=== PATIENT | male | born 1960 | race Caucasian/White ===

== ENCOUNTER → 2020-04-07 08:43 | Outpatient (BNVA) | payer OTHER, SELFPAY | PROVIDERS: PCP Internal Medicine; Referring Provider Internal Medicine; Visit Provider Nurse Practitioner | DX: Z76.89 Persons encountering health services in other specified circumstances (principal) ==

== ENCOUNTER 2020-09-02 06:08 | Outpatient (REF) | payer OTHER, SELFPAY ==
[2020-09-02 12:07] LABS: Alanine Aminotransferase 59 U/L (0-40); Anion Gap 13 (12-20); Aspartate Amino Transferase 31 U/L (5-37); Blood Urea Nitrogen 14 mg/dL (9-16); Calcium 8.9 mg/dL (8.4-10.2); Carbon Dioxide 27 mmol/L (22-29); Chloride 103 mmol/L (96-108); Cholesterol 203 mg/dL; Estimated Glomerular Filt Rate > 60; Glucose Fasting 135 mg/dL (60-99); HDL Cholesterol 36 mg/dL; LDL Cholesterol Calculated 120 mg/dl; Sodium 139 mmol/L (135-145); Triglycerides 237 mg/dL
[2020-09-02 12:16] LABS: Estimated Average Glucose 137 mg/dL; Hemoglobin A1c % 6.4 %
== END 2020-09-02 06:09 | disposition home or self-care (01) ==
LOC: HO.HMGCLDS 06:08
PROVIDERS: Visit Provider Internal Medicine
DX: E78.2 Mixed hyperlipidemia (principal); I10 Essential (primary) hypertension; R73.01 Impaired fasting glucose
CPT/HCPCS: 36415; 80048; 80061; 83036; 84450; 84460

== ENCOUNTER → 2020-10-05 08:25 | Outpatient (BNVA) | payer OTHER, SELFPAY | PROVIDERS: PCP Internal Medicine; Visit Provider Nurse Practitioner ==

== ENCOUNTER 2020-11-12 11:31 | Day surgery (SDC) | payer OTHER, SELFPAY ==
[2020-11-12 11:47] VITALS: BP 114/75; PULSE 62; RESP 16; TEMP 36.7; O2SAT 97; BMI 32.1
--- NOTE | 2020-11-12 12:23 | P.OP_ITS ---
Operative Note Operative Note Date of Service: 11/12/20 Narrative: Pre-op diagnosis: Colon cancer screening, history of colon polyps Post-op diagnosis: other (Colon polyps, diverticulosis, hemorrhoids) Procedure: COLONOSCOPY TILL CECUM WITH BIOPSIES AND SNARE POLYPECTOMY Consent: Indications for the procedure and potential complications of bleeding, perforation, reaction to medications and missed diagnosis were discussed with the patient and informed consent was obtained. Instrument: Olympus PCF H 190 L variable stiffness pediatric colonoscope Monitoring: Vital signs and clinical assessment, intermittent blood pressure monitoring, continuous EKG monitoring, Pulse oximetry and Carbon Dioxide monitoring were done throughout the procedure. Colon withdrawl time was 22 minutes. Procedure: The patient was placed in the left lateral decubitis position and pre-procedure medications were administered. After a digital rectal examination of the ano-rectum, the video colonoscope was inserted into the rectum and advanced through the colon to the cecum. The colonoscope was slowly withdrawn in a retrograde panoramic fashion and the colon mucosa was carefully examined including a retroflexed view of the rectum. Findings and interventions are described below. Procedure Difficulty: Without difficulty Findings: Terminal Ileum: Not evaluated Cecum: Three 8-10 mm sessile polyps removed with a hot snare Ascending Colon: Three sessile polyps 7-10 mm removed by cold snare and bx. Transverse Colon: Normal Descending Colon: Moderate diverticulosis Sigmoid Colon: Severe diverticulosis with luminal narrowing Rectum: Normal Ano-rectum: Moderate internal hemorrhoids and hypertrophied anal papillae Colon preparation: Good after copious irrigation Impression and Post Procedure Diagnosis: Colonoscopy Findings: Six medium sized polyps removed Moderate to severe diverticulosis seen in the left colon Moderate hemorrhoids on retroflexed exam. Plan: Await pathology results A letter will be sent to the patient with biopsy results. Repeat Colonoscopy interval based on path results - in 2-3 years if polyps are adenomatous and and due to history of multiple adenomatous colon polyps in the past. Above findings were reviewed with the patient and colon polyps and diverticulosis handouts were given in the discharge area Surgeon: Jennifer De Jesus MD Anesthesia: MAC (Jil Carcamo CRNA) Was an Radar Systems Engineer used for this Procedure?: Yes Radar Systems Engineer: Elizabeth Hernández Estimated blood loss (mL): 0 Pathology: other ( A. CECAL POLYPS B. ASCENDING COLON POLYPS) Condition: stable Disposition: PACU
--- NOTE | 2020-11-12 12:23 | P.HPSUR_ITS ---
Pre-Procedural Eval Section A Date of Service: 11/12/20 The patient is an INPATIENT: No The History & Physical has been completed within 30 days and I have reviewed it.: No Section B Chief Complaint: polyp of colon Details of Present Illness: Colon cancer screening, history of multiple colon polyps Relevant Family History (Specify if Yes): No Relevant Social History: Tobacco Use (former smoker) Present Medications: see Short Stay Collaborative assessment Medical History: Significant History (Elevated fasting blood sugar Hyper triglyceridemia) History of Previous Operations: Relevant previous surgery/procedure and date(s) (Hx of colonoscopy Hx of hemorrhoidectomy (10/07/19)) Allergies: Allergies Allergy/AdvReac Type Severity Reaction Status Date / Time No Known Allergies Allergy Unknown N/A- Verified 11/12/20 12:17 [NO KNOWN ALLERGIES] Review of Systems Sugical H&P ROS: Negative: Constitution, Cardiovascular, Respiratory and Gastrointestinal Exam Surgical H&P Exam: Normal: Heart, Normal: Lungs, Normal: Extremities and Normal: Abdomen Plan Diagnosis/Plan: Unchanged I have reviewed the history and physical and performed a pertinent physical examination on my patient. No changes have occurred unless specified.
[2020-11-12] MEDS: Lactated Ringers 1,000 ML 100 ML IVCONT (12:45)
[2020-11-12 14:21] VITALS: BP 113/60; PULSE 54; RESP 14; TEMP 37.7; O2SAT 98
[2020-11-12 14:36] VITALS: BP 113/60; PULSE 54; RESP 14; TEMP 36.3; O2SAT 98
== END 2020-11-12 15:07 | disposition home or self-care (01) ==
PROVIDERS: PCP Internal Medicine; Visit Provider Internal Medicine Gastroenterology
PROC: 0DJD8ZZ Inspection of Lower Intestinal Tract, Via Natural or Artificial Opening Endoscopic (ICD-10-PCS; CPT 45378; principal; 2020-11-12 13:10)
DX: Z12.11 Encounter for screening for malignant neoplasm of colon (principal); Z86.010 Personal history of colon polyps; D12.0 Benign neoplasm of cecum; D12.2 Benign neoplasm of ascending colon; K57.30 Diverticulosis of large intestine without perforation or abscess without bleeding; K64.8 Other hemorrhoids; K62.89 Other specified diseases of anus and rectum; E78.1 Pure hyperglyceridemia; R73.01 Impaired fasting glucose; Z87.891 Personal history of nicotine dependence
CPT/HCPCS: 45385; 45380; 88305

== ENCOUNTER 2020-12-20 06:02 | Outpatient (REF) | payer OTHER, SELFPAY ==
[2020-12-20 11:45] LABS: Anion Gap 13 (12-20); Blood Urea Nitrogen 15 mg/dL (9-16); Calcium 8.9 mg/dL (8.4-10.2); Carbon Dioxide 26 mmol/L (22-29); Chloride 107 mmol/L (96-108); Cholesterol 187 mg/dL; Estimated Glomerular Filt Rate > 60; Glucose Fasting 136 mg/dL (60-99); HDL Cholesterol 32 mg/dL; LDL Cholesterol Calculated 121 mg/dl; Potassium 4.2 mmol/L (3.3-5.1); Sodium 142 mmol/L (135-145); Triglycerides 170 mg/dL
[2020-12-20 11:54] LABS: Estimated Average Glucose 111 mg/dL; Hemoglobin A1c % 5.5 %
== END 2020-12-20 06:03 | disposition home or self-care (01) ==
LOC: HO.HMGCLDS 06:02
PROVIDERS: PCP Internal Medicine; Visit Provider Internal Medicine
DX: E78.1 Pure hyperglyceridemia (principal); R73.01 Impaired fasting glucose
CPT/HCPCS: 36415; 80048; 80061; 83036

== ENCOUNTER 2021-06-13 06:06 | Outpatient (REF) | payer OTHER, SELFPAY ==
[2021-06-13 11:53] LABS: Estimated Average Glucose 117 mg/dL; Hemoglobin A1C 152.1852 umol/L; Hemoglobin A1c % 5.7 %
[2021-06-13 12:13] LABS: Anion Gap 13 (12-20); Blood Urea Nitrogen 19 mg/dL (9-16); Calcium 9.1 mg/dL (8.4-10.2); Carbon Dioxide 25 mmol/L (22-29); Chloride 105 mmol/L (96-108); Cholesterol 187 mg/dL; Estimated Glomerular Filt Rate > 60; Glucose Fasting 112 mg/dL (60-99); HDL Cholesterol 37 mg/dL; LDL Cholesterol Calculated 121 mg/dl; Potassium 4.3 mmol/L (3.3-5.1); Sodium 139 mmol/L (135-145); Triglycerides 147 mg/dL
== END 2021-06-13 06:07 | disposition home or self-care (01) ==
LOC: HO.HMGCLDS 06:06
PROVIDERS: Visit Provider Internal Medicine
DX: E66.9 Obesity, unspecified (principal); E78.1 Pure hyperglyceridemia; R73.01 Impaired fasting glucose
CPT/HCPCS: 36415; 80048; 80061; 83036

== ENCOUNTER 2021-08-11 09:10 | Outpatient (REF) | payer OTHER, SELFPAY ==
--- NOTE | ~2021-08-11 | XR_ITS ---
EXAMINATION: XR CHEST 2 VIEWS CLINICAL INFORMATION: Shortness of breath. COMPARISON: Left shoulder radiographs dated 06/01/2008. TECHNIQUE: Frontal and lateral views of the chest were obtained. FINDINGS: The heart, great vessels, pulmonary vasculature and mediastinum are normal. The lungs show no focal infiltrate, effusion or pneumothorax. At the left apex, an 8 mm nodule is seen. This is unchanged from left shoulder radiographs dated 06/01/2008, and it is considered benign. There is no acute osseous abnormality. XR/XR chest 2V IMPRESSION: 1. No focal infiltrate or congestive heart failure is seen. 2. A benign, stable left upper lobe nodule is redemonstrated.
== END 2021-08-11 09:11 | disposition home or self-care (01) ==
LOC: HO.XRAY 09:10
PROVIDERS: PCP Internal Medicine; Referring Provider Internal Medicine; Visit Provider Internal Medicine
DX: R06.02 Shortness of breath (principal); R07.2 Precordial pain; R00.0 Tachycardia, unspecified; R06.09 Other forms of dyspnea; U09.9 Post COVID-19 condition, unspecified
CPT/HCPCS: 71046; 93005

== ENCOUNTER → 2021-10-03 09:20 | Outpatient (REF) | payer OTHER, SELFPAY ==
--- NOTE | 2021-10-03 09:23 | CA_ITS ---
Acquisition Time: 2021-10-03 10:02:29 Total Exercise Time: 00:08:20 Test Indications: CP, SOB Medications: SEE CHART Protocol: RODERICK Max HR: 137 BPM 86% of Pred: 159 BPM Max BP: 182/074 mmHG Max Work Load: 10.1 METS Exercise stress test with exercise 8 min 20 sec of Roderick protocol, achieving 86% MPHR, with moderate shortness of breath, no chest discomfort, with occassional isolated PAC and PVC each of which correlated with his report of fluttering in his chest, with normotensive response to exercise, without EKG changes meeting criteria for ischemia. In recovery his breathing quickly improved. Test reviewed with Dr Willams Referred By: Ramy Willams Overread By: LAILA YEE
--- NOTE | 2021-10-03 09:23 | HM_ITS ---
* Total monitoring time 2 days and 21 hours. * Underlying rhythm is sinus. Average rate 70/Min. Range 42 to 125/Min. * No atrial fibrillation or flutter or AV blocks or pauses. * Rare supraventricular ectopy with minimal burden. Very brief runs. * Rare ventricular ectopy. * No patient events. MTDD
--- NOTE | 2021-10-03 09:23 | CA_ITS ---
Transthoracic Echocardiogram Patient (Last, First, Middle): Jaya Hancock, Gender: Male Date of : 1960 Age: 61 Procedure Date: 10/03/2021 Procedure Type: Transthoracic Echocardiogram Location: OP Height: 180.34 cm Weight: 105.24 kg BSA: 2.25 m2 Heart Rate: bpm BP: 122 / 50 mmHg Supervisor Rod Placing: SB Referring MD: Ramy Willams MD Symptoms: R06.02 - Shortness of breath Study Quality: Adequate ECG Rhythm: Bradycardia Conclusions: - The left ventricular systolic function is normal. The calculated ejection fraction is 66% by biplane method. - There is mild calcification of the aortic valve. Findings Left Ventricle Normal left ventricular cavity size. There is normal left ventricular wall thickness. The left ventricular systolic function is normal. The calculated ejection fraction is 66% by biplane method. There is no evidence of regional wall motion abnormalities. Diastolic function is normal for age. LV peak GLS -16%. Right Ventricle Normal right ventricular cavity size and systolic function. Atria Both atria are normal in size. Aortic Valve There is mild calcification of the aortic valve. There is no aortic valve stenosis. There is no aortic valve regurgitation. Mitral Valve The mitral valve appears normal. There is no mitral valve regurgitation. There is no mitral valve stenosis. Pulmonic Valve The pulmonic valve is likely normal. Tricuspid Valve Normal tricuspid valve structure. There is trace tricuspid valve regurgitation. The pulmonary artery systolic pressure is normal. Great Vessels The asc aorta is normal in size. Venous The inferior vena cava was not well visualized. Pericardium/Pleural There is no evidence of pericardial effusion. Prior Study Comparison No prior study available for comparison. Measurements 2D Linear Measurements IVSd: 0.75 0.6-0.9/0.6-1.0 cm LVIDd: 5.36 3.9-5.3/4.2-5.9 cm LVIDd Index: 2.38 2.4-3.2/2.2-3.1 cm/m2 LVIDs: 3.91 2.0-3.6 cm LVPWd: 0.82 0.7-1.1 cm LA Diam: 4.10 2.7-3.8/3.0-4.0 cm LAIDs Index: 1.82 1.5-2.3 cm/m2 LV Mass: 186.12 67-162/88-224 g LV Mass Index: 82.72 43-95/49-115 g/m2 LVOT Diam: 2.40 3.0+(-)1.3 cm 2D Systolic Function EF 4C: 63.20 >55% EF 2C: 66.80 >55% EF BiP: 65.90 >55% Mitral Valve MV Pk E: 0.65 MV PK A: 0.50 MV Decel Time: 198.00 E/A: 1.30 E'Lateral: 8.05 E'Medial: 5.87 E/E' Med: 11.00 E/E' Lat: 8.00 PHT: 58.00 MVA PHT: 3.79 Decel [place]: 3.28 Aortic Valve AoV Pk Barak: 1.48 AoV Mn Barak: 0.98 AoV VTI: 0.29 AoV Pk Grad: 9.00 Aov Mn Grad: 4.00 [place] Cont.VTI: 3.17 LVOT LVOT Pk Barak: 0.96 LVOT Mn Barak: 0.62 LVOT VTI: 0.20 LVOT Pk Grad: 4.00 LVOT Mn Grad: 2.00 LVOT Diam: 2.40 LVOT Area: 4.52 Diastolic Function MV Pk E: 0.65 MV Pk A: 0.50 E/A: 1.30 E'Medial: 5.87 E/E' Med: 11.00 E' Laterial: 8.05 E/E' Lat: 8.00 Right Ventricle TAPSE (mm): 20.90 TVS' Barak: 14.70 Tricuspid Valve TR Pk Barak: 2.19 TR Pk Grad: 19.00 Great Vessels Aorta Sinus of Valsalva: 3.67 2.0-3.[address] [place]: 3.14 1.7-3.4 cm Ao Asc: 3.50 2.1-3.4 cm Pulmonary Veins Pulm Vein S/D 1.40 Pulmonary Valve PV Pk Barak: 1.05 Peak PV Grad: 4.00 Updated in Other Vendor System with Status of Final Ramy Willams MD electronically signed on 10/04/2021 3:54:26 PM with status of Final
== END ==
LOC: HO.CARD 09:20
PROVIDERS: PCP Internal Medicine; Visit Provider Internal Medicine
DX: R07.2 Precordial pain (principal); R00.2 Palpitations; R06.02 Shortness of breath; R00.0 Tachycardia, unspecified
CPT/HCPCS: 93017; 93242; 93306; 93356

== ENCOUNTER → 2021-10-12 12:56 | Outpatient (BNVA) | payer OTHER, SELFPAY | PROVIDERS: PCP Internal Medicine; Referring Provider Internal Medicine; Visit Provider Nurse Practitioner Family | DX: R06.09 Other forms of dyspnea (principal) ==

== ENCOUNTER 2021-10-24 15:44 | Outpatient (REF) | payer OTHER, SELFPAY | END 2021-10-24 15:45 | disposition home or self-care (01) | LOC: HO.LNP 15:44 | PROVIDERS: Visit Provider Physician Assistant | DX: J02.9 Acute pharyngitis, unspecified (principal) | CPT/HCPCS: 87071 ==

== ENCOUNTER 2021-12-02 15:47 | Outpatient (REF) | payer OTHER, SELFPAY ==
--- NOTE | 2021-12-02 17:16 | PFT_ITS ---
Forced vital capacity 81%, FEV1 83%. FEV1 or FVC ratio is 77. FEF 25-75 is 91%. MVV 76%. Post-bronchodilator therapy, no significant change noted. Total lung capacity 79%. Residual volume 78%. Diffusion capacity 74%. CONCLUSION: Normal pulmonary function test except for possible borderline restrictive disorder. Clinical correlation is recommended. MD SERJIO Lima/LEOL / [id number]
== END 2021-12-02 15:48 | disposition home or self-care (01) ==
LOC: HO.RESP 15:47
PROVIDERS: PCP Internal Medicine; Visit Provider Nurse Practitioner Family
DX: R06.09 Other forms of dyspnea (principal); U09.9 Post COVID-19 condition, unspecified
CPT/HCPCS: 94060; 94727; 94729

== ENCOUNTER 2022-01-18 08:46 | Outpatient (REF) | payer OTHER, SELFPAY ==
--- NOTE | ~2022-01-18 | CT_ITS ---
EXAMINATION: CT CHEST WITHOUT CONTRAST CLINICAL INFORMATION: Chronic restrictive lung disease COMPARISON: Previous chest x-ray July 2021 TECHNIQUE: Multidetector volumetric CT imaging of the chest was done. Axial MIP volume rendering provided. Sagittal and coronal reformatted images were obtained. This CT examination was performed using dose optimization techniques as appropriate, variously including the following: *Automated exposure control *Adjustment of mA and/or kV according to patient size (this includes techniques or standardized protocols for targeted exams where dose is matched to indication/reason for exam; i.e. extremities or head) *Use of iterative reconstruction technique DLP: 237 mGy-cm FINDINGS: LUNGS: There is a 2 mm calcified right upper lobe nodule axial image 40 series 10. There is a 9 mm calcified left upper lobe nodule axial image 46 series 10 accounting for findings on chest x-ray. There is an adjacent 2 mm calcified left upper lobe nodule axial image 46 series 10. There is a 4 mm calcified left lower lobe nodule axial image 145 series 10. No evidence of emphysema interstitial lung disease or bronchiectasis. No endobronchial or endotracheal lesion. MEDIASTINUM: Normal heart size. Mild coronary artery calcification. No pericardial effusion. Normal caliber thoracic aorta. Small calcified left hilar lymph nodes. Small noncalcified mediastinal lymph nodes. No enlarged lymph nodes seen. PLEURA: There is no pleural effusion. No pleural mass or thickening. AXILLA: No chest wall mass. No enlarged axillary lymph nodes. UPPER ABDOMEN: Fatty liver. Diverticulosis of the colon. OSSEOUS STRUCTURES: Unremarkable. CT/CT chest wo IV con IMPRESSION: Bilateral calcified nodules and left hilar calcifications probably related to old granulomatous disease. No evidence of interstitial lung disease. Coronary artery calcification. Fleischner guidelines were followed.
== END 2022-01-18 08:47 | disposition home or self-care (01) ==
LOC: HO.CT 08:46
PROVIDERS: PCP Internal Medicine; Visit Provider Hospitalist
DX: J98.4 Other disorders of lung (principal); R06.02 Shortness of breath
CPT/HCPCS: 71250

== ENCOUNTER 2022-02-28 16:13 | Outpatient (REF) | payer OTHER, SELFPAY ==
[2022-02-28 16:30] LABS: MANUAL DIFF FLAG NO
[2022-02-28 17:21] LABS: Basophils Absolute Auto 0.1 X10*3/uL (0.0-0.2); Basophils Percent Auto 0.7 % (0-2); Eosinophils Absolute Auto 0.2 X10*3/uL (0.0-0.4); Eosinophils Percent Auto 2.5 % (0-4); Hematocrit 39.5 % (42.0-52.0); Imm Gran Abs Auto 0.04 X10*3/uL (0.00-0.03); Imm Gran Pct Auto 0.5 % (0.0-0.4); Lymphocytes Absolute Auto 4.3 X10*3/uL (1.2-4.9); Lymphocytes Percent Auto 58.1 % (20-40); Mean Corpuscular HGB Conc 35.4 g/dl (31.0-36.0); Mean Corpuscular Hemoglobin 33.3 pg (27.0-33.0); Mean Platelet Volume 10.2 fL (9.4-12.4); Monocytes Absolute Auto 0.4 X10*3/uL (0.1-1.2); Monocytes Percent Auto 5.1 % (2-11); Neutrophils Absolute Auto 2.5 x10*3/uL (2.0-8.3); Neutrophils Percent Auto 33.1 % (45-73); Platelet Count 172 X10*3/uL (160-400); Red Cell Distribution Width 13.1 % (11.0-16.0); White Blood Count 7.5 X10*3/uL (4.8-10.8)
[2022-02-28 17:36] LABS: Anion Gap 14 (12-20); Blood Urea Nitrogen 16 mg/dL (9-16); Calcium 9.3 mg/dL (8.4-10.2); Carbon Dioxide 25 mmol/L (22-29); Chloride 104 mmol/L (96-108); Estimated Glomerular Filt Rate > 60; Glucose Random 102 mg/dL (60-115); Iron 102 mcg/dL (45-160); Percent Iron Saturation 33 % (15-50); Potassium 4.1 mmol/L (3.3-5.1); Sodium 139 mmol/L (135-145); Total Iron Binding Capacity 313 mcg/dL (228-428); Unsaturated Iron Binding 211 ug/dL
[2022-02-28 17:37] LABS: D Dimer High Sensitivity < 150 NG/ML
[2022-02-28 17:45] LABS: Troponin-I High Sensitivity < 3.5 ng/L (<3.5-35.0)
[2022-02-28 18:02] LABS: Ferritin 478 ng/mL (20-250); Thyroid Stimulating Hormone 1.51 uIU/mL (0.32-4.0)
[2022-02-28 18:18] LABS: Erythrocyte Sedimentation Rate 7 MM/HR (0-15)
== END 2022-02-28 16:14 | disposition home or self-care (01) ==
LOC: HO.LAB 16:13
PROVIDERS: Visit Provider Hospitalist
DX: Z13.89 Encounter for screening for other disorder (principal)
CPT/HCPCS: 36415; 80048; 82728; 83540; 84443; 84484; 85025; 85379; 85652

== ENCOUNTER 2022-03-07 12:27 | Outpatient (REF) | payer OTHER, SELFPAY ==
--- NOTE | ~2022-03-07 | XR_ITS ---
EXAMINATION: XR KNEE, RIGHT CLINICAL INFORMATION: Right knee pain COMPARISON: 05/22/2018 TECHNIQUE: Four views of the right knee. FINDINGS: No fracture or subluxation. There is moderate narrowing of the patellofemoral compartment joint space, similar to prior imaging. Small associated marginal osteophytes. The medial and lateral compartments are maintained. No joint effusion. The soft tissues are unremarkable. XR/XR knee RT 4V IMPRESSION: Moderate degenerative changes of the patellofemoral compartment, similar to prior imaging. No acute osseous abnormality.
== END 2022-03-07 12:28 | disposition home or self-care (01) ==
LOC: HO.HMGCX 12:27
PROVIDERS: PCP Internal Medicine; Visit Provider Internal Medicine
DX: M25.561 Pain in right knee (principal)
CPT/HCPCS: 73564

== ENCOUNTER 2022-03-20 11:37 | Outpatient (REF) | payer OTHER, SELFPAY ==
--- NOTE | ~2022-03-20 | XR_ITS ---
EXAMINATION: KNEE X-RAY CLINICAL INFORMATION: Pain COMPARISON: Previous x-ray from 2019 TECHNIQUE: AP standing view of both knees and lateral and sunrise view of the right knee FINDINGS: Right: Bone alignment is normal. No fracture or dislocation. Arthritis at the patellofemoral joint. Moderate to large joint effusion. Standing AP view of the left knee is unremarkable. XR/XR knee RT 2V IMPRESSION: Right: Arthritis at the patellofemoral joint and moderate to large joint effusion.
--- NOTE | ~2022-03-20 | XR_ITS ---
EXAMINATION: KNEE X-RAY CLINICAL INFORMATION: Pain COMPARISON: Previous x-ray from 2019 TECHNIQUE: AP standing view of both knees and lateral and sunrise view of the right knee FINDINGS: Right: Bone alignment is normal. No fracture or dislocation. Arthritis at the patellofemoral joint. Moderate to large joint effusion. Standing AP view of the left knee is unremarkable. XR/XR knee standing BI IMPRESSION: Right: Arthritis at the patellofemoral joint and moderate to large joint effusion.
== END 2022-03-20 11:38 | disposition home or self-care (01) ==
LOC: HO.HOSX 11:37
PROVIDERS: Visit Provider Orthopaedic Surgery
DX: M25.561 Pain in right knee (principal); M17.11 Unilateral primary osteoarthritis, right knee
CPT/HCPCS: 20610; 73560; 73565; J1100

== ENCOUNTER → 2022-03-21 13:52 | Outpatient (REF) | payer OTHER, SELFPAY | LOC: HO.SL 13:52 | PROVIDERS: PCP Internal Medicine; Visit Provider Hospitalist | DX: G47.33 Obstructive sleep apnea (adult) (pediatric) (principal); R40.0 Somnolence | CPT/HCPCS: 95806 ==

== ENCOUNTER 2022-04-20 15:00 | Outpatient (RCR) | payer OTHER, SELFPAY ==
--- NOTE | 2022-03-23 15:41 | MHC.PT.EP ---
[facility] [place] Office [place] Office [place] Office [address] [place] [address] [phone] F: [phone] F: [phone] F: [phone] F: [phone] Physical Therapy Plan of Care Date of Evaluation: Date of Surgery: n/a Diagnosis: OA of R knee Assessment: Patient is a 62 year old male presenting to PT with complaints of pain in his R knee. Pt reports onset of pain began about 6 weeks ago due to insidious onset. He presents today with impairments in pain, ROM, hip strength, and muscle tightness. 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 Pt expresses intermediate designer goal of reducing pain, and is motivated to work towards this in PT. Clinical presentation today is most consistent with signs and sx associated with R knee pain with possible arthritic contribution and pt will benefit from skilled PT to address the following problems and impairments noted upon evaluation: pain, ROM, hip strength, and muscle tightness. These problems limit the patient with the following functional activities: ambulating, stair negotiation, ADLs, work. The prescribed treatment plan of care is medically necessary. Co-morbidities of none were identified and taken into considerations of plan of care. Pt was educated on HEP, role of PT, prognosis, POC. Frequency and Duration: The patient will be seen 2 x week x 4 weeks Short Term Goals: Pt will demonstrate improved hip MMT by 1/3 grade in 2 weeks for improved lumbopelvic stability. Pt will demonstrate R knee AROM equal B with min to no pain in 2 weeks. Pt will demonstrate self reports of less tightness in his muscles surrounding his R knee in 2 weeks. Medical Coordinator Pesticide Use Goals: Pt will demonstrate improved LEFI score by 9 points in 4 weeks for improved functional mobility. Pt will demonstrate ability to negotiate stairs and ambulate community distance with min to no pain in 4 weeks for improved access to the community. Pt will demonstrate improved ability to complete ADLs with min to no pain in 4 weeks for return to PLOF. Treatment Plan: Modalities to reduce pain, spasms and effusion. Manual therapy to restore motion and function. Therapeutic exercise to improve strength and flexibility. Neuromuscular re-education for posture and balance. Therapeutic activities to return to functional activities of daily living. Electronically signed by: Chloé Sorto PT, DPT, ATC Please sign and return to therapist. Thank you for your referral.
--- NOTE | 2022-04-20 15:55 | MHC.PT.DC ---
[facility] [place] Office [place] Office [place] Office [address] [place] [address] [phone] F: [phone] F: [phone] F: [phone] F: [phone] Physical Therapy Discharge Report Diagnosis: OA of R knee Date of Surgery: n/a Date of Evaluation: 03/23/22 Date of Discharge: 04/20/22 Treatments to Date: 8 Cancellations to Date: 0 No Shows to Date: 0 Discharge Status: Recommend MD Follow-up Discharge Summary: 04/20/2022: Pt has made minimal to no progress since beginning skilled PT. He continues to have high pain levels and low tolerance to exercise as a result. Gait continues to be quite antalgic due to the continued pain on the R. This is preventing him from meeting his goals and being able to tolerate his normal functional ADL and work requirements. Various treatment interventions have been trialed all without success. At this point it appears we have reached the max benefits of PT. Skilled PT is no longer indicated at this time as pt is not benefiting from it. Recommend pt follow up with MD for further management of his pain. Pt in agreement with d/c and plan. Electronically signed by: Chloé Sorto, PT, DPT, ATC Please sign and return to therapist. Thank you for your referral.
== END 2022-04-20 15:55 | disposition home or self-care (01) ==
LOC: HO.PTCHIC 15:00
PROVIDERS: PCP Internal Medicine; Visit Provider Orthopaedic Surgery
DX: M17.11 Unilateral primary osteoarthritis, right knee (principal)
CPT/HCPCS: 97110; 97140; 97161

== ENCOUNTER → 2022-05-08 15:18 | Outpatient (BNVA) | payer OTHER, SELFPAY | PROVIDERS: PCP Internal Medicine; Visit Provider Hospitalist | DX: J44.9 Chronic obstructive pulmonary disease, unspecified (principal); R06.00 Dyspnea, unspecified; J98.4 Other disorders of lung; R07.2 Precordial pain; R40.0 Somnolence ==

== ENCOUNTER 2022-05-11 09:18 | Outpatient (REF) | payer OTHER, SELFPAY ==
--- NOTE | ~2022-05-11 | XR_ITS ---
EXAMINATION: XR PELVIS CLINICAL INFORMATION: M25.559 - Pain in unspecified hip COMPARISON: CT pelvis 08/26/2018 TECHNIQUE: AP view of the pelvis. FINDINGS: No fracture, dislocation, or bony destructive process. There are mild degenerative changes lower lumbar spine with disc narrowing L5-S1 and likely at L4-L5. Some mild chronic whiskering at the lateral iliac crests again seen. There is mild osteitis pubis. There is borderline superior medial hip joint narrowing. No erosive change or chondrocalcinosis. 2 surgical clips seen overlying left parasagittal region just distal to the ischial tuberosity possibly and perineum. XR/XR pelvis 1-2V IMPRESSION: 1. Mild degenerative changes lower lumbar spine. 2. Mild osteitis pubis. 3. Borderline superior medial hip joint narrowing. No erosive change.
== END 2022-05-11 09:19 | disposition home or self-care (01) ==
LOC: HO.HOSX 09:18
PROVIDERS: PCP Internal Medicine; Visit Provider Orthopaedic Surgery
DX: M17.11 Unilateral primary osteoarthritis, right knee (principal); R20.0 Anesthesia of skin
CPT/HCPCS: 72170

== ENCOUNTER 2022-05-18 14:56 | Outpatient (REF) | payer OTHER, SELFPAY ==
--- NOTE | ~2022-05-18 | MR_ITS ---
EXAMINATION: MR LUMBAR SPINE WITHOUT CONTRAST CLINICAL INFORMATION: Anesthesia of skin. The patient states leg weakness, pain and numbness on the right. COMPARISON: CT scan of the abdomen and pelvis 08/26/2018. TECHNIQUE: MRI of the lumbar spine was obtained using routine sequences without contrast. FINDINGS: VERTEBRAL BODIES AND PARASPINAL STRUCTURES: There is a mild retrolisthesis of L5 on S1, and there is a mild anterolisthesis of L4 on L5. There is narrowing of intervertebral disc height at L5-S1 with loss of signal from the disc. There are degenerative endplate contour changes at this level with edematous endplate signal. Vertebral body heights are maintained and no fractures are demonstrated. Overall, marrow signal is homogenous. The infrarenal abdominal aorta is slightly ectatic but not aneurysmal. There are degenerative changes of the bilateral sacroiliac joints. CONUS MEDULLARIS AND CAUDA EQUINA: Normal, terminating at the level of L1-L2. The lower thoracic spinal cord appears normal. The cauda equina nerve roots and filum terminale appear normal. SPINAL LEVELS: T12-L1: The facet joints appear normal bilaterally. Disc contour is normal. There is no central stenosis or foraminal narrowing. L1-L2: The facet joints appear normal bilaterally. Disc contour is normal. There is no central stenosis or foraminal narrowing. L2-L3: The facet joints appear normal bilaterally. Disc contour is normal. There is no central stenosis or foraminal narrowing. L3-L4: There is mild bilateral facet arthropathy and ligamenta flava hypertrophy. There is a mild diffuse disc bulge. There is a left foraminal disc protrusion with impingement on the exiting left L3 nerve root. There is no central stenosis. L4-L5: There is severe right and moderate to severe left facet arthropathy with ligamenta flava hypertrophy and facet joint effusions. There is mild unroofing of the disc as a result of the anterolisthesis. There is a left foraminal disc protrusion impinging on the exiting left L4 nerve root. There is narrowing of the bilateral subarticular recesses and there is moderate central stenosis. L5-S1: There is moderate bilateral facet arthropathy. There is a posterior disc protrusion extending into the inferior neural foramina bilaterally without definite exiting nerve root impingement. There is a small extruded component extending into the left subarticular recess with impingement on the traversing left S1 nerve root. There is no central stenosis. MR/MR lumbar spine wo con IMPRESSION: 1. There is a mild anterolisthesis of L4 on L5 secondary to facet arthropathy. There is a left foraminal disc protrusion impinging on the exiting left L4 nerve root. There is moderate central stenosis. 2. At L5-S1 there is a posterior disc protrusion with a small extruded component extending into the left subarticular recess with impingement on the traversing left S1 nerve root. There is no central stenosis. 3. At L3-L4 there is facet arthropathy and there is a left foraminal disc protrusion impinging on the exiting left L3 nerve root. There is no central stenosis.
== END 2022-05-18 14:57 | disposition home or self-care (01) ==
LOC: HO.MRI 14:56
PROVIDERS: Visit Provider Orthopaedic Surgery
DX: R20.0 Anesthesia of skin (principal)
CPT/HCPCS: 72148

== ENCOUNTER → 2022-07-05 08:50 | Outpatient (BNVA) | payer OTHER, SELFPAY | PROVIDERS: PCP Internal Medicine; Visit Provider Anesthesiology | DX: Z13.89 Encounter for screening for other disorder (principal) ==

== ENCOUNTER 2022-07-17 06:10 | Outpatient (REF) | payer OTHER, SELFPAY ==
[2022-07-17 12:42] LABS: Estimated Average Glucose 140 mg/dL; Hemoglobin A1c % 6.5 %
[2022-07-17 12:48] LABS: Alanine Aminotransferase 94 U/L (0-40); Anion Gap 11 (12-20); Aspartate Amino Transferase 58 U/L (5-37); Blood Urea Nitrogen 15 mg/dL (9-16); Calcium 9.1 mg/dL (8.4-10.2); Carbon Dioxide 27 mmol/L (22-29); Chloride 106 mmol/L (96-108); Cholesterol 206 mg/dL; Estimated Glomerular Filt Rate > 60; Glucose Fasting 161 mg/dL (60-99); HDL Cholesterol 34 mg/dL; LDL Cholesterol Calculated 119 mg/dl; PSA,Total (Free>4and<10) 0.25 ng/mL (0.00-4.00); Potassium 4.3 mmol/L (3.3-5.1); Sodium 140 mmol/L (135-145); Triglycerides 266 mg/dL; Vitamin D 25-OH Total 26.7 ng/mL (>30)
== END 2022-07-17 06:11 | disposition home or self-care (01) ==
LOC: HO.HMGCLDS 06:10
PROVIDERS: PCP Internal Medicine; Visit Provider Internal Medicine
DX: Z00.01 Encounter for general adult medical examination with abnormal findings (principal); E78.1 Pure hyperglyceridemia; R73.01 Impaired fasting glucose; E66.9 Obesity, unspecified; R06.02 Shortness of breath; Z12.5 Encounter for screening for malignant neoplasm of prostate; Z79.899 Other long term (current) drug therapy; Z79.84 Long term (current) use of oral hypoglycemic drugs
CPT/HCPCS: 36415; 80048; 80061; 82306; 83036; 84153; 84450; 84460

== ENCOUNTER 2022-07-21 09:45 | Outpatient (AMB) | payer OTHER, SELFPAY ==
--- NOTE | 2022-07-21 10:00 | A.OFFPC_ITS ---
Vital Signs 07/21/22 10:03 Height 5 ft 11 in Weight 242 lb BMI 33.7 BP 134/70 Blood Pressure Location Rt brachial Position Sitting Pulse 80 Pulse Source Pulse Oximeter Pulse Oximetry (%) 98 Oxygen Delivery Method Room Air Intake Visit Reasons: Physical Intake Note: Pt is here today for his PE Allergies No Known Allergies (NO KNOWN ALLERGIES) Allergy (Unknown, Verified 03/10/25 14:10) N/A- Tobacco use date assessed: 07/21/22 [facility] Medical History (Updated 03/15/25 @ 23:29 by Ronna Patton MD) Type 2 diabetes mellitus with microalbuminuria Personal history of nicotine dependence Osteopenia of multiple sites Hepatic steatosis Pain in both feet Long-term use of Plaquenil Erosive osteoarthritis Bulging of lumbar intervertebral disc Chronic radicular lumbar pain Polyarticular osteoarthritis Metformin adverse reaction Polyarthralgia Neck pain Bilateral finger arthralgia Post-COVID chronic dyspnea Colitis Chronic tension headaches Peripheral neuropathy Pulmonary nodules Sessile colonic polyp (~2018) Tinnitus of both ears Mixed dyslipidemia Type 2 diabetes mellitus without complication, with no history of insulin use STUART (obstructive sleep apnea) Chronic restrictive lung disease Shortness of breath on exertion Obesity (BMI 30.0-34.9) Tubular adenoma of colon (~2018) Surgical History History of hernia repair History of hemorrhoidectomy History of colonoscopy Family History Father No problems noted. Mother No problems noted. 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 Current occupational exposures/hazards: No Cognitive needs: No Hearing needs: No Vision needs: No Questionnaire Thrive Questionnaire Declines Thrive assessment: No Date Thrive assessed: 07/21/22 I am a: Patient What is your living situation today?: I have a steady place to live Within the past 12 months, did the food you bought not last and you didn't have the money to get more?: Never true Within the past 12 months, did you worry whether your food would run out before you got money to buy more?: Never true Do you have trouble paying for medicines?: No Do you have trouble getting transportation to medical appointments?: No Do you have trouble paying your heating and electricity bill?: No Do you have trouble taking care of your child, family member or friend?: No Do you have trouble with day-to-day activities such as bathing, preparing meals, shopping, managing finances, etc.?: No Are you currently unemployed and looking for a job?: No Are you interested in more education?: No AUDIT C Alcohol Use Questionnaire (AUDIT-C) 1. How often do you have a drink containing alcohol?: Never Total Score: 0 RAIZA-7 AMB Questionnaire RAIZA-7 Date RAIZA - 7 assessed: 07/21/22 Feeling nervous, anxious, or on edge: 0 = Not at all Not being able to stop or control worryin = Several days Worrying too much about different things: 1 = Several days Trouble relaxin = More than half the days Being so restless that it is hard to sit still: 1 = Several days Becoming easily annoyed or irritable: 2 = More than half the days Feeling afraid as if something awful might happen: 1 = Several days Total RAIZA-7 score (0-4 normal; 5-9 mild; 10-14 moderate; 15-21 severe): 8 Source: Developed by Drs. Wes Stock, Marleni Montague, Joselito Reeves and colleagues, with an educational ade from [email or web address]. Physical exam (Primary Care) Vital Signs: Last Vital Signs Pulse 80 07/21/22 10:03 BP 134/70 07/21/22 10:03 Pulse Ox 98 07/21/22 10:03 Oxygen Delivery Method Room Air 07/21/22 10:03 BMI result Body Mass Index 33.7 Tobacco/Smoking Status: Tobacco use Status Tobacco use date assessed 07/21/22 07/21/22 10:05 Patient Tobacco Use Status Former Tobacco user 07/21/22 10:02 e-Cigarette/Vaping Use Never Used 07/21/22 10:02 Thrive Assessment: Date of Thrive Assessment Date Thrive assessed 07/21/22 07/21/22 10:10 Coding Level of Care Code Admin Sign Off/No Billing Diagnoses Type 2 diabetes mellitus without complication, with no history of insulin use E11.9 Mixed dyslipidemia E78.2 Annual visit for general adult medical examination with abnormal findings Z00.01 Chronic pain syndrome G89.4 Obesity (BMI 30.0-34.9) E66.9 Tubular adenoma of colon D12.6
[2022-07-21 10:03] VITALS: BP 134/70; PULSE 80; O2SAT 98; BMI 33.7
== END 2022-07-21 11:03 | disposition home or self-care (01) ==
LOC: HO.HMGC 09:45
PROVIDERS: PCP Internal Medicine; Visit Provider Internal Medicine
DX: E11.9 Type 2 diabetes mellitus without complications (principal); E78.2 Mixed hyperlipidemia; Z00.01 Encounter for general adult medical examination with abnormal findings; G89.4 Chronic pain syndrome; E66.9 Obesity, unspecified; D12.6 Benign neoplasm of colon, unspecified
CPT/HCPCS: 99499

== ENCOUNTER 2022-08-01 06:14 | Outpatient (REF) | payer OTHER, SELFPAY | END 2022-08-01 06:15 | disposition home or self-care (01) | LOC: CF 06:14 | PROVIDERS: Visit Provider Anesthesiology | DX: Z13.89 Encounter for screening for other disorder (principal) ==

== ENCOUNTER 2022-08-29 05:54 | Outpatient (REF) | payer OTHER, SELFPAY ==
--- NOTE | ~2022-08-29 | FL_ITS ---
EXAMINATION: XR FLUOROSCOPY WITH IMAGES CLINICAL INFORMATION: Right knee pain. COMPARISON: 03/20/2022 TECHNIQUE: Fluoroscopy Supervised By: Dr. Bill May. Fluoroscopy Time: 0.1 minute. Cumulative Dose: 1.53 mGy. DAP: 0.417 Gycm2. Images: 2. FINDINGS: Rowe are seen about the medial and lateral aspects of the distal femur and medial aspect of the proximal tibia. FL/FL guidance in treatment room IMPRESSION: Intraoperative fluoroscopy for pain management procedure.
== END 2022-08-29 05:55 | disposition home or self-care (01) ==
LOC: CF 05:54
PROVIDERS: Visit Provider Anesthesiology
DX: M47.816 Spondylosis without myelopathy or radiculopathy, lumbar region (principal); M17.11 Unilateral primary osteoarthritis, right knee; M51.36 Other intervertebral disc degeneration, lumbar region
CPT/HCPCS: 64454; J2795

== ENCOUNTER → 2022-09-06 09:32 | Outpatient (BNVA) | payer OTHER, SELFPAY | PROVIDERS: PCP Internal Medicine; Visit Provider Anesthesiology | DX: Z13.89 Encounter for screening for other disorder (principal) ==

== ENCOUNTER → 2022-09-22 12:45 | Outpatient (BNVA) | payer OTHER, SELFPAY | PROVIDERS: PCP Internal Medicine; Visit Provider Hospitalist | DX: J44.9 Chronic obstructive pulmonary disease, unspecified (principal); R06.00 Dyspnea, unspecified; J98.4 Other disorders of lung; R07.2 Precordial pain; R40.0 Somnolence ==

== ENCOUNTER 2022-10-10 06:00 | Outpatient (REF) | payer OTHER, SELFPAY | END 2022-10-10 06:01 | disposition home or self-care (01) | LOC: CF 06:00 | PROVIDERS: Visit Provider Anesthesiology | DX: M17.11 Unilateral primary osteoarthritis, right knee (principal); M47.816 Spondylosis without myelopathy or radiculopathy, lumbar region; M51.36 Other intervertebral disc degeneration, lumbar region | CPT/HCPCS: 64447 ==

== ENCOUNTER 2022-10-10 06:01 | Outpatient (REF) | payer OTHER, SELFPAY ==
[2022-10-10 12:14] LABS: Estimated Average Glucose 114 mg/dL; Hemoglobin A1c % 5.6 %
[2022-10-10 12:18] LABS: Microalbumin Urine < 5.0 mg/L
[2022-10-10 12:21] LABS: Alanine Aminotransferase 38 U/L (0-40); Anion Gap 13 (12-20); Aspartate Amino Transferase 22 U/L (5-37); Blood Urea Nitrogen 15 mg/dL (9-16); Carbon Dioxide 24 mmol/L (22-29); Chloride 106 mmol/L (96-108); Cholesterol 153 mg/dL; Estimated Glomerular Filt Rate > 60; Glucose Fasting 137 mg/dL (60-99); HDL Cholesterol 36 mg/dL; LDL Cholesterol Calculated 80 mg/dl; Potassium 4.2 mmol/L (3.3-5.1); Sodium 139 mmol/L (135-145); Triglycerides 185 mg/dL
== END 2022-10-10 06:02 | disposition home or self-care (01) ==
LOC: HO.HMGCLDS 06:01
PROVIDERS: PCP Internal Medicine; Visit Provider Internal Medicine
DX: E11.9 Type 2 diabetes mellitus without complications (principal); E78.2 Mixed hyperlipidemia
CPT/HCPCS: 36415; 80048; 80061; 82043; 83036; 84450; 84460; 86787

== ENCOUNTER → 2022-10-18 13:48 | Outpatient (BNVA) | payer OTHER, SELFPAY | PROVIDERS: PCP Internal Medicine; Visit Provider Anesthesiology ==

== ENCOUNTER 2022-10-20 12:48 | Outpatient (AMB) | payer OTHER, SELFPAY ==
--- NOTE | 2022-10-20 13:12 | A.OFFPC_ITS ---
<Statement entered by Ronna Patton MD - 06/22/25 00:12> This note has been administratively?closed. Vital Signs 10/20/22 13:18 Height 5 ft 11 in Weight 237 lb BMI 33.1 BP 112/64 Blood Pressure Location Rt brachial Position Sitting Pulse 75 Pulse Source Pulse Oximeter Pulse Oximetry (%) 97 Oxygen Delivery Method Room Air Intake Visit Reasons: 3m follow up DM ,lipids Intake Note: Pt is here today for his 3 mo. f/u DM and lipids Allergies No Known Allergies (NO KNOWN ALLERGIES) Allergy (Unknown, Verified 03/10/25 14:10) N/A- Tobacco use date assessed: 10/20/22 [facility] Medical History (Updated 03/15/25 @ 23:29 by Ronna Patton MD) Type 2 diabetes mellitus with microalbuminuria Personal history of nicotine dependence Osteopenia of multiple sites Hepatic steatosis Pain in both feet Long-term use of Plaquenil Erosive osteoarthritis Bulging of lumbar intervertebral disc Chronic radicular lumbar pain Polyarticular osteoarthritis Metformin adverse reaction Polyarthralgia Neck pain Bilateral finger arthralgia Post-COVID chronic dyspnea Colitis Chronic tension headaches Peripheral neuropathy Pulmonary nodules Sessile colonic polyp (~2018) Tinnitus of both ears Mixed dyslipidemia Type 2 diabetes mellitus without complication, with no history of insulin use STUART (obstructive sleep apnea) Chronic restrictive lung disease Shortness of breath on exertion Obesity (BMI 30.0-34.9) Tubular adenoma of colon (~2018) Surgical History History of hernia repair History of hemorrhoidectomy History of colonoscopy Family History Father No problems noted. Mother No problems noted. 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 How often do you have a drink containing alcohol?: Never Total Score: 0 RAIZA-7 AMB Questionnaire RAIZA-7 Date RAIZA - 7 assessed: 07/21/22 Source: Developed by Drs. Wes Stock, Marleni Montague, Joselito Reeves and colleagues, with an educational ade from [employer]. Physical exam (Primary Care) Vital Signs: Last Vital Signs Pulse 75 10/20/22 13:18 BP 112/64 10/20/22 13:18 Pulse Ox 97 10/20/22 13:18 Oxygen Delivery Method Room Air 10/20/22 13:18 BMI result Body Mass Index 33.1 Tobacco/Smoking Status: Tobacco use Status Tobacco use date assessed 10/20/22 10/20/22 13:13 Patient Tobacco Use Status Former Tobacco user 10/20/22 13:13 e-Cigarette/Vaping Use Never Used 10/20/22 13:13 Thrive Assessment: Date of Thrive Assessment Date Thrive assessed 07/21/22 10/20/22 13:13 Results Reviewed Results Reviewed: COMP: 10/10/22-1221 ENTERED: 10/10/22-[address]: ORDERED: Met Prof Fast, AST, ALT, Lipid Panel Test Result Flag Reference Site Sodium 139 135-145 mmol/L Potassium 4.2 3.3-5.1 mmol/L CL 106 96-108 mmol/L CO2 24 22-29 mmol/L Gap 13 12-20 BUN 15 9-16 mg/dL Creat 0.99 0.5-1.4 mg/dL EGFR > 60 NOTE: For -Turkish individuals, multiply the result by 1.210. Chronic Kidney Disease: Estimated GFR < 60 mL/min/1.73m2 Severe Kidney Disease: Estimated GFR < 15 mL/min/1.73m2 FBS 137 H 60-99 mg/dL A fasting glucose of 126 mg/dl or greater on more than one occasion is considered diagnostic of diabetes. CA 9.0 8.4-10.2 mg/dL AST (GOT) 22 5-37 U/L ALT (GPT) 38 0-40 U/L Triglyceride 185 mg/dL Desirable Triglyceride: less than 150 mg/dL Borderline High Triglyceride 150-199 mg/dL High Triglyceride: 200-499 mg/dL Very High Triglyceride: greater than or equal to 5OO mg/dL Chol 153 mg/dL Desirable Cholesterol: less than 200 mg/dL Borderline High Cholesterol: 200-239 mg/dL High Cholesterol: greater than 239 mg/dL LDL Calculated 80 mg/dl Desirable LDL: less than 100 mg/dL Near Optimal/Above Optimal LDL: 110-129 mg/dL Borderline High LDL: 130-159 mg/dL High LDL: 160-189 mg/dL Very High LDL: greater than or equal to 190 mg/dL HDL 36 mg/dL Desirable HDL: greater than 40 mg/dL Note: This HDL assay may give artificially low results in patients with liver disease. Laboratory Tests 10/10/22 10/10/22 06:07 06:07 Estimat Average Glucose 114 Hemoglobin A1c % 5.6 Urine Creatinine 119.60 Urine Microalbumin < 5.0 Microalb/Creat Ratio TNP Coding Level of Care Code Admin Sign Off/No Billing Diagnoses Multilevel spinal stenosis M48.00 Radiculopathy with lower extremity symptoms M54.10 Type 2 diabetes mellitus without complication, with no history of insulin use E11.9 Mixed dyslipidemia E78.2
[2022-10-20 13:18] VITALS: BP 112/64; PULSE 75; O2SAT 97; BMI 33.1
== END 2022-10-20 14:08 | disposition home or self-care (01) ==
PROVIDERS: PCP Internal Medicine; Visit Provider Internal Medicine
DX: M48.00 Spinal stenosis, site unspecified (principal); M54.10 Radiculopathy, site unspecified; E11.9 Type 2 diabetes mellitus without complications; E78.2 Mixed hyperlipidemia
CPT/HCPCS: 99499

== ENCOUNTER 2022-11-13 08:27 | Day surgery (SDC) | payer OTHER, SELFPAY ==
[2022-11-08 15:37] VITALS: BMI 32.1
--- NOTE | 2022-11-10 10:35 | HO.ANESPROP2 ---
Documented by User: Apoorva Aaron NP 11/10/22 10:36 HPI - Anesthesia Eval Consult details Narrative: 62yo M for Colon[facility] Active Problems Active Problems: All Active Problems (Updated 09/22/22 @ 12:26 by Justa Barnes PA-C) Chronic restrictive lung disease (Acute) Shortness of breath on exertion (Acute) Dyspnea (Acute) Post-COVID chronic dyspnea (Acute) STUART (obstructive sleep apnea) (Acute) History of prior cigarette smoking (Acute) Tachycardia (Acute) Precordial chest pain (Acute) Type 2 diabetes mellitus without complication, with no history of insulin use (Acute) Mixed dyslipidemia (Acute) Obesity (BMI 30.0-34.9) (Acute) Tubular adenoma of colon (Acute ~2019) Sessile colonic polyp (Acute ~2019) Chronic pain syndrome (Acute) Disc degeneration, lumbar (Acute) Spondylosis of lumbar region without myelopathy or radiculopathy (Acute) Central stenosis of spinal canal (Acute) Right knee pain (Acute) Arthritis of right knee (Acute) Lower extremity numbness (Acute) Lower extremity edema (Acute) Tendonitis of ankle, right (Acute) Trigger finger of both hands (Acute) Bilateral finger arthralgia (Acute) Infection of right ear (Acute ~07/2022) Past Medical History Medical History (Updated 09/22/22 @ 12:26 by Justa Barnes PA-C) Bilateral finger arthralgia Chronic restrictive lung disease Lower extremity edema Mixed dyslipidemia Obesity (BMI 30.0-34.9) STUART (obstructive sleep apnea) Shortness of breath on exertion Trigger finger of both hands Tubular adenoma of colon (~2019) Type 2 diabetes mellitus without complication, with no history of insulin use Family History Family History Father No problems noted. Mother No problems noted. Surgical History Surgical History (Updated 09/22/22 @ 12:20 by Justa Barnes PA-C) History of colonoscopy History of hemorrhoidectomy History of hernia repair Social History Social History Housing: House Alcohol intake: current Alcohol intake frequency: does not drink Patient Tobacco Use Status: Former Tobacco user Quit Date: 06/2018 Years Smoked: 45 yrs e-Cigarette/Vaping Use: Never Used Second Hand Smoke Exposure: No Use of substances other than those prescribed or required for medical reasons: No Are you DNR?: No Advance Directives: No Advance Directives Information Provided: Yes service: No 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 occupational status: employed 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 Current occupational exposures/hazards: No Cognitive needs: No Hearing needs: No Vision needs: No Meds Allergies Allergy/AdvReac Type Severity Reaction Status Date / Time No Known Allergies Allergy Unknown N/A- Verified 10/20/22 13:13 [NO KNOWN ALLERGIES] Home Medications Medication Instructions Recorded Confirmed Last Taken Type multivitamin 1 tab PO DAILY 09/03/20 11/13/22 Unknown History CPAP (CPAP Machine/Device) 09/22/22 Unknown History Exam Exam Date and Time: November 10, 2022 1035 Height,Weight and Vital Signs: Height 5 ft 11 in Weight 104.326 kg Pertinent Lab Results Pertinent Lab Results: Laboratory Tests 02/28/22 10/10/22 16:29 06:07 WBC 7.5 Hgb 14.0 Hct 39.5 L Plt Count 172 Sodium 139 Potassium 4.2 Chloride 106 Carbon Dioxide 24 BUN 15 Creatinine 0.99 Narrative Narrative: ECHO 2021 Conclusions: - The left ventricular systolic function is normal.? The ? calculated ejection fraction is 66% by biplane method. ? - There is mild calcification of the aortic valve. ? Assessment and Plan Assessment Anesthesia Assessment: Chart Reviewed Documented by User: Gwendolyn Gao MD 11/13/22 09:15 [facility] Past Medical History Medical History (Updated 09/22/22 @ 12:26 by Justa Barnes PA-C) Bilateral finger arthralgia Chronic restrictive lung disease Lower extremity edema Mixed dyslipidemia Obesity (BMI 30.0-34.9) STUART (obstructive sleep apnea) Shortness of breath on exertion Trigger finger of both hands Tubular adenoma of colon (~2018) Type 2 diabetes mellitus without complication, with no history of insulin use Family History Family History Father No problems noted. Mother No problems noted. Family history of problems with anesthesia: No Surgical History Surgical History (Updated 09/22/22 @ 12:20 by Justa Barnes PA-C) History of colonoscopy History of hemorrhoidectomy History of hernia repair History of Problems with Anesthesia: No Social History Social History Housing: House Alcohol intake: current Alcohol intake frequency: does not drink Patient Tobacco Use Status: Former Tobacco user Quit Date: 06/2018 Years Smoked: 45 yrs e-Cigarette/Vaping Use: Never Used Second Hand Smoke Exposure: No Use of substances other than those prescribed or required for medical reasons: No Are you DNR?: No Advance Directives: No Advance Directives Information Provided: Yes service: No 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 occupational status: employed 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 Current occupational exposures/hazards: No Cognitive needs: No Hearing needs: No Vision needs: No Meds Allergies Allergy/AdvReac Type Severity Reaction Status Date / Time No Known Allergies Allergy Unknown N/A- Verified 10/20/22 13:13 [NO KNOWN ALLERGIES] Home Medications Medication Instructions Recorded Confirmed Last Taken Type multivitamin 1 tab PO DAILY 09/03/20 11/13/22 Unknown History CPAP (CPAP Machine/Device) 09/22/22 Unknown History Exam Airway Mallampati Class: II (dentures at home) TM Dist: >3cm Neck ROM: Full Denture: Upper and Lower Heart: rrr Lungs: cta Assessment and Plan Assessment Anesthesia Assessment: Anesthesia Plan Discussed Final Anesthetic Review Family History of Problems with Anesthesia: No History of Problems with Anesthesia: No NPO: Yes ASA Class: III Final Preanesthetic Review: No Changes in Pt Med Stat, Meds/Allgs Chart Reviewed and Consent Obtained/Reviewed Patient Risk: Intermediate Procedure Risk: Intermediate Anesthetic Plan Anesthetic Plan: MAC: Disposition: Standard PACU
[2022-11-13 08:56] VITALS: BMI 32.1
[2022-11-13 08:58] LABS: Glucose, Whole Blood 128 mg/dL (60-115)
[2022-11-13 08:59] VITALS: BP 142/88; PULSE 73; RESP 18; TEMP 36.8; O2SAT 96
[2022-11-13] MEDS: Lactated Ringers 1,000 ML 100 ML IVCONT (09:17)
--- NOTE | 2022-11-13 10:13 | MHC.SHP ---
Pre-Procedural Eval Section A Date of Service: 11/13/22 The patient is an INPATIENT: No The History & Physical has been completed within 30 days and I have reviewed it.: No Section B Chief Complaint: Encounter for screening for malignant neoplasm of Relevant Family History (Specify if Yes): No Relevant Social History: Tobacco Use (former smoker) Present Medications: see Short Stay Collaborative assessment Medical History: Significant History (Elevated fasting blood sugar Hypertriglyceridemia) History of Previous Operations: Relevant previous surgery/procedure and date(s) (Hx of colonoscopy Hx of hemorrhoidectomy (10/07/19)) Allergies: Allergies Allergy/AdvReac Type Severity Reaction Status Date / Time No Known Allergies Allergy Unknown N/A- Verified 10/20/22 13:13 [NO KNOWN ALLERGIES] Review of Systems Sugical H&P ROS: Negative: Constitution, Cardiovascular, Respiratory and Gastrointestinal Exam Surgical H&P Exam: Normal: Heart, Normal: Lungs, Normal: Extremities and Normal: Abdomen Plan Diagnosis/Plan: Unchanged I have reviewed the history and physical and performed a pertinent physical examination on my patient. No changes have occurred unless specified. Time Spent With Patient Time: Total time managing care of this patient today ____ minutes.
--- NOTE | 2022-11-13 10:17 | W.PM.OPN ---
Operative Note Operative Note Date of Service: 11/13/22 Narrative: COLONOSCOPY TILL CECUM WITH BIOPSIES Pre-op diagnosis: Colon cancer screening, follow-up of multiple colon polyps Post-op diagnosis:? Colon polyp, diverticulosis, hemorrhoids Endoscopist:? Jennifer De Jesus MD Anesthesia:?MAC Consent: Indications for the procedure and potential complications of bleeding, perforation, reaction to medications and missed diagnosis were discussed with the patient and informed consent was obtained. Instrument: Olympus CF H 190 L variable stiffness adult colonoscope Monitoring: Vital signs and clinical assessment, intermittent blood pressure monitoring, continuous EKG monitoring, Pulse oximetry and Carbon Dioxide monitoring were done throughout the procedure. Please see anesthesia flowsheet. Colon withdrawl time was 18 minutes. Procedure: The patient was placed in the left lateral decubitis position and pre-procedure medications were administered. After a digital rectal examination of the ano-rectum, the video colonoscope was inserted into the rectum and advanced through the colon to the cecum. The colonoscope was slowly withdrawn in a retrograde panoramic fashion and the colon mucosa was carefully examined including a retroflexed view of the rectum. Findings and interventions are described below. Procedure Difficulty: Without difficulty Findings: Terminal Ileum: Not evaluated Cecum: A 2 x 3 cms area of polypoidal appearing mucosa with aphthoid ulcerations - multiple biopsies were obtained. Ascending Colon: A 3-4 mm sessile polyp - removed with a cold bx Transverse Colon: Normal Descending Colon: Moderate diverticulosis Sigmoid Colon: Moderate diverticulosis Rectum: Normal Ano-rectum: Moderate internal hemorrhoids Colon preparation: Excellent Impression and Post Procedure Diagnosis: Colonoscopy Findings: One small polyp removed A 2 x 3 cms area of polypoidal appearing mucosa with aphthoid ulcerations - multiple biopsies were obtained. Moderate diverticulosis seen in the left colon Moderate hemorrhoids on retroflexed exam. Plan: Await pathology results Patient has an appointment on 11/30/22 in the [facility] with Tricia Montemayor NP. Repeat Colonoscopy interval based on path results - in 6 months (with hybrid APC) if biopsies obtained from the cecum show adenomatous tissue and 5 years if polyps are hyperplastic (due to a hx of colon polyps). Above findings were reviewed with the patient and colon polyps handout was given in the discharge area
[2022-11-13 10:52] VITALS: BP 112/60; PULSE 68; RESP 16; TEMP 36.4; O2SAT 98
[2022-11-13 11:06] VITALS: BP 123/63; PULSE 63; RESP 16; TEMP 36.2; O2SAT 97
== END 2022-11-13 11:43 | disposition home or self-care (01) ==
PROVIDERS: PCP Internal Medicine; Visit Provider Internal Medicine Gastroenterology
PROC: 0DJD8ZZ Inspection of Lower Intestinal Tract, Via Natural or Artificial Opening Endoscopic (ICD-10-PCS; CPT 45378; principal; 2022-11-13 10:10)
DX: Z12.11 Encounter for screening for malignant neoplasm of colon (principal); Z86.010 Personal history of colon polyps; D12.2 Benign neoplasm of ascending colon; K57.30 Diverticulosis of large intestine without perforation or abscess without bleeding; K64.8 Other hemorrhoids; K52.9 Noninfective gastroenteritis and colitis, unspecified; E11.9 Type 2 diabetes mellitus without complications; E78.2 Mixed hyperlipidemia; G47.33 Obstructive sleep apnea (adult) (pediatric); Z99.89 Dependence on other enabling machines and devices; Z87.891 Personal history of nicotine dependence; Z79.899 Other long term (current) drug therapy
CPT/HCPCS: 45380; 82947; 88305

== ENCOUNTER → 2022-11-14 09:15 | Outpatient (BNVA) | payer OTHER, SELFPAY | PROVIDERS: PCP Internal Medicine; Visit Provider Physician Assistant ==

== ENCOUNTER 2022-12-14 09:48 | Outpatient (REF) | payer OTHER, SELFPAY ==
[2022-12-14 11:28] LABS: C Reactive Protein 0.32 mg/dL (< or = 0.50)
== END 2022-12-14 09:49 | disposition home or self-care (01) ==
LOC: HO.LAB 09:48
PROVIDERS: PCP Internal Medicine; Visit Provider Nurse Practitioner
DX: D12.6 Benign neoplasm of colon, unspecified (principal); K52.9 Noninfective gastroenteritis and colitis, unspecified
CPT/HCPCS: 36415; 81479; 82397; 83520; 86140; 88346; 88350

== ENCOUNTER 2022-12-14 09:48 | Outpatient (AMB) | payer OTHER, SELFPAY ==
--- NOTE | 2022-12-14 09:52 | MHC.OFFVIS ---
Intake Vital Signs 12/14/22 09:54 Height 5 ft 11 in Weight 235 lb 14.314 oz BMI 32.9 BP 159/85 H Blood Pressure Location Lt brachial Position Sitting Pulse 69 Intake Visit Reasons: S/p colon Intake Note: Patient presents to in office visit today in follow up of colonoscopy. CC: Denies having any GI symptoms today. Patient underwent colonoscopy on 11/13/22. Systems Program Manager Required: No Accompanied by: Self / Same As Patient Allergies No Known Allergies [NO KNOWN ALLERGIES] Allergy (Unknown, Verified 12/14/22 09:53) N/A- HPI S/p colon HPI Details Assessment & Plan (1) Sessile colonic polyp: ? ? ? Code(s): K63.5 - Polyp of colon ? ? ? Category: Medical ? ? ? Plan: He tells me he is doing well.? He finally has recovered from his hemorrhoid surgery he does admit that it took him longer than he anticipated to recover.? I tell him that this is the type of surgery that people usually underestimate I try to tell them, not to steer the way from having it, but so they can realistically understand that recovery for some can be more challenging than they in vision. Fortunately he is well but he still concerned about coming in because of the new wave of COVID.? At this point I think there is no harm in putting it off for 6 months and at that time the pandemic may be dying down and or we may have a vaccine available.? He is not fate for himself but he is fearful could be has relatives that are high risk.? This is understandable. (2) Bleeding hemorrhoids: ? ? ? Code(s): K64.9 - Unspecified hemorrhoids ? ? ? Category: Medical COLONOSCOPY 11/13/22 Findings: Terminal Ileum: Not evaluated Cecum:? A 2 x 3 cms area of polypoidal appearing mucosa with aphthoid ulcerations - multiple biopsies were obtained. Ascending Colon:? A 3-4 mm sessile polyp - removed with a cold bx Transverse Colon:? Normal Descending Colon:? Moderate diverticulosis Sigmoid Colon:? Moderate diverticulosis Rectum:? Normal Ano-rectum:? Moderate internal hemorrhoids Colon preparation: Excellent ? Impression and Post Procedure Diagnosis: Colonoscopy Findings: One small polyp removed A 2 x 3 cms area of polypoidal appearing mucosa with aphthoid ulcerations - multiple biopsies were obtained. Moderate diverticulosis seen in the left colon Moderate hemorrhoids on retroflexed exam. Plan: Await pathology results Patient has an appointment on 11/30/22 in the GI Clinic with? Tricia Montemayor NP. Repeat Colonoscopy interval based on path results - in 6 months (with hybrid APC) if biopsies obtained from the cecum show adenomatous tissue and 5 years if polyps are hyperplastic (due to a hx of colon polyps). BIOPSY Received: 11/13/22 Diagnosis A.? Cecum, biopsy:? Severely active colitis. B.? Colon, ascending, polypectomy:? Sessile serrated lesion/polyp; negative for cytologic dysplasia. TODAY'S VISIT He is agreeable to a 5 year follow up. The procedure was well tolerated. The results were explained and the patient is agreeable to the follow-up interval as stated. The bowel pattern has returned to normal. Education was provided to tell any 1st degree relatives about their findings to be sure that they are screened by age 45. Educated that they will be put on a recall list when it is time for their repeat scope but should they move out of state or away from the hospital they will need to remember along with their primary to repeat the procedure in a timely fashion to avoid any adverse complications. We discuss the colitis finding in the cecal area, I would like to get a CRP and IBD genetics study to be thorough. He has intermittent diarrhea with spicy foods - even low grade. Currently his bowels are at his perceived baseline. He is struggling with LOVE and dizziness. ROV 6 weeks. [facility] Medical History (Updated 12/14/22 @ 11:03 by MERE Garcia) Bilateral finger arthralgia Chronic restrictive lung disease Lower extremity edema Mixed dyslipidemia Obesity (BMI 30.0-34.9) STUART (obstructive sleep apnea) Shortness of breath on exertion Trigger finger of both hands Tubular adenoma of colon (~2018) Type 2 diabetes mellitus without complication, with no history of insulin use Surgical History (Updated 12/14/22 @ 10:01 by SANDRA Bello) History of colonoscopy History of hemorrhoidectomy History of hernia repair Family History Father No problems noted. Mother No problems noted. 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 Current occupational exposures/hazards: No Cognitive needs: No Hearing needs: No Vision needs: No Review of Systems Const Denies fatigue, Denies fever(s), Reports headache(s), Denies night sweats, Denies poor appetite and Denies weight loss ENT Reports Normal hearing present, Denies dental pain, Denies dysphagia, Reports dizziness, Reports headache(s), Denies hearing loss, Denies mouth pain, Denies odynophagia, Denies throat swelling, Denies tongue swelling and Reports other (Dentition adequate) Card Reports no additional complaints Resp Reports no additional complaints GI Denies abdominal pain, Denies melena, Denies bloating, Denies hematochezia, Denies constipation, Denies GI cramping, Denies dysphagia, Denies excessive flatus, Denies early satiety, Denies heartburn, Reports diarrhea, Denies nausea, Denies odynophagia, Denies vomiting and Denies hematemesis Skin/Breast Denies pruritus, Denies lesions, Denies rash and Denies jaundice Neuro Reports Normal hearing present, Denies Abnormal speech present, Reports dizziness and Reports headache(s) Endo Denies fatigue Aller/Immun Denies throat swelling and Denies tongue swelling Physical Exam Vital Signs: Last Vital Signs Pulse 69 12/14/22 09:54 BP 159/85 H 12/14/22 09:54 BMI result Body Mass Index 32.9 Const General: cooperative, no acute distress, well developed and well groomed; No comfortable (frequently squinting eyes r/t LOVE) Nutritional Appearance: well nourished and obese Orientation/consciousness: oriented to person, oriented to place and oriented to time Limitations: No language barrier HEENT Head: Yes normocephalic and Yes atraumatic Eyes General: appearance normal, both eyes and all related structures Pupils: Equal, round and reactive pupils present Neck Neck: Yes normal visual inspection and Yes no lymphadenopathy Thyroid: Thyroid normal Resp Effort & Inspection: normal respiratory effort and able to speak in complete sentences Auscultation: clear to auscultation bilaterally Cardio Rate: regular rate Rhythm: regular rhythm Heart sounds: Normal, physiologic split S2 sound present Peripheral pulses: radial pulses present and posterior tibial pulses present GI Inspection: No distended, No Abdominal panniculus present and Yes obesity Palpation (GI): Soft to palpation, nontender, no guarding, not rigid and No hepatosplenomegaly present Percussion: Yes normal to percussion Auscultation: normal bowel sounds Rectal Exam - Male: Yes deferred Skin General skin exam: no rashes or lesions noted, turgor normal, skin not dry, no jaundice, No spider nevi and no striae Rashes: no rashes Nails: normal Neuro General: oriented to person, oriented to place and oriented to time Cranial nerves: Yes Equal, round and reactive pupils present and Yes Normal hearing present Speech: No Abnormal speech present Extrem General: Yes normal to inspection, No clubbing, No cyanosis and No edema Psych Appearance: grossly normal and well kempt Mental Status: mental status grossly normal Speech and movement: Normal speech and movement present Affect: normal affect Attitude: cooperative Thought process: Normal thought process present and not confabulating Thought content: Normal thought content present Insight: Fair insight present (Psych) Judgement: Fair judgement present (Psych) Assessment & Plan Assessment & Plan (1) Colitis: Comment: BIOPSY CECAL AREA ON COLONOSCOPY 2022 Code(s): K52.9 - Noninfective gastroenteritis and colitis, unspecified Plan: He is agreeable to a 5 year follow up. The procedure was well tolerated. The results were explained and the patient is agreeable to the follow-up interval as stated. The bowel pattern has returned to normal. Education was provided to tell any 1st degree relatives about their findings to be sure that they are screened by age 45. Educated that they will be put on a recall list when it is time for their repeat scope but should they move out of state or away from the hospital they will need to remember along with their primary to repeat the procedure in a timely fashion to avoid any adverse complications. We discuss the colitis finding in the cecal area, I would like to get a CRP and IBD genetics study to be thorough. He has intermittent diarrhea with spicy foods - even low grade. Currently his bowels are at his perceived baseline. He is struggling with LOVE and dizziness. ROV 6 weeks. (2) Tubular adenoma of colon: Onset Date: ~2018 Comment: 2022= 2 TA repeat 5 years aeb (TA on 2019 and 2020 scopes) Code(s): D12.6 - Benign neoplasm of colon, unspecified Orders: Orders C Reactive Protein Today K52.9 - Noninfective gastroenteritis and colitis, unspecified [facility] SGI Today K52.9 - Noninfective gastroenteritis and colitis, unspecified Coding Level of Care Code Est Pt Level 3 (38902) Diagnoses Colitis K52.9 Tubular adenoma of colon D12.6
[2022-12-14 09:54] VITALS: BP 159/85; PULSE 69; BMI 32.9
== END 2022-12-14 10:11 | disposition home or self-care (01) ==
PROVIDERS: PCP Internal Medicine; Visit Provider Nurse Practitioner
DX: K52.9 Noninfective gastroenteritis and colitis, unspecified (principal); D12.6 Benign neoplasm of colon, unspecified
CPT/HCPCS: 99213

== ENCOUNTER 2022-12-21 09:00 | Outpatient (REF) | payer OTHER, SELFPAY ==
--- NOTE | 2022-12-21 09:02 | EMG_ITS ---
Bilateral tibial and peroneal motor studies were performed. Bilateral sural, superficial peroneal, and median and lateral plantar studies were performed. Tibial H reflexes were obtained and paraspinal muscles were tested with a needle. IMPRESSION: Moderately severe axonal peripheral neuropathy mostly, affecting sensory nerves, specially in feet. MD JO Carballo/MARIMAR / [id number]
== END 2022-12-21 09:01 | disposition home or self-care (01) ==
LOC: HO.NEURO 09:00
PROVIDERS: PCP Internal Medicine; Visit Provider Physician Assistant
DX: R20.0 Anesthesia of skin (principal)
CPT/HCPCS: 95860; 95886; 95907; 95913

== ENCOUNTER 2022-12-22 07:03 | Outpatient (REF) | payer OTHER, SELFPAY ==
--- NOTE | ~2022-12-22 | CT_ITS ---
EXAMINATION: CT CHEST WITHOUT CONTRAST CLINICAL INFORMATION: Other disorders of lung, COPD. COMPARISON: 01/18/2022. TECHNIQUE: Multidetector volumetric CT imaging of the chest was done. Axial MIP volume rendering provided. Sagittal and coronal reformatted images were obtained. This CT examination was performed using dose optimization techniques as appropriate, variously including the following: *Automated exposure control *Adjustment of mA and/or kV according to patient size (this includes techniques or standardized protocols for targeted exams where dose is matched to indication/reason for exam; i.e. extremities or head) *Use of iterative reconstruction technique DLP: 231 mGy-cm. FINDINGS: LUNGS: Again seen are multiple calcified pulmonary nodules which are of no concern, probably related to granulomatous disease (see mora images). No new or worrisome lung nodules are seen. MEDIASTINUM: Heart size normal. No mediastinal or hilar lymphadenopathy. CORONARY ARTERY CALCIFICATION: Moderate. PLEURA: There is no pleural effusion. No pleural mass or thickening. AXILLA: No lymphadenopathy. UPPER ABDOMEN: Liver attenuation is decreased consistent with hepatic steatosis. There is mild splenomegaly at 12.7 cm. A calcified splenic granuloma is present. OSSEOUS STRUCTURES: Unremarkable. CT/CT chest wo IV con IMPRESSION: 1. Multiple calcified pulmonary nodules, unchanged. No worrisome lung nodules are seen. 2. Incidentally noted hepatic steatosis, mild splenomegaly and calcified splenic granuloma. Fleischner guidelines were followed.
== END 2022-12-22 07:04 | disposition home or self-care (01) ==
LOC: HO.CT 07:03
PROVIDERS: Visit Provider Hospitalist
DX: J98.4 Other disorders of lung (principal)
CPT/HCPCS: 71250

== ENCOUNTER 2023-01-02 08:53 | Outpatient (AMB) | payer OTHER, SELFPAY ==
--- NOTE | 2023-01-02 08:58 | A.OFFPC_ITS ---
Vital Signs 01/02/23 08:59 Height 5 ft 11 in Weight 233 lb BMI 32.5 BP 124/70 Blood Pressure Location Lt brachial Position Sitting Pulse 70 Pulse Source Pulse Oximeter Pulse Oximetry (%) 97 Intake Visit Reasons: bilateral ear discomfort and dizzyness Intake Note: pt is here for c/o dizziness and bilateral ear discomfort. 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 Required: No Accompanied by: Self / Same As Patient Allergies No Known Allergies [NO KNOWN ALLERGIES] Allergy (Unknown, Verified 01/04/23 02:05) N/A- Medication List - Last Reconciled 01/04/23 by Ronna Patton MD CPAP (CPAP Machine/Device) As directed isopropyl alcohol in glycerin 95-5 % (Ear Dry) 4 drps otic (ears) DAILY PRN meclizine 12.5 mg PO BID PRN metformin ER 500 mg PO QPM multivitamin 1 tab PO DAILY omega-3 acid ethyl esters 2 caps PO BID 30 days rosuvastatin 5 mg PO DAILY Tobacco use date assessed: 10/20/22 Dental Screening Dental Screen Date: 01/02/23 Did you have a dental visit in the last 12 months?: Yes Did you have a dental problem in the last 6 months where you did not have access to dental care?: No Was dental information given to patient?: Patient has dentist HPI HPI Comments History of Present Illness Details 62-year-old male here today complaining of intermittent episodes of dizziness, worse when he is lying in turning from side to side or when he gets up after bending down. This has been present now for the last several weeks and seems to be getting more frequent. He also complains of itching and discomfort inside both ears [facility] Medical History (Updated 01/02/23 @ 09:54 by Ronna Patton MD) Benign positional vertigo Bilateral finger arthralgia Chronic restrictive lung disease Lower extremity edema Mixed dyslipidemia Obesity (BMI 30.0-34.9) STUART (obstructive sleep apnea) Shortness of breath on exertion Trigger finger of both hands Tubular adenoma of colon (~2019) Type 2 diabetes mellitus without complication, with no history of insulin use Surgical History History of colonoscopy History of hemorrhoidectomy History of hernia repair Family History Father No problems noted. Mother No problems noted. 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 Wes Stock, Marleni Montague, Joselito Reeves and colleagues, with an educational ade from [employer]. Review of Systems Const Denies body aches, Denies chills, Denies fever(s), Denies frequent falls, Denies headache(s) and Denies weakness Eyes Reports no additional complaints ENT Reports Normal hearing present, Denies ear discharge, Denies facial pain, Denies headache(s), Denies nasal congestion, Denies neck pain, Denies tinnitus, Denies sinus pain and Denies sinus pressure Card Reports no additional complaints Resp Reports no additional complaints Musc Denies neck pain Neuro Reports Normal hearing present, Denies frequent falls, Denies headache(s) and Denies weakness Psych Reports no additional complaints Physical exam (Primary Care) Vital Signs: Last Vital Signs Pulse 70 01/02/23 08:59 BP 124/70 01/02/23 08:59 Pulse Ox 97 01/02/23 08:59 BMI result Body Mass Index 32.5 Tobacco/Smoking Status: Tobacco use Status Tobacco use date assessed 10/20/22 01/02/23 09:02 Patient Tobacco Use Status Former Tobacco user 01/02/23 09:02 e-Cigarette/Vaping Use Never Used 01/02/23 09:02 Thrive Assessment: Date of Thrive Assessment Date Thrive assessed 07/21/22 01/02/23 09:02 Const Other: Alert oriented x3, no acute cardiorespiratory distress noted ambulatory normal gait Nutritional Appearance: obese Orientation/consciousness: patient oriented x3 HENMT Head: Yes normocephalic and Yes atraumatic Ears: hearing grossly normal bilaterally, external ears normal, TM's normal bilaterally and EAC's normal Face and sinus: Yes sinuses nontender and Yes face symmetric Mouth: Normal oral and palatal mucosa present and moist mucous membranes Eyes Pupils: Equal, round and reactive pupils present EOM: EOMs intact bilaterally and Nystagmus present Neck Other: Supple , thyroid gland nonpalpable, no carotid bruits, no lymphadenopathy Resp Effort & Inspection: normal respiratory effort and able to speak in complete sentences Auscultation: clear to auscultation bilaterally Cardio Other: S1-S2 present regular rate and no murmurs Neuro General: patient oriented x3, gait normal, moves all extremities, Normal light touch and pain sensation, no focal motor deficits and CN's II-XI intact bilaterally Cranial nerves: Yes Equal, round and reactive pupils present, Yes Normal hearing present and Yes Nystagmus present Assessment and Plan Assessment & Plan (1) Benign positional vertigo: Code(s): H81.10 - Benign paroxysmal vertigo, unspecified ear Orders: Orders PT Evaluation and Treatment 01/02/23 H81.10 - Benign paroxysmal vertigo, unspecified ear Medications: New meclizine 12.5 mg PO BID PRN 14 tabs 0RF dizziness isopropyl alcohol in glycerin 95-5 % (Ear Dry) 4 drps otic (ears) DAILY PRN 30 mL 0RF ear itching Coding Level of Care Code Est Pt Level 3 (22142) Diagnoses Benign positional vertigo H81.10
[2023-01-02 08:59] VITALS: BP 124/70; PULSE 70; O2SAT 97; BMI 32.5
== END 2023-01-02 10:48 | disposition home or self-care (01) ==
PROVIDERS: PCP Internal Medicine; Visit Provider Internal Medicine
DX: H81.10 Benign paroxysmal vertigo, unspecified ear (principal)
CPT/HCPCS: 99213

== ENCOUNTER 2023-01-09 14:19 | Outpatient (AMB) | payer OTHER, SELFPAY ==
--- NOTE | 2023-01-09 15:39 | HO.SPINEOV ---
Intake Intake Visit Reasons: F/u EMG Intake Note: Mr. Hancock is here today for his EMG results. Automatic Print Developer Required: No Allergies No Known Allergies [NO KNOWN ALLERGIES] Allergy (Unknown, Verified 01/04/23 02:05) N/A- Assessment & Plan Assessment & Plan (1) Peripheral neuropathy: Code(s): G62.9 - Polyneuropathy, unspecified Plan The patient is a 62-year-old male who comes in for a follow-up appointment after being sent for an EMG for suspected peripheral neuropathy. He reports that he has had continued to have pain which he rates as a moderate pain in his hands and feet since his previous visit. On exam the patient has reported sensation grossly intact in upper and lower extremities, he is grossly hypo-reflexive, but reflexes can be elicited if attempted serially. He is able to ambulate well, and can stand from a seated position without difficulty. I was able to review his EMG study with THAIS Hidalgo. His EMG states that he has moderate peripheral neuropathy. This is something that we do not treat surgically. He was educated about the nature peripheral neuropathy, and referred back to the neurologist Dr. Myers for treatment of this problem. Total amount of time spent in this visit was 20 minutes in discussion of symptoms, EMG results and subsequent plan of care Ralph Joseph MD,PhD [facility] Coding Level of Care Code Est Pt Level 3 (21025) Diagnoses Peripheral neuropathy G62.9
== END 2023-01-09 16:29 | disposition home or self-care (01) ==
PROVIDERS: PCP Internal Medicine; Visit Provider Physician Assistant
DX: G62.9 Polyneuropathy, unspecified (principal)
CPT/HCPCS: 99213

== ENCOUNTER → 2023-01-09 14:19 | Outpatient (BNVA) | payer OTHER, SELFPAY | PROVIDERS: PCP Internal Medicine; Visit Provider Physician Assistant ==

== ENCOUNTER 2023-01-16 07:43 | Outpatient (RCR) | payer OTHER, SELFPAY ==
[2023-01-16 07:44] VITALS: BP 132/80; PULSE 63; O2SAT 98
--- NOTE | 2023-01-16 09:09 | MHC.PT.EP ---
[facility] [place] Office [place] Office [place] Office [address] [place] [address] [phone] F: [phone] F: [phone] F: [phone] F: [phone] Physical Therapy Plan of Care Date of Evaluation: Date of Surgery: Diagnosis: This is a 62 yo male presenting to skilled PT with a script for benign paroxysmal vertigo, unspecified ear. Assessment: This is a 62 yo male presenting to skilled PT with a script for benign paroxysmal vertigo, unspecified ear. Patient has been having ongoing symptoms since july and was given antibiotics but was told that his ears were clear. He reports that his symptoms have gotten worse since then (last month or so) and his PCP sent him to PT. His symptoms are now constant, increase with bright lights, bending forward and stopping his gait. Symptoms are described as things are always moving , like I am drunk , like I'm on a ship . He also gets HAs that are daily, located ocular. He feels like his ears are full and are ringing. 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 Awaiting on neurology appointment but this is for his neuropathy. He has not seen an ENT yet. Examination shows - oculomotor tests with saccades and was not symptomatic with VOR work, (-) VBI B, and normal cervical AROM. He was (-) for BPPV with dewayne-hallpike B and B roll test. Balance was normal statically however with ambulation he needed to furniture cruise and move slowly making him a falls risk with the DGI. S/S are not consistent with BPPV at this time however I will recheck him again next week address impairments, implement HEP and optimize functional mobility if able. I recommended follow up with PCP and ? referrals to ENT, blood work to check thyroid and vitamin D levels, imaging for brain/head or neurology as he is getting constant LOVE's, ringing in the ears and fullness. Frequency and Duration: The patient will be seen 2x/wk for 4wks Short Term Goals: reassess next week Client Administrator Goals: (if positive) I in HEP Negative in all 6 canals for dizziness and nystagmus Return to normal gait pattern without reports fo LOB due to dizziness Treatment Plan: Modalities to reduce pain, spasms and effusion. Manual therapy to restore motion and function. Therapeutic exercise to improve strength and flexibility. Neuromuscular re-education for posture and balance. Therapeutic activities to return to functional activities of daily living. Electronically signed by: Lizzie Her PT Please sign and return to therapist. Thank you for your referral.
--- NOTE | 2023-02-13 08:06 | MHC.PT.DC ---
[facility] [place] Office [place] Office [place] Office [address] Bin Cerda [address] [phone] F: [phone] F: [phone] F: [phone] F: [phone] Physical Therapy Discharge Report Diagnosis: This is a 62 yo male presenting to skilled PT with a script for benign paroxysmal vertigo, unspecified ear. Date of Surgery: Date of Evaluation: 01/16/23 Date of Discharge: 02/13/23 Treatments to Date: 1 Cancellations to Date: 0 No Shows to Date: 0 Discharge Status: Patient Elected to Stop Recommend MD Follow-up Discharge Summary: This is a 62 yo male presenting to skilled PT with a script for benign paroxysmal vertigo, unspecified ear. Patient has been having ongoing symptoms since july and was given antibiotics but was told that his ears were clear. He reports that his symptoms have gotten worse since then (last month or so) and his PCP sent him to PT. His symptoms are now constant, increase with bright lights, bending forward and stopping his gait. Symptoms are described as things are always moving , like I am drunk , like I'm on a ship . He also gets HAs that are daily, located ocular. He feels like his ears are full and are ringing. 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 Awaiting on neurology appointment but this is for his neuropathy. He has not seen an ENT yet. Examination shows - oculomotor tests with saccades and was not symptomatic with VOR work, (-) VBI B, and normal cervical AROM. He was (-) for BPPV with dewayne-hallpike B and B roll test. Balance was normal statically however with ambulation he needed to furniture cruise and move slowly making him a falls risk with the DGI. S/S are not consistent with BPPV at this time however I will recheck him again next week address impairments, implement HEP and optimize functional mobility if able. I recommended follow up with PCP and ? referrals to ENT, blood work to check thyroid and vitamin D levels, imaging for brain/head or neurology as he is getting constant LOVE's, ringing in the ears and fullness. Electronically signed by: Lizzie Her PT Please sign and return to therapist. Thank you for your referral.
== END 2023-02-13 08:06 | disposition home or self-care (01) ==
LOC: HO.PTCHIC 07:43
PROVIDERS: PCP Internal Medicine; Visit Provider Internal Medicine
DX: H81.10 Benign paroxysmal vertigo, unspecified ear (principal)
CPT/HCPCS: 97110; 97162

== ENCOUNTER 2023-01-27 09:01 | Outpatient (AMB) | payer OTHER, SELFPAY ==
--- NOTE | 2023-01-27 09:02 | A.OFFVIS_ITS ---
Intake Vital Signs 01/27/23 09:11 Weight 104.326 kg BP 120/74 Blood Pressure Location Lt brachial Position Sitting Temp 98.2 F Temp Source Oral Pulse Oximetry (%) 98 Oxygen Delivery Method Room Air Intake Visit Reasons: EST/bilateral ear pain Allergies No Known Allergies [NO KNOWN ALLERGIES] Allergy (Unknown, Verified 01/27/23 09:11) N/A- HPI HPI Comments History of Present Illness Details 09 62-year-old male history of vertigo, chr onic restrictive lung disease, lower ex tremity edema, obesity, STUART, diabetes, tubular adenoma of the colon presenting to the clinic for evaluation of bilateral ear discomfort. Patient describes a fullness to bilateral ears. Has not been swimming or in the ocean. No upper respiratory symptoms, denies fevers, chills, tinnitus, trauma, headache, vision changes, dizziness weakness. Patient does have a history of vertigo however this feels different. Physical exam with erythematous ear canal no edema and slightly erythematous tympanic membrane without bulging. Discomfort with manipulation of tragus of bilateral ears. No mastoid tenderness. No bulging of tympanic membrane. No effusions. No foreign bodies. NIH stroke scale 0. History and physical exam consistent with otitis externa. Unlikely otitis media, cerumen impaction, foreign body, mastoiditis. No signs of stroke, posterior stroke or vertigo at this. Plan will discharge patient home with Ciprodex drops. Educated patient on diagnosis and treatment plan, answered all question, patient verbalizes understanding. At this time patient will be discharged home, advised to return with new or worsening symptoms. Educated on worrisome signs and symptoms and when to return. At this time I feel comfortable discharge home. [facility] Medical History Dizziness and giddiness Benign positional vertigo Mixed dyslipidemia Type 2 diabetes mellitus without complication, with no history of insulin use Lower extremity edema STUART (obstructive sleep apnea) Chronic restrictive lung disease Shortness of breath on exertion Obesity (BMI 30.0-34.9) Tubular adenoma of colon (~2019) Trigger finger of both hands Bilateral finger arthralgia Surgical History History of hernia repair History of hemorrhoidectomy History of colonoscopy Family History Father No problems noted. Mother No problems noted. 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 Current occupational exposures/hazards: No Cognitive needs: No Hearing needs: No Vision needs: No Review of Systems Const Details: Constitutional : No Weight loss, No Fever, No Chills, No Fatigue, No Malaise ENT/Mouth : No sore throat, No Rhinorrhea, + ear discomfort Eyes: No Eye Pain, No Swelling, No Redness Cardiovascular : No Chest Pain, No SOB, No Dyspnea on Exertion, No Orthopnea, No Edema, No Palpitations Respiratory : No Cough, No Sputum, No Wheezing Gastrointestinal : No Nausea, No Vomiting, No Diarrhea, No Constipation, No abdominal Pain, No Hematochezia, No Melena Genitourinary : No Dysuria, No Urinary Frequency, No Hematuria, Musculoskeletal : No joint pain, No Myalgias, No Joint Swelling Skin : No Skin Lesions, No rash Neuro : No Weakness, No Numbness, No Dizziness, No Headache Psych : No Anxiety/Panic, No Depression All other systems reviewed and are negative All systems reviewed & are unremarkable except as noted in HPI and below Physical Exam Vital Signs: Last Vital Signs Temp 98.2 F 01/27/23 09:11 BP 120/74 01/27/23 09:11 Pulse Ox 98 01/27/23 09:11 Oxygen Delivery Method Room Air 01/27/23 09:11 Vital signs stable Appearance: Alert.? Oriented X3.? No acute distress.? Head: Normocephalic, atraumatic, no step-offs or deformities Eyes: Pupils equal, round and reactive to light.? ENT: Pharynx normal.?erythematous ear canal no edema and slightly erythematous tympanic membrane without bulging. Discomfort with manipulation of tragus of bilateral ears. No mastoid tenderness. No bulging of tympanic membrane. No effusions. No foreign bodies. Neck: Normal inspection.? Neck supple.? CVS: Normal heart rate and rhythm.? Pulses normal.? Respiratory: No respiratory distress.? Breath sounds normal.? Abdomen: Soft and nontender.? Skin: Skin warm and dry.? Normal skin color.? Normal skin turgor.? Extremities: No lower extremity edema.? No calf ttp. 5/5 strength to bilateral upper and lower extremities Back: No midline tenderness, no C-spine tenderness, full range of motion, no CVA tenderness bilaterally Neuro: Oriented X 3.? No motor deficit.? No sensory deficit. CN 2-12 intact Assessment & Plan Assessment & Plan (1) Otitis externa: Code(s): H60.90 - Unspecified otitis externa, unspecified ear Plan Take your medications as prescribed. If you were prescribed antibiotics today, it is important that you take your medication to their entirety, do not skip any doses, do not finish them early. Follow-up with your primary care provider this week. Return to the emergency department with new or worsening symptoms. Such as feve rs, chills, chest pain, shortness of breath, nausea, vomiting, dizziness, headache, vision changes, lethargy In case of emergency call 911 Medications: New ciprofloxacin-dexamethasone 0.3-0.1 % (Ciprodex) 4 drps otic (ears) BID 7.5 mL 0RF 7 days Coding Level of Care Code Est Pt Level 3 (05867) Diagnoses Otitis externa H60.90
[2023-01-27 09:11] VITALS: BP 120/74; TEMP 36.8; O2SAT 98
== END 2023-01-27 10:22 | disposition home or self-care (01) ==
PROVIDERS: PCP Internal Medicine; Visit Provider Physician Assistant
DX: H60.93 Unspecified otitis externa, bilateral (principal)
CPT/HCPCS: 99051; 99213

== ENCOUNTER 2023-02-01 09:09 | Outpatient (AMB) | payer OTHER, SELFPAY ==
--- NOTE | 2023-02-01 09:14 | A.OFFVIS_ITS ---
Intake Vital Signs 02/01/23 09:30 Height 5 ft 11 in Weight 233 lb 11.04 oz BMI 32.6 BP 107/64 Blood Pressure Location Lt brachial Position Sitting Pulse 70 Intake Visit Reasons: 6 week follow up Intake Note: Patient presents to in office visit today in 6 weeks follow up of Colitis. CC: He states that he is not having any new symptoms - all the same as last visit. 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 The procedure was well tolerated. The results were explained and the patient is agreeable to the follow-up interval as stated. The bowel pattern has returned to normal. Education was provided to tell any 1st degree relatives about their findings to be sure that they are screened by age 45. Educated that they will be put on a recall list when it is time for their repeat scope but should they move out of state or away from the hospital they will need to remember along with their primary to repeat the procedure in a timely fashion to avoid any adverse complications. We discuss the colitis finding in the cecal area, I would like to get a CRP and IBD genetics study to be thorough. He has intermittent diarrhea with spicy foods - even low grade. Currently his bowels are at his perceived baseline. He is struggling with LOVE and dizziness. ROV 6 weeks. (2) Tubular adenoma of colon: Onset Date: ~2018 Comment: 2022= 2 TA repeat 5 years aeb (TA on and 2020 scopes) Code(s): D12.6 - Benign neoplasm of colon, unspecified Orders: Orders C Reactive Protein Today K52.9 - Noninfecti ve gastroenteritis and colitis, unsp ecified [facility] SGI Today K52.9 - Noninfecti ve gastroenteritis and colitis, unsp ecified LABS: 12/14/22-[address]: Kurt santoyo,Ronna Escalante MD ORDERED: C Reactive Prot Test Result Flag Refere nce Si te CRP 0.32 < or = 0.50 mg/dL Preometheus report shows patter CONSISTENT WITH CROHNS DISEASE TODAY'S VISIT He is miserable he has multiple systemic sx causing severe LOVE, dizziness, fatigue, visual changes, trouble concentrating, and this is interfering with his work. He has anew dx of peripheral neuropathy and failed [place]. All of this started after he had COVID. Starting trial of imipramine. Discussed results, may be CPR non responder if has sustained diarrhea will consider Crohns and get fecal calprotectin. Ordered CT of head for neural sx and he has upcoming neuo appt. ROV 4 weeks. [facility] Medical History Dizziness and giddiness Benign positional vertigo Mixed dyslipidemia Type 2 diabetes mellitus without complication, with no history of insulin use Lower extremity edema STUART (obstructive sleep apnea) Chronic restrictive lung disease Shortness of breath on exertion Obesity (BMI 30.0-34.9) Tubular adenoma of colon (~2018) Trigger finger of both hands Bilateral finger arthralgia Surgical History History of hernia repair History of hemorrhoidectomy History of colonoscopy Family History Father No problems noted. Mother No problems noted. 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 Current occupational exposures/hazards: No Cognitive needs: No Hearing needs: No Vision needs: No Review of Systems Const Reports fatigue, Denies fever(s), Reports headache(s), Reports malaise, Denies night sweats, Denies poor appetite and Denies weight loss ENT Reports Normal hearing present, Denies dental pain, Denies dysphagia, Reports dizziness, Reports headache(s), Denies hearing loss, Denies mouth pain, Denies odynophagia, Denies throat swelling, Denies tongue swelling and Reports other (Dentition adequate) Card Reports lightheadedness Resp Reports no additional complaints GI Denies abdominal pain, Denies melena, Denies bloating, Denies hematochezia, Denies constipation, Denies GI cramping, Denies dysphagia, Denies excessive flatus, Denies early satiety, Denies heartburn, Reports diarrhea, Denies nausea, Denies odynophagia, Denies vomiting and Denies hematemesis Musc Reports back pain, Reports myalgias and Reports radiating pain into limb Skin/Breast Denies pruritus, Denies lesions, Denies rash and Denies jaundice Neuro Reports Normal hearing present, Denies Abnormal speech present, Reports dizziness and Reports headache(s) Psych Reports anxiety Endo Reports fatigue Aller/Immun Denies throat swelling and Denies tongue swelling Physical Exam Vital Signs: Last Vital Signs Pulse 70 02/01/23 09:30 BP 107/64 02/01/23 09:30 BMI result Body Mass Index 32.6 Const General: cooperative, no acute distress, well developed and well groomed Nutritional Appearance: well nourished and obese Orientation/consciousness: oriented to person, oriented to place and oriented to time Limitations: No language barrier HEENT Head: Yes normocephalic and Yes atraumatic Eyes General: appearance normal, both eyes and all related structures Pupils: Equal, round and reactive pupils present Neck Neck: Yes normal visual inspection and Yes no lymphadenopathy Thyroid: Thyroid normal Resp Effort & Inspection: normal respiratory effort and able to speak in complete sentences Auscultation: clear to auscultation bilaterally Cardio Rate: regular rate Rhythm: regular rhythm Heart sounds: Normal, physiologic split S2 sound present Peripheral pulses: radial pulses present and posterior tibial pulses present GI Inspection: No distended, No Abdominal panniculus present and Yes obesity Palpation (GI): Soft to palpation, nontender, no guarding, not rigid and No hepatosplenomegaly present Percussion: Yes normal to percussion Auscultation: normal bowel sounds Rectal Exam - Male: Yes deferred Skin General skin exam: no rashes or lesions noted, turgor normal, skin not dry, no jaundice, No spider nevi and no striae Rashes: no rashes Nails: normal Neuro General: oriented to person, oriented to place and oriented to time Cranial nerves: Yes Equal, round and reactive pupils present and Yes Normal hearing present Speech: No Abnormal speech present Extrem General: Yes normal to inspection, No clubbing, No cyanosis and No edema Psych Appearance: grossly normal and well kempt Mental Status: mental status grossly normal Speech and movement: Normal speech and movement present Affect: normal affect Attitude: cooperative Thought process: Normal thought process present and not confabulating Thought content: Normal thought content present Insight: Fair insight present (Psych) Judgement: Fair judgement present (Psych) Assessment & Plan Assessment & Plan (1) Colitis: Comment: BIOPSY CECAL AREA ON COLONOSCOPY 2022 Code(s): K52.9 - Noninfective gastroenteritis and colitis, unspecified Plan: He is miserable he has multiple systemic sx causing severe LOVE, dizziness, fatigue, visual changes, trouble concentrating, and this is interfering with his work. He has anew dx of peripheral neuropathy and failed [place]rica. All of this started after he had COVID. Starting trial of imipramine. Discussed results, may be CPR non responder if has sustained diarrhea will consider Crohns and get fecal calprotectin. Ordered CT of head for neural sx and he has upcoming neuo appt. ROV 4 weeks. (2) Severe headache: Code(s): R51.9 - Headache, unspecified (3) Dizziness and giddiness: Code(s): R42 - Dizziness and giddiness (4) Peripheral neuropathy: Code(s): G62.9 - Polyneuropathy, unspecified (5) Tubular adenoma of colon: Onset Date: ~2018 Comment: 2022= 2 TA repeat 5 years aeb (TA on 2019 and 2020 scopes) Code(s): D12.6 - Benign neoplasm of colon, unspecified Orders: Orders CT head/brain wo IV con 02/08/23 R51.9 - Headache, unspecified, R42 - Dizziness and giddiness Medications: New imipramine HCl 10 mg PO BEDTIME 30 tabs 3RF 30 days G62.9 - Polyneuropathy, unspecified Coding Level of Care Code Est Pt Level 4 (70523) Diagnoses Colitis K52.9 Severe headache R51.9 Dizziness and giddiness R42 Peripheral neuropathy G62.9 Tubular adenoma of colon D12.6
[2023-02-01 09:30] VITALS: BP 107/64; PULSE 70; BMI 32.6
== END 2023-02-01 10:13 | disposition home or self-care (01) ==
PROVIDERS: PCP Internal Medicine; Visit Provider Nurse Practitioner
DX: K52.9 Noninfective gastroenteritis and colitis, unspecified (principal); R51.9 Headache, unspecified; R42 Dizziness and giddiness; G62.9 Polyneuropathy, unspecified; D12.6 Benign neoplasm of colon, unspecified
CPT/HCPCS: 99214

== ENCOUNTER → 2023-02-01 09:09 | Outpatient (BNVA) | payer OTHER, SELFPAY | PROVIDERS: PCP Internal Medicine; Visit Provider Nurse Practitioner ==

== ENCOUNTER 2023-02-08 07:30 | Outpatient (REF) | payer OTHER, SELFPAY ==
--- NOTE | ~2023-02-08 | CT_ITS ---
EXAMINATION: CT HEAD WITHOUT CONTRAST CLINICAL INFORMATION: Headache. COMPARISON: None available. TECHNIQUE: Contiguous axial imaging was performed from the skull base to vertex without intravenous administration of contrast. This CT examination was performed using dose optimization techniques as appropriate, variously including the following: *Automated exposure control *Adjustment of mA and/or kV according to patient size (this includes techniques or standardized protocols for targeted exams where dose is matched to indication/reason for exam; i.e. extremities or head) *Use of iterative reconstruction technique DLP: 812.4 mGy-cm FINDINGS: Sequelae of prior left frontoparietal craniotomy with encephalomalacic changes in the left frontoparietal lobe. No acute infarct or intracranial hemorrhage. The milligan-white matter differentiation is preserved. No midline shift or hydrocephalus. No acute extra-axial fluid collections. The osseous structures are otherwise unremarkable. Partially empty sella. No orbital pathology. Mucosal thickening of the paranasal sinuses. The mastoid air cells are clear. Atherosclerotic calcifications of the bilateral carotid siphons. CT/CT head/brain wo IV con IMPRESSION: No acute intracranial pathology.
== END 2023-02-08 07:31 | disposition home or self-care (01) ==
LOC: HO.CT 07:30
PROVIDERS: Visit Provider Nurse Practitioner
DX: R51.9 Headache, unspecified (principal); R42 Dizziness and giddiness
CPT/HCPCS: 70450

== ENCOUNTER 2023-02-21 06:03 | Outpatient (REF) | payer OTHER, SELFPAY ==
[2023-02-21 11:42] LABS: Estimated Average Glucose 114 mg/dL; Hemoglobin A1c % 5.6 % (<6.0)
[2023-02-21 11:57] LABS: Alanine Aminotransferase 44 U/L (0-40); Anion Gap 14 (12-20); Aspartate Amino Transferase 26 U/L (5-37); Blood Urea Nitrogen 18 mg/dL (9-16); Calcium 9.4 mg/dL (8.4-10.2); Carbon Dioxide 27 mmol/L (22-29); Chloride 103 mmol/L (96-108); Cholesterol 163 mg/dL (<200); Estimated Glomerular Filt Rate > 60; Glucose Fasting 132 mg/dL (60-99); HDL Cholesterol 40 mg/dL (>40); LDL Cholesterol Calculated 88 mg/dL (<100); Potassium 4.1 mmol/L (3.3-5.1); Sodium 140 mmol/L (135-145); Triglycerides 175 mg/dL (<150)
== END 2023-02-21 06:04 | disposition home or self-care (01) ==
LOC: HO.CHCLDS 06:03
PROVIDERS: PCP Internal Medicine; Visit Provider Internal Medicine
DX: E11.9 Type 2 diabetes mellitus without complications (principal); E66.9 Obesity, unspecified; E78.2 Mixed hyperlipidemia
CPT/HCPCS: 36415; 80048; 80061; 83036; 84450; 84460

== ENCOUNTER 2023-02-26 10:12 | Outpatient (AMB) | payer OTHER, SELFPAY ==
--- NOTE | 2023-02-26 10:30 | MHC.PC.OV ---
Vital Signs 02/26/23 10:33 Height 5 ft 11 in Weight 235 lb BMI 32.8 BP 136/72 Blood Pressure Location Rt brachial Position Sitting Pulse 74 Pulse Source Pulse Oximeter Pulse Oximetry (%) 97 Oxygen Delivery Method Room Air Intake Visit Reasons: diabetes mellitus hypertension lipids Intake Note: Pt is here today f/u DM, HTN and lipids Allergies No Known Allergies [NO KNOWN ALLERGIES] Allergy (Unknown, Verified 02/26/23 11:12) N/A- Medication List - Last Reconciled 02/26/23 by Ronna Patton MD CPAP (CPAP Machine/Device) As directed imipramine HCl 10 mg PO BEDTIME 30 days metformin ER 500 mg PO QPM multivitamin 1 tab PO DAILY omega-3 acid ethyl esters 2 caps PO BID 30 days rosuvastatin 5 mg PO DAILY Tobacco use date assessed: 02/26/23 Dental Screening Dental Screen Date: 02/26/23 Did you have a dental visit in the last 12 months?: No Was dental information given to patient?: Patient declined HPI diabetes mellitus hypertension lipids HPI Details 63-year-old male with diabetes mellitus, hyperlipidemia , here today for his follow-up. He has been feeling well, compliant with his diet and medication. Latest fasting labs done showed hemoglobin A1c at 5.6% and lipid panel within normal limits. He would like to try using the freestyle Cony to monitor his blood sugar. Patient however complaining of recurrent headaches accompanied by ringing in both ears and intermittent episodes of positional lightheadedness. Has taken meclizine which has not helped. He also has tried Arron maneuver, no relief. [facility] Medical History Sessile colonic polyp (~2018) Tinnitus of both ears Dizziness and giddiness Mixed dyslipidemia Type 2 diabetes mellitus without complication, with no history of insulin use Lower extremity edema STUART (obstructive sleep apnea) Chronic restrictive lung disease Shortness of breath on exertion Obesity (BMI 30.0-34.9) Tubular adenoma of colon (~2019) Trigger finger of both hands Bilateral finger arthralgia Surgical History History of hernia repair History of hemorrhoidectomy History of colonoscopy Family History Father No problems noted. Mother No problems noted. 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 Wes Stock, Marleni Montague, Joselito Reeves and colleagues, with an educational ade from [employer]. Review of Systems Const Denies fatigue, Denies fever(s), Reports headache(s), Denies night sweats, Denies poor appetite and Denies weight loss Eyes Reports no additional complaints ENT Denies Normal hearing present, Denies dental pain, Denies dysphagia, Reports dizziness, Reports headache(s), Denies hearing loss, Denies mouth pain, Denies odynophagia, Reports disequilibrium, Reports tinnitus, Denies throat swelling, Denies tongue swelling and Reports other (Dentition adequate) Card Reports no additional complaints Resp Reports no additional complaints GI Denies abdominal pain, Denies melena, Denies bloating, Reports hematochezia, Denies constipation, Denies GI cramping, Denies dysphagia, Denies excessive flatus, Denies early satiety, Denies heartburn, Reports loose stools, Denies nausea, Denies odynophagia, Denies vomiting and Denies hematemesis Reports no additional complaints Musc Reports abnormal gait Skin/Breast Denies pruritus, Denies lesions, Denies rash and Denies jaundice Neuro Denies Normal hearing present, Denies Abnormal speech present, Reports abnormal gait, Reports burning sensations, Reports dizziness, Reports headache(s), Reports paresthesias and Reports disequilibrium Psych Reports difficulty concentrating Endo Denies fatigue Aller/Immun Denies throat swelling and Denies tongue swelling Physical exam (Primary Care) Vital Signs: Last Vital Signs Pulse 74 02/26/23 10:33 BP 136/72 02/26/23 10:33 Pulse Ox 97 02/26/23 10:33 Oxygen Delivery Method Room Air 02/26/23 10:33 BMI result Body Mass Index 32.8 Tobacco/Smoking Status: Tobacco use Status Tobacco use date assessed 02/26/23 02/26/23 10:31 Patient Tobacco Use Status Former Tobacco user 02/26/23 10:31 e-Cigarette/Vaping Use Never Used 02/26/23 10:31 Thrive Assessment: Date of Thrive Assessment Date Thrive assessed 07/21/22 02/26/23 10:31 Const Other: Alert oriented x3, no acute cardiorespiratory distress noted ambulatory normal gait Nutritional Appearance: obese Orientation/consciousness: patient oriented x3 HENMT Head: Yes normocephalic Ears: external ears normal, TM's normal bilaterally and EAC's normal Face and sinus: Yes face symmetric Mouth: Normal oral and palatal mucosa present and moist mucous membranes Eyes Pupils: Equal, round and reactive pupils present EOM: EOMs intact bilaterally and Nystagmus present Neck Other: Supple , thyroid gland nonpalpable, no carotid bruits, no lymphadenopathy Resp Effort & Inspection: normal respiratory effort and able to speak in complete sentences Auscultation: clear to auscultation bilaterally Cardio Other: S1-S2 present regular rate and no murmurs GI Inspection: Yes normal to inspection Palpation (GI): Soft to palpation, nontender, no guarding and no masses Skin General skin exam: no rashes or lesions noted Neuro General: patient oriented x3, gait normal, moves all extremities, Normal light touch and pain sensation, no focal motor deficits and CN's II-XI intact bilaterally Cranial nerves: Yes Equal, round and reactive pupils present, No Normal hearing present and Yes Nystagmus present Speech: No Abnormal speech present Extrem General: Yes normal to inspection, Yes full ROM, Yes no joint enlargement, Yes no clubbing, cyanosis or edema and Yes normal gait Results Reviewed Results Reviewed: Name: Jaya Hancock Age/Sex: 62/M : 1960 Unit#: [id number] Attend Dr: Ronna Patton MD Re02/21/23 Status: DEP REF Location: [facility] Disch: SPEC : [id number] HARSHAD: 02/21/23 STATUS: COMP REQ : [id number] RECD: 02/21/[address]: Ronna Patton MD COMP: 02/21/23 ENTERED: 02/21/[address] [facility] DR: ORDERED: Met Prof Fast, AST, ALT, Lipid Panel Test Result Flag Reference Site Sodium 140 135-145 mmol/L Potassium 4.1 3.3-5.1 mmol/L CL 103 96-108 mmol/L CO2 27 22-29 mmol/L Gap 14 12-20 BUN 18 H 9-16 mg/dL Creat 0.89 0.5-1.4 mg/dL EGFR > 60 NOTE: For -Japanese individuals, multiply the result by 1.210. Chronic Kidney Disease: Estimated GFR < 60 mL/min/1.73m2 Severe Kidney Disease: Estimated GFR < 15 mL/min/1.73m2 FBS 132 H 60-99 mg/dL A fasting glucose of 126 mg/dl or greater on more than one occasion is considered diagnostic of diabetes. CA 9.4 8.4-10.2 mg/dL AST (GOT) 26 5-37 U/L ALT (GPT) 44 H 0-40 U/L Triglyceride 175 H <150 mg/dL Desirable Triglyceride: less than 150 mg/dL Borderline High Triglyceride 150-199 mg/dL High Triglyceride: 200-499 mg/dL Very High Triglyceride: greater than or equal to 5OO mg/dL Cholesterol 163 <200 mg/dL Desirable Cholesterol: less than 200 mg/dL Borderline High Cholesterol: 200-239 mg/dL High Cholesterol: greater than 239 mg/dL LDL Calculated 88 <100 mg/dL Desirable LDL: less than 100 mg/dL Near Optimal/Above Optimal LDL: 110-129 mg/dL Borderline High LDL: 130-159 mg/dL High LDL: 160-189 mg/dL Very High LDL: greater than or equal to 190 mg/dL HDL 40 L >40 mg/dL Desirable HDL: greater than 40 mg/dL Note: This HDL assay may give artificially low results in patients with liver disease. Laboratory Tests 02/21/23 06:08 Estimat Average Glucose 114 Hemoglobin A1c % 5.6 Assessment and Plan Assessment & Plan (1) Type 2 diabetes mellitus without complication, with no history of insulin use: Code(s): E11.9 - Type 2 diabetes mellitus without complications Plan: Insert diabetes mellitus controlled with hemoglobin A1c at 5.6%. Continued on metformin ER 500 mg at night with supper. Check fasting glucose as directed, prescription sent for freestyle Cony 3 4 glucose 1 a total (2) Dizziness and giddiness: Code(s): R42 - Dizziness and giddiness Plan: ENT consult obtained further evaluation management (3) Severe headache: Code(s): R51.9 - Headache, unspecified Plan: Referred to ENT for further evaluation management, rule out Meniere's disease (4) Tinnitus of both ears: Code(s): H93.13 - Tinnitus, bilateral Plan: Referral to ENT for further evaluation management (5) Mixed dyslipidemia: Code(s): E78.2 - Mixed hyperlipidemia Plan: Reviewed recent fasting lipid profile with patient with levels within normal limits . Continue with [place] 3 fatty acid supplements and rosuvastatin 5 mg taken daily , in addition to adherence to low-cholesterol diet and regular exercise, at least 30 minutes 3 to 4 times a week. Advised patient to make healthy food choices, eat more fruits, vegetables, whole grains, wild caught fish and low-fat dairy. Limit amount of meat and fried or fatty food products, as well as processed foods and fast foods. Follow-up scheduled with repeat fasting lipid panel in 6 months. Orders: Orders Hemoglobin A1c 6 Months E78.2 - Mixed hyperlipidemia, E11.9 - Type 2 diabetes mellitus without complications Basic Metabolic Panel Fasting 6 Months E78.2 - Mixed hyperlipidemia, E11.9 - Type 2 diabetes mellitus without complications Lipid Panel 6 Months E78.2 - Mixed hyperlipidemia, E11.9 - Type 2 diabetes mellitus without complications Alanine Aminotransferase 6 Months E78.2 - Mixed hyperlipidemia, E11.9 - Type 2 diabetes mellitus without complications Aspartate Amino Transferase 6 Months E78.2 - Mixed hyperlipidemia, E11.9 - Type 2 diabetes mellitus without complications Microalbumin, Random (w Creat) 6 Months E78.2 - Mixed hyperlipidemia, E11.9 - Type 2 diabetes mellitus without complications Referrals Ear/Nose/Throat Referral R42 - Dizziness and giddiness, R51.9 - Headache, unspecified, H93.13 - Tinnitus, bilateral Medications: New FreeStyle Cony 3 Sensor (blood-glucose sensor) Check blood sugar as directed 1 ea 0RF NS E11.9 - Type 2 diabetes mellitus without complications Coding Level of Care Code Est Pt Level 4 (79514) Diagnoses Type 2 diabetes mellitus without complication, with no history of insulin use E11.9 Dizziness and giddiness R42 Severe headache R51.9 Tinnitus of both ears H93.13 Mixed dyslipidemia E78.2
[2023-02-26 10:33] VITALS: BP 136/72; PULSE 74; O2SAT 97; BMI 32.8
== END 2023-02-26 11:23 | disposition home or self-care (01) ==
PROVIDERS: PCP Internal Medicine; Visit Provider Internal Medicine
DX: E11.9 Type 2 diabetes mellitus without complications (principal); R42 Dizziness and giddiness; R51.9 Headache, unspecified; H93.13 Tinnitus, bilateral; E78.2 Mixed hyperlipidemia
CPT/HCPCS: 99214

== ENCOUNTER 2023-03-01 08:49 | Outpatient (AMB) | payer OTHER, SELFPAY ==
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
[2023-03-01 08:58] VITALS: BP 139/75; PULSE 69; BMI 32.8
== END 2023-03-01 09:25 | disposition home or self-care (01) ==
PROVIDERS: PCP Internal Medicine; Visit Provider Nurse Practitioner
DX: K52.9 Noninfective gastroenteritis and colitis, unspecified (principal); R51.9 Headache, unspecified; H93.13 Tinnitus, bilateral; R42 Dizziness and giddiness; D12.6 Benign neoplasm of colon, unspecified
CPT/HCPCS: 99213

== ENCOUNTER → 2023-03-01 08:49 | Outpatient (BNVA) | payer OTHER, SELFPAY | PROVIDERS: PCP Internal Medicine; Visit Provider Nurse Practitioner ==

== ENCOUNTER 2023-03-29 12:34 | Outpatient (AMB) | payer OTHER, SELFPAY ==
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
[2023-03-29 13:09] VITALS: BP 134/70; PULSE 77; O2SAT 96; BMI 32.1
== END 2023-03-29 13:38 | disposition home or self-care (01) ==
PROVIDERS: PCP Internal Medicine; Visit Provider Hospitalist
DX: R06.02 Shortness of breath (principal); J98.4 Other disorders of lung; R40.0 Somnolence; R06.09 Other forms of dyspnea; G47.33 Obstructive sleep apnea (adult) (pediatric); R60.0 Localized edema
CPT/HCPCS: 99214

== ENCOUNTER → 2023-03-29 12:34 | Outpatient (BNVA) | payer OTHER, SELFPAY | PROVIDERS: PCP Internal Medicine; Visit Provider Hospitalist | DX: J44.9 Chronic obstructive pulmonary disease, unspecified (principal); R06.00 Dyspnea, unspecified; J98.4 Other disorders of lung; R07.2 Precordial pain; R40.0 Somnolence ==

== ENCOUNTER 2023-06-18 14:23 | Outpatient (REF) | payer OTHER, SELFPAY ==
[2023-06-18 15:53] LABS: Erythrocyte Sedimentation Rate 5 MM/HR (0-15)
[2023-06-20 16:23] LABS: Lyme Abs Screen <0.90 index
== END 2023-06-18 14:24 | disposition home or self-care (01) ==
LOC: HO.LAB 14:23
PROVIDERS: Visit Provider Psychiatry & Neurology Neurology
DX: M79.7 Fibromyalgia (principal)
CPT/HCPCS: 36415; 82550; 85652; 86617; 86618

== ENCOUNTER 2023-07-23 06:04 | Outpatient (REF) | payer OTHER, SELFPAY ==
[2023-07-23 11:28] LABS: Estimated Average Glucose 120 mg/dL; Hemoglobin A1c % 5.8 % (<6.0)
[2023-07-23 12:05] LABS: Alanine Aminotransferase 63 U/L (0-40); Anion Gap 12 (12-20); Aspartate Amino Transferase 35 U/L (5-37); Blood Urea Nitrogen 13 mg/dL (9-16); Calcium 9.4 mg/dL (8.4-10.2); Carbon Dioxide 28 mmol/L (22-29); Chloride 104 mmol/L (96-108); Cholesterol 164 mg/dL (<200); Estimated Glomerular Filt Rate > 60; Glucose Fasting 129 mg/dL (60-99); HDL Cholesterol 37 mg/dL (>40); LDL Cholesterol Calculated 92 mg/dL (<100); Potassium 4.2 mmol/L (3.3-5.1); Sodium 140 mmol/L (135-145); Triglycerides 178 mg/dL (<150)
[2023-07-23 12:30] LABS: Microalbum/Creatinine Ratio Ur 14.7 ug/mg cr (<30)
== END 2023-07-23 06:05 | disposition home or self-care (01) ==
LOC: HO.HMGCLDS 06:04
PROVIDERS: PCP Internal Medicine; Visit Provider Internal Medicine
DX: E78.2 Mixed hyperlipidemia (principal); E11.9 Type 2 diabetes mellitus without complications
CPT/HCPCS: 36415; 80048; 80061; 82043; 82570; 83036; 84450; 84460

== ENCOUNTER 2023-07-23 07:48 | Outpatient (AMB) | payer OTHER, SELFPAY ==
--- NOTE | 2023-07-23 07:52 | MHC.OFFVIS ---
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 Allergies No Known Allergies [NO KNOWN ALLERGIES] Allergy (Unknown, Verified 07/23/23 07:53) N/A- Medication List - Last Reconciled 07/23/23 by Brittany Nunez MD CPAP (CPAP Machine/Device) As directed FreeWeibuyle Cony 3 Sensor (blood-glucose sensor) Check blood sugar as directed NS imipramine HCl 10 mg PO BEDTIME 30 days Januvia (sitagliptin phosphate) 100 mg PO DAILY NS multivitamin 1 tab PO DAILY omega-3 acid ethyl esters 2 caps PO BID 30 days rosuvastatin 5 mg PO DAILY HPI HPI Comments History of Present Illness Details 63y/o male with multiple medical issues comes for further management of neuropathy. He also sees Dr. Myers , neurologist who he was referred for dizziness and headaches.He reports ear fullness and daily headaches for over 1 year . He was seen by ENT who referred him to Dr. Myers . He is imipramine 10mg qhs for prevention. The pain is bitemporal, tightness. He denies nausea, vomitting photophobia. He has h/o spinal stenosis and was seen by neurospine specialists.He has h/o neck pain and back pain . He has shooting pain down his legs .He reports numbness, tingling in his feet ( 6 yeas ago) , lower leg and hands. He was initially seen by a solder cream maker . He was recently diagnosed with diabetes and was prediabetic for several years. He has occasional difficulty with urinary frequency and incontinence.No falls but has some difficulty walking. He was tried on gabapentin , cymbalta and other medications for pain . He was referred to pain management but does not remember seeing anyone. I also see a referral for rheumatology - but does not remember seeing any one. FORMERLY [facility] Medical History (Updated 07/23/23 @ 08:45 by Brittany Nunez MD) Chronic tension headaches Neck pain Peripheral neuropathy Pulmonary nodules Sessile colonic polyp (~2019) Tinnitus of both ears Dizziness and giddiness Mixed dyslipidemia Type 2 diabetes mellitus without complication, with no history of insulin use Lower extremity edema STUART (obstructive sleep apnea) Chronic restrictive lung disease Shortness of breath on exertion Obesity (BMI 30.0-34.9) Tubular adenoma of colon (~2018) Trigger finger of both hands Bilateral finger arthralgia Surgical History History of hernia repair History of hemorrhoidectomy History of colonoscopy Family History Father No problems noted. Mother No problems noted. 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 Current occupational exposures/hazards: No Cognitive needs: No Hearing needs: No Vision needs: No Physical Exam Vital Signs: Last Vital Signs Pulse 64 07/23/23 07:54 Resp 16 07/23/23 07:54 BP 138/80 07/23/23 07:54 BMI result Body Mass Index 32.1 Const General: cooperative, healthy appearing and in distress Nutritional Appearance: overweight Orientation/consciousness: patient oriented x3 Eyes Pupils: Equal, round and reactive pupils present Neuro Other: patient reported pain in multiple joints which limited my exam Mild decreased light touch and pin prick in distal lower extremties No atrophy General: patient oriented x3, tone normal, moves all extremities and no focal motor deficits Cranial nerves: Yes Facial sensation intact/muscles of mastication intact, Yes Equal, round and reactive pupils present, Yes Bilaterally intact EOM present, Yes Nystagmus not present, Yes Normal facial strength present, Yes Midline tongue present and Yes Symmetric palate elevation present Cognition (Neuro): normal cognition Gait exam (Neuro): Normal gait present Motor exam (neuro): 5/5 motor strength present throughout Deep tendon reflexes (DTR's): Right triceps reflex intensity grade: 1+, Left triceps reflex intensity grade: 1+, Rt Biceps (C5, C6): 1+, Left biceps reflex intensity grade: 1+, Right brachioradialis reflex intensity grade: 1+, Left brachioradialis reflex intensity grade: 1+, Right patellar reflex intensity grade: 1+, Left patellar reflex intensity grade: 1+, Right ankle reflex intensity grade: 0 and Left ankle reflex intensity grade: 0 Coordination: [id number] test normal Results Reviewed Results Reviewed: Lumbar MRI 2021 IMPRESSION: 1. There is a mild anterolisthesis of L4 on L5 secondary to facet arthropathy. There is a left foraminal disc protrusion impinging on the exiting left L4 nerve root. There is moderate central stenosis. 2. At L5-S1 there is a posterior disc protrusion with a small extruded component extending into the left subarticular recess with impingement on the traversing left S1 nerve root. There is no central stenosis. 3. At L3-L4 there is facet arthropathy and there is a left foraminal disc protrusion impinging on the exiting left L3 nerve root. There is no central stenosis. Assessment & Plan Assessment & Plan (1) Peripheral neuropathy: Comment: moderate as per EMG results - ? diabetic ? nutritional def Code(s): G62.9 - Polyneuropathy, unspecified (2) Chronic tension headaches: Comment: cervicogenic Code(s): G44.229 - Chronic tension-type headache, not intractable (3) Spondylosis of lumbar region without myelopathy or radiculopathy: Comment: reviewed MRI LS spine Code(s): M47.816 - Spondylosis without myelopathy or radiculopathy, lumbar region Plan I will check his Bit B 12 THOMAS TSH for causes of neuropathy . There is a mention of Crohns disease in one of his diagnostic reports , consider retesting. I will refer him to PT for neck , back pain and started him on baclofen 10 mg qhs for tension headaches. will reinitiate the pain management referral May need Rheumatology eval for arthralgias. Orders: Orders THOMAS Reflex Titer and Pattern Today G62.9 - Polyneuropathy, unspecified PT Evaluation and Treatment Today M47.816 - Spondylosis without myelopathy or radiculopathy, lumbar region, M54.2 - Cervicalgia Vitamin B12 and Folate Today G62.9 - Polyneuropathy, unspecified TSH reflex Free T4 Today G62.9 - Polyneuropathy, unspecified Vitamin D 25-OH (D2 and D3) Today G62.9 - Polyneuropathy, unspecified Referrals Pain Management Referral G89.4 - Chronic pain syndrome, M17.11 - Unilateral primary osteoarthritis, right knee, M47.816 - Spondylosis without myelopathy or radiculopathy, lumbar region, M48.00 - Spinal stenosis, site unspecified, M51.36 - Other intervertebral disc degeneration, lumbar region Medications: New baclofen 10 mg PO BEDTIME 30 tabs 3RF Coding Level of Care Code New Pt Level 4 (17264) Diagnoses Peripheral neuropathy G62.9 Chronic tension headaches G44.229 Spondylosis of lumbar region without myelopathy or radiculopathy M47.816
[2023-07-23 07:54] VITALS: BP 138/80; PULSE 64; RESP 16; BMI 32.1
== END 2023-07-23 08:39 | disposition home or self-care (01) ==
PROVIDERS: PCP Internal Medicine; Visit Provider Psychiatry & Neurology Neurology
DX: G62.9 Polyneuropathy, unspecified (principal); G44.229 Chronic tension-type headache, not intractable; M47.816 Spondylosis without myelopathy or radiculopathy, lumbar region
CPT/HCPCS: 99204

== ENCOUNTER 2023-07-23 09:29 | Outpatient (REF) | payer OTHER, SELFPAY ==
[2023-07-23 11:45] LABS: TSH reflex Free T4 1.37 uIU/mL (0.32-4.0)
[2023-07-23 12:00] LABS: Folate 14.1 ng/mL (> or = 4.0); Vitamin B12 478 pg/mL (200-900)
[2023-07-27 08:14] LABS: Anti Nuclear Antibody Screen NEGATIVE (NEGATIVE)
[2023-07-27 15:24] LABS: Vitamin D 25-OH, D2 <4 ng/mL; Vitamin D 25-OH, D3 35 ng/mL; Vitamin D 25-OH, Total 35 ng/mL (30-100)
== END 2023-07-23 09:30 | disposition home or self-care (01) ==
LOC: HO.LAB 09:29
PROVIDERS: Visit Provider Psychiatry & Neurology Neurology
DX: G62.9 Polyneuropathy, unspecified (principal)
CPT/HCPCS: 36415; 82306; 82607; 82746; 84443; 86038

== ENCOUNTER 2023-07-25 12:17 | Outpatient (AMB) | payer OTHER, SELFPAY ==
--- NOTE | 2023-07-25 12:48 | MHC.PC.OV ---
Vital Signs 07/25/23 12:50 Height 5 ft 11 in Weight 236 lb BMI 32.9 BP 130/76 Blood Pressure Location Lt brachial Position Sitting Pulse 78 Pulse Source Pulse Oximeter Pulse Oximetry (%) 98 Oxygen Delivery Method Room Air Intake Visit Reasons: PE Intake Note: Pt is here today for PE. Allergies No Known Allergies [NO KNOWN ALLERGIES] Allergy (Unknown, Verified 07/25/23 22:13) N/A- Medication List - Last Reconciled 07/25/23 by Ronna Patton MD baclofen 10 mg PO BEDTIME CPAP (CPAP Machine/Device) As directed FreeStyle [place]y 3 Sensor (blood-glucose sensor) Check blood sugar as directed NS Januvia (sitagliptin phosphate) 100 mg PO DAILY NS multivitamin 1 tab PO DAILY omega-3 acid ethyl esters 2 caps PO BID 30 days rosuvastatin 5 mg PO DAILY Tobacco use date assessed: 07/25/23 Dental Screening Dental Screen Date: 07/25/23 Did you have a dental visit in the last 12 months?: No Did you have a dental problem in the last 6 months where you did not have access to dental care?: No Was dental information given to patient?: Patient declined HPI PE HPI Details 3-year-old male with diabetes mellitus, hyperlipidemia, , degenerative disc disease in lumbar spine, history of adenomatous polyp:, restrictive lung disease and obstructive sleep apnea on CPAP, here today for physical exam. He has been compliant taking his medications and diet but has not been able to exercise regularly due to pain across his lower back and left posterior neck area. He was recently seen by Neurology with diagnosis amount peripheral neuropathy as noted on his recent EMG result differential etiology could be from diabetes versus nutritional deficiency, she ordered to check his vitamin B12, THOMAS, TSH, and was referred to physical therapy for neck and back pain, and started on baclofen 10 mg taken at night, which patient states has been helping with his headaches but affect dissipates towards the end of the day. He also has been referred to pain management . Still having recurrent pain and stiffness in his left posterior neck radiating down shoulder, pain in his lower back slightly improved with taking baclofen at bedtime. Has not started physical therapy yet Diabetes is stable well controlled with latest hemoglobin A1c at 5.8%. Recent fasting lipids showe elevated triglycerides but LDL cholesterol is within normal limits, but has a low HDL level. He is up-to-date with his screening colonoscopy done in 11/13/2022 showing severe active colitis and cecum and removal of a serrated polyp by Dr. De Jesus. [facility] Medical History History of prior cigarette smoking Chronic tension headaches Neck pain Peripheral neuropathy Pulmonary nodules Sessile colonic polyp (~2018) Tinnitus of both ears Mixed dyslipidemia Type 2 diabetes mellitus without complication, with no history of insulin use STUART (obstructive sleep apnea) Chronic restrictive lung disease Shortness of breath on exertion Obesity (BMI 30.0-34.9) Tubular adenoma of colon (~2018) Bilateral finger arthralgia Surgical History History of hernia repair History of hemorrhoidectomy History of colonoscopy Family History Father No problems noted. Mother No problems noted. 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 1. Little interest or pleasure in doing things: not at all 2. Feeling down, depressed, or hopeless: not at all 3. Trouble falling or staying asleep, or sleeping too much: several days 5. Poor appetite or overeating: more than half the days 6. Feeling bad about yourself - or that you are a failure or have let yourself or your family down: several days 7. Trouble concentrating on things, such as reading the newspaper or watching television: several days 8. Moving or speaking so slowly that other people could have noticed. Or the opposite - being so fidgety or restless that you have been moving around a lot more than usual: not at all 9. Thoughts that you would be better off or of hurting yourself in some way: not at all Depression Screening Interpretation: Negative Depression Screening Done: Yes 96795 - PHQ-9 Billing: Yes Source: Developed by Drs. Wes Stock, Marleni Montague, Joselito Reeves and colleagues, with an educational ade from adjust. Thrive Questionnaire Date Thrive assessed: 07/25/23 I am a: Patient What is your living situation today?: I have a steady place to live Within the past 12 months, did the food you bought not last and you didn't have the money to get more?: Never true Within the past 12 months, did you worry whether your food would run out before you got money to buy more?: Never true Do you have trouble paying for medicines?: No Do you have trouble getting transportation to medical appointments?: No Do you have trouble paying your heating and electricity bill?: No Do you have trouble taking care of your child, family member or friend?: No Do you have trouble with day-to-day activities such as bathing, preparing meals, shopping, managing finances, etc.?: No Are you currently unemployed and looking for a job?: No Are you interested in more education?: No THRIVE Score: 0 AUDIT C Alcohol Use Questionnaire (AUDIT-C) 1. How often do you have a drink containing alcohol?: Never 3. How often do you have six or more drinks on one occasion?: Never Total Score: 0 RAIZA-7 AMB Questionnaire RAIZA-7 Date RAIZA - 7 assessed: 07/25/23 Feeling nervous, anxious, or on edge: 0 = Not at all Not being able to stop or control worryin = Not at all Worrying too much about different things: 1 = Several days Trouble relaxin = Not at all Being so restless that it is hard to sit still: 0 = Not at all Becoming easily annoyed or irritable: 0 = Not at all Feeling afraid as if something awful might happen: 0 = Not at all Total RAIZA-7 score (0-4 normal; 5-9 mild; 10-14 moderate; 15-21 severe): 1 Source: Developed by Marleni Brooks Kurt Kroenke and colleagues, with an educational ade from adjust. RAIZA-7 Assessment Billing RAIZA-7 Assessment Tool: RAIZA-7 Assessment 78309 Review of Systems Const Denies fever(s), Reports headache(s) and Denies poor appetite Eyes Reports no additional complaints ENT Reports as per HPI, Denies Normal hearing present, Reports headache(s), Denies hearing loss, Denies disequilibrium and Denies sore throat Card Reports no additional complaints Resp Reports no additional complaints GI Denies abdominal pain, Denies melena, Denies constipation, Denies heartburn, Denies nausea, Denies vomiting and Denies hematemesis Reports no additional complaints Musc Reports as per HPI Skin/Breast Denies pruritus, Denies lesions, Denies rash and Denies jaundice Neuro Denies Normal hearing present, Denies Abnormal speech present, Reports burning sensations, Reports headache(s), Reports paresthesias and Denies disequilibrium Psych Reports no additional complaints Endo Reports no additional complaints Camilo/Lymph Reports no additional complaints Aller/Immun Reports no additional complaints Physical exam (Primary Care) Vital Signs: Last Vital Signs Pulse 78 07/25/23 12:50 BP 130/76 07/25/23 12:50 Pulse Ox 98 07/25/23 12:50 Oxygen Delivery Method Room Air 07/25/23 12:50 BMI result Body Mass Index 32.9 Tobacco/Smoking Status: Tobacco use Status Tobacco use date assessed 07/25/23 07/25/23 12:54 Patient Tobacco Use Status Former Tobacco user 07/25/23 12:54 e-Cigarette/Vaping Use Never Used 07/25/23 12:48 Depression Screening Interpretation: Negative Thrive Assessment: Date of Thrive Assessment Date Thrive assessed 07/21/22 07/25/23 12:48 Const Other: Alert oriented x3, no acute cardiorespiratory distress noted ambulatory normal gait Nutritional Appearance: obese Orientation/consciousness: patient oriented x3 HENMT Head: Yes normocephalic Ears: external ears normal, TM's normal bilaterally and EAC's normal Face and sinus: Yes face symmetric Mouth: Normal oral and palatal mucosa present and moist mucous membranes Eyes Pupils: Equal, round and reactive pupils present EOM: EOMs intact bilaterally and Nystagmus present Neck Other: Supple , thyroid gland nonpalpable, no carotid bruits, no lymphadenopathy Chest Chest palpation & inspection: normal inspection of the chest Resp Effort & Inspection: normal respiratory effort and able to speak in complete sentences Auscultation: clear to auscultation bilaterally Cardio Other: S1-S2 present regular rate and rhythm GI Inspection: Yes normal to inspection Palpation (GI): Soft to palpation, nontender, no guarding and no masses Back/Spine/Pelvis Cervical Spine: cervical muscular tenderness (On left and left trapezius muscle) Thoracic/Lumbar Spine: straight leg raise negative bilaterally and paraspinal muscle tenderness bilaterally in the lower lumbar Skin General skin exam: no rashes or lesions noted Neuro General: patient oriented x3, gait normal, moves all extremities, Normal light touch and pain sensation, no focal motor deficits and CN's II-XI intact bilaterally Cranial nerves: Yes Equal, round and reactive pupils present, No Normal hearing present and Yes Nystagmus present Speech: No Abnormal speech present Extrem General: Yes normal to inspection, Yes full ROM, Yes no joint enlargement, Yes no clubbing, cyanosis or edema and Yes normal gait Psych Appearance: grossly normal and well kempt Mental Status: mental status grossly normal Speech and movement: Normal speech and movement present Affect: normal affect Results Reviewed Results Reviewed: ENTERED: 07/23/[address]: ORDERED: Met Prof Fast, AST, ALT, Lipid Panel Test Result Flag Reference Sodium 140 135-145 mmol/L Potassium 4.2 3.3-5.1 mmol/L CL 104 96-108 mmol/L CO2 28 22-29 mmol/L Gap 12 12-20 BUN 13 9-16 mg/dL Creat 0.86 0.5-1.4 mg/dL EGFR > 60 NOTE: For -English individuals, multiply the result by 1.210. Chronic Kidney Disease: Estimated GFR < 60 mL/min/1.73m2 Severe Kidney Disease: Estimated GFR < 15 mL/min/1.73m2 FBS 129 H 60-99 mg/dL A fasting glucose of 126 mg/dl or greater on more than one occasion is considered diagnostic of diabetes. CA 9.4 8.4-10.2 mg/dL AST (GOT) 35 5-37 U/L ALT (GPT) 63 H 0-40 U/L Triglyceride 178 H <150 mg/dL Desirable Triglyceride: less than 150 mg/dL Borderline High Triglyceride 150-199 mg/dL High Triglyceride: 200-499 mg/dL Very High Triglyceride: greater than or equal to 5OO mg/dL Cholesterol 164 <200 mg/dL Desirable Cholesterol: less than 200 mg/dL Borderline High Cholesterol: 200-239 mg/dL High Cholesterol: greater than 239 mg/dL LDL Calculated 92 <100 mg/dL Desirable LDL: less than 100 mg/dL Near Optimal/Above Optimal LDL: 110-129 mg/dL Borderline High LDL: 130-159 mg/dL High LDL: 160-189 mg/dL Very High LDL: greater than or equal to 190 mg/dL HDL 37 L >40 mg/dL Desirable HDL: greater than 40 mg/dL Note: This HDL assay may give artificially low results in patients with liver disease. Assessment and Plan Assessment & Plan (1) Annual visit for general adult medical examination with abnormal findings: Code(s): Z00.01 - Encounter for general adult medical examination with abnormal findings Plan: Recent fasting lab results reviewed with patient. Recommended dental visit every 6 months and yearly eye exams. . Take adequate calcium in diet and vitamin-D 3 at 2000 IU per cap once a day, in addition to weight-bearing exercises to help maintain good muscle tone and weight control. Instructed to do testicular exam to check for any mass. Up-to-date with his vaccinations but does not want to get a COVID booster, reminded to get his shingles vaccine (2) Neck pain: Code(s): M54.2 - Cervicalgia Plan: X-ray of cervical spine ordered, has been referred already for physical therapy and pain management by Neurology. (3) Type 2 diabetes mellitus without complication, with no history of insulin use: Code(s): E11.9 - Type 2 diabetes mellitus without complications Plan: Recent lab results reviewed with patient, with sugar and hemoglobin A1c stable and at goal . Continued on Januvia, Reinforced diabetic diet and regular exercise with patient. Counseled regarding importance of yearly diabetes retinopathy screening. Patient advised to inspect feet daily, for any signs of injury, callus or infection. Compliance with diet and regular exercise again stressed. Blood pressure goal is less than 130/80, goal LDL is less than 100 and goal hemoglobin A1c is less than 7% follow-up appointment made in-6--months, after fasting labs done. (4) Mixed dyslipidemia: Code(s): E78.2 - Mixed hyperlipidemia Plan: Continue rosuvastatin 5 mg once a day and [place] 3 fatty acid supplements 2 capsules twice a day. Will check lipid levels again in 6 months (5) Tubular adenoma of colon: Onset Date: ~2018 Comment: 2022= 2 TA repeat 5 years aeb (TA on 2019 and 2020 scopes) Code(s): D12.6 - Benign neoplasm of colon, unspecified Plan: Up-to-date with screening colonoscopy due for another colonoscopy in 2027 (6) Spondylosis of lumbar region without myelopathy or radiculopathy: Comment: reviewed MRI LS spine Code(s): M47.816 - Spondylosis without myelopathy or radiculopathy, lumbar region Plan: Currently on baclofen, 10 mg at bedtime and may try taking half a dose during the day as needed for painful muscle spasm. Has been already referred to physical therapy by Neurology as well as pain management (7) Pulmonary nodules: Code(s): R91.8 - Other nonspecific abnormal finding of lung field Plan: Followed by Pulmonary (8) STUART (obstructive sleep apnea): Comment: moderate to severe Code(s): G47.33 - Obstructive sleep apnea (adult) (pediatric) Plan: Compliant with CPAP Orders: Orders XR cervical spine min 6V Today M54.2 - Cervicalgia Aspartate Amino Transferase 01/18/24 D12.6 - Benign neoplasm of colon, unspecified, E11.9 - Type 2 diabetes mellitus without complications, E66.9 - Obesity, unspecified, E78.2 - Mixed hyperlipidemia, M47.816 - Spondylosis without myelopathy or radiculopathy, lumbar region, R51.9 - Headache, unspecified, R91.8 - Other nonspecific abnormal finding of lung field Basic Metabolic Panel Fasting 01/18/24 D12.6 - Benign neoplasm of colon, unspecified, E11.9 - Type 2 diabetes mellitus without complications, E66.9 - Obesity, unspecified, E78.2 - Mixed hyperlipidemia, M47.816 - Spondylosis without myelopathy or radiculopathy, lumbar region, R51.9 - Headache, unspecified, R91.8 - Other nonspecific abnormal finding of lung field Lipid Panel 01/18/24 D12.6 - Benign neoplasm of colon, unspecified, E11.9 - Type 2 diabetes mellitus without complications, E66.9 - Obesity, unspecified, E78.2 - Mixed hyperlipidemia, M47.816 - Spondylosis without myelopathy or radiculopathy, lumbar region, R51.9 - Headache, unspecified, R91.8 - Other nonspecific abnormal finding of lung field Hemoglobin A1c 01/18/24 D12.6 - Benign neoplasm of colon, unspecified, E11.9 - Type 2 diabetes mellitus without complications, E66.9 - Obesity, unspecified, E78.2 - Mixed hyperlipidemia, M47.816 - Spondylosis without myelopathy or radiculopathy, lumbar region, R51.9 - Headache, unspecified, R91.8 - Other nonspecific abnormal finding of lung field Alanine Aminotransferase 01/18/24 D12.6 - Benign neoplasm of colon, unspecified, E11.9 - Type 2 diabetes mellitus without complications, E66.9 - Obesity, unspecified, E78.2 - Mixed hyperlipidemia, M47.816 - Spondylosis without myelopathy or radiculopathy, lumbar region, R51.9 - Headache, unspecified, R91.8 - Other nonspecific abnormal finding of lung field Vitamin D 25-OH Total 01/18/24 D12.6 - Benign neoplasm of colon, unspecified, E11.9 - Type 2 diabetes mellitus without complications, E66.9 - Obesity, unspecified, E78.2 - Mixed hyperlipidemia, M47.816 - Spondylosis without myelopathy or radiculopathy, lumbar region, R51.9 - Headache, unspecified, R91.8 - Other nonspecific abnormal finding of lung field Coding Level of Care Code Est Pt [facility] Care 40-64y([id number]) Diagnoses Annual visit for general adult medical examination with abnormal findings Z00.01 Neck pain M54.2 Type 2 diabetes mellitus without complication, with no history of insulin use E11.9 Mixed dyslipidemia E78.2 Tubular adenoma of colon D12.6 Spondylosis of lumbar region without myelopathy or radiculopathy M47.816 Pulmonary nodules R91.8 STUART (obstructive sleep apnea) G47.33 Additional Codes RAIZA-7 Assessment Billing - RAIZA-7 Assessment Tool: RAIZA-7 Assessment [id number] ([id number])
[2023-07-25 12:50] VITALS: BP 130/76; PULSE 78; O2SAT 98; BMI 32.9
== END 2023-07-25 13:23 | disposition home or self-care (01) ==
PROVIDERS: PCP Internal Medicine; Visit Provider Internal Medicine
DX: Z00.00 Encounter for general adult medical examination without abnormal findings (principal); M54.2 Cervicalgia; E11.69 Type 2 diabetes mellitus with other specified complication; E78.2 Mixed hyperlipidemia; D12.6 Benign neoplasm of colon, unspecified; M47.816 Spondylosis without myelopathy or radiculopathy, lumbar region; R91.8 Other nonspecific abnormal finding of lung field; G47.33 Obstructive sleep apnea (adult) (pediatric)
CPT/HCPCS: 99396

== ENCOUNTER 2023-07-25 13:24 | Outpatient (REF) | payer OTHER, SELFPAY ==
--- NOTE | ~2023-07-25 | XR_ITS ---
EXAMINATION: XR CERVICAL SPINE CLINICAL INFORMATION: Cervicalgia COMPARISON: None available. TECHNIQUE: 6 views of the cervical spine, inclusive of flexion and extension views, were obtained. FINDINGS: On the lateral view, C7 is totally obscured by the soft tissues of the patient's shoulder, however is seen on the oblique views. The very tip of the odontoid is obscured on the open-mouth view. There is no fracture. Prevertebral soft tissues are within normal limits. There is disc space narrowing at C5-C6 and C6-C7 with marginal osteophyte formation. Question of mild anterolisthesis of C5 respect to C6. The neural foramina are patent. XR/XR cervical spine min 6V IMPRESSION: 1. Degenerative disc disease at C5-C6 and C6-C7. 2. Question of mild anterolisthesis of C5 respect to C6.
== END 2023-07-25 13:25 | disposition home or self-care (01) ==
LOC: HO.HMGCX 13:24
PROVIDERS: PCP Internal Medicine; Visit Provider Internal Medicine
DX: M54.2 Cervicalgia (principal)
CPT/HCPCS: 72052

== ENCOUNTER 2023-08-23 09:48 | Outpatient (AMB) | payer OTHER, SELFPAY ==
--- NOTE | 2023-08-23 09:52 | MHC.OFFVIS ---
Intake Vital Signs 08/23/23 09:58 Height 5 ft 11 in Weight 237 lb 2 oz BMI 33.1 BP 132/76 Blood Pressure Location Lt brachial Position Sitting Respiration 16 Pulse 62 Pulse Source Pulse Oximeter Pulse Oximetry (%) 98 Oxygen Delivery Method Room Air Intake Visit Reasons: Chronic Pain Syndrome Intake Note: Patient comes in for chronic pain. Reports pain 9/10. Allergies No Known Allergies [NO KNOWN ALLERGIES] Allergy (Unknown, Verified 08/23/23 09:58) N/A- HPI HPI Comments History of Present Illness Details Jaya is back in my office with complains on widespread pain all over the body. He reports pain in bilateral feet he reports that this pain is neuropathic, he reports pain in the knee on the right side with radiation of the pain down to the right lower extremity. He also reports pain in the lower back and pain in the neck. Last time he was in this office and we discussed treatment of the pain in the knee, we performed genicular nerve block without success were performed femoral nerve block without success I offered the patient has spinal cord stimulator. Unfortunately patient that time refused to go for spinal cord stimulator. Now he went for a consult with neurosurgeon he tried gabapentin there without success for his neuropathic pain. He is reluctant to go for spinal cord stimulator because it was offered for him to treat his pain. I explained to him in very long and detailed conversation that treatment with spinal cord stimulator might be addressed to bilateral lower extremities. It also can address pain in bilateral feet, neuropathic pain, after this condition is improved we can address his cervicalgia cervical pain as well. I am not sure what can be offered to the patient according to him he had a CT scan done in [facility] facility however there is no CT scan available. The only available study I have x-ray of the cervical spine was minimal information about the sources of the pain. We might be in the future require to send the patient for MRI of the cervical spine. We discussed possibility to treat his pain medical as well. We discussed opioid medications, we discussed Lyrica. I am not sure if opioid medication is appropriate approach for this patient. I explained to him that opioids usually have multiple side effects and his pain with opioid on year to year basis will be only stronger. We agreed that I will try Lyrica 75 mg b.i.d. for him. I also gave him brochure about spinal cord stimulator Anita Margarita and encouraged him to call [facility]ita telephone line to discuss the treatment with spinal cord stimulator. [facility] Medical History History of prior cigarette smoking Chronic tension headaches Neck pain Peripheral neuropathy Pulmonary nodules Sessile colonic polyp (~2018) Tinnitus of both ears Mixed dyslipidemia Type 2 diabetes mellitus without complication, with no history of insulin use STUART (obstructive sleep apnea) Chronic restrictive lung disease Shortness of breath on exertion Obesity (BMI 30.0-34.9) Tubular adenoma of colon (~2018) Bilateral finger arthralgia Surgical History History of hernia repair History of hemorrhoidectomy History of colonoscopy Family History Father No problems noted. Mother No problems noted. 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 Current occupational exposures/hazards: No Cognitive needs: No Hearing needs: No Vision needs: No Review of Systems Const All systems reviewed & are unremarkable except as noted in HPI and below ENT Reports Normal hearing present Neuro Reports Normal hearing present and Denies Abnormal speech present Physical Exam Vital Signs: Last Vital Signs Pulse 62 08/23/23 09:58 Resp 16 08/23/23 09:58 BP 132/76 08/23/23 09:58 Pulse Ox 98 08/23/23 09:58 Oxygen Delivery Method Room Air 08/23/23 09:58 BMI result Body Mass Index 33.1 Const General: no acute distress and alert Nutritional Appearance: well nourished Orientation/consciousness: patient oriented x3 Chest Chest palpation & inspection: normal inspection of the chest Resp Effort & Inspection: normal respiratory effort, able to speak in complete sentences, normal respiratory pattern, no audible wheezes, no cough, respiratory effort not decreased, no grunting and not labored Cardio Jugular venous distension: no JVD Back/Spine/Pelvis Cervical Spine: normal cervical lordosis Thoracic/Lumbar Spine: thoracic and lumbar spine normal to inspection Neuro General: patient oriented x3 Cranial nerves: Yes Normal hearing present Speech: No Abnormal speech present Extrem Other: Right Knee: vague dull tenderness about the knee Right knee ROM limited to 80 degrees Minimal effusion, minimal ballottement of the right patella Minimal swelling 5/5 strength with lower muscle extremity group testing no hyperreflexia No tenderness on palpation of the right knee. The circumference of the right knee is bigger than the circumference of the left knee. No difference in temperature on palpation. Anterior and posterior drawer test is negative, lateral collateral and medial collateral ligaments are also stable, no cogwheel sensation on palpation of the knee. Crepitus on movement of the left knee but not the right knee. Assessment & Plan Assessment & Plan (1) Spondylosis of lumbar region without myelopathy or radiculopathy: Comment: reviewed MRI LS spine Code(s): M47.816 - Spondylosis without myelopathy or radiculopathy, lumbar region (2) Arthritis of right knee: Code(s): M17.11 - Unilateral primary osteoarthritis, right knee (3) Right knee pain: Code(s): M25.561 - Pain in right knee (4) Disc degeneration, lumbar: Code(s): M51.36 - Other intervertebral disc degeneration, lumbar region (5) Chronic pain syndrome: Code(s): G89.4 - Chronic pain syndrome Plan Jaya had very detailed and prolonged conversation with me today, he is now complaining on widespread pain getting pain in neck pain in the back bilateral feet pain and pain in right knee with radiation down to the right lower leg. I explained to him possibility of treatment of his pain with different modalities see above. Prolonged and detailed conversation ensued. The patient was given brochure of spinal cord stimulator Anita Margarita and encouraged to call Anita Margarita to discuss the nature of the procedure. We agreed that I will start him on Lyrica 75 b.i.d.. I will schedule him for the appointment with me in 1 month to discuss the results from Lyrica and discuss his decision about spinal cord stimulator. Medications: New pregabalin (Lyrica) 75 mg PO BID 30 days 60 caps 1RF Patient Instructions: I here by testify that I spent 35 minutes in conversation with this patient evaluating his prior records, his prior diagnostic studies and completing this note. Coding Level of Care Code Est Pt Level 4 (19406) Diagnoses Spondylosis of lumbar region without myelopathy or radiculopathy M47.816 Arthritis of right knee M17.11 Right knee pain M25.561 Disc degeneration, lumbar M51.36 Chronic pain syndrome G89.4
[2023-08-23 09:58] VITALS: BP 132/76; PULSE 62; RESP 16; O2SAT 98; BMI 33.1
== END 2023-08-23 10:16 | disposition home or self-care (01) ==
PROVIDERS: PCP Internal Medicine; Referring Provider Psychiatry & Neurology Neurology; Visit Provider Anesthesiology
DX: M47.816 Spondylosis without myelopathy or radiculopathy, lumbar region (principal); M17.11 Unilateral primary osteoarthritis, right knee; M25.561 Pain in right knee; M51.36 Other intervertebral disc degeneration, lumbar region; G89.4 Chronic pain syndrome
CPT/HCPCS: 99214

== ENCOUNTER → 2023-08-23 09:48 | Outpatient (BNVA) | payer OTHER, SELFPAY | PROVIDERS: PCP Internal Medicine; Referring Provider Psychiatry & Neurology Neurology; Visit Provider Anesthesiology ==

== ENCOUNTER 2023-09-20 08:14 | Outpatient (AMB) | payer OTHER, SELFPAY ==
[2023-09-20 08:29] VITALS: BP 136/68; PULSE 58; RESP 16; O2SAT 97; BMI 32.1
--- NOTE | 2023-09-20 08:29 | MHC.OFFVIS ---
Vital Signs 09/20/23 08:29 Height 5 ft 11 in Weight 230 lb 8 oz BMI 32.1 BP 136/68 Blood Pressure Location Lt brachial Position Sitting Respiration 16 Pulse 58 Pulse Source Pulse Oximeter Pulse Oximetry (%) 97 Oxygen Delivery Method Room Air Intake Visit Reasons: 1 MONTH FOLLOW UP Intake Note: Patient comes in for 1 month follow up appointment. Reports pain 11/27. Allergies No Known Allergies [NO KNOWN ALLERGIES] Allergy (Unknown, Verified 09/20/23 08:31) N/A- HPI Comments Details: Jaya is back in my office with complains on widespread pain all over the body. He complains on stiffness in bilateral upper extremities including stiffness in the hands his stiffness is all day long and not confined mostly in the morning. He is still looking for some miracle drug to help his condition. We discussed opioid medications. 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 He tried Lyrica and he found that he sleeps better at night. I will change his order to Lyrica 100 mg q.h.s. to help him to sleep at night. We also discussed possibility of treating the arthritis with NSAIDs he denies any help from NSAIDs. I offered him Celebrex, I explained to him elevated slightly risk of heart attack and stroke why on Celebrex. He understood and agreed to start Celebrex. We also discussed spinal cord stimulation this time briefly, he is not very eager to go for those procedures. Next appointment is needed. Prior: He reports pain in bilateral feet he reports that this pain is neuropathic, he reports pain in the knee on the right side with radiation of the pain down to the right lower extremity. He also reports pain in the lower back and pain in the neck. Last time he was in this office and we discussed treatment of the pain in the knee, we performed genicular nerve block without success were performed femoral nerve block without success I offered the patient has spinal cord stimulator. Unfortunately patient that time refused to go for spinal cord stimulator. Now he went for a consult with neurosurgeon he tried gabapentin there without success for his neuropathic pain. He is reluctant to go for spinal cord stimulator because it was offered for him to treat his pain. I explained to him in very long and detailed conversation that treatment with spinal cord stimulator might be addressed to bilateral lower extremities. It also can address pain in bilateral feet, neuropathic pain, after this condition is improved we can address his cervicalgia cervical pain as well. I am not sure what can be offered to the patient according to him he had a CT scan done in [facility] facility however there is no CT scan available. The only available study I have x-ray of the cervical spine was minimal information about the sources of the pain. [facility] Medical History History of prior cigarette smoking Chronic tension headaches Neck pain Peripheral neuropathy Pulmonary nodules Sessile colonic polyp (~2018) Tinnitus of both ears Mixed dyslipidemia Type 2 diabetes mellitus without complication, with no history of insulin use STUART (obstructive sleep apnea) Chronic restrictive lung disease Shortness of breath on exertion Obesity (BMI 30.0-34.9) Tubular adenoma of colon (~2018) Bilateral finger arthralgia Surgical History History of hernia repair History of hemorrhoidectomy History of colonoscopy Family History Father No problems noted. Mother No problems noted. 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 Current occupational exposures/hazards: No Cognitive needs: No Hearing needs: No Vision needs: No Review of Systems Const All systems reviewed & are unremarkable except as noted in HPI and below ENT Reports Normal hearing present Neuro Reports Normal hearing present and Denies Abnormal speech present Physical Exam Vital Signs: Last Vital Signs Pulse 58 09/20/23 08:29 Resp 16 09/20/23 08:29 BP 136/68 09/20/23 08:29 Pulse Ox 97 09/20/23 08:29 Oxygen Delivery Method Room Air 09/20/23 08:29 BMI result Body Mass Index 32.1 Const General: no acute distress and alert Nutritional Appearance: well nourished Orientation/consciousness: patient oriented x3 Chest Chest palpation & inspection: normal inspection of the chest Resp Effort & Inspection: normal respiratory effort, able to speak in complete sentences, normal respiratory pattern, no audible wheezes, no cough, respiratory effort not decreased, no grunting and not labored Cardio Jugular venous distension: no JVD Back/Spine/Pelvis Cervical Spine: normal cervical lordosis Thoracic/Lumbar Spine: thoracic and lumbar spine normal to inspection Neuro General: patient oriented x3 Cranial nerves: Yes Normal hearing present Speech: No Abnormal speech present Extrem Other: Right Knee: vague dull tenderness about the knee Right knee ROM limited to 80 degrees Minimal effusion, minimal ballottement of the right patella Minimal swelling 5/5 strength with lower muscle extremity group testing no hyperreflexia No tenderness on palpation of the right knee. The circumference of the right knee is bigger than the circumference of the left knee. No difference in temperature on palpation. Anterior and posterior drawer test is negative, lateral collateral and medial collateral ligaments are also stable, no cogwheel sensation on palpation of the knee. Crepitus on movement of the left knee but not the right knee. Assessment & Plan Assessment & Plan (1) Spondylosis of lumbar region without myelopathy or radiculopathy: Comment: reviewed MRI LS spine Code(s): M47.816 - Spondylosis without myelopathy or radiculopathy, lumbar region Category: Medical (2) Arthritis of right knee: Code(s): M17.11 - Unilateral primary osteoarthritis, right knee Category: Medical (3) Right knee pain: Code(s): M25.561 - Pain in right knee Category: Medical (4) Disc degeneration, lumbar: Code(s): M51.36 - Other intervertebral disc degeneration, lumbar region Category: Medical (5) Chronic pain syndrome: Code(s): G89.4 - Chronic pain syndrome Category: Medical Plan Again Jaya had very detailed and prolonged conversation with me today, the essence of the discussion is as above. Celebrex will be started 100 b.i.d. with 5 refills, Lyrica 75 b.i.d. will be stopped and instead will be ordered as Lyrica 100 q.h.s. with 5 refills. I will see the patient next time as needed. Medications: New pregabalin 100 mg PO BEDTIME 30 days 30 caps 5RF celecoxib 100 mg PO BID 30 days PRN 60 caps 5RF pain Patient Instructions: I here by testify that I spent 35 minutes with this patient in conversation as well as planning his care ordering his medications and organizing this note. Coding Level of Care Code Est Pt Level 4 (58858) Diagnoses Spondylosis of lumbar region without myelopathy or radiculopathy M47.816 Arthritis of right knee M17.11 Right knee pain M25.561 Disc degeneration, lumbar M51.36 Chronic pain syndrome G89.4
== END 2023-09-20 08:50 | disposition home or self-care (01) ==
PROVIDERS: PCP Internal Medicine; Visit Provider Anesthesiology
DX: M47.816 Spondylosis without myelopathy or radiculopathy, lumbar region (principal); M17.11 Unilateral primary osteoarthritis, right knee; M25.561 Pain in right knee; M51.36 Other intervertebral disc degeneration, lumbar region; G89.4 Chronic pain syndrome
CPT/HCPCS: 99214

== ENCOUNTER → 2023-09-20 08:14 | Outpatient (BNVA) | payer OTHER, SELFPAY | PROVIDERS: PCP Internal Medicine; Visit Provider Anesthesiology ==

== ENCOUNTER 2023-09-25 07:46 | Outpatient (REF) | payer OTHER, SELFPAY ==
[2023-09-25 09:51] LABS: C Reactive Protein 0.42 mg/dL (< or = 0.50)
== END 2023-09-25 07:47 | disposition home or self-care (01) ==
LOC: HO.LAB 07:46
PROVIDERS: PCP Internal Medicine; Visit Provider Nurse Practitioner
DX: K52.9 Noninfective gastroenteritis and colitis, unspecified (principal)
CPT/HCPCS: 36415; 86140

== ENCOUNTER 2023-09-25 07:46 | Outpatient (AMB) | payer OTHER, SELFPAY ==
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
[2023-09-25 07:56] VITALS: BP 126/74; PULSE 61; BMI 32.1
== END 2023-09-25 08:25 | disposition home or self-care (01) ==
PROVIDERS: PCP Internal Medicine; Visit Provider Nurse Practitioner
DX: K59.00 Constipation, unspecified (principal); K52.9 Noninfective gastroenteritis and colitis, unspecified
CPT/HCPCS: 99213

== ENCOUNTER 2023-09-28 07:48 | Outpatient (REF) | payer OTHER, SELFPAY ==
[2023-10-05 22:04] LABS: Calprotectin, Fecal 27 mcg/g
== END 2023-09-28 07:49 | disposition home or self-care (01) ==
LOC: HO.LNP 07:48
PROVIDERS: Visit Provider Nurse Practitioner
DX: K52.9 Noninfective gastroenteritis and colitis, unspecified (principal)
CPT/HCPCS: 83993

== ENCOUNTER 2023-10-08 07:21 | Outpatient (AMB) | payer OTHER, SELFPAY ==
--- NOTE | 2023-10-08 07:23 | A.OFFVIS_ITS ---
Vital Signs 10/08/23 07:25 Height 5 ft 11 in Weight 230 lb BMI 32.1 BP 110/60 Blood Pressure Location Rt brachial Position Sitting Respiration 16 Pulse 70 Pulse Source Pulse Oximeter Pulse Oximetry (%) 95 Oxygen Delivery Method Room Air Intake Visit Reasons: 2 Month F/U - Confirmed Intake Note: Pt presents for a 2 month follow up for polyneuropathy. 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 His headaches are better with baclofen He was seen by pain management and they suggested opiods or a stimulator which he declined.His lyrica dose was increased and he is on celebrex now.. [facility] Medical History Colitis History of prior cigarette smoking Chronic tension headaches Neck pain Peripheral neuropathy Pulmonary nodules Sessile colonic polyp (~2018) Tinnitus of both ears Mixed dyslipidemia Type 2 diabetes mellitus without complication, with no history of insulin use STUART (obstructive sleep apnea) Chronic restrictive lung disease Shortness of breath on exertion Obesity (BMI 30.0-34.9) Tubular adenoma of colon (~2018) Bilateral finger arthralgia Surgical History History of hernia repair History of hemorrhoidectomy History of colonoscopy Family History Father No problems noted. Mother No problems noted. 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 Current occupational exposures/hazards: No Cognitive needs: No Hearing needs: No Vision needs: No Physical Exam Vital Signs: Last Vital Signs Pulse 70 10/08/23 07:25 Resp 16 10/08/23 07:25 BP 110/60 10/08/23 07:25 Pulse Ox 95 10/08/23 07:25 Oxygen Delivery Method Room Air 10/08/23 07:25 BMI result Body Mass Index 32.1 Const General: cooperative, healthy appearing and in distress Nutritional Appearance: overweight Orientation/consciousness: patient oriented x3 Eyes Pupils: Equal, round and reactive pupils present Neuro Other: patient reported pain in multiple joints which limited my exam Mild decreased light touch and pin prick in distal lower extremties No atrophy General: patient oriented x3, tone normal, moves all extremities and no focal motor deficits Cranial nerves: Yes Facial sensation intact/muscles of mastication intact, Yes Equal, round and reactive pupils present, Yes Bilaterally intact EOM present, Yes Nystagmus not present, Yes Normal facial strength present, Yes Midline tongue present and Yes Symmetric palate elevation present Cognition (Neuro): normal cognition Gait exam (Neuro): Normal gait present Motor exam (neuro): 5/5 motor strength present throughout Coordination: [id number] test normal Assessment & Plan Assessment & Plan (1) Peripheral neuropathy: Comment: moderate as per EMG results - ? diabetic ? nutritional def Code(s): G62.9 - Polyneuropathy, unspecified Category: Medical (2) Chronic tension headaches: Comment: cervicogenic Code(s): G44.229 - Chronic tension-type headache, not intractable Category: Medical (3) Spondylosis of lumbar region without myelopathy or radiculopathy: Comment: reviewed MRI LS spine Code(s): M47.816 - Spondylosis without myelopathy or radiculopathy, lumbar region Category: Medical Plan Labs reviewed Starting PT for neck , back pain next week Increase baclofen 10 mg bid for tension headaches. F/u pain management consider Rheumatology eval for arthralgias. suggetsed ALA - alpha lipoic acid 300-600mg qd for nerve pain Medications: Changed From baclofen 10 mg PO BEDTIME 30 tabs 3RF To baclofen 10 mg PO BID 60 tabs 3RF Discontinued pregabalin (Lyrica) Discontinued Reason: Patient no longer taking 75 mg PO BID 30 days 60 caps 1RF Coding Level of Care Code Est Pt Level 4 (90546) Diagnoses Peripheral neuropathy G62.9 Chronic tension headaches G44.229 Spondylosis of lumbar region without myelopathy or radiculopathy M47.816
[2023-10-08 07:25] VITALS: BP 110/60; PULSE 70; RESP 16; O2SAT 95; BMI 32.1
== END 2023-10-08 08:10 | disposition home or self-care (01) ==
PROVIDERS: PCP Internal Medicine; Visit Provider Psychiatry & Neurology Neurology
DX: G62.9 Polyneuropathy, unspecified (principal); G44.229 Chronic tension-type headache, not intractable; M47.816 Spondylosis without myelopathy or radiculopathy, lumbar region
CPT/HCPCS: 99214

== ENCOUNTER → 2023-10-08 07:21 | Outpatient (BNVA) | payer OTHER, SELFPAY | PROVIDERS: PCP Internal Medicine; Visit Provider Psychiatry & Neurology Neurology ==

== ENCOUNTER 2023-11-07 07:00 | Outpatient (RCR) | payer OTHER, SELFPAY ==
--- NOTE | 2023-10-16 08:55 | MHC.PT.EP ---
[facility] [place] Office [place] Office [address] [phone] F: [phone] F: [phone] F: [phone] F: [phone] Physical Therapy Plan of Care Date of Evaluation: 10/16/23 Date of Surgery: Diagnosis: spondylosis without radiculopathy or myelopathy Assessment: Patient is a 63 year old R handed male who presents with s/s consistent with spondylosis without myelopathy or radiculopathy. 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 Patient past medical history include peripheral neuropathy and chronic foot/hand discomfort. Current impairments include pain, posture, flexibility, ROM, strength, activity tolerance and functional mobility. Functional limitations include decreased ability to stand, walk, lift, carry, transfer and perform work duties. Patient is motivated with good rehab potential. Skilled PT will address impairments and functional limitations in order to achieve goals. 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 Manual therapy to restore motion and function. Therapeutic exercise to improve strength and flexibility. Neuromuscular re-education for posture and balance. Therapeutic activities to return to functional activities of daily living. Electronically signed by: John Miranda, PT Please sign and return to therapist. Thank you for your referral.
--- NOTE | 2024-01-24 14:49 | MHC.PT.DC ---
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 11/05/23: pt with improved flex but s/s persist. we will likely continue 1 more visit then d/c to HEP due to lack of sustained progress. 10/31/23: pt progressing slowly. s/s seem to improve same day but return before next visit. progress program NV. 10/29/23: pt has been feeling better overall with skilled PT. notes the stretches help. However, the pain still does persist often and we will continue to pursue sustained relief from this. 10/22/23: pt progressing slowly with skilled PT. no adverse reactions. s/s similar to evaluation. added IFC to manage s/s. Patient is a 63 year old R handed male who presents with s/s consistent with spondylosis without myelopathy or radiculopathy. 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 Patient past medical history include peripheral neuropathy and chronic foot/hand discomfort. Current impairments include pain, posture, flexibility, ROM, strength, activity tolerance and functional mobility. Functional limitations include decreased ability to stand, walk, lift, carry, transfer and perform work duties. Patient is motivated with good rehab potential. Skilled PT will address impairments and functional limitations in order to achieve goals. Electronically signed by: John Miranda, PT Please sign and return to therapist. Thank you for your referral.
== END 2024-01-24 14:50 | disposition home or self-care (01) ==
LOC: HO.PTCHIC 07:00
PROVIDERS: PCP Internal Medicine; Visit Provider Psychiatry & Neurology Neurology
DX: M47.816 Spondylosis without myelopathy or radiculopathy, lumbar region (principal); M54.2 Cervicalgia
CPT/HCPCS: 97014; 97110; 97140; 97163

== ENCOUNTER 2023-12-05 16:23 | Outpatient (AMB) | payer OTHER, SELFPAY ==
[2023-12-05 16:24] VITALS: BP 119/66; PULSE 67; BMI 32.0
--- NOTE | 2023-12-05 16:24 | A.OFFVIS_ITS ---
Vital Signs 12/05/23 16:24 Height 5 ft 11 in Weight 229 lb 4.492 oz BMI 32.0 BP 119/66 Blood Pressure Location Rt brachial Position Sitting Pulse 67 Intake Visit Reasons: 8 week follow up IBD Intake Note: Jaya presents in the office as a 8 week follow up for IBD. CC: Allergies No Known Allergies [NO KNOWN ALLERGIES] Allergy (Unknown, Verified 12/20/23 08:08) N/A- HPI HPI 8 week follow up IBD: Details: Assessment & Plan (1) Constipation: Code(s): K59.00 - Constipation, unspecified Category: Medical (2) Colitis: Comment: BIOPSY CECAL AREA ON COLONOSCOPY 2022 Code(s): K52.9 - Noninfective gastroenteritis and colitis, unspecified Category: Medical Plan He has had CIC recently, but will have intermittent severe rectal pain when he moves his bowels like passing sharp glass His stools are not overly large and he is s/p fairly recent hemorrhoid surgery. He will pass blood at times. Very rare diarrhea. He has been playing with foods to try to control this but can't find a pattern or trigger. [facility] genetic study was consistent with Crohns, biopsy on last colonoscopy- severe active colitis, CRP normal. Will get repeat CRP and calprotectin and start trial of mesalamine. No longer taking the imipramine r/t CIC - this is fine. ROV 8 weeks. Orders: Orders C Reactive Protein Today K52.9 - Noninfective gastroenteritis and colitis, unspecified Calprotectin, Fecal Today K52.9 - Noninfective gastroenteritis and colitis, unspecified Medications: New mesalamine (Lialda) 2.4 grams (2 x 1.2 gram) PO BID 224 tabs 6RF 8 weeks K52.9 - Noninfective gastroenteritis and colitis, unspecified LABS: Laboratory Tests 09/25/23 09/28/23 08:44 06:00 C-Reactive Protein 0.42 Stool Calprotectin 27 TODAY'S VISIT He is the same, no different with the Lialda. He struggles with CIC trouble getting the stool started, but then followed by watery stool. Takes colace qhs. Seems he does not need more water in the lumen, but better motility, so swap for senna 1 tab qhs. Adding budesinide to further address ulcer in cecum and continue lialda. ROV 6 weeks. [facility] Medical History (Updated 12/20/23 @ 16:49 by MERE Garcia) Post-COVID chronic dyspnea Colitis History of prior cigarette smoking Chronic tension headaches Neck pain Peripheral neuropathy Pulmonary nodules Sessile colonic polyp (~2018) Tinnitus of both ears Mixed dyslipidemia Type 2 diabetes mellitus without complication, with no history of insulin use STUART (obstructive sleep apnea) Chronic restrictive lung disease Shortness of breath on exertion Obesity (BMI 30.0-34.9) Tubular adenoma of colon (~2018) Bilateral finger arthralgia Surgical History History of hernia repair History of hemorrhoidectomy History of colonoscopy Family History Father No problems noted. Mother No problems noted. 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 Current occupational exposures/hazards: No Cognitive needs: No Hearing needs: No Vision needs: No Review of Systems Const Denies fatigue, Denies fever(s), Denies night sweats, Denies poor appetite and Denies weight loss ENT Reports Normal hearing present, Denies dental pain, Denies dysphagia, Denies hearing loss, Denies mouth pain, Denies odynophagia, Denies throat swelling, Denies tongue swelling and Reports other (Dentition adequate) Card Reports no additional complaints Resp Reports no additional complaints GI Details: Denies abdominal pain, Denies melena, Denies bloating, Denies hematochezia, Reports constipation, Denies GI cramping, Denies dysphagia, Denies excessive flatus, Denies early satiety, Denies heartburn, Denies diarrhea, Reports loose stools, Denies nausea, Denies odynophagia, Denies vomiting and Denies hematemesis Skin/Breast Denies pruritus, Denies lesions, Denies rash and Denies jaundice Neuro Reports Normal hearing present and Denies Abnormal speech present Endo Denies fatigue Aller/Immun Denies throat swelling and Denies tongue swelling Physical Exam Vital Signs: Last Vital Signs Pulse 67 12/05/23 16:24 BP 119/66 12/05/23 16:24 BMI result Body Mass Index 32.0 Const General: cooperative, no acute distress, well developed and well groomed Nutritional Appearance: well nourished and obese Orientation/consciousness: oriented to person, oriented to place and oriented to time Limitations: No language barrier HEENT Head: Yes normocephalic and Yes atraumatic Eyes General: appearance normal, both eyes and all related structures Pupils: Equal, round and reactive pupils present Neck Neck: Yes normal visual inspection and Yes no lymphadenopathy Thyroid: Thyroid normal Resp Effort & Inspection: normal respiratory effort and able to speak in complete sentences Auscultation: clear to auscultation bilaterally Cardio Rate: regular rate Rhythm: regular rhythm Heart sounds: Normal, physiologic split S2 sound present Peripheral pulses: radial pulses present and posterior tibial pulses present GI Inspection: No distended, No Abdominal panniculus present and Yes obesity Palpation (GI): Soft to palpation, nontender, no guarding, not rigid and No hepatosplenomegaly present Percussion: Yes normal to percussion Auscultation: normal bowel sounds Rectal Exam - Male: Yes deferred Skin General skin exam: no rashes or lesions noted, turgor normal, skin not dry, no jaundice, No spider nevi and no striae Rashes: no rashes Nails: normal Neuro General: oriented to person, oriented to place and oriented to time Cranial nerves: Yes Equal, round and reactive pupils present and Yes Normal hearing present Speech: No Abnormal speech present Extrem General: Yes normal to inspection, No clubbing, No cyanosis and No edema Psych Appearance: grossly normal and well kempt Mental Status: mental status grossly normal Speech and movement: Normal speech and movement present Affect: normal affect Attitude: cooperative Thought process: Normal thought process present and not confabulating Thought content: Normal thought content present Insight: Limited insight present (Psych) Judgement: Limited judgement present (Psych) Assessment & Plan Assessment & Plan (1) Colitis: Comment: BIOPSY CECAL AREA ON COLONOSCOPY 2022 Code(s): K52.9 - Noninfective gastroenteritis and colitis, unspecified Category: Medical (2) Constipation: Code(s): K59.00 - Constipation, unspecified Category: Medical Plan He is the same, no different with the Lialda. He struggles with CIC trouble getting the stool started, but then followed by watery stool. Takes colace qhs. Seems he does not need more water in the lumen, but better motility, so swap for senna 1 tab qhs. Adding budesinide to further address ulcer in cecum and continue lialda. ROV 6 weeks. Medications: New sennosides (Senna Laxative) 8.6 mg PO BEDTIME [address]-ER 3 mg PO DAILY 30 ea 3RF K52.9 - Noninfective gastroenteritis and colitis, unspecified Coding Level of Care Code Est Pt Level 3 (45934) Diagnoses Colitis K52.9 Constipation K59.00
== END 2023-12-05 16:55 | disposition home or self-care (01) ==
PROVIDERS: PCP Internal Medicine; Visit Provider Nurse Practitioner
DX: K52.9 Noninfective gastroenteritis and colitis, unspecified (principal); K59.00 Constipation, unspecified
CPT/HCPCS: 99213

== ENCOUNTER → 2023-12-05 16:23 | Outpatient (BNVA) | payer OTHER, SELFPAY | PROVIDERS: PCP Internal Medicine; Visit Provider Nurse Practitioner ==

== ENCOUNTER 2023-12-20 08:06 | Outpatient (AMB) | payer OTHER, SELFPAY ==
[2023-12-20 08:08] VITALS: BP 122/76; PULSE 65; TEMP 36.6; O2SAT 96; BMI 31.9
--- NOTE | 2023-12-20 08:08 | AM.OFFWIN_ITS ---
Intake Vital Signs 12/20/23 08:08 Height 5 ft 11 in Weight 229 lb BMI 31.9 BP 122/76 Blood Pressure Location Rt brachial Position Sitting Pulse 65 Pulse Source Pulse Oximeter Temp 97.9 F Temp Source Oral Pulse Oximetry (%) 96 Oxygen Delivery Method Room Air Intake Visit Reasons: EP Lump LT armpit/LT ear Intake Note: pt is here for lump left armpit and left ear Patient Tobacco Use Status: Former Tobacco user Allergies No Known Allergies [NO KNOWN ALLERGIES] Allergy (Unknown, Verified 12/20/23 08:08) N/A- Do you need a note to return to daycare/school/sports/work: No HPI EP Lump LT armpit/LT ear HPI Details This note is constructed using voice recognition software. While every effort has been made to ensure accuracy, clay worker errors may have been included. The patient is a 63 year old male who presents to the clinic today with concern for lumps. He notes that he has had a lump in his left axilla for the last month. He has had this many years ago which had to be drained. The area is occasionally tender, not draining anything, not open. He has no fever, chills. He has not done anything to try to make it better, nothing appears to make it worse. He also noted that he had an area of irritation behind his left ear when he puts his glasses on. This has been going on for the last couple of days. Given that he had the lump in his axilla he was unsure if this might be related. [facility], [facility] Medical History Colitis History of prior cigarette smoking Chronic tension headaches Neck pain Peripheral neuropathy Pulmonary nodules Sessile colonic polyp (~2018) Tinnitus of both ears Mixed dyslipidemia Type 2 diabetes mellitus without complication, with no history of insulin use STUART (obstructive sleep apnea) Chronic restrictive lung disease Shortness of breath on exertion Obesity (BMI 30.0-34.9) Tubular adenoma of colon (~2018) Bilateral finger arthralgia Surgical History History of hernia repair History of hemorrhoidectomy History of colonoscopy Family History Father No problems noted. Mother No problems noted. 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 Current occupational exposures/hazards: No Cognitive needs: No Hearing needs: No Vision needs: No Review of Systems Const All systems reviewed & are unremarkable except as noted in HPI and below Physical Exam Vital Signs: Last Vital Signs Temp 97.9 F 12/20/23 08:08 Pulse 65 12/20/23 08:08 BP 122/76 12/20/23 08:08 Pulse Ox 96 12/20/23 08:08 Oxygen Delivery Method Room Air 12/20/23 08:08 BMI result Body Mass Index 31.9 Const General: cooperative, healthy appearing, comfortable, no acute distress and alert Orientation/consciousness: patient oriented x3 Limitations: no limitations Neck Neck: Yes normal visual inspection, Yes full ROM and Yes no lymphadenopathy Skin Other: Left axilla cystic structure just beneath the skin, approximately 4 mm in diameter, mobile, tender. No superimposed erythema, warmth, discharge. Behind left ear area of excoriation, no open lesions, no discharge, no erythema. General skin exam: elasticity normal and turgor normal Neuro General: patient oriented x3 Extrem General: Yes normal to inspection, Yes full ROM, Yes capillary refill normal and Yes normal exam except as noted Psych Appearance: grossly normal Mental Status: mental status grossly normal Speech and movement: Normal speech and movement present Affect: normal affect Assessment & Plan Assessment & Plan (1) Hidradenitis: Code(s): L73.2 - Hidradenitis suppurativa Plan: Antimicrobial therapy prescribed for HS potential. Advised patient to follow up if this does not resolve as he may need additional workup. Discussed potential that this could be an atypical lymph node, however we elected to treat this for HS given his history. Advised patient to take medication with food and apply sunscreen while using antibiotics. (2) Excoriation: Code(s): T14.8XXA - Other injury of unspecified body region, initial encounter Plan: Area of excoriation behind left ear, likely due to glasses wear. Advised use of gauze around glasses or other protective barriers including consideration of liquid Band-Aid over the area of irritation. No secondary signs of bacterial infection, advised patient to follow up with worsening or failure to resolve with primary care provider. Plan See above for full details and plan. Medications: New doxycycline hyclate 100 mg PO BID 10 days 20 caps 0RF Coding Level of Care Code Est Pt Level 3 (89311) Diagnoses Hidradenitis L73.2 Excoriation T14.8XXA
== END 2023-12-20 09:02 | disposition home or self-care (01) ==
PROVIDERS: PCP Internal Medicine; Visit Provider Registered Nurse
DX: L73.2 Hidradenitis suppurativa (principal); T14.8XXA Other injury of unspecified body region, initial encounter
CPT/HCPCS: 99213

== ENCOUNTER 2023-12-25 07:11 | Outpatient (REF) | payer OTHER, SELFPAY ==
--- NOTE | ~2023-12-25 | CT_ITS ---
EXAMINATION: CT CHEST WITHOUT CONTRAST CLINICAL INFORMATION: Abnormal finding of old healed COMPARISON: 12/22/2022 TECHNIQUE: Multidetector volumetric CT imaging of the chest was done. Axial MIP volume rendering provided. Sagittal and coronal reformatted images were obtained. This CT examination was performed using dose optimization techniques as appropriate, variously including the following: *Automated exposure control *Adjustment of mA and/or kV according to patient size (this includes techniques or standardized protocols for targeted exams where dose is matched to indication/reason for exam; i.e. extremities or head) *Use of iterative reconstruction technique DLP: 211 mGy-cm FINDINGS: SENIOR ADMINISTRATIVE SUPPORT: Unremarkable LUNGS: The trachea bronchi are patent. No consolidations or groundglass opacities. 8 mm benign-appearing calcified nodule left upper lobe, 5:31, unchanged. Tiny calcification right upper lobe, 5:110, stable. 3 mm calcified nodule LLL, 5:470 also unchanged. MEDIASTINUM: Unremarkable thyroid. No pathologic lymphadenopathy. The small left hilar calcified. Heart is enlarged. No pericardial effusion. Atherosclerotic calcifications nonaneurysmal aorta. No enlarged pulmonary arteries CORONARY ARTERY CALCIFICATION: Moderate. PLEURA: There is no pleural effusion. No pleural mass or thickening. AXILLA: No lymphadenopathy. UPPER ABDOMEN: Diffuse hypodensity to the enlarged liver. Borderline enlarged spleen at 13 cm. OSSEOUS STRUCTURES: No suspicious osseous lesions. CT/CT chest wo IV con IMPRESSION: 1. No acute intrathoracic pathology. 2. Stable calcified pulmonary nodules and left hilar calcifications reflecting sequela of prior granulomatous disease 3. Redemonstration enlarged fatty liver and borderline splenomegaly. Fleischner guidelines were followed. Electronically signed by: Liliana Littlejohn MD 01/22/2024 12:43 PM EDT
== END 2023-12-25 07:12 | disposition home or self-care (01) ==
LOC: HO.CT 07:11
PROVIDERS: PCP Internal Medicine; Visit Provider Hospitalist
DX: R91.8 Other nonspecific abnormal finding of lung field (principal)
CPT/HCPCS: 71250

== ENCOUNTER 2024-01-07 08:20 | Outpatient (AMB) | payer OTHER, SELFPAY ==
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
[2024-01-07 08:33] VITALS: BP 124/70; PULSE 57; O2SAT 96; BMI 32.1
== END 2024-01-07 08:55 | disposition home or self-care (01) ==
PROVIDERS: PCP Internal Medicine; Visit Provider Hospitalist
DX: R06.02 Shortness of breath (principal); J98.4 Other disorders of lung; R40.0 Somnolence; R06.09 Other forms of dyspnea; G47.33 Obstructive sleep apnea (adult) (pediatric); R60.0 Localized edema
CPT/HCPCS: 99214

== ENCOUNTER → 2024-01-07 08:20 | Outpatient (BNVA) | payer OTHER, SELFPAY | PROVIDERS: PCP Internal Medicine; Visit Provider Hospitalist | DX: J44.9 Chronic obstructive pulmonary disease, unspecified (principal); R06.00 Dyspnea, unspecified; J98.4 Other disorders of lung; R07.2 Precordial pain; R40.0 Somnolence ==

== ENCOUNTER 2024-01-18 16:22 | Outpatient (AMB) | payer OTHER, SELFPAY ==
[2024-01-18 16:26] VITALS: BP 116/66; PULSE 67; BMI 32.0
--- NOTE | 2024-01-18 16:26 | A.OFFVIS_ITS ---
Vital Signs 01/18/24 16:26 Height 5 ft 11 in Weight 229 lb 4.492 oz BMI 32.0 BP 116/66 Blood Pressure Location Rt brachial Position Sitting Pulse 67 Intake Visit Reasons: 6 week follow up Intake Note: Patient in office today in 6 weeks follow up of constipation. CC: Patient reports doing well and denies having any GI symptoms or concerns today. Director Electrical Engineering Required: No Accompanied by: Self / Same As Patient Allergies No Known Allergies [NO KNOWN ALLERGIES] Allergy (Unknown, Verified 01/18/24 16:30) N/A- HPI HPI 6 week follow up: Details: Assessment & Plan (1) Colitis: Comment: BIOPSY CECAL AREA ON COLONOSCOPY 2022 Code(s): K52.9 - Noninfective gastroenteritis and colitis, unspecified Category: Medical (2) Constipation: Code(s): K59.00 - Constipation, unspecified Category: Medical Plan He is the same, no different with the Lialda. He struggles with CIC trouble getting the stool started, but then followed by watery stool. Takes colace qhs. Seems he does not need more water in the lumen, but better motility, so swap for senna 1 tab qhs. Adding budesinide to further address ulcer in cecum and continue lialda. ROV 6 weeks. Medications: New sennosides (Senna Laxative) 8.6 mg PO BEDTIME 30 tabs [address]-ER 3 mg PO DAILY 30 ea 3RF K52.9 - Noninfective gastroenteritis and colitis, unspecified TODAY'S VISIT He is using 1 senna and I and by using this and by stopping the Colace he is no longer having watery stools. Sometimes he will still strain to start the stools but he has noted that this seems to happen when he does not consume enough fiber. He is trying to eat a daily fiber bar. He tried budesonide but it upset his stomach so he stopped. Since we have started the cramping and the abdominal pain is much improved as is his stooling so we will continue with this plan. Return office visit in 6 months [facility] Medical History (Updated 01/18/24 @ 16:28 by MERE Garcia) Neck pain Bilateral finger arthralgia Post-COVID chronic dyspnea Colitis History of prior cigarette smoking Chronic tension headaches Peripheral neuropathy Pulmonary nodules Sessile colonic polyp (~2018) Tinnitus of both ears Mixed dyslipidemia Type 2 diabetes mellitus without complication, with no history of insulin use STUART (obstructive sleep apnea) Chronic restrictive lung disease Shortness of breath on exertion Obesity (BMI 30.0-34.9) Tubular adenoma of colon (~2018) Surgical History History of hernia repair History of hemorrhoidectomy History of colonoscopy Family History Father No problems noted. Mother No problems noted. 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 Current occupational exposures/hazards: No Cognitive needs: No Hearing needs: No Vision needs: No Review of Systems Const Denies fatigue, Denies fever(s), Denies night sweats, Denies poor appetite and Denies weight loss ENT Reports Normal hearing present, Denies dental pain, Denies dysphagia, Denies hearing loss, Denies mouth pain, Denies odynophagia, Denies throat swelling, Denies tongue swelling and Reports other (Dentition adequate) Card Reports no additional complaints Resp Reports no additional complaints GI Details: Denies abdominal pain, Denies melena, Denies bloating, Denies hematochezia, Reports constipation, Denies GI cramping, Denies dysphagia, Denies excessive flatus, Denies early satiety, Denies heartburn, Denies diarrhea, Denies nausea, Denies odynophagia, Denies vomiting and Denies hematemesis Musc Reports back pain, Reports myalgias, Reports arthralgias and Reports joint swelling Skin/Breast Denies pruritus, Denies lesions, Denies rash and Denies jaundice Neuro Reports Normal hearing present and Denies Abnormal speech present Endo Denies fatigue Aller/Immun Denies throat swelling and Denies tongue swelling Physical Exam Vital Signs: BMI result Body Mass Index 32.0 Const General: cooperative, no acute distress, well developed and well groomed Nutritional Appearance: well nourished and obese centrally obese Orientation/consciousness: oriented to person, oriented to place and oriented to time Limitations: No language barrier HEENT Head: Yes normocephalic and Yes atraumatic Eyes General: appearance normal, both eyes and all related structures Pupils: Equal, round and reactive pupils present Neck Neck: Yes normal visual inspection and Yes no lymphadenopathy Thyroid: Thyroid normal Resp Effort & Inspection: normal respiratory effort and able to speak in complete sentences Auscultation: clear to auscultation bilaterally Cardio Rate: regular rate Rhythm: regular rhythm Heart sounds: Normal, physiologic split S2 sound present Peripheral pulses: radial pulses present and posterior tibial pulses present GI Inspection: No distended, No Abdominal panniculus present and Yes obesity Palpation (GI): Soft to palpation, nontender, no guarding, not rigid and No hepatosplenomegaly present Percussion: Yes normal to percussion Auscultation: normal bowel sounds Rectal Exam - Male: Yes deferred Skin General skin exam: no rashes or lesions noted, turgor normal, skin not dry, no jaundice, No spider nevi and no striae Rashes: no rashes Nails: normal Neuro General: oriented to person, oriented to place and oriented to time Cranial nerves: Yes Equal, round and reactive pupils present and Yes Normal hearing present Speech: No Abnormal speech present Extrem General: Yes normal to inspection, No clubbing, No cyanosis and No edema Psych Appearance: grossly normal and well kempt Mental Status: mental status grossly normal Speech and movement: Normal speech and movement present Affect: normal affect Attitude: cooperative Thought process: Normal thought process present and not confabulating Thought content: Normal thought content present Insight: Limited insight present (Psych) Judgement: Limited judgement present (Psych) Assessment & Plan Assessment & Plan (1) Constipation: Code(s): K59.00 - Constipation, unspecified Category: Medical (2) Colitis: Comment: BIOPSY CECAL AREA ON COLONOSCOPY 2022 Code(s): K52.9 - Noninfective gastroenteritis and colitis, unspecified Category: Medical Plan He is using 1 senna and I and by using this and by stopping the Colace he is no longer having watery stools. Sometimes he will still strain to start the stools but he has noted that this seems to happen when he does not consume enough fiber. He is trying to eat a daily fiber bar. He tried budesonide but it upset his stomach so he stopped. Since we have started the cramping and the abdominal pain is much improved as is his stooling so we will continue with this plan. Return office visit in 6 months Coding Level of Care Code Est Pt Level 3 (43395) Diagnoses Constipation K59.00 Colitis K52.9
== END 2024-01-18 17:05 | disposition home or self-care (01) ==
PROVIDERS: PCP Internal Medicine; Visit Provider Nurse Practitioner
DX: K59.00 Constipation, unspecified (principal); K52.9 Noninfective gastroenteritis and colitis, unspecified
CPT/HCPCS: 99213

== ENCOUNTER → 2024-01-18 16:22 | Outpatient (BNVA) | payer OTHER, SELFPAY | PROVIDERS: PCP Internal Medicine; Visit Provider Nurse Practitioner ==

== ENCOUNTER 2024-01-28 06:03 | Outpatient (REF) | payer OTHER, SELFPAY ==
[2024-01-28 10:48] LABS: Alanine Aminotransferase 51 U/L (0-40); Anion Gap 12 (12-20); Aspartate Amino Transferase 30 U/L (5-37); Blood Urea Nitrogen 17 mg/dL (9-16); Calcium 9.4 mg/dL (8.4-10.2); Carbon Dioxide 26 mmol/L (22-29); Chloride 107 mmol/L (96-108); Cholesterol 154 mg/dL (<200); Estimated Glomerular Filt Rate > 60; Glucose Fasting 133 mg/dL (60-99); HDL Cholesterol 39 mg/dL (>40); LDL Cholesterol Calculated 94 mg/dL (<100); Potassium 4.4 mmol/L (3.3-5.1); Sodium 141 mmol/L (135-145); Triglycerides 106 mg/dL (<150)
[2024-01-28 11:05] LABS: Vitamin D 25-OH Total 70.3 ng/mL (>30)
[2024-01-28 11:51] LABS: Estimated Average Glucose 117 mg/dL; Hemoglobin A1c % 5.7 % (<6.0)
== END 2024-01-28 06:04 | disposition home or self-care (01) ==
LOC: HO.HMGCLDS 06:03
PROVIDERS: PCP Internal Medicine; Visit Provider Internal Medicine
DX: E11.9 Type 2 diabetes mellitus without complications (principal); E78.2 Mixed hyperlipidemia; E66.9 Obesity, unspecified; D12.6 Benign neoplasm of colon, unspecified; M47.816 Spondylosis without myelopathy or radiculopathy, lumbar region; R51.9 Headache, unspecified; R91.8 Other nonspecific abnormal finding of lung field
CPT/HCPCS: 36415; 80048; 80061; 82306; 83036; 84450; 84460

== ENCOUNTER 2024-01-31 13:32 | Outpatient (AMB) | payer OTHER, SELFPAY ==
[2024-01-31 13:45] VITALS: BP 142/70; PULSE 57; O2SAT 97; BMI 32.1
--- NOTE | 2024-01-31 13:45 | A.OFFPC_ITS ---
Vital Signs 01/31/24 13:45 Height 5 ft 11 in Weight 230 lb BMI 32.1 BP 142/70 H Blood Pressure Location Lt brachial Position Sitting Pulse 57 Pulse Source Pulse Oximeter Pulse Oximetry (%) 97 Oxygen Delivery Method Room Air Intake Visit Reasons: 6 month follow up Intake Note: Pt is here today for his 6mo. f/u Allergies No Known Allergies [NO KNOWN ALLERGIES] Allergy (Unknown, Verified 01/31/24 14:18) N/A- Medication List - Last Reconciled 01/31/24 by Ronna Patton MD CPAP (CPAP Machine/Device) As directed FreeStyle Cony 3 Sensor (blood-glucose sensor) Check blood sugar as directed NS Januvia (sitagliptin phosphate) 100 mg PO DAILY NS multivitamin 1 tab PO DAILY omega-3 acid ethyl esters 2 caps PO BID 30 days rosuvastatin 5 mg PO DAILY sennosides (Senna Laxative) 8.6 mg PO BEDTIME umeclidinium-vilanterol 62.5-25 mcg/actuation (Anoro Ellipta) 1 inh inhalation DAILY Tobacco use date assessed: 01/31/24 Dental Screening Dental Screen Date: 01/31/24 Did you have a dental visit in the last 12 months?: Yes Did you have a dental problem in the last 6 months where you did not have access to dental care?: Yes Was dental information given to patient?: Patient has dentist HPI 6 month follow up HPI Details 63-year-old male here today for follow-u p on his diabetes mellitus and hyperlipidemia. He has been compliant with taking his medications and has been following recommended diet, but is limited with his exercise due to peripheral neuropathy with pain and tingling in both lower extremity. He states that he had his eye exam done at [facility] in [place] but that was over a year ago. No retinopathy was seen, per patient. Latest fasting labs done showed hemoglobin A1c at 5.7% with lipids within normal limits except for low good cholesterol at 39 mg/dL. [facility] Medical History Neck pain Bilateral finger arthralgia Post-COVID chronic dyspnea Colitis History of prior cigarette smoking Chronic tension headaches Peripheral neuropathy Pulmonary nodules Sessile colonic polyp (~2019) Tinnitus of both ears Mixed dyslipidemia Type 2 diabetes mellitus without complication, with no history of insulin use STUART (obstructive sleep apnea) Chronic restrictive lung disease Shortness of breath on exertion Obesity (BMI 30.0-34.9) Tubular adenoma of colon (~2019) Surgical History History of hernia repair History of hemorrhoidectomy History of colonoscopy Family History Father No problems noted. Mother No problems noted. 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 Current occupational exposures/hazards: No Cognitive needs: No Hearing needs: No Vision needs: No Questionnaire Thrive Questionnaire Date Thrive assessed: 01/31/24 I am a: Patient What is your living situation today?: I have a steady place to live Within the past 12 months, did the food you bought not last and you didn't have the money to get more?: Never true Within the past 12 months, did you worry whether your food would run out before you got money to buy more?: Never true Do you have trouble paying for medicines?: No Do you have trouble getting transportation to medical appointments?: No Do you have trouble paying your heating and electricity bill?: No Do you have trouble taking care of your child, family member or friend?: No Do you have trouble with day-to-day activities such as bathing, preparing meals, shopping, managing finances, etc.?: Yes Are you currently unemployed and looking for a job?: No Are you interested in more education?: No Please select the resources that you would like help with: None Currently or been in a relationship where the following occur: No concerns reported THRIVE Score: 0 AUDIT C Alcohol Use Questionnaire (AUDIT-C) 1. How often do you have a drink containing alcohol?: Never Total Score: 0 RAIZA-7 AMB Questionnaire RAIZA-7 Date RAIZA - 7 assessed: 01/31/24 Feeling nervous, anxious, or on edge: 1 = Several days Not being able to stop or control worryin = Several days Worrying too much about different things: 1 = Several days Trouble relaxin = Several days Being so restless that it is hard to sit still: 1 = Several days Becoming easily annoyed or irritable: 1 = Several days Feeling afraid as if something awful might happen: 0 = Not at all Total RAIZA-7 score (0-4 normal; 5-9 mild; 10-14 moderate; 15-21 severe): 6 Source: Developed by Drs. Wes Stock, Marleni Montague, Joselito Reeves and colleagues, with an educational ade from [employer] (Former[employer]). RAIZA-7 Assessment Billing RAIZA-7 Assessment Tool: RAIZA-7 Assessment 86351 Review of Systems Const Denies fever(s) and Denies poor appetite Eyes Details: Goes to [facility] in [place] for his routine diabetes retinopathy screening, ENT Denies Normal hearing present, Denies hearing loss, Denies disequilibrium and Denies sore throat Card Reports no additional complaints Resp Reports no additional complaints GI Denies abdominal pain, Denies melena, Denies constipation, Denies heartburn, Denies nausea and Denies vomiting Reports no additional complaints Musc Reports arthralgias (Fingers of both hands), Reports radiating pain into limb, Reports stiffness and Reports tingling (Lower extremity) Skin/Breast Denies pruritus, Denies lesions and Denies rash Neuro Denies Normal hearing present, Denies Abnormal speech present, Reports burning sensations, Reports tingling (Lower extremity), Reports paresthesias and Denies disequilibrium Endo Reports no additional complaints Camilo/Lymph Reports no additional complaints Aller/Immun Reports no additional complaints Physical exam (Primary Care) Vital Signs: Last Vital Signs Pulse 57 01/31/24 13:45 BP 142/70 H 01/31/24 13:45 Pulse Ox 97 01/31/24 13:45 Oxygen Delivery Method Room Air 01/31/24 13:45 BMI result Body Mass Index 32.1 Tobacco/Smoking Status: Tobacco use Status Tobacco use date assessed 01/31/24 01/31/24 13:48 Patient Tobacco Use Status Former Tobacco user 01/31/24 13:48 e-Cigarette/Vaping Use Never Used 01/31/24 13:48 Thrive Assessment: Date of Thrive Assessment Date Thrive assessed 01/31/24 01/31/24 13:48 Currently or been in a relationship where the following occur: No concerns reported Const Other: Alert oriented x3, no acute cardiorespiratory distress noted ambulatory normal gait Nutritional Appearance: obese Orientation/consciousness: patient oriented x3 HENAZ Head: Yes normocephalic Ears: external ears normal, TM's normal bilaterally and EAC's normal Face and sinus: Yes face symmetric Mouth: Normal oral and palatal mucosa present and moist mucous membranes Eyes Pupils: Equal, round and reactive pupils present EOM: EOMs intact bilaterally and Nystagmus present Neck Other: Supple , thyroid gland nonpalpable, no carotid bruits, no lymphadenopathy Resp Effort & Inspection: normal respiratory effort and able to speak in complete sentences Auscultation: clear to auscultation bilaterally Cardio Other: S1-S2 present regular rate and rhythm GI Inspection: Yes normal to inspection Palpation (GI): Soft to palpation, nontender, no guarding and no masses Skin General skin exam: no rashes or lesions noted Neuro General: patient oriented x3, gait normal, moves all extremities, Normal light touch and pain sensation, no focal motor deficits and CN's II-XI intact bilaterally Cranial nerves: Yes Equal, round and reactive pupils present, No Normal hearing present and Yes Nystagmus present Speech: No Abnormal speech present Extrem General: Yes normal to inspection, Yes full ROM, Yes no joint enlargement, Yes no clubbing, cyanosis or edema and Yes normal gait Results Reviewed Results Reviewed: Laboratory Tests 07/23/23 01/28/24 06:12 06:28 Estimat Average Glucose 120 117 Hemoglobin A1c % 5.8 5.7 Name: aJya Hancock Age/Sex: 63/M : 1960 Unit#: [id number] Attend Dr: Ronna Patton MD Re01/28/24 Status: DEP REF Location: [facility] Disch: SPEC : [id number] HARSHAD: 01/28/24 STATUS: COMP REQ : [id number] RECD: 01/28/24-[address]: Ronna Patton MD COMP: 01/28/245 ENTERED: 01/28/[address]: ORDERED: Met Prof Fast, AST, ALT, Lipid Panel, Vitamin D 25-OH Test Result Flag Reference Sodium 141 135-145 mmol/L Potassium 4.4 3.3-5.1 mmol/L CL 107 96-108 mmol/L CO2 26 22-29 mmol/L Gap 12 12-20 BUN 17 H 9-16 mg/dL Creat 0.96 0.5-1.4 mg/dL EGFR > 60 NOTE: For -Maldivian individuals, multiply the result by 1.210. Chronic Kidney Disease: Estimated GFR < 60 mL/min/1.73m2 Severe Kidney Disease: Estimated GFR < 15 mL/min/1.73m2 FBS 133 H 60-99 mg/dL A fasting glucose of 126 mg/dl or greater on more than one occasion is considered diagnostic of diabetes. CA 9.4 8.4-10.2 mg/dL AST (GOT) 30 5-37 U/L ALT (GPT) 51 H 0-40 U/L Triglyceride 106 <150 mg/dL Desirable Triglyceride: less than 150 mg/dL Borderline High Triglyceride 150-199 mg/dL High Triglyceride: 200-499 mg/dL Very High Triglyceride: greater than or equal to 5OO mg/dL Cholesterol 154 <200 mg/dL Desirable Cholesterol: less than 200 mg/dL Borderline High Cholesterol: 200-239 mg/dL High Cholesterol: greater than 239 mg/dL LDL Calculated 94 <100 mg/dL Desirable LDL: less than 100 mg/dL Near Optimal/Above Optimal LDL: 110-129 mg/dL Borderline High LDL: 130-159 mg/dL High LDL: 160-189 mg/dL Very High LDL: greater than or equal to 190 mg/dL HDL 39 L >40 mg/dL Desirable HDL: greater than 40 mg/dL Note: This HDL assay may give artificially low results in patients with liver disease. Vit D 25-OH Tot 70.3 >30 ng/mL Health Based Reference Values* < 20 ng/mL Deficient 20-30 ng/mL Insufficient > 30 ng/mL Sufficient Assessment and Plan Assessment & Plan (1) Type 2 diabetes mellitus without complication, with no history of insulin use: Code(s): E11.9 - Type 2 diabetes mellitus without complications Plan: Good control diabetes mellitus, continue on Januvia 100 mg once a day, in addition to adherence to recommended diet and getting regular exercise. Patient advised again to get yearly diabetes retinopathy screening, last done at [facility] per patient. Recommended to get flu shot and COVID booster as well as pneumonia vaccine but patient does not want to get any further vaccinations (2) Mixed dyslipidemia: Code(s): E78.2 - Mixed hyperlipidemia Plan: Reviewed recent fasting lipid profile with patient with levels within normal limits except for low good cholesterol at 39 mg/dl . Continue rosuvastatin 5 mg daily plus [place] 3 fatty acid supplements 2 capsules twice a day , in addition to adherence to low-cholesterol diet and regular exercise, at least 30 minutes 3 to 4 times a week. Advised patient to make healthy food choices, eat more fruits, vegetables, whole grains, wild caught fish and low-fat dairy. Limit amount of meat and fried or fatty food products, as well as processed foods and fast foods. Follow-up scheduled with repeat fasting lipid panel in 6 months. Orders: Orders Alanine Aminotransferase 07/19/24 E11.9 - Type 2 diabetes mellitus without complications, E66.9 - Obesity, unspecified, E78.2 - Mixed hyperlipidemia Aspartate Amino Transferase 07/19/24 E11.9 - Type 2 diabetes mellitus without complications, E66.9 - Obesity, unspecified, E78.2 - Mixed hyperlipidemia Lipid Panel 07/19/24 E11.9 - Type 2 diabetes mellitus without complications, E66.9 - Obesity, unspecified, E78.2 - Mixed hyperlipidemia Hemoglobin A1c 07/19/24 E11.9 - Type 2 diabetes mellitus without complications, E66.9 - Obesity, unspecified, E78.2 - Mixed hyperlipidemia Basic Metabolic Panel Fasting 07/19/24 E11.9 - Type 2 diabetes mellitus without complications, E66.9 - Obesity, unspecified, E78.2 - Mixed hyperlipidemia Microalbumin, Random (w Creat) 07/19/24 E11.9 - Type 2 diabetes mellitus without complications, E66.9 - Obesity, unspecified, E78.2 - Mixed hyperlipidemia Coding Level of Care Code Est Pt Level 4 (13004) Complex EM visit Add On G2211 Diagnoses Type 2 diabetes mellitus without complication, with no history of insulin use E11.9 Mixed dyslipidemia E78.2 Additional Codes RAIZA-7 Assessment Billing - RAIZA-7 Assessment Tool: RAIZA-7 Assessment 42894 ([id number])
== END 2024-01-31 14:49 | disposition home or self-care (01) ==
PROVIDERS: PCP Internal Medicine; Visit Provider Internal Medicine
DX: E11.9 Type 2 diabetes mellitus without complications (principal); E78.2 Mixed hyperlipidemia
CPT/HCPCS: 99214

== ENCOUNTER 2024-03-04 07:18 | Outpatient (AMB) | payer OTHER, SELFPAY ==
[2024-03-04 07:35] VITALS: BMI 32.1
--- NOTE | 2024-03-04 07:35 | A.OFFVIS_ITS ---
Vital Signs 03/04/24 07:35 Height 5 ft 11 in Weight 230 lb BMI 32.1 Intake Visit Reasons: Follow up Intake Note: Patient presents for follow up Allergies No Known Allergies [NO KNOWN ALLERGIES] Allergy (Unknown, Verified 03/04/24 07:38) N/A- Medication List - Last Reconciled 03/04/24 by Brittany Nunez MD CPAP (CPAP Machine/Device) As directed FreeStyle Cony 3 Sensor (blood-glucose sensor) Check blood sugar as directed NS Januvia (sitagliptin phosphate) 100 mg PO DAILY NS multivitamin 1 tab PO DAILY omega-3 acid ethyl esters 2 caps PO BID 30 days rosuvastatin 5 mg PO DAILY sennosides (Senna Laxative) 8.6 mg PO BEDTIME umeclidinium-vilanterol 62.5-25 mcg/actuation (Anoro Ellipta) 1 inh inhalation DAILY HPI Comments Details: 63y/o male with chronic pain comes for follow up. He says thee was no improvement with baclofen , PT , ALa etc . He did not see a Service Liaison Representative yet. He describes the headache has constant bitemporal parietal pressure . No nausea or vomiting, has occasional light and noise sensitvity. He was tried on cymbalta, gabapentin, lyrica, amitriptyline etc He was seen by pain management and they suggested opiods or a stimulator which he declined.His lyrica dose was increased and he is on celebrex now.. [facility] Medical History (Updated 03/04/24 @ 08:17 by Brittany Nunez MD) Polyarthralgia Neck pain Bilateral finger arthralgia Post-COVID chronic dyspnea Colitis History of prior cigarette smoking Chronic tension headaches Peripheral neuropathy Pulmonary nodules Sessile colonic polyp (~2018) Tinnitus of both ears Mixed dyslipidemia Type 2 diabetes mellitus without complication, with no history of insulin use STUART (obstructive sleep apnea) Chronic restrictive lung disease Shortness of breath on exertion Obesity (BMI 30.0-34.9) Tubular adenoma of colon (~2018) Surgical History History of hernia repair History of hemorrhoidectomy History of colonoscopy Family History Father No problems noted. Mother No problems noted. 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 Current occupational exposures/hazards: No Cognitive needs: No Hearing needs: No Vision needs: No Physical Exam Vital Signs: BMI result Body Mass Index 32.1 Const General: cooperative, healthy appearing and in distress Nutritional Appearance: overweight Orientation/consciousness: patient oriented x3 Eyes Pupils: Equal, round and reactive pupils present Neuro Other: patient reported pain in multiple joints which limited my exam Mild decreased light touch and pin prick in distal lower extremties No atrophy General: patient oriented x3, tone normal, moves all extremities and no focal motor deficits Cranial nerves: Yes Facial sensation intact/muscles of mastication intact, Yes Equal, round and reactive pupils present, Yes Bilaterally intact EOM present, Yes Nystagmus not present, Yes Normal facial strength present, Yes Midline tongue present and Yes Symmetric palate elevation present Cognition (Neuro): normal cognition Gait exam (Neuro): Normal gait present Motor exam (neuro): 5/5 motor strength present throughout Coordination: [id number] test normal Results Reviewed Results Reviewed: Lumbar MRI 2021 IMPRESSION: 1. There is a mild anterolisthesis of L4 on L5 secondary to facet arthropathy. There is a left foraminal disc protrusion impinging on the exiting left L4 nerve root. There is moderate central stenosis. 2. At L5-S1 there is a posterior disc protrusion with a small extruded component extending into the left subarticular recess with impingement on the traversing left S1 nerve root. There is no central stenosis. 3. At L3-L4 there is facet arthropathy and there is a left foraminal disc protrusion impinging on the exiting left L3 nerve root. There is no central stenosis. Assessment & Plan Assessment & Plan (1) Chronic tension headaches: Comment: cervicogenic Code(s): G44.229 - Chronic tension-type headache, not intractable Category: Medical Qualifiers: Intractability: intractable Qualified Code(s): G44.221 - Chronic tension-type headache, intractable (2) Spondylosis of lumbar region without myelopathy or radiculopathy: Comment: reviewed MRI LS spine Code(s): M47.816 - Spondylosis without myelopathy or radiculopathy, lumbar region Category: Medical (3) Peripheral neuropathy: Comment: moderate as per EMG results - ? diabetic ? nutritional def Code(s): G62.9 - Polyneuropathy, unspecified Category: Medical Qualifiers: Peripheral neuropathy type: polyneuropathy, other Qualified Code(s): G62.89 - Other specified polyneuropathies Plan Will refer to [facility] for second opinion Rheumatology for polyarthralgia Sertraline 50mg qd Magneisum 400mg qhs Orders: Referrals Pain Management Referral G44.221 - Chronic tension-type headache, intractable, M25.50 - Pain in unspecified joint Rheumatology Referral M25.50 - Pain in unspecified joint Medications: New sertraline 50 mg PO DAILY 30 tabs 6RF magnesium oxide 400 mg PO DAILY 30 tabs 6RF Coding Level of Care Code Est Pt Level 4 (68171) Complex EM visit Add On G2211 Diagnoses Chronic tension-type headache, intractable G44.221 Intractability: intractable Spondylosis of lumbar region without myelopathy or radiculopathy M47.816 Other polyneuropathy G62.89 Peripheral neuropathy type: polyneuropathy, other
== END 2024-03-04 07:58 | disposition home or self-care (01) ==
PROVIDERS: PCP Internal Medicine; Visit Provider Psychiatry & Neurology Neurology
DX: G44.221 Chronic tension-type headache, intractable (principal); M47.816 Spondylosis without myelopathy or radiculopathy, lumbar region; G62.89 Other specified polyneuropathies
CPT/HCPCS: 99214

== ENCOUNTER → 2024-03-04 07:18 | Outpatient (BNVA) | payer OTHER, SELFPAY | PROVIDERS: PCP Internal Medicine; Visit Provider Psychiatry & Neurology Neurology ==

== ENCOUNTER 2024-03-10 14:49 | Outpatient (REF) | payer OTHER, SELFPAY | END 2024-03-10 14:50 | disposition home or self-care (01) | LOC: HO.XRAY 14:49 | PROVIDERS: PCP Internal Medicine; Referring Provider Psychiatry & Neurology Neurology; Visit Provider Anesthesiology | DX: M19.012 Primary osteoarthritis, left shoulder (principal); M25.512 Pain in left shoulder | CPT/HCPCS: 73030 ==

== ENCOUNTER 2024-03-10 14:49 | Outpatient (AMB) | payer OTHER, SELFPAY ==
--- NOTE | 2024-03-10 14:53 | MHC.OFFVIS ---
Vital Signs 03/10/24 14:58 Height 5 ft 11 in Weight 228 lb 4 oz BMI 31.8 BP 123/58 L Blood Pressure Location Lt brachial Position Sitting Respiration 16 Pulse 91 Pulse Source Pulse Oximeter Pulse Oximetry (%) 95 Oxygen Delivery Method Room Air Intake Visit Reasons: Chronic Tension-Type Headache Intake Note: Patient comes in for follow up. Reports pain 12/28. Allergies No Known Allergies [NO KNOWN ALLERGIES] Allergy (Unknown, Verified 03/10/24 14:57) N/A- HPI Comments Details: Jaya is back in my office with complains on mostly pain in the left shoulder as well as pain in the neck with radiation to the back of the head as well as into the bilateral upper shoulders. He reports flexing forward aggravates his pain tremendously. He reports flexing backwards makes his pain slightly better. He had an x-ray of the cervical spine which demonstrated some disc degeneration and spondylosis. I offered this patient to attempt C2, C3, C4 diagnostic medial branch block to establish whether any procedures on these medial branches could be helpful to control his pain. Also he complains on pain in the left shoulder. The range of motion in the left shoulder is significantly limited. I recommended him to go for left shoulder x-ray. We will perform x-ray of the shoulder and possibly after that perform steroid injections into the left shoulder to help his pain. . He complains on stiffness in bilateral upper extremities including stiffness in the hands his stiffness is all day long and not confined mostly in the morning.. Prior: He reports pain in bilateral feet he reports that this pain is neuropathic, he reports pain in the knee on the right side with radiation of the pain down to the right lower extremity. He also reports pain in the lower back and pain in the neck. Last time he was in this office and we discussed treatment of the pain in the knee, we performed genicular nerve block without success were performed femoral nerve block without success I offered the patient has spinal cord stimulator. Unfortunately patient that time refused to go for spinal cord stimulator. Now he went for a consult with neurosurgeon he tried gabapentin there without success for his neuropathic pain. He is reluctant to go for spinal cord stimulator because it was offered for him to treat his pain. I explained to him in very long and detailed conversation that treatment with spinal cord stimulator might be addressed to bilateral lower extremities. It also can address pain in bilateral feet, neuropathic pain, after this condition is improved we can address his cervicalgia cervical pain as well. I am not sure what can be offered to the patient according to him he had a CT scan done in [facility] facility however there is no CT scan available. The only available study I have x-ray of the cervical spine was minimal information about the sources of the pain. [facility] Medical History (Updated 03/10/24 @ 15:19 by Bill May MD) Polyarthralgia Neck pain Bilateral finger arthralgia Post-COVID chronic dyspnea Colitis History of prior cigarette smoking Chronic tension headaches Peripheral neuropathy Pulmonary nodules Sessile colonic polyp (~2018) Tinnitus of both ears Mixed dyslipidemia Type 2 diabetes mellitus without complication, with no history of insulin use STUART (obstructive sleep apnea) Chronic restrictive lung disease Shortness of breath on exertion Obesity (BMI 30.0-34.9) Tubular adenoma of colon (~2018) Surgical History History of hernia repair History of hemorrhoidectomy History of colonoscopy Family History Father No problems noted. Mother No problems noted. 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 Current occupational exposures/hazards: No Cognitive needs: No Hearing needs: No Vision needs: No Review of Systems Const All systems reviewed & are unremarkable except as noted in HPI and below Physical Exam Vital Signs: Last Vital Signs Pulse 91 03/10/24 14:58 Resp 16 03/10/24 14:58 BP 123/58 L 03/10/24 14:58 Pulse Ox 95 03/10/24 14:58 Oxygen Delivery Method Room Air 03/10/24 14:58 BMI result Body Mass Index 31.8 Const General: cooperative, healthy appearing and in distress Nutritional Appearance: overweight Orientation/consciousness: patient oriented x3 Eyes Pupils: Equal, round and reactive pupils present Neck Other: Flexing head backwards greatly aggravate his pain. Flexing forward does not affect his pain, Spurling test is negative bilaterally. Lhermitte test is negative. There is significant tenderness on palpation on entire cervical spine in paraspinal spinal regions. Valsalva maneuver does not aggravate his pain. Neuro Other: patient reported pain in multiple joints which limited my exam Mild decreased light touch and pin prick in distal lower extremties No atrophy General: patient oriented x3, tone normal, moves all extremities and no focal motor deficits Cranial nerves: Yes Facial sensation intact/muscles of mastication intact, Yes Equal, round and reactive pupils present, Yes Bilaterally intact EOM present, Yes Nystagmus not present, Yes Normal facial strength present, Yes Midline tongue present and Yes Symmetric palate elevation present Cognition (Neuro): normal cognition Gait exam (Neuro): Normal gait present Motor exam (neuro): 5/5 motor strength present throughout Coordination: [id number] test normal Assessment & Plan Assessment & Plan (1) Osteoarthritis of left shoulder: Code(s): M19.012 - Primary osteoarthritis, left shoulder Category: Medical (2) Left shoulder pain: Code(s): M25.512 - Pain in left shoulder Category: Medical Plan 1. I will schedule this patient for x-ray of the shoulder. If the x-ray of the left shoulder will demonstrate significant osteoarthritis I will perform intra-articular left shoulder steroid injection. 2. I will schedule this patient for bilateral C2-C3 C4 medial branch block in the attempt to diagnose pain in the back of the neck with radiation into the back of the head occipital area. 3. Treatment of this pain could be performed with sprint PNS. 4. If this injection will be helpful we will address as a next step C4-C5 C6 medial branch block and possibly with good results treated with another set of sprint stimulation. Orders: Orders XR shoulder LT min 2V Today M19.012 - Primary osteoarthritis, left shoulder, M25.512 - Pain in left shoulder Patient Instructions: I here by testify that I spent 32 minutes in conversation with this patient as well as planning his care and organizing this note. Coding Level of Care Code Est Pt Level 4 (74225) Diagnoses Osteoarthritis of left shoulder M19.012 Left shoulder pain M25.512
[2024-03-10 14:58] VITALS: BP 123/58; PULSE 91; RESP 16; O2SAT 95; BMI 31.8
== END 2024-03-10 15:55 | disposition home or self-care (01) ==
PROVIDERS: PCP Internal Medicine; Referring Provider Psychiatry & Neurology Neurology; Visit Provider Anesthesiology
DX: M19.012 Primary osteoarthritis, left shoulder (principal); M25.512 Pain in left shoulder
CPT/HCPCS: 99214

== ENCOUNTER 2024-04-12 10:03 | Outpatient (AMB) | payer OTHER, SELFPAY ==
[2024-04-12 10:14] VITALS: BP 140/72; PULSE 64; TEMP 36.7; O2SAT 99; BMI 33.3
--- NOTE | 2024-04-12 10:14 | MHC.OFFWIV ---
Intake Vital Signs 04/12/24 10:14 Height 5 ft 11 in Weight 239 lb BMI 33.3 BP 140/72 H Blood Pressure Location Rt brachial Position Sitting Pulse 64 Temp 98.0 F Temp Source Oral Pulse Oximetry (%) 99 Oxygen Delivery Method Room Air Intake Visit Reasons: EP Bilateral earache Intake Note: Pt is here today c/o bilateral earache Patient Tobacco Use Status: Former Tobacco user Allergies No Known Allergies [NO KNOWN ALLERGIES] Allergy (Unknown, Verified 06/11/24 08:33) N/A- HPI EP Bilateral earache HPI Details Patient is a 64-year-old male comes to the walk-in clinic complaining of persistent feeling of fullness to both ears. There is no discharge. Mild hearing loss. He has not had them irrigated recently. Denies fever or chills, myalgias or malaise, dizziness or vertigo, weakness, nausea vomiting or diarrhea, headache, runny nose cough or other respiratory symptoms, abdominal pain or pelvic pain, urinary symptoms, chest pain or shortness of breath, or other significant associated symptoms. [facility] Medical History (Updated 06/11/24 @ 09:38 by Chantel Pitts MD) Long-term use of Plaquenil Erosive osteoarthritis Bulging of lumbar intervertebral disc Chronic radicular lumbar pain Polyarticular osteoarthritis Metformin adverse reaction Polyarthralgia Neck pain Bilateral finger arthralgia Post-COVID chronic dyspnea Colitis History of prior cigarette smoking Chronic tension headaches Peripheral neuropathy Pulmonary nodules Sessile colonic polyp (~2018) Tinnitus of both ears Mixed dyslipidemia Type 2 diabetes mellitus without complication, with no history of insulin use STUART (obstructive sleep apnea) Chronic restrictive lung disease Shortness of breath on exertion Obesity (BMI 30.0-34.9) Tubular adenoma of colon (~2018) Surgical History History of hernia repair History of hemorrhoidectomy History of colonoscopy Family History Father No problems noted. Mother No problems noted. 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 Current occupational exposures/hazards: No Cognitive needs: No Hearing needs: No Vision needs: No Review of Systems Const All systems reviewed & are unremarkable except as noted in HPI and below Physical Exam Vital Signs: Last Vital Signs Temp 98.0 F 04/12/24 10:14 Pulse 64 04/12/24 10:14 BP 140/72 H 04/12/24 10:14 Pulse Ox 99 04/12/24 10:14 Oxygen Delivery Method Room Air 04/12/24 10:14 BMI result Body Mass Index 33.3 HEENT Ears: hearing grossly normal bilaterally and TM abnormal wth effusion and with fluid behind the TM; not bulging, not dull, not erythematous and not perforated Assessment & Plan Assessment & Plan (1) Serous otitis media: Code(s): H65.90 - Unspecified nonsuppurative otitis media, unspecified ear Qualifiers: Chronicity: chronic Laterality: bilateral Qualified Code(s): H65.23 - Chronic serous otitis media, bilateral Plan: Patient is a 64-year-old male with history of serous otitis, who has seen ENT within the past few months. He reports that he recently changed the setting on his CPAP machine and believes that this was the cause of recurrent episode of fluid building up. He reports that he feels fluid sloshing around in the middle ears, and feels lightheaded at times. No vertigo or unsteadiness on exam today, and no other symptoms of acute otitis media. We discussed this, as well as supportive measures to help drain the fluid from the Eustachian tubes, such as massage heat and he can use Flonase. He should follow up with ENT if symptoms persist or worsen at all. He knows to go to the emergency department with worrisome symptoms. Coding Level of Care Code Est Pt Level 4 (45188) Diagnoses Bilateral chronic serous otitis media H65.23 Chronicity: chronic Laterality: bilateral
== END 2024-04-12 11:26 | disposition home or self-care (01) ==
PROVIDERS: PCP Internal Medicine; Visit Provider Physician Assistant Medical
DX: H65.23 Chronic serous otitis media, bilateral (principal)

== ENCOUNTER 2024-05-01 06:30 | Outpatient (REF) | payer OTHER, SELFPAY ==
[2024-05-01 07:07] LABS: Basophils Absolute Auto 0.1 X10*3/uL (0.0-0.2); Basophils Percent Auto 0.8 % (0-2); Eosinophils Absolute Auto 0.3 X10*3/uL (0.0-0.4); Eosinophils Percent Auto 4.1 % (0-4); Hematocrit 43.1 % (42.0-52.0); Hemoglobin 14.9 g/dl (14.0-18.0); Imm Gran Abs Auto 0.03 X10*3/uL (0.00-0.03); Imm Gran Pct Auto 0.5 % (0.0-0.4); Lymphocytes Absolute Auto 2.6 X10*3/uL (1.2-4.9); Lymphocytes Percent Auto 42.3 % (20-40); MANUAL DIFF FLAG NO; Mean Corpuscular HGB Conc 34.6 g/dl (31.0-36.0); Mean Corpuscular Hemoglobin 32.7 pg (27.0-33.0); Mean Corpuscular Volume 94.5 fL (80.0-98.0); Mean Platelet Volume 9.7 fL (9.4-12.4); Monocytes Absolute Auto 0.4 X10*3/uL (0.1-1.2); Monocytes Percent Auto 6.7 % (2-11); Neutrophils Absolute Auto 2.8 x10*3/uL (2.0-8.3); Neutrophils Percent Auto 45.6 % (45-73); Platelet Count 153 X10*3/uL (160-400); Red Blood Count 4.56 X10*6/uL (4.60-5.80); Red Cell Distribution Width 13.3 % (11.0-16.0); White Blood Count 6.1 X10*3/uL (4.8-10.8)
[2024-05-01 07:19] LABS: Estimated Average Glucose 128 mg/dL; Hemoglobin A1C 164.8535 umol/L; Hemoglobin A1c % 6.1 % (<6.0); Total Hemoglobin (HGBA1C) 3821.2199 umol/L
[2024-05-01 07:23] LABS: Cholesterol 168 mg/dL (<200); HDL Cholesterol 40 mg/dL (>40); LDL Cholesterol Calculated 98 mg/dL (<100); Triglycerides 153 mg/dL (<150)
== END 2024-05-01 06:31 | disposition home or self-care (01) ==
LOC: HO.LAB 06:30
PROVIDERS: PCP Internal Medicine; Visit Provider Internal Medicine
DX: E11.9 Type 2 diabetes mellitus without complications (principal); E66.9 Obesity, unspecified; M79.10 Myalgia, unspecified site
CPT/HCPCS: 36415; 80061; 82550; 83036; 85025

== ENCOUNTER 2024-05-02 08:10 | Outpatient (AMB) | payer OTHER, SELFPAY ==
--- NOTE | 2024-05-02 08:18 | A.OFFPC_ITS ---
Intake Visit Reasons: change of medication Allergies No Known Allergies [NO KNOWN ALLERGIES] Allergy (Unknown, Verified 05/02/24 09:18) N/A- Medication List - Last Reconciled 05/02/24 by Ronna Patton MD CPAP (CPAP Machine/Device) As directed FreeStyle Cony 3 Sensor (blood-glucose sensor) Check blood sugar as directed NS Januvia (sitagliptin phosphate) 100 mg PO DAILY NS magnesium oxide 400 mg PO DAILY multivitamin 1 tab PO DAILY omega-3 acid ethyl esters 2 caps PO BID 30 days rosuvastatin 5 mg PO DAILY sennosides (Senna Laxative) 8.6 mg PO BEDTIME umeclidinium-vilanterol 62.5-25 mcg/actuation (Anoro Ellipta) 1 inh inhalation DAILY Tobacco use date assessed: 01/31/24 Fall risk assessment: No Falls in past year Last assessed Fall Risk: 05/02/24 Dental Screening Dental Screen Date: 01/31/24 HPI change of medication HPI Details 64-year-old male here today via telehealth requesting switching to Trulicity instead of taking Januvia, for improved management of Type 2 Diabetes Mellitus and hopefully promote weight loss. - Reports inadequate glycemic control an d intolerance to Metformin due to gastrointestinal upset and glycemic spikes. - Expresses a need for weight loss manag ement for diabetes control and improvement in ambulation. - Reports difficulties ambulating due to severe foot pain, so much so that it prevents him from wearing socks or shoes as it aggravates his foot pain. [facility] Medical History (Updated 05/03/24 @ 01:51 by Ronna Patton MD) Metformin adverse reaction Polyarthralgia Neck pain Bilateral finger arthralgia Post-COVID chronic dyspnea Colitis History of prior cigarette smoking Chronic tension headaches Peripheral neuropathy Pulmonary nodules Sessile colonic polyp (~2018) Tinnitus of both ears Mixed dyslipidemia Type 2 diabetes mellitus without complication, with no history of insulin use STUART (obstructive sleep apnea) Chronic restrictive lung disease Shortness of breath on exertion Obesity (BMI 30.0-34.9) Tubular adenoma of colon (~2019) Surgical History History of hernia repair History of hemorrhoidectomy History of colonoscopy Family History Father No problems noted. Mother No problems noted. 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 Current occupational exposures/hazards: No Cognitive needs: No Hearing needs: No Vision needs: No Questionnaire Thrive Questionnaire Date Thrive assessed: 05/02/24 I am a: Patient What is your living situation today?: I have a steady place to live Within the past 12 months, did the food you bought not last and you didn't have the money to get more?: Never true Within the past 12 months, did you worry whether your food would run out before you got money to buy more?: Never true Do you have trouble paying for medicines?: No Do you have trouble getting transportation to medical appointments?: No Do you have trouble paying your heating and electricity bill?: No Do you have trouble taking care of your child, family member or friend?: No Do you have trouble with day-to-day activities such as bathing, preparing meals, shopping, managing finances, etc.?: Yes Are you currently unemployed and looking for a job?: No Are you interested in more education?: No Please select the resources that you would like help with: None Currently or been in a relationship where the following occur: No concerns reported THRIVE Score: 0 AUDIT C Alcohol Use Questionnaire (AUDIT-C) 1. How often do you have a drink containing alcohol?: Never 3. How often do you have six or more drinks on one occasion?: Never Total Score: 0 Score Reviewed/Action Taken: Yes RAIZA-7 AMB Questionnaire RAIZA-7 Date RAIZA - 7 assessed: 01/31/24 Source: Developed by Drs. Wes Stock, Marleni Montague, Joselito Reeves and colleagues, with an educational ade from [employer]. Review of Systems Const Denies fever(s) and Denies poor appetite Eyes Details: [facility] [place] for his routine diabetes retinopathy screening, ENT Denies Normal hearing present, Denies hearing loss, Denies disequilibrium and Denies sore throat Card Reports no additional complaints Resp Reports no additional complaints GI Denies abdominal pain, Denies melena, Denies constipation, Denies heartburn, Denies nausea and Denies vomiting Reports no additional complaints Musc Reports arthralgias (Fingers of both hands), Reports radiating pain into limb, Reports stiffness and Reports tingling (Lower extremity) Skin/Breast Denies pruritus, Denies lesions and Denies rash Neuro Denies Normal hearing present, Denies Abnormal speech present, Reports burning sensations, Reports tingling (Lower extremity), Reports paresthesias and Denies disequilibrium Endo Reports no additional complaints Camilo/Lymph Reports no additional complaints Aller/Immun Reports no additional complaints Physical exam (Primary Care) Tobacco/Smoking Status: Tobacco use Status Tobacco use date assessed 01/31/24 05/02/24 08:18 Patient Tobacco Use Status Former Tobacco user 05/02/24 08:18 e-Cigarette/Vaping Use Never Used 05/02/24 08:18 Thrive Assessment: Date of Thrive Assessment Date Thrive assessed 05/02/24 05/02/24 08:53 Currently or been in a relationship where the following occur: No concerns reported Neuro Cranial nerves: No Normal hearing present Speech: No Abnormal speech present Telehealth Telehealth Telehealth Platform: [facility] Location of provider rendering services: practice address Location of patient: address on file Patient Identification confirmed using: Name, : Yes Telehealth method: video Patient verbally consented to treatment: Yes Patient verbally consented to billing insurance company: Yes Patient informed of any privacy concerns related to visit: Yes Minutes spent on Phone/Video with Pt.: 15 Coding Level of Care Code Tele Est Pt Level 3 (25967) Complex EM visit Add On G2211 Diagnoses Type 2 diabetes mellitus without complication, with no history of insulin use E11.9 Adverse effect of metformin, subsequent encounter T38.3X5D Encounter type: subsequent encounter Obesity (BMI 30.0-34.9) E66.9 Assessment & Plan Assessment & Plan (1) Type 2 diabetes mellitus without complication, with no history of insulin use: Code(s): E11.9 - Type 2 diabetes mellitus without complications Category: Medical (2) Metformin adverse reaction: Code(s): T38.3X5A - Adverse effect of insulin and oral hypoglycemic [antidiabetic] drugs, initial encounter Category: Medical Qualifiers: Encounter type: subsequent encounter Qualified Code(s): T38.3X5D - Adverse effect of insulin and oral hypoglycemic [antidiabetic] drugs, subsequent encounter (3) Obesity (BMI 30.0-34.9): Code(s): E66.9 - Obesity, unspecified Category: Medical Plan During the visit, I discussed the plan to transition the patient's diabetic management from Sitagliptin (Januvia) to Dulaglutide (Trulicity) due to the added benefit of weight loss. I explained the potential side effects, including nausea and the risk of pancreatitis, especially when combined with alcohol. We agreed to initiate Trulicity at a starting dose of 0.75 mg weekly. I emphasized the importance of dietary changes and activity to support glycemic control and potential weight loss. An appointment was confirmed for July, with instructions to complete blood work prior to the visit. Patient was informed and verbally consented to the use of an ambient scribe for clinic note documentation during this visit. Medications: New Trulicity (dulaglutide) 0.75 mg (0.5 mL) subcut QWEEK 30 days 2 mL 4RF NS E11.9 - Type 2 diabetes mellitus without complications, T38.3X5A - Adverse effect of insulin and oral hypoglycemic [antidiabetic] drugs, initial encounter Discontinued Januvia (sitagliptin phosphate) Discontinued Reason: Doctor's Order 100 mg PO DAILY 90 tabs 1RF NS
== END 2024-05-02 10:07 | disposition home or self-care (01) ==
LOC: HO.HMCC 08:10
PROVIDERS: PCP Internal Medicine; Visit Provider Internal Medicine
DX: E11.9 Type 2 diabetes mellitus without complications (principal); T38.3X5D Adverse effect of insulin and oral hypoglycemic [antidiabetic] drugs, subsequent encounter; E66.9 Obesity, unspecified

== ENCOUNTER 2024-05-27 08:37 | Outpatient (AMB) | payer OTHER, SELFPAY ==
--- NOTE | 2024-05-27 08:49 | A.OFFVIS_ITS ---
Vital Signs 05/27/24 08:59 Height 5 ft 11 in Weight 238 lb 5.115 oz BMI 33.2 BP 124/72 Blood Pressure Location Lt brachial Position Sitting Pulse 69 Pulse Source Pulse Oximeter Pulse Oximetry (%) 98 Oxygen Delivery Method Room Air Intake Visit Reasons: Joint pain Intake Note: Patient presents for joint pain. My neck feels stiff all the time and it hurt when I turned it both ways. I feel pain on both my shoulders, lower back, both wrist, finger, both hips, both knees, both ankles and toes. I been in pain for 3 years. I took Naproxen and antidepressants it didn't work. I took OTC anti inflammatory meds and they didn't work. Allergies No Known Allergies [NO KNOWN ALLERGIES] Allergy (Unknown, Verified 05/27/24 08:57) N/A- Medication List - Last Reconciled 05/27/24 by Chantel Pitts MD multivitamin 1 tab PO DAILY omega-3 acid ethyl esters 2 caps PO BID rosuvastatin 5 mg PO DAILY sennosides (Senna Laxative) 8.6 mg PO BEDTIME Trulicity (dulaglutide) 0.75 mg (0.5 mL) subcut QWEEK 30 days NS umeclidinium-vilanterol 62.5-25 mcg/actuation (Anoro Ellipta) 1 inh inhalation DAILY HPI Comments Details: Patient is a 64 y.o. male with DM (well controlled) ?complicated by neuropathy and HLD who pressents with polyarthralgias 5-6 years ago. Hand pain - 5-6 years ago - Previously been to PT, did paraffin wax treatments with not much benefit - Stiffness that lasts all day (does not improve with movement) - Unable to say if AM or PM is worse: always bad Other joints - lower back - neck - bilateral knees. Worse ascending and descending stairs. Received steroid injections. Minimal effect. Has not tried gel Has tried NSAIDs and Tylenol. No family history of autoimmune disease Sister with fibromyalgia [facility] Medical History (Updated 05/27/24 @ 09:44 by Chantel Pitts MD) Polyarticular osteoarthritis Metformin adverse reaction Polyarthralgia Neck pain Bilateral finger arthralgia Post-COVID chronic dyspnea Colitis History of prior cigarette smoking Chronic tension headaches Peripheral neuropathy Pulmonary nodules Sessile colonic polyp (~2019) Tinnitus of both ears Mixed dyslipidemia Type 2 diabetes mellitus without complication, with no history of insulin use STUART (obstructive sleep apnea) Chronic restrictive lung disease Shortness of breath on exertion Obesity (BMI 30.0-34.9) Tubular adenoma of colon (~2019) Surgical History History of hernia repair History of hemorrhoidectomy History of colonoscopy Family History Father No problems noted. Mother No problems noted. 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 Current occupational exposures/hazards: No Cognitive needs: No Hearing needs: No Vision needs: No Review of Systems Const Details: Review of Systems Constitutional: Denies fever, chills, weight loss ENT: Denies vision changes, eye pain or eye redness, dental caries, dry mouth GI: Denies nausea, vomiting, diarrhea, abdominal pain, change in BM Pulm: Denies SOB, ALEJANDRA, hemoptysis, wheezing Cards: Denies chest pain, palpitations Skin: Denies Raynaud's, rash, nail changes, photosensitivity, HOME LENDING OFFICER: Denies headaches, weakness, paresthesias, recurrent falls MSK: as per HPI All other systems reviewed and are unremarkable except noted above Physical Exam Vital Signs: Last Vital Signs Pulse 69 05/27/24 08:59 BP 124/72 05/27/24 08:59 Pulse Ox 98 05/27/24 08:59 Oxygen Delivery Method Room Air 05/27/24 08:59 BMI result Body Mass Index 33.2 Physical Examination CONSTITUITIONAL Patient alert and cooperative. Well appearing and in no apparent painful distress HEENT Conjunctiva and sclera clear. Pupils equal round and reactive to light. No lymphadenopathy. CHEST/RESPIRATORY SYSTEM Normal respiratory effort and able to speak in complete sentences. Clear to auscultation bilaterally. No crackles, rales, rhonchi, wheezes heard. CARDIAC SYSTEM Regular rate and rhythm. S1 and S2 heard no murmurs. Radial pulses intact bilaterally MSK Hands: Herbeden's nodes: R 2nd, 3rd, 5th. L 2nd, 3rd, 4th Bouchards nodes: R 2nd, 3rd. L 2nd, 5th No prayer hand sign Unable to make a fist TTP of the DIPs and PIPs Wrists: Full range of motion at the wrists without pain. No tenderness to palpation or synovitis noted to the wrists. Elbows: Full range of motion without pain. No tenderness, weakness, swelling, increased warmth or erythema. Shoulders: Full range of motion. Has some pain with active ROM. No TTP of the AC or GH joint Hips: Full range of motion without pain. Hip bursa: No tenderness to palpation Knees: Full range of motion. No tenderness, swelling, increased warmth or erythema.?Bilateral crepitations Ankles: Full range of motion. No tenderness, swelling, increased warmth or erythema.? Feet: Negative squeeze test. No tenderness to palpation or swelling of the MTPs. Tender points:?No tenderness to palpation of the bilateral trapezius, supraspinatus, greater trochanters, anterior costochondral junctions, bilateral gluteal areas, bilateral suboccipital muscle insertions SKIN Skin intact without rashes. Results Reviewed Results Reviewed: Laboratory Tests 06/18/23 07/23/23 01/28/24 14:41 09:44 06:28 WBC RBC Hgb Hct Plt Count ESR 5 Sodium 141 Potassium 4.4 Chloride 107 Carbon Dioxide 26 BUN 17 H Creatinine 0.96 AST 30 ALT 51 H Total Creatine Kinase 25-OH Vitamin D Total 70.3 THOMAS Screen NEGATIVE 05/01/24 06:33 WBC 6.1 RBC 4.56 L Hgb 14.9 Hct 43.1 Plt Count 153 L ESR Sodium Potassium Chloride Carbon Dioxide BUN Creatinine AST ALT Total Creatine Kinase 82 25-OH Vitamin D Total THOMAS Screen XR Knees 02/2022 Right Knee FINDINGS: No fracture or subluxation. There is moderate narrowing of the patellofemoral compartment joint space, similar to prior imaging. Small associated marginal osteophytes. The medial and lateral compartments are maintained. No joint effusion. The soft tissues are unremarkable. FINDINGS: Right: Bone alignment is normal. No fracture or dislocation. Arthritis at the patellofemoral joint. Moderate to large joint effusion. Standing AP view of the left knee is unremarkable. XR Pelvis 04/2022 FINDINGS: No fracture, dislocation, or bony destructive process. There are mild degenerative changes lower lumbar spine with disc narrowing L5-S1 and likely at L4-L5. Some mild chronic whiskering at the lateral iliac crests again seen. There is mild osteitis pubis. There is borderline superior medial hip joint narrowing. No erosive change or chondrocalcinosis. 2 surgical clips seen overlying left parasagittal region just distal to the ischial tuberosity possibly and perineum. L Spine MRI 04/2022 IMPRESSION: 1. There is a mild anterolisthesis of L4 on L5 secondary to facet arthropathy. There is a left foraminal disc protrusion impinging on the exiting left L4 nerve root. There is moderate central stenosis. 2. At L5-S1 there is a posterior disc protrusion with a small extruded component extending into the left subarticular recess with impingement on the traversing left S1 nerve root. There is no central stenosis. 3. At L3-L4 there is facet arthropathy and there is a left foraminal disc protrusion impinging on the exiting left L3 nerve root. There is no central stenosis. XR C Spine 07/2023 FINDINGS: On the lateral view, C7 is totally obscured by the soft tissues of the patient's shoulder, however is seen on the oblique views. The very tip of the odontoid is obscured on the open-mouth view. There is no fracture. Prevertebral soft tissues are within normal limits. There is disc space narrowing at C5-C6 and C6-C7 with marginal osteophyte formation. Question of mild anterolisthesis of C5 respect to C6. The neural foramina are patent. XR Shoulder 02/2024 FINDINGS: No acute visible fracture or dislocation. Degenerative arthropathy of the glenohumeral and acromioclavicular joint with subchondral cystic changes of the superolateral humeral head. Joint space alignment otherwise maintained. Soft tissues are unremarkable. Calcified granuloma left upper lobe Assessment & Plan Assessment & Plan (1) Polyarticular osteoarthritis: Code(s): M15.9 - Polyosteoarthritis, unspecified Category: Medical Plan: #Polyarticular OA Patient presenting today with polyarthralgias. History and examination consistent with polyarticular osteoarthritis. No evidence of rheumatoid arthritis at this time. My concern is that he may have erosive osteoarthritis which may warrant some form of immunosuppression. We will check x-rays, labs including RF and CCP to rule out rheumatoid arthritis Discussed viscosupplementation for his bilateral knee OA Plan - CBC, CMP, ESR, CRP, RF, CCP - XR Hands and Wrists - RTC 2 weeks for follow up Plan I spent 45 minutes reviewing the record and labs, seeing the patient, discussing the treatment plan and documenting in the medical record ? Orders: Orders Cyclic Citrullinated Peptide Today M15.9 - Polyosteoarthritis, unspecified Rheumatoid Factor Today M15.9 - Polyosteoarthritis, unspecified Comprehensive Met. Panel Today M15.9 - Polyosteoarthritis, unspecified Complete Blood Count Auto Diff Today M15.9 - Polyosteoarthritis, unspecified C Reactive Protein Today M15.9 - Polyosteoarthritis, unspecified Erythrocyte Sedimentation Rate Today M15.9 - Polyosteoarthritis, unspecified Coding Level of Care Code New Pt Level 4 (33087) Diagnoses Polyarticular osteoarthritis M15.9
[2024-05-27 08:59] VITALS: BP 124/72; PULSE 69; O2SAT 98; BMI 33.2
== END 2024-05-27 09:44 | disposition home or self-care (01) ==
PROVIDERS: PCP Internal Medicine; Visit Provider Student in an Organized Health Care Education/Training Program
DX: M15.9 Polyosteoarthritis, unspecified (principal)
CPT/HCPCS: 99204

== ENCOUNTER 2024-05-27 08:37 | Outpatient (REF) | payer OTHER, SELFPAY ==
--- NOTE | ~2024-05-27 | XR_ITS ---
CLINICAL HISTORY: M15.9 - Polyosteoarthritis, unspecified 3 view left wrist Comparison: CR/SR - XR HAND WRIST LT - 05/27/24 10:22 EST Findings: Bones intact. No dislocations. Joint space narrowing and periarticular osteophyte formation at the radiocarpal, scaphotrapezial, and 1st carpometacarpal joints is present, indicating osteoarthritis. Periarticular osteophyte formation at the interphalangeal joints of the digits. No radiopaque foreign body. IMPRESSION: 1. No acute findings 2. Osteoarthritis. This document has been electronically signed by: Milagro Lin MD on 05/27/2024 14:52:30
--- NOTE | ~2024-05-27 | XR_ITS ---
CLINICAL HISTORY: M15.9 - Polyosteoarthritis, unspecified 3 view right wrist Comparison: CR/SR - XR HAND WRIST RT - 05/27/24 10:24 EST Findings: Bones intact. No dislocations. Joint space narrowing and periarticular osteophyte formation at the radiocarpal, scaphotrapezial, and 1st carpometacarpal joints is present, indicating osteoarthritis. Periarticular osteophyte formation at the interphalangeal joints of the digits. No radiopaque foreign body. IMPRESSION: 1. No acute findings 2. Osteoarthritis. This document has been electronically signed by: Milagro Lin MD on 05/27/2024 14:52:15
[2024-05-27 10:08] LABS: MANUAL DIFF FLAG NO
[2024-05-27 10:44] LABS: Basophils Percent Auto 0.5 % (0-2); Eosinophils Absolute Auto 0.2 X10*3/uL (0.0-0.4); Eosinophils Percent Auto 3.5 % (0-4); Hemoglobin 15.3 g/dl (14.0-18.0); Imm Gran Abs Auto 0.03 X10*3/uL (0.00-0.03); Imm Gran Pct Auto 0.5 % (0.0-0.4); Lymphocytes Absolute Auto 2.9 X10*3/uL (1.2-4.9); Lymphocytes Percent Auto 45.6 % (20-40); Mean Corpuscular HGB Conc 36.4 g/dl (31.0-36.0); Mean Corpuscular Hemoglobin 33.6 pg (27.0-33.0); Mean Corpuscular Volume 92.3 fL (80.0-98.0); Mean Platelet Volume 9.8 fL (9.4-12.4); Monocytes Absolute Auto 0.4 X10*3/uL (0.1-1.2); Monocytes Percent Auto 6.2 % (2-11); Neutrophils Absolute Auto 2.7 x10*3/uL (2.0-8.3); Neutrophils Percent Auto 43.7 % (45-73); Platelet Count 167 X10*3/uL (160-400); Red Blood Count 4.55 X10*6/uL (4.60-5.80); Red Cell Distribution Width 13.2 % (11.0-16.0); White Blood Count 6.3 X10*3/uL (4.8-10.8)
[2024-05-27 11:15] LABS: Rheumatoid Factor < 13.0 IU/mL (<15.0)
[2024-05-27 11:21] LABS: Erythrocyte Sedimentation Rate 5 MM/HR (0-15)
[2024-05-27 11:33] LABS: Alanine Aminotransferase 112 U/L (0-40); Albumin Level 4.7 g/dL (3.5-5.0); Alkaline Phosphatase 64 U/L (39-117); Anion Gap 9 (12-20); Aspartate Amino Transferase 55 U/L (5-37); Bilirubin Total 0.7 mg/dL (0.0-1.0); Blood Urea Nitrogen 14 mg/dL (9-16); C Reactive Protein 0.58 mg/dL (< or = 0.50); Calcium 9.4 mg/dL (8.4-10.2); Carbon Dioxide 24 mmol/L (22-29); Chloride 109 mmol/L (96-108); Estimated Glomerular Filt Rate > 60; Glucose Random 125 mg/dL (60-115); Potassium 4.2 mmol/L (3.3-5.1); Sodium 138 mmol/L (135-145); Total Protein 7.5 g/dL (6.5-8.0)
[2024-06-02 19:59] LABS: Cyclic Citrullinated Peptide <16 UNITS
== END 2024-05-27 08:38 | disposition home or self-care (01) ==
LOC: HO.XRAY 08:37
PROVIDERS: PCP Internal Medicine; Visit Provider Student in an Organized Health Care Education/Training Program
DX: M15.9 Polyosteoarthritis, unspecified (principal); E11.9 Type 2 diabetes mellitus without complications; E78.5 Hyperlipidemia, unspecified; Z79.4 Long term (current) use of insulin
CPT/HCPCS: 36415; 73110; 73130; 80053; 85025; 85652; 86140; 86200; 86431

== ENCOUNTER 2024-06-03 06:08 | Outpatient (REF) | payer OTHER, SELFPAY ==
--- NOTE | ~2024-06-03 | FL_ITS ---
EXAMINATION: FL GUIDANCE ONLY HISTORY: G44.221 - Chronic tension-type headache, intractable COMPARISON: None available. TECHNIQUE: Fluoroscopy time: 1.5 minutes. Cumulative Dose: 14.3 mGy. DAP: 0.192 uGy-m2 (microgray-meter squared). Images: 8. FINDINGS: Images demonstrate needles within, and subsequently contrast injection of the bilateral C3-4, C4-5, C5-6 facet joints. FL/FL guidance in treatment room IMPRESSION: Fluoroscopy during procedure. Please see procedure report for additional information. Electronically signed by: Wes Wright MD 06/09/2024 03:18 PM POPEYE
== END 2024-06-03 06:09 | disposition home or self-care (01) ==
LOC: CF 06:08
PROVIDERS: Visit Provider Anesthesiology
DX: G44.221 Chronic tension-type headache, intractable (principal); M47.812 Spondylosis without myelopathy or radiculopathy, cervical region
CPT/HCPCS: 64490; 64491; J2003; J2795; Q9967

== ENCOUNTER 2024-06-03 08:47 | Outpatient (AMB) | payer OTHER, SELFPAY ==
[2024-06-03 08:58] VITALS: BP 143/84; PULSE 65; O2SAT 96
--- NOTE | 2024-06-03 08:58 | MHC.OFFVIS ---
Vital Signs 06/03/24 08:58 06/03/24 09:39 BP 143/84 H 131/60 Blood Pressure Location Lt brachial Rt brachial Position Sitting Sitting Pulse 65 60 Pulse Source Pulse Oximeter Pulse Oximeter Pulse Oximetry (%) 96 97 Oxygen Delivery Method Room Air Room Air Intake Visit Reasons: BILATERAL DIAGNOSTIC C2, C3, C4 MBB Allergies No Known Allergies [NO KNOWN ALLERGIES] Allergy (Unknown, Verified 05/27/24 08:57) N/A- FORMERLY [facility], LAT[facility] Medical History (Updated 06/03/24 @ 11:26 by Bill May MD) Polyarticular osteoarthritis Metformin adverse reaction Polyarthralgia Neck pain Bilateral finger arthralgia Post-COVID chronic dyspnea Colitis History of prior cigarette smoking Chronic tension headaches Peripheral neuropathy Pulmonary nodules Sessile colonic polyp (~2018) Tinnitus of both ears Mixed dyslipidemia Type 2 diabetes mellitus without complication, with no history of insulin use STUART (obstructive sleep apnea) Chronic restrictive lung disease Shortness of breath on exertion Obesity (BMI 30.0-34.9) Tubular adenoma of colon (~2018) Surgical History History of hernia repair History of hemorrhoidectomy History of colonoscopy Family History Father No problems noted. Mother No problems noted. 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 Informed consent was obtained before the procedure were risks benefits and alternatives were carefully explained to the patient. All questions were answered to patient's satisfaction. Patient came to the operating room and positioned prone on the operating table. The posterior neck and upper back were prepped with ChloraPrep and draped with sterile utility towels. C-arm was brought over the operating field and sq picture of patient's cervical spine was demonstrated on the screen. Lateral masses of C2, C3 and C4 vertebras were chosen as the target of the injections. The waistline of all the lateral masses were chosen as the end point of the needle advancement. After that projection of the point of interest to the skin was injected with small amount of lidocaine 2% mixed with ropivacaine 0.5% one-to-one. After that 3 22 gauge draining 1/2 inch long spinal needles were driven to were the point of interest in tunnel vision fashion. When needle gently contacted the bones injection of the contrast was performed. At C3 position on the left contrast demonstrated intravascular spread. The needle was repositioned. At the rest of the positions there were no intravascular spread. After that injection of the diagnostic medication comprising of ropivacaine 0.5% no more than 1 mL was injected into each needle positioned. Upon completion of the injections the needles were withdrawn and sterile band that was applied. The patient tolerated procedure well although he was slightly dizzy in the recovery room. He went home without immediate complications. Orders: Orders FL guidance in treatment room Today G44.221 - Chronic tension-type headache, intractable Coding Level of Care Code Procedure Only Diagnoses Spondylosis of cervical region without myelopathy or radiculopathy M47.812
[2024-06-03 09:39] VITALS: BP 131/60; PULSE 60; O2SAT 97
== END 2024-06-03 09:52 | disposition home or self-care (01) ==
LOC: HO.PMCPRC 08:47
PROVIDERS: PCP Internal Medicine; Visit Provider Anesthesiology
DX: M47.812 Spondylosis without myelopathy or radiculopathy, cervical region (principal)
CPT/HCPCS: 64490; 64491

== ENCOUNTER 2024-06-05 09:30 | Outpatient (AMB) | payer OTHER, SELFPAY ==
[2024-06-05 09:44] VITALS: BP 145/86; PULSE 68; O2SAT 96; BMI 32.5
--- NOTE | 2024-06-05 09:44 | A.OFFVIS_ITS ---
Vital Signs 06/05/24 09:44 Height 5 ft 11 in Weight 233 lb BMI 32.5 BP 145/86 H Blood Pressure Location Lt brachial Position Sitting Pulse 68 Pulse Source Pulse Oximeter Pulse Oximetry (%) 96 Oxygen Delivery Method Room Air Intake Visit Reasons: BILATERAL DIAGNOSTIC C2, C3, C4 MBB Travel Accommodations Rater Required: No Allergies No Known Allergies [NO KNOWN ALLERGIES] Allergy (Unknown, Verified 06/05/24 09:44) N/A- Medication List - Last Reconciled 06/05/24 by Renata Das, MAT GAUGER multivitamin 1 tab PO DAILY omega-3 acid ethyl esters 2 caps PO BID rosuvastatin 5 mg PO DAILY sennosides (Senna Laxative) 8.6 mg PO BEDTIME Trulicity (dulaglutide) 0.75 mg (0.5 mL) subcut QWEEK 30 days NS umeclidinium-vilanterol 62.5-25 mcg/actuation (Anoro Ellipta) 1 inh inhalation DAILY HPI Comments Details: Jaya is back in my office with complains on mostly pain in the left shoulder as well as pain in the neck with radiation to the back of the head as well as into the bilateral upper shoulders. He received C2-C3 C4 bilateral diagnostic medial branch block. She reports no pain improvement. She reports only pain aggravation from the needle sticks. He tolerated the procedure well however now he reports that in the future he would like to avoid any injections. We discussed the situation at hands. I offered him possibility of treating his pain with spinal cord stimulator. I also offered him to try treatment of his pain with occipital nerve block however patient was not very happy to hear that. He does not want to go for any injections again. flexing forward aggravates his pain tremendously. He reports flexing backwards makes his pain slightly better. He had an x-ray of the cervical spine which demonstrated some disc degeneration and spondylosis. Also he complains on pain in the left shoulder. The range of motion in the left shoulder is significantly limited. I recommended him to go for left shoulder x- ray. We will perform x-ray of the shoulder and possibly after that perform steroid injections into the left shoulder to help his pain. . He complains on stiffness in bilateral upper extremities including stiffness in the hands his stiffness is all day long and not confined mostly in the morning.. Prior: He reports pain in bilateral feet he reports that this pain is neuropathic, he reports pain in the knee on the right side with radiation of the pain down to the right lower extremity. He also reports pain in the lower back and pain in the neck. Last time he was in this office and we discussed treatment of the pain in the knee, we performed genicular nerve block without success were performed femoral nerve block without success I offered the patient has spinal cord stimulator. Unfortunately patient that time refused to go for spinal cord stimulator. Now he went for a consult with neurosurgeon he tried gabapentin there without success for his neuropathic pain. He is reluctant to go for spinal cord stimulator because it was offered for him to treat his pain. I explained to him in very long and detailed conversation that treatment with spinal cord stimulator might be addressed to bilateral lower extremities. It also can address pain in bilateral feet, neuropathic pain, after this condition is improved we can address his cervicalgia cervical pain as well. I am not sure what can be offered to the patient according to him he had a CT scan done in [facility] facility however there is no CT scan available. The only available study I have x-ray of the cervical spine was minimal information about the sources of the pain. [facility] Medical History (Updated 06/03/24 @ 15:27 by Ronna Patton MD) Bulging of lumbar intervertebral disc Chronic radicular lumbar pain Polyarticular osteoarthritis Metformin adverse reaction Polyarthralgia Neck pain Bilateral finger arthralgia Post-COVID chronic dyspnea Colitis History of prior cigarette smoking Chronic tension headaches Peripheral neuropathy Pulmonary nodules Sessile colonic polyp (~2018) Tinnitus of both ears Mixed dyslipidemia Type 2 diabetes mellitus without complication, with no history of insulin use STUART (obstructive sleep apnea) Chronic restrictive lung disease Shortness of breath on exertion Obesity (BMI 30.0-34.9) Tubular adenoma of colon (~2018) Surgical History History of hernia repair History of hemorrhoidectomy History of colonoscopy Family History Father No problems noted. Mother No problems noted. 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 Current occupational exposures/hazards: No Cognitive needs: No Hearing needs: No Vision needs: No Review of Systems Const All systems reviewed & are unremarkable except as noted in HPI and below Physical Exam Vital Signs: Last Vital Signs Pulse 68 06/05/24 09:44 BP 145/86 H 06/05/24 09:44 Pulse Ox 96 06/05/24 09:44 Oxygen Delivery Method Room Air 06/05/24 09:44 BMI result Body Mass Index 32.5 Const General: cooperative, healthy appearing and in distress Nutritional Appearance: overweight Orientation/consciousness: patient oriented x3 Eyes Pupils: Equal, round and reactive pupils present Neck Other: Flexing head backwards greatly aggravate his pain. Flexing forward does not affect his pain, Spurling test is negative bilaterally. Lhermitte test is negative. There is significant tenderness on palpation on entire cervical spine in paraspinal spinal regions. Valsalva maneuver does not aggravate his pain. Neuro Other: patient reported pain in multiple joints which limited my exam Mild decreased light touch and pin prick in distal lower extremties No atrophy General: patient oriented x3, tone normal, moves all extremities and no focal motor deficits Cranial nerves: Yes Facial sensation intact/muscles of mastication intact, Yes Equal, round and reactive pupils present, Yes Bilaterally intact EOM present, Yes Nystagmus not present, Yes Normal facial strength present, Yes Midline tongue present and Yes Symmetric palate elevation present Cognition (Neuro): normal cognition Gait exam (Neuro): Normal gait present Motor exam (neuro): 5/5 motor strength present throughout Coordination: [id number] test normal Results Reviewed Results Reviewed: XR SHOULDER LEFT 4 VIEWS 03/09/2024 CLINICAL INFORMATION: Primary osteoarthritis, left shoulder M19.012. COMPARISON: XR Left shoulder 06/01/2008 , CT chest from 12/25/2023 TECHNIQUE: Four views of the left shoulder. FINDINGS: No acute visible fracture or dislocation. Degenerative arthropathy of the glenohumeral and acromioclavicular joint with subchondral cystic changes of the superolateral humeral head. Joint space alignment otherwise maintained. Soft tissues are unremarkable. Calcified granuloma left upper lobe. IMPRESSION: 1. No acute visible fracture or dislocation. 2. Degenerative arthropathy of the glenohumeral and acromioclavicular joint with subchondral cystic changes of the superolateral humeral head. Assessment & Plan Assessment & Plan (1) Osteoarthritis of left shoulder: Code(s): M19.012 - Primary osteoarthritis, left shoulder Category: Medical (2) Left shoulder pain: Code(s): M25.512 - Pain in left shoulder Category: Medical Plan 1. Results of the shoulder x-ray are as above the patient is not complaining on shoulder pain today at all. In the future injection of the intra-articular steroids into the left shoulder is possible, however after cervical MBB procedure patient is negative about any injections. 2. Bilateral diagnose l C2-C3 C4 medial branch block i resulted in no pain improvement. Patient reports pain 8/10 after the procedure the same he was with the pain before the procedure. 3. Therefore sprint PNS is not indicated for the patient. I offered him spinal cord stimulator. I also offered him to try muscle relaxants. He agreed to go for muscle relaxants. I will prescribe tizanidine 2 mg t.i.d. I will see him in the office in 1 month. Patient Instructions: I here by testify that I spent 35 minutes in conversation with this patient as well as planning his care evaluating his prior diagnostic reports and organizing this note. Coding Level of Care Code Est Pt Level 4 (04518) Diagnoses Osteoarthritis of left shoulder M19.012 Left shoulder pain M25.512
== END 2024-06-05 10:20 | disposition home or self-care (01) ==
PROVIDERS: PCP Internal Medicine; Visit Provider Anesthesiology
DX: M19.012 Primary osteoarthritis, left shoulder (principal); M25.512 Pain in left shoulder
CPT/HCPCS: 99214

== ENCOUNTER → 2024-06-05 09:30 | Outpatient (BNVA) | payer OTHER, SELFPAY | PROVIDERS: PCP Internal Medicine; Visit Provider Anesthesiology ==

== ENCOUNTER 2024-06-11 08:27 | Outpatient (AMB) | payer OTHER, SELFPAY ==
--- NOTE | 2024-06-11 08:30 | MHC.OFFVIS ---
Vital Signs 06/11/24 08:33 Height 5 ft 11 in Weight 239 lb 13.807 oz BMI 33.5 BP 140/82 H Blood Pressure Location Lt brachial Position Sitting Respiration 18 Pulse 65 Pulse Source Pulse Oximeter Pulse Oximetry (%) 99 Oxygen Delivery Method Room Air Intake Visit Reasons: Joint pain Intake Note: Patient presents for joint pain. Allergies No Known Allergies [NO KNOWN ALLERGIES] Allergy (Unknown, Verified 06/11/24 08:33) N/A- Medication List - Last Reconciled 06/11/24 by Chantel Pitts MD multivitamin 1 tab PO DAILY omega-3 acid ethyl esters 2 caps PO BID rosuvastatin 5 mg PO DAILY sennosides (Senna Laxative) 8.6 mg PO BEDTIME tizanidine 2 mg PO TID PRN 30 days Trulicity (dulaglutide) 0.75 mg (0.5 mL) subcut QWEEK 30 days NS umeclidinium-vilanterol 62.5-25 mcg/actuation (Anoro Ellipta) 1 inh inhalation DAILY HPI Comments Details: Patient is a 64 y.o. male with DM (well controlled) ?complicated by neuropathy and HLD who presents for follow up Interval History: Rheumatologic History: Current Rheumatology Medication(s): Hand pain - 5-6 years ago - Previously been to PT, did paraffin wax treatments with not much benefit - Stiffness that lasts all day (does not improve with movement) - Unable to say if AM or PM is worse: always bad Other joints - lower back - neck - bilateral knees. Worse ascending and descending stairs. Received steroid injections. Minimal effect. Has not tried gel Has tried NSAIDs and Tylenol. No family history of autoimmune disease Sister with fibromyalgia [facility] Medical History (Updated 06/11/24 @ 09:38 by Chantel Pitts MD) Long-term use of Plaquenil Erosive osteoarthritis Bulging of lumbar intervertebral disc Chronic radicular lumbar pain Polyarticular osteoarthritis Metformin adverse reaction Polyarthralgia Neck pain Bilateral finger arthralgia Post-COVID chronic dyspnea Colitis History of prior cigarette smoking Chronic tension headaches Peripheral neuropathy Pulmonary nodules Sessile colonic polyp (~2018) Tinnitus of both ears Mixed dyslipidemia Type 2 diabetes mellitus without complication, with no history of insulin use STUART (obstructive sleep apnea) Chronic restrictive lung disease Shortness of breath on exertion Obesity (BMI 30.0-34.9) Tubular adenoma of colon (~2018) Surgical History History of hernia repair History of hemorrhoidectomy History of colonoscopy Family History Father No problems noted. Mother No problems noted. 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 Current occupational exposures/hazards: No Cognitive needs: No Hearing needs: No Vision needs: No Review of Systems Const Details: Review of Systems Constitutional: Denies fever, chills, weight loss ENT: Denies vision changes, eye pain or eye redness, dental caries, dry mouth GI: Denies nausea, vomiting, diarrhea, abdominal pain, change in BM Pulm: Denies SOB, ALEJANDRA, hemoptysis, wheezing Cards: Denies chest pain, palpitations Skin: Denies Raynaud's, rash, nail changes, photosensitivity, ADAPTIVE PHYSICAL EDUCATION SPECIALIST: Denies headaches, weakness, paresthesias, recurrent falls MSK: as per HPI All other systems reviewed and are unremarkable except noted above Physical Exam Vital Signs: Last Vital Signs Pulse 65 06/11/24 08:33 Resp 18 06/11/24 08:33 BP 140/82 H 06/11/24 08:33 Pulse Ox 99 06/11/24 08:33 Oxygen Delivery Method Room Air 06/11/24 08:33 BMI result Body Mass Index 33.5 Physical Examination CONSTITUITIONAL Patient alert and cooperative. Well appearing and in no apparent painful distress HEENT Conjunctiva and sclera clear. Pupils equal round and reactive to light. No lymphadenopathy. CHEST/RESPIRATORY SYSTEM Normal respiratory effort and able to speak in complete sentences. Clear to auscultation bilaterally. No crackles, rales, rhonchi, wheezes heard. CARDIAC SYSTEM Regular rate and rhythm. S1 and S2 heard no murmurs. Radial pulses intact bilaterally MSK Hands: Herbeden's nodes: R 2nd, 3rd, 5th. L 2nd, 3rd, 4th Bouchards nodes: R 2nd, 3rd. L 2nd, 5th No prayer hand sign Unable to make a fist TTP of the DIPs and PIPs Wrists: Full range of motion at the wrists without pain. No tenderness to palpation or synovitis noted to the wrists. Elbows: Full range of motion without pain. No tenderness, weakness, swelling, increased warmth or erythema. Shoulders: Full range of motion. Has some pain with active ROM. No TTP of the AC or GH joint Hips: Full range of motion without pain. Hip bursa: No tenderness to palpation Knees: Full range of motion. No tenderness, swelling, increased warmth or erythema.?Bilateral crepitations Ankles: Full range of motion. No tenderness, swelling, increased warmth or erythema.? Feet: Negative squeeze test. No tenderness to palpation or swelling of the MTPs. Tender points:?No tenderness to palpation of the bilateral trapezius, supraspinatus, greater trochanters, anterior costochondral junctions, bilateral gluteal areas, bilateral suboccipital muscle insertions SKIN Skin intact without rashes. Results Reviewed Results Reviewed: Laboratory Tests 07/23/23 01/28/24 05/27/24 09:44 06:28 10:06 WBC 6.3 RBC 4.55 L Hgb 15.3 Hct 42.0 Plt Count 167 ESR 5 Sodium 138 Potassium 4.2 Chloride 109 H Carbon Dioxide 24 BUN 14 Creatinine 0.86 Calcium 9.4 Total Bilirubin 0.7 AST 30 55 H ALT 51 H 112 H Alkaline Phosphatase 64 C-Reactive Protein 0.58 H Total Protein 7.5 Albumin 4.7 25-OH Vitamin D Total 70.3 Rheumatoid Factor < 13.0 Cycl Citrul Peptide IgG <16 THOMAS Screen NEGATIVE XR Hand/Wrist 05/2024 Findings: Bones intact. No dislocations. Joint space narrowing and periarticular osteophyte formation at the radiocarpal, scaphotrapezial, and 1st carpometacarpal joints is present, indicating osteoarthritis. Periarticular osteophyte formation at the interphalangeal joints of the digits. No radiopaque foreign body. IMPRESSION: 1. No acute findings 2. Osteoarthritis. XR Hand Wrist 05/2024 (Right) Findings: Bones intact. No dislocations. Joint space narrowing and periarticular osteophyte formation at the radiocarpal, scaphotrapezial, and 1st carpometacarpal joints is present, indicating osteoarthritis. Periarticular osteophyte formation at the interphalangeal joints of the digits. No radiopaque foreign body. IMPRESSION: 1. No acute findings 2. Osteoarthritis. Assessment & Plan Assessment & Plan (1) Erosive osteoarthritis: Code(s): M15.4 - Erosive (osteo)arthritis Category: Medical Plan: #Erosive Osteoarthritis Patient is a 64-year-old male who presents for follow up of polyarthralgias. Labs including ESR, CCP and RF were normal. Had a mild elevation in his CRP but not particularly significant. His x-rays showed all the features of osteoarthritis involving his DIPs and PIPs of bilateral hands. There was some evidence of central erosions in some of the DIPs and PIPs that could be consistent with erosive osteoarthritis. Erosive osteoarthritis is a subset of osteoarthritis in which the joint damage forms central erosions. The underlying mechanism of this is not very well understood and it is not fully immune mediated like your Protopic rheumatoid arthritis or psoriatic arthritis. As such immunosuppression has not been shown to be effective for this in trials. However I think it is worth trying in this patient who states he would like to continue working and he has difficulty using his hands. We will trial Plaquenil 200 mg twice a day. I also encouraged him to give diclofenac gel another try using it 4 times a day. Of note he is scheduled to do a DEXA scan. If there is any evidence of osteopenia I think he would be a great candidate for Prolia. Prolia every 3 months has been shown to reduce the progression of erosions in patients with erosive osteoarthritis. Plan - Plaquenil 200mg bid - Diclofenac gel apply to hands 4 times a day - RTC 4 months Faustino Venegas, Leonie Martinez, Omar Brothers?et al.?RANKL blockade for erosive hand osteoarthritis: a randomized placebo-controlled phase 2a trial.?Lou Med?30, [phone] (2023). [email or web address] (2) Transaminitis: Code(s): R74.01 - Elevation of levels of liver transaminase levels Category: Medical Plan: #Transaminitis Patient has been having persistant elevations in his LTFs. Will need to check a liver US to eval for NAFLD or any other pathology as his transaminitis precludes use of methotrexate or leflunomide Plan - Check liver US (3) Long-term use of Plaquenil: Code(s): Z79.899 - Other residential (current) drug therapy Category: Medical Plan: #Long-term Use of Hydroxychloroquine Discussed with patient the risks and benefits of hydroxychloroquine in managing the rheumatic condition Benefits include: - Reduced pain, reduce mortality, maintenance of remission and reduction of flares Risks include: - GI upset, skin hyperpigmentation, retinal toxicity (especially after more than 5 years of use), myopathy Advised yearly ophthalmology visits Plan I spent 30 minutes reviewing the record and labs, taking a history, examining the patient, discussing the treatment plan and documenting in the medical record Orders: Orders US abdomen complete Today R74.01 - Elevation of levels of liver transaminase levels Medications: New diclofenac sodium 3% Apply 4 times a day to hands and wrists 1 appl topical QID 90 days 100 grams 4RF M15.4 - Erosive (osteo)arthritis hydroxychloroquine (Plaquenil) 200 mg PO BID 180 days 360 tabs 1RF M15.4 - Erosive (osteo)arthritis Coding Level of Care Code Est Pt Level 4 (62513) Complex EM visit Add On G2211 Diagnoses Erosive osteoarthritis M15.4 Transaminitis R74.01 Long-term use of Plaquenil Z79.899
[2024-06-11 08:33] VITALS: BP 140/82; PULSE 65; RESP 18; O2SAT 99; BMI 33.5
--- OUTSIDE RECORDS SUMMARY | 2024-06-11 08:39 | XMS_ITS | Continuity of Care Document ---
Author Organization [place] - [facility], [facility] Address [address] [place] [address] Care Team Providers Care Statement Services Representative Name Role Phone ERNESTINA AUGUSTABEL Referring Provider Assessment Encounter Date Assessment Date Assessment LastModified by Organization Details LastModified Time 05/30/2024 05/30/2024 Review of sleep study shows patient has moderate to severe obstructive sleep apnea. Further screening to assess candidacy for the inspire hypoglossal nerve stimulator with a drug-induced sleep endoscopy was offered. This examination is performed under anesthesia to help stimulate the onset of obstructive sleep apnea events. This will be monitored with a small camera in the back of the nose. Occasionally it is determined that the pattern of collapse in their pharynx would not be helped by the inspire hypoglossal nerve stimulator implant and it is appropriate to screen for these patients to avoid unnecessary surgical procedures. Risks of this procedure beyond the anesthesia medications that are given include possible bleeding from the nose where the instruments are passed. No new prescriptions are needed after the procedure. We will review results with a telehealth call approximately 1 week after the procedure. [email or web address] Not available 05/30/2024 10:07:41 Plan of Treatment Reminders Order Date Submit Date Provider Last Modified By Organization Details Last Modified Time Details Appointments None recorded. Lab None recorded. Referral None recorded. Procedures drug-induc ed sleep endoscopy (SURG) 2024 025 9 Not available 16:36:53 Surgeries None recorded. Imaging None recorded. Medication Orders None recorded. Patient TargetsNo targets recorded. Patient InstructionsNo instructions recorded. Reason for Referral None Reported. Problems Name Problem SNOMED Code Status Onset Date Resolution Date Notes Provider Name and Address Organization Details Recorded Time Obstructive sleep apnea syndrome 21114639 Active 025 CASSANDRA GARCIA MD [address] [facility] 100, [place], [address], [facility] 10:07:30 Problem Notes None recorded. Procedures Surgical History Date Name Laterality Status Provider Name and Address Organization Details Recorded Time 05/30/2024 FOL_DP completed CASSANDRA GARCIA MD 100 [facility] 100, [place], [address], [facility] 05/30/2024 10:07:24 Imaging Results None recorded. Procedure Notes None recorded. Medical Equipment None Reported. Medications Name Sig Start Date Stop Date Status Note LastModified by Organization Details LastModified Time doxycycline hyclate 100 mg capsule TAKE 1 CAPSULE BY MOUTH TWICE DAILY FOR 10 DAYS 05/30 completed Not Available Not Available Not Available senna 8.6 mg tablet TAKE 1 TABLET BY MOUTH AT BEDTIME active Not Available Not Available No t Available amitriptyli ne 25 mg tablet TAKE 1 TABLET BY MOUTH AT BEDTIME active Not Available Not Available No t Available magnesium oxide 400 mg (241.3 mg magnesium) tablet TAKE 1 TABLET BY MOUTH ONCE DAILY active Not Available Not Available No t Available baclofen 10 mg tablet TAKE 1 TABLET BY MOUTH TWICE DAILY active Not Available Not Available No t Available budesonide DR - ER 3 mg capsule,del ayed,extend ed release TAKE 1 CAPSULE BY MOUTH ONCE DAILY active Not Available Not Available No t Available celecoxib 100 mg capsule TAKE 1 CAPSULE BY MOUTH TWICE DAILY NEEDED FOR PAIN active Not Available Not Available No t Available sertraline 50 mg tablet TAKE 1 TABLET BY MOUTH ONCE DAILY active Not Available Not Available No t Available rosuvastati n 5 mg tablet TAKE 1 TABLET BY MOUTH ONCE DAILY active Not Available Not Available No t Available duloxetine 30 mg capsule,del ayed release TAKE 1 CAPSULE BY MOUTH ONCE DAILY active Not Available Not Available No t Available omega-3 acid ethyl esters 1 gram capsule TAKE 2 CAPSULES BY MOUTH TWICE DAILY active Not Available Not Available No t Available pregabalin 75 mg capsule TAKE 1 CAPSULE BY MOUTH TWICE DAILY active Not Available Not Available No t Available pregabalin 100 mg capsule TAKE 1 CAPSULE BY MOUTH AT BEDTIME active Not Available Not Available No t Available Januvia 100 mg tablet TAKE 1 TABLET BY MOUTH ONCE DAILY active Not Available Not Available No t Available mesalamine 1.2 gram tablet,charlie yed release TAKE 2 TABLETS BY MOUTH TWICE DAILY FOR 8 WEEKS active Not Available Not Available No t Available Anoro Ellipta 62.5 mcg-25 mcg/actuati on powder for inhalation INHALE 1 PUFF BY MOUTH ONCE DAILY active Not Available Not Available No t Available Trulicity 0.75 mg/0.5 mL subcutaneou s pen injector INJECT 0.75 MG (0.5 ML) SUBCUTANE OUSLY ONCE A WEEK active Not Available Not Available No t Available FreeStyle Cony 3 Sensor device USE DIRECTED TO CHECK BLOOD SUGAR active Not Available Not Available No t Available Vitals Date Recorded Body height Body weight Provider Name and Address Organization Details Last Updated DateTime 05/30/2024 180.34 cm 677923.25 g Rachel Griffith [place] - [facility] 05/30/2024 09:51:11 Social History None recorded. Functional Status None recorded. Mental Status None recorded. Family History Nothing Reported. Medical History Condition Response High Cholesterol Y Diabetes Y Gynecological HistoryNo gynecological history recorded. Obstetrics History GPAL:G 0 P 0 0 0 0 Past Encounters Encounter ID Performer Location Encounter Start Date Encounter Closed Date Diagnosis/Indication Diagnosis SNOMED-CT Code Diagnosis ICD10 Code Diagnosis Note [id number] CASSANDRA GARCIA MD [facility] [address] [address] 05/30/2024 09:36:55 05/30/2024 10:21:36 Obstructive sleep apnea syndrome 58939406 G47.33 [facility], sleep center [facility] Concerns Section Related Observation LastModified by Organization Detai ls LastModified Time None Recorded Concern Status LastModified by Organization Details LastModified Time None Recorded Payers Encounter Date Sequence Insurance Name Policy Number Policy Magaña Covered Member ID Magaña Member ID Guarantor Name 05/30/[address] [place] [address] [id number] Jaya Hancock [id number] Jaya Hancock Notes Date Note Type Note Provider Name and Address Organization Details Recorded Time 05/30/2024 text/html new patientOSA 03/21/2022 Home PSG Noa Friedman 32REI 20.5Central and mixed events none recordedCPAP trial - intolerant due to high pressures triggering ear pressure and fluid no hx of throat surgeryweight 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
--- OUTSIDE RECORDS SUMMARY | 2024-06-11 08:39 | XMS_ITS | Data Portability ---
Author Organization [place] - [facility], Allergy Address [address] [address] Care Team Providers Care Web Engineer Name Role Phone RASHIDA AUGUST Referring Provider [phone] Assessment Encounter Date Assessment Date Assessment LastModified [...] drug-induc ed sleep endoscopy (SURG) 2024 025 [email or web address] Not available 16:36:53 Surgeries None recorded. Imaging None recorded. Medication Orders None recorded. Patient TargetsNo targets recorded. Patient InstructionsNo instructions recorded. Reason for Referral None Reported. Problems Name Problem SNOMED Code Status Onset Date Resolution Date Notes Provider Name and Address Organization Details Recorded Time Obstructive sleep apnea syndrome 88698428 Active 025 CASSANDRA GARCIA MD 100 [facility] 100, [place], [address], [facility] - [facility] 10:07:30 Problem Notes None recorded. Procedures Surgical History Date Name Laterality Status Provider Name and Address Organization Details Recorded Time 05/30/2024 FOL_DP completed CASSANDRA GARCIA MD 100 [facility] 100, [place], [address], [facility] - [facility] 05/30/2024 10:07:24 Imaging Results None recorded. [...] Details Last Updated DateTime 05/30/2024 180.34 cm 759840.25 g Rachel Griffith [place] - [facility] 05/30/2024 09:51:11 Social History None recorded. Functional Status None recorded. Mental Status None recorded. Family History Nothing Reported. Medical History Condition Response Diabetes Y High Cholesterol Y Gynecological HistoryNo gynecological history recorded. Obstetrics History GPAL:G 0 P 0 0 0 0 Past Encounters Encounter ID Performer Location Encounter Start Date Encounter Closed Date Diagnosis/Indication Diagnosis SNOMED-CT Code Diagnosis ICD10 Code Diagnosis Note [id number] CASSANDRA GARCIA MD [facility] [address] [address] 05/30/2024 09:36:55 05/30/2024 10:21:36 Obstructive sleep apnea syndrome 44088767 G47.33 [facility], sleep center [facility] Concerns Section Related Observation LastModified by Organization Detai ls LastModified Time None Recorded Concern Status LastModified by Organization Details LastModified Time None Recorded Advance Directives Directive None Recorded Payers Encounter Date Sequence Insurance Name Policy Number Policy Magaña Covered Member ID Magaña Member ID Guarantor Name 05/30/[address] [place] [address] [id number] Jaya Hancock [id number] Jaya Hancock Notes Date Note Type Note Provider Name and Address Organization Details Recorded Time 05/30/2024 text/html new patientOSA 03/21/2022 Home PSG Noa Friedman 32REI 20.5Central and mixed events none recordedCPAP trial - intolerant due to high pressures triggering ear pressure and fluid no hx of throat surgeryweight 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
== END 2024-06-11 09:06 | disposition home or self-care (01) ==
PROVIDERS: PCP Internal Medicine; Visit Provider Student in an Organized Health Care Education/Training Program
DX: M15.4 Erosive (osteo)arthritis (principal); R74.01 Elevation of levels of liver transaminase levels; Z79.899 Other long term (current) drug therapy
CPT/HCPCS: 99214

== ENCOUNTER → 2024-06-11 08:27 | Outpatient (BNVA) | payer OTHER, SELFPAY | PROVIDERS: PCP Internal Medicine; Visit Provider Student in an Organized Health Care Education/Training Program ==

== ENCOUNTER → 2024-06-12 09:44 | Outpatient (BNV) | payer OTHER, SELFPAY | PROVIDERS: PCP Internal Medicine; Visit Provider Radiology Diagnostic Radiology | DX: M51.360 Other intervertebral disc degeneration, lumbar region with discogenic back pain only (principal); M48.061 Spinal stenosis, lumbar region without neurogenic claudication | CPT/HCPCS: 72148 ==

== ENCOUNTER 2024-06-12 09:52 | Outpatient (REF) | payer OTHER, SELFPAY ==
--- NOTE | ~2024-06-12 | MR_ITS ---
EXAMINATION: MR LUMBAR SPINE WITHOUT CONTRAST CLINICAL INFORMATION: Low back pain and radiculopathy. Bilateral feet leg weakness, numbness and pain. COMPARISON: MRI lumbar spine 05/18/2022. TECHNIQUE: MRI of the lumbar spine was obtained using routine sequences without contrast. FINDINGS: There is normal lumbar lordosis.. There is minimal grade 1 anterolisthesis L4 over L5, stable. Rest of the vertebral alignment is normal. Mild loss of L5-S1 disc height with disc desiccation changes are noted. Rest of the disc heights and disc signal is preserved. At T12-L1 disc level there is minimal bulge without spinal canal stenosis. The neural foramina patent bilaterally. At L1-2 disc level there is no disc bulge, herniation or spinal canal stenosis. The neural foramina are patent bilaterally. The facet joints are symmetrical and normal. At L2-3 disc level there is minimal disc bulge without spinal canal stenosis. The neural foramina are patent bilaterally. At L3-4 disc level there is mild flattening of ventral thecal sac without spinal canal stenosis. The neural foramina are patent bilaterally. There is mild bilateral facet joint and ligament flavum hypertrophy. Previously visualized left foraminal disc protrusion is not evident on this exam. At L4-5 disc level there is a broad-based diffuse bulge flattening the ventral thecal sac but with lateral spinal canal stenosis. There is bilateral moderate facet joint and ligament flavum hypertrophy with mild inferolateral recess narrowing of neural foramina. Minimal anterolisthesis L4 over L5 is stable At L5-S1 disc level there is mild bulge without spinal canal stenosis. Bilateral small disc protrusions in the neural foramina are stable. Minimal bilateral inferolateral recess narrowing of neural foramina are noted Mild bilateral facet joint and ligament flavum hypertrophy is noted. The neural foramina are patent. Visualized cord signal, intraspinal signal and paravertebral soft tissues are normal. Conus medullaris terminates at L1-2 disc level and appears normal in morphology. There are endplate changes at L5-S1 disc level. Rest of the bone marrow signal is normal. MR/MR lumbar spine wo con IMPRESSION: Minimal grade 1 anterolisthesis L4 over L5 is stable. Degenerative disc changes with facet joint arthropathy at L5-S1 disc level is stable without spinal canal stenosis previously visualized posterior disc protrusion intraventricular neural foramina bilaterally is stable. There is transverse canal stenosis at L4-5 disc level from combination of bulge, moderate facet joint and ligament flavum hypertrophy. Electronically signed by: Ravindra العراقي MD 06/12/2024 11:03 AM POPE[facility]
== END 2024-06-12 09:53 | disposition home or self-care (01) ==
LOC: HO.MRI 09:52
PROVIDERS: PCP Internal Medicine; Visit Provider Internal Medicine
DX: M54.16 Radiculopathy, lumbar region (principal); M51.369 Other intervertebral disc degeneration, lumbar region without mention of lumbar back pain or lower extremity pain; G89.29 Other chronic pain
CPT/HCPCS: 72148

== ENCOUNTER 2024-07-01 08:09 | Outpatient (REF) | payer OTHER, SELFPAY ==
--- NOTE | ~2024-07-01 | US_ITS ---
CLINICAL HISTORY: R74.01 - Elevation of levels of liver transaminase levels US abdomen complete with color Doppler Comparison: None Findings: The visualized pancreas, aorta, and inferior vena cava are unremarkable. Liver is mildly enlargedand diffusely echogenic. No focal hepatic masses. Common duct 2.0 mm diameter. Physiologic distention of the gallbladder. No gallstones or sludge. No gallbladder wall thickening. No pericholecystic fluid. No sonographic Helms sign. Main portal vein antegrade. Right kidney normal size, 13.3 cm in length. Normal cortical width and echotexture. No solid or cystic renal masses. No nephrolithiasis or hydronephrosis. Left kidney normal, 13.5 cm in length. Normal cortical width and echotexture. No solid or cystic renal masses. No nephrolithiasis hydronephrosis. Spleen measures 11.7 cm. No splenic masses. No ascites. No lymphadenopathy. Impression: 1. Hepatic steatosis. No focal hepatic masses or biliary dilatation. This document has been electronically signed by: Yonatan Moralez MD on 07/01/2024 10:43:16
--- OUTSIDE RECORDS SUMMARY | 2024-07-01 08:17 | XMS_ITS | Data Portability ---
Author Organization [place] - [facility], Allergy Address [address] [place] [phone] Care Team Providers Care Equity Research Associate Name Role Phone RASHIDA AUGUST Referring Provider Assessment Encounter Date Assessment Date [...] drug-induc ed sleep endoscopy (SURG) 2024 025 [id number] Not available 16:36:53 Surgeries None recorded. Imaging None recorded. Medication Orders None recorded. Patient TargetsNo targets recorded. Patient InstructionsNo instructions recorded. Reason for Referral None Reported. Problems Name Problem SNOMED Code Status Onset Date Resolution Date Notes Provider Name and Address Organization Details Recorded Time Obstructive sleep apnea syndrome 43157525 Active 025 CASSANDRA GARCIA MD 100 [facility] [address], [place], [phone], [facility] 10:07:30 Problem Notes None recorded. Procedures Surgical History Date Name Laterality Status Provider Name and Address Organization Details Recorded Time 05/30/2024 FOL_DP completed CASSANDRA GARCIA MD 100 [facility] 100, [place], [address], [facility] 05/30/2024 10:07:24 Imaging Results None recorded. Procedure [...] Details Last Updated DateTime 05/30/2024 180.34 cm 290874.25 g Rachel Griffith [place] - [facility] 05/30/2024 09:51:11 Social History None recorded. Functional Status None recorded. Mental Status None recorded. Family History Nothing Reported. Medical History Condition Response Diabetes Y High Cholesterol Y Gynecological HistoryNo gynecological history recorded. Obstetrics History GPAL:G 0 P 0 0 0 0 Past Encounters Encounter ID Performer Location Encounter Start Date Encounter Closed Date Diagnosis/Indication Diagnosis SNOMED-CT Code Diagnosis ICD10 Code Diagnosis Note [id number] CASSANDRA GARCIA MD [facility] [address] [address] 05/30/2024 09:36:55 05/30/2024 10:21:36 Obstructive sleep apnea syndrome 33165442 G47.33 [facility] [address], sleep center [facility] Concerns Section Related Observation LastModified by Organization Detai ls LastModified Time None Recorded Concern Status LastModified by Organization Details LastModified Time None Recorded Advance Directives Directive None Recorded Payers Encounter Date Sequence Insurance Name Policy Number Policy Magaña Covered Member ID Magaña Member ID Guarantor Name 05/30/[address] [place] [address] [id number] Jaya Hancock [id number] Jaya Hancock Notes Date Note Type Note Provider Name and Address Organization Details Recorded Time 05/30/2024 text/html new patientOSA 03/21/2022 Home PSG Noa Friedman 32REI 20.5Central and mixed events none recordedCPAP trial - intolerant due to high pressures triggering ear pressure and fluid no hx of throat surgeryweight 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
== END 2024-07-01 08:10 | disposition home or self-care (01) ==
LOC: HO.HMGCX 08:09
PROVIDERS: PCP Internal Medicine; Visit Provider Student in an Organized Health Care Education/Training Program
DX: R74.01 Elevation of levels of liver transaminase levels (principal)
CPT/HCPCS: 76700

== ENCOUNTER → 2024-07-01 08:11 | Outpatient (BNV) | payer OTHER, SELFPAY | PROVIDERS: PCP Internal Medicine; Visit Provider Radiology Diagnostic Radiology | DX: K76.0 Fatty (change of) liver, not elsewhere classified (principal) | CPT/HCPCS: 76700 ==

== ENCOUNTER 2024-07-03 08:32 | Outpatient (AMB) | payer OTHER, SELFPAY ==
[2024-07-03 08:56] VITALS: BP 161/85; PULSE 78; O2SAT 95; BMI 33.1
--- NOTE | 2024-07-03 08:56 | MHC.OFFVIS ---
Vital Signs 07/03/24 08:56 Height 5 ft 11 in Weight 237 lb BMI 33.1 BP 161/85 H Blood Pressure Location Rt brachial Position Sitting Pulse 78 Pulse Source Pulse Oximeter Pulse Oximetry (%) 95 Oxygen Delivery Method Room Air Intake Visit Reasons: 1 Month Follow Up Allergies No Known Allergies [NO KNOWN ALLERGIES] Allergy (Unknown, Verified 07/03/24 08:58) N/A- HPI Comments Details: Patient presents today for follow up for medication review. Patient reports no significant improvement with tizanidine use for 2 weeks so he discontinued it. He continues to endorse axial neck pain and left shoulder pain with activities, movements, computer work and rest. Patient also reports multiple joint pain without swelling or redness. He follows with [facility] for erosive OA and Polyarthralgia. Pain is rated at 7/10 and is associated with aching, dull, sharp, pulling, tightness and spasming sensations as well as cervicogenic chronic headaches. He is interested in Acupuncture referral and trial of new muscle relaxant. Denies any recent cough, cold, infection, fever or other significant changes in medical history since last office visit. PRIOR Dr. May 06/05/24: Jaya is back in my office with complains on mostly pain in the left shoulder as well as pain in the neck with radiation to the back of the head as well as into the bilateral upper shoulders. He received C2-C3 C4 bilateral diagnostic medial branch block. She reports no pain improvement. She reports only pain aggravation from the needle sticks. He tolerated the procedure well however now he reports that in the future he would like to avoid any injections. We discussed the situation at hands. I offered him possibility of treating his pain with spinal cord stimulator. I also offered him to try treatment of his pain with occipital nerve block however patient was not very happy to hear that. He does not want to go for any injections again. flexing forward aggravates his pain tremendously. He reports flexing backwards makes his pain slightly better. He had an x-ray of the cervical spine which demonstrated some disc degeneration and spondylosis. Also he complains on pain in the left shoulder. The range of motion in the left shoulder is significantly limited. I recommended him to go for left shoulder x-ray. We will perform x-ray of the shoulder and possibly after that perform steroid injections into the left shoulder to help his pain. . He complains on stiffness in bilateral upper extremities including stiffness in the hands his stiffness is all day long and not confined mostly in the morning.. Prior: He reports pain in bilateral feet he reports that this pain is neuropathic, he reports pain in the knee on the right side with radiation of the pain down to the right lower extremity. He also reports pain in the lower back and pain in the neck. Last time he was in this office and we discussed treatment of the pain in the knee, we performed genicular nerve block without success were performed femoral nerve block without success I offered the patient has spinal cord stimulator. Unfortunately patient that time refused to go for spinal cord stimulator. Now he went for a consult with neurosurgeon he tried gabapentin there without success for his neuropathic pain. He is reluctant to go for spinal cord stimulator because it was offered for him to treat his pain. I explained to him in very long and detailed conversation that treatment with spinal cord stimulator might be addressed to bilateral lower extremities. It also can address pain in bilateral feet, neuropathic pain, after this condition is improved we can address his cervicalgia cervical pain as well. I am not sure what can be offered to the patient according to him he had a CT scan done in [facility] facility however there is no CT scan available. The only available study I have x-ray of the cervical spine was minimal information about the sources of the pain. [facility] Medical History Pain in both feet Long-term use of Plaquenil Erosive osteoarthritis Bulging of lumbar intervertebral disc Chronic radicular lumbar pain Polyarticular osteoarthritis Metformin adverse reaction Polyarthralgia Neck pain Bilateral finger arthralgia Post-COVID chronic dyspnea Colitis History of prior cigarette smoking Chronic tension headaches Peripheral neuropathy Pulmonary nodules Sessile colonic polyp (~2018) Tinnitus of both ears Mixed dyslipidemia Type 2 diabetes mellitus without complication, with no history of insulin use STUART (obstructive sleep apnea) Chronic restrictive lung disease Shortness of breath on exertion Obesity (BMI 30.0-34.9) Tubular adenoma of colon (~2018) Surgical History History of hernia repair History of hemorrhoidectomy History of colonoscopy Family History Father No problems noted. Mother No problems noted. 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 Current occupational exposures/hazards: No Cognitive needs: No Hearing needs: No Vision needs: No Review of Systems Const All systems reviewed & are unremarkable except as noted in HPI and below Physical Exam Vital Signs: Last Vital Signs Pulse 78 07/03/24 08:56 BP 161/85 H 07/03/24 08:56 Pulse Ox 95 07/03/24 08:56 Oxygen Delivery Method Room Air 07/03/24 08:56 BMI result Body Mass Index 33.1 Const General: cooperative, healthy appearing, no acute distress, alert, awake and well groomed Nutritional Appearance: overweight Orientation/consciousness: patient oriented x3 HEENT Head: Yes normal to inspection, Yes normocephalic and Yes atraumatic Eyes General: appearance normal, both eyes and all related structures Pupils: Equal, round and reactive pupils present Neck Other: Limited neck range of motion.? Endorses TTP in the upper thoracic and cervical paraspinals. Cervical extension and lateral rotations reproduce moderate pain, flexion is intact and does not reproduce pain, Spurling test is negative bilaterally. Lhermitte test is negative. Neck: Yes normal visual inspection, Yes no lymphadenopathy, Yes supple, No anterior neck swelling, Yes no JVD, No prominent supraclavicular fat pad and Yes prominent dorsocervical fat pad Resp Effort & Inspection: normal respiratory effort, able to speak in complete sentences and no cough Cardio Jugular venous distension: no JVD Rate: regular rate Peripheral pulses: Peripheral pulses 2+ throughout General: Yes no CVA tenderness Back/Spine/Pelvis Back: no CVA tenderness Cervical Spine: loss of normal cervical lordosis, cervical muscular tenderness, pain with cervical ROM, cervical spasm, No Cervical spine tenderness and No step off deformity Thoracic/Lumbar Spine: thoracic and lumbar spine normal to inspection, No thoracic spinal tenderness and No lumbar spinal tenderness Skin General skin exam: no rashes or lesions noted Neuro Other: patient reported pain in multiple joints which limited my exam Mild decreased light touch and pin prick in distal lower extremties No atrophy General: patient oriented x3, tone normal, moves all extremities and no focal motor deficits Cranial nerves: Yes Facial sensation intact/muscles of mastication intact, Yes Equal, round and reactive pupils present, Yes Bilaterally intact EOM present, Yes Nystagmus not present, Yes Normal facial strength present, Yes Midline tongue present and Yes Symmetric palate elevation present Cognition (Neuro): normal cognition Gait exam (Neuro): Normal gait present Motor exam (neuro): 5/5 motor strength present throughout Coordination: [id number] test normal Extrem General: Yes capillary refill normal, Yes no clubbing, cyanosis or edema and Yes no calf tenderness Results Reviewed Results Reviewed: XR SHOULDER LEFT 4 VIEWS 03/09/2024 CLINICAL INFORMATION: Primary osteoarthritis, left shoulder M19.012. COMPARISON: XR Left shoulder 06/01/2008 , CT chest from 12/25/2023 TECHNIQUE: Four views of the left shoulder. FINDINGS: No acute visible fracture or dislocation. Degenerative arthropathy of the glenohumeral and acromioclavicular joint with subchondral cystic changes of the superolateral humeral head. Joint space alignment otherwise maintained. Soft tissues are unremarkable. Calcified granuloma left upper lobe. IMPRESSION: 1. No acute visible fracture or dislocation. 2. Degenerative arthropathy of the glenohumeral and acromioclavicular joint with subchondral cystic changes of the superolateral humeral head. Assessment & Plan Assessment & Plan (1) Chronic tension headaches: Comment: cervicogenic Code(s): G44.229 - Chronic tension-type headache, not intractable Category: Medical Qualifiers: Intractability: intractable Qualified Code(s): G44.221 - Chronic tension-type headache, intractable (2) Polyarthralgia: Code(s): M25.50 - Pain in unspecified joint Category: Medical (3) Left shoulder pain: Code(s): M25.512 - Pain in left shoulder Category: Medical (4) Spondylosis of cervical region without myelopathy or radiculopathy: Code(s): M47.812 - Spondylosis without myelopathy or radiculopathy, cervical region Category: Medical (5) Muscle spasms of neck: Code(s): M62.838 - Other muscle spasm Category: Medical (6) Osteoarthritis of left shoulder: Code(s): M19.012 - Primary osteoarthritis, left shoulder Category: Medical Plan Tizanidine is discontinued due to minimal to no benefit. Denies any side effects with its use for 2 weeks. Patient is interested to trial chlorzoxazone, side effects and precautions were discussed with patient. Recommend referral for Acupuncture therapy for significant muscle spasms and stiffness in neck, shoulders and upper back regions. Script provided today. If no relief, will consider left shoulder intra-articular steroid injections if patient is willing. He reports significant discomfort and no improvement with bilateral diagnostic C2-C3-C4 MBB. All questions and concerns have been answered and patient agreed with the treatment plan. Follow up after acupunture/medication review with Dr. May and sooner as needed. Orders: Referrals Acupuncture Referral G44.221 - Chronic tension-type headache, intractable, M25.50 - Pain in unspecified joint, M25.512 - Pain in left shoulder, M47.812 - Spondylosis without myelopathy or radiculopathy, cervical region Medications: New chlorzoxazone 500 mg PO DAILY 60 days PRN 60 tabs 0RF muscle spasm M62.838 - Other muscle spasm Discontinued tizanidine Discontinued Reason: Patient no longer taking 2 mg PO TID 30 days PRN 90 tabs 2RF muscle spasticity Coding Level of Care Code Est Pt Level 4 (30171) Complex EM visit Add On G2211 Diagnoses Chronic tension-type headache, intractable G44.221 Intractability: intractable Polyarthralgia M25.50 Left shoulder pain M25.512 Spondylosis of cervical region without myelopathy or radiculopathy M47.812 Muscle spasms of neck M62.838 Osteoarthritis of left shoulder M19.012
== END 2024-07-03 09:12 | disposition home or self-care (01) ==
PROVIDERS: PCP Internal Medicine; Visit Provider Nurse Practitioner Family
DX: G44.221 Chronic tension-type headache, intractable (principal); M25.50 Pain in unspecified joint; M25.512 Pain in left shoulder; M47.812 Spondylosis without myelopathy or radiculopathy, cervical region; M62.838 Other muscle spasm; M19.012 Primary osteoarthritis, left shoulder
CPT/HCPCS: 99214

== ENCOUNTER → 2024-07-03 08:32 | Outpatient (BNVA) | payer OTHER, SELFPAY | PROVIDERS: PCP Internal Medicine; Visit Provider Anesthesiology ==

== ENCOUNTER 2024-07-08 07:45 | Outpatient (REF) | payer OTHER, SELFPAY ==
--- OUTSIDE RECORDS SUMMARY | 2024-07-08 07:48 | XMS_ITS | Data Portability ---
Author Organization [place] - [facility], Allergy Address [address] [place] [phone] Care Team Providers Care Mill Helper Name Role Phone RASHIDA AUGUST Referring Provider [...] Organization Details Last Modified Time Details Appointments Telehealt h 2024 04:15P Puja GARCIA MD Not available Not available Not available SURGERY 60 2024 01:15P Puja GARCIA MD Not available Not available Not available Lab None recorded. Referral None recorded. Procedures drug-malick bonilla sleep endoscopy (SURG) 2024 025 [id number] Not available 05/30/2024 16:36:53 Surgeries None recorded. Imaging None recorded. Medication Orders None recorded. Patient TargetsNo targets recorded. Patient InstructionsNo instructions recorded. Reason for Referral None Reported. Problems Name Problem SNOMED Code Status Onset Date Resolution Date Notes Provider Name and Address Organization Details Recorded Time Obstructive sleep apnea syndrome 15043494 Active 025 CASSANDRA GARCIA MD 100 [facility], [address], [place], [phone], [facility] 10:07:30 Problem Notes None recorded. Procedures Surgical History Date Name Laterality Status Provider Name and Address Organization Details Recorded Time 05/30/2024 FOL_DP completed CASSANDRA GARCIA MD 100 [facility] 100, [place], [address], [facility] 05/30/2024 10:07:24 Imaging Results None recorded. Procedure [...] Details Last Updated DateTime 05/30/2024 180.34 cm 666759.25 g Rachel Griffith [place] - [facility] 05/30/2024 09:51:11 Social History None recorded. Functional Status None recorded. Mental Status None recorded. Family History Nothing Reported. Medical History Condition Response Diabetes Y High Cholesterol Y Gynecological HistoryNo gynecological history recorded. Obstetrics History GPAL:G 0 P 0 0 0 0 Past Encounters Encounter ID Performer Location Encounter Start Date Encounter Closed Date Diagnosis/Indication Diagnosis SNOMED-CT Code Diagnosis ICD10 Code Diagnosis Note [id number] CASSANDRA GARCIA MD [facility] [address] [address] 05/30/2024 09:36:55 05/30/2024 10:21:36 Obstructive sleep apnea syndrome [id number] G47.33 [facility] [address], sleep center [facility] Concerns Section Related Observation LastModified by Organization Detai ls LastModified Time None Recorded Concern Status LastModified by Organization Details LastModified Time None Recorded Advance Directives Directive None Recorded Payers Encounter Date Sequence Insurance Name Policy Number Policy Magaña Covered Member ID Magaña Member ID Guarantor Name 05/30/[address] [place] [address] [id number] Jaya Hancock [id number] Jaya Hancock Notes Date Note Type Note Provider Name and Address Organization Details Recorded Time 05/30/2024 text/html new patientOSA 03/21/[address] [place] [address] 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
== END 2024-07-08 07:46 | disposition home or self-care (01) ==
LOC: HO.MAMMO 07:45
PROVIDERS: PCP Internal Medicine; Visit Provider Student in an Organized Health Care Education/Training Program
DX: M81.0 Age-related osteoporosis without current pathological fracture (principal)
CPT/HCPCS: 77080

== ENCOUNTER → 2024-07-08 08:15 | Outpatient (BNV) | payer OTHER, SELFPAY | PROVIDERS: PCP Internal Medicine; Visit Provider Radiology Diagnostic Radiology | DX: E28.39 Other primary ovarian failure (principal) | CPT/HCPCS: 77080 ==

== ENCOUNTER 2024-07-25 06:01 | Outpatient (REF) | payer OTHER, SELFPAY ==
[2024-07-25 10:27] LABS: Estimated Average Glucose 120 mg/dL; Hemoglobin A1C 152.4364 umol/L; Hemoglobin A1c % 5.8 % (<6.0); Total Hemoglobin (HGBA1C) 3868.0973 umol/L
[2024-07-25 10:51] LABS: Alanine Aminotransferase 87 U/L (0-40); Anion Gap 12 (12-20); Aspartate Amino Transferase 47 U/L (5-37); Blood Urea Nitrogen 17 mg/dL (9-16); Calcium 9.3 mg/dL (8.4-10.2); Carbon Dioxide 25 mmol/L (22-29); Chloride 106 mmol/L (96-108); Cholesterol 204 mg/dL (<200); Estimated Glomerular Filt Rate > 60; Glucose Fasting 127 mg/dL (60-99); HDL Cholesterol 41 mg/dL (>40); LDL Cholesterol Calculated 141 mg/dL (<100); Potassium 4.4 mmol/L (3.3-5.1); Sodium 139 mmol/L (135-145); Triglycerides 110 mg/dL (<150)
[2024-07-25 11:08] LABS: Microalbum/Creatinine Ratio Ur 32.5 ug/mg cr (<30)
== END 2024-07-25 06:02 | disposition home or self-care (01) ==
LOC: HO.HMGCLDS 06:01
PROVIDERS: PCP Internal Medicine; Visit Provider Internal Medicine
DX: E11.9 Type 2 diabetes mellitus without complications (principal); E78.2 Mixed hyperlipidemia; E66.9 Obesity, unspecified
CPT/HCPCS: 36415; 80048; 80061; 82043; 82570; 83036; 84450; 84460

== ENCOUNTER 2024-07-29 08:11 | Outpatient (AMB) | payer OTHER, SELFPAY ==
--- NOTE | 2024-07-29 08:35 | MHC.PC.OV ---
Vital Signs 07/29/24 08:39 Height 5 ft 11 in Weight 233 lb BMI 32.5 BP 122/70 Blood Pressure Location Lt brachial Position Sitting Respiration 15 Pulse 65 Pulse Source Pulse Oximeter Temp 97.9 F Temp Source Oral Pulse Oximetry (%) 97 Oxygen Delivery Method Room Air Intake Visit Reasons: PE Intake Note: Pt is here today for his PE: Last colonoscopy 11/13/22 Allergies No Known Allergies [NO KNOWN ALLERGIES] Allergy (Unknown, Verified 07/29/24 09:32) N/A- Medication List - Last Reconciled 07/29/24 by Ronna Patton MD chlorzoxazone 500 mg PO DAILY PRN 60 days multivitamin 1 tab PO DAILY omega-3 acid ethyl esters 2 caps PO BID rosuvastatin 5 mg PO DAILY sennosides (senna) 8.6 mg PO BEDTIME Trulicity (dulaglutide) 0.75 mg (0.5 mL) subcut QWEEK 30 days NS umeclidinium-vilanterol 62.5-25 mcg/actuation (Anoro Ellipta) 1 inh inhalation DAILY Tobacco use date assessed: 07/29/24 Dental Screening Dental Screen Date: 07/29/24 Did you have a dental visit in the last 12 months?: Yes Did you have a dental problem in the last 6 months where you did not have access to dental care?: No Was dental information given to patient?: Patient has dentist HPI PE HPI Details 64-year-old male with known history diabetes mellitus, dyslipidemia, hepatic steatosis, osteoarthritis with history of lumbar disc herniation and spondylosis of cervical region, chronic restrictive lung disease, the obstructive sleep apnea, obesity, here today for physical exam. He has been compliant with his diet, and medications Patient has been getting acupuncture, has had 4 sessions, with relief of his headaches , neck pain, and tightness and pain in fingers of both hands. He has been referred there by his house painter Recent fasting lipids are a little higher than usual, patient has been eating 4-6 eggs in a day for the last several months. Patient states that that is his go to snack at work . Up-to-date with screening colonoscopy done by Dr. De Jesus in 2022, due again for recheck in 2027 due to severe active colitis present on last exam and removal of a serrated polyp [facility] Medical History (Updated 08/03/24 @ 23:49 by Ronna Patton MD) Osteopenia of multiple sites Hepatic steatosis Pain in both feet Long-term use of Plaquenil Erosive osteoarthritis Bulging of lumbar intervertebral disc Chronic radicular lumbar pain Polyarticular osteoarthritis Metformin adverse reaction Polyarthralgia Neck pain Bilateral finger arthralgia Post-COVID chronic dyspnea Colitis History of prior cigarette smoking Chronic tension headaches Peripheral neuropathy Pulmonary nodules Sessile colonic polyp (~2018) Tinnitus of both ears Mixed dyslipidemia Type 2 diabetes mellitus without complication, with no history of insulin use STUART (obstructive sleep apnea) Chronic restrictive lung disease Shortness of breath on exertion Obesity (BMI 30.0-34.9) Tubular adenoma of colon (~2018) Surgical History History of hernia repair History of hemorrhoidectomy History of colonoscopy Family History Father No problems noted. Mother No problems noted. 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 1. Little interest or pleasure in doing things: not at all 2. Feeling down, depressed, or hopeless: not at all 3. Trouble falling or staying asleep, or sleeping too much: not at all 4. Feeling tired or having little energy: several days 5. Poor appetite or overeating: not at all 6. Feeling bad about yourself - or that you are a failure or have let yourself or your family down: not at all 7. Trouble concentrating on things, such as reading the newspaper or watching television: several days 8. Moving or speaking so slowly that other people could have noticed. Or the opposite - being so fidgety or restless that you have been moving around a lot more than usual: not at all 9. Thoughts that you would be better off or of hurting yourself in some way: not at all Total score: 2 Depression Screening Interpretation: Negative Depression Screening Done: Yes 89352 - PHQ-9 Billing: Yes Source: Developed by Drs. Wes Stock, Marleni Montague, Joselito Reeves and colleagues, with an educational ade from [employer] Thrive Questionnaire Date Thrive assessed: 07/29/24 I am a: Patient What is your living situation today?: I have a steady place to live Within the past 12 months, did the food you bought not last and you didn't have the money to get more?: Never true Within the past 12 months, did you worry whether your food would run out before you got money to buy more?: Never true Do you have trouble paying for medicines?: No Do you have trouble getting transportation to medical appointments?: No Do you have trouble paying your heating and electricity bill?: No Do you have trouble taking care of your child, family member or friend?: No Do you have trouble with day-to-day activities such as bathing, preparing meals, shopping, managing finances, etc.?: Yes Are you currently unemployed and looking for a job?: No Are you interested in more education?: No Please select the resources that you would like help with: None Currently or been in a relationship where the following occur: No concerns reported THRIVE Score: 0 AUDIT C Alcohol Use Questionnaire (AUDIT-C) 1. How often do you have a drink containing alcohol?: Never 3. How often do you have six or more drinks on one occasion?: Never Total Score: 0 RAIZA-7 AMB Questionnaire RAIZA-7 Date RAIZA - 7 assessed: 07/29/24 Feeling nervous, anxious, or on edge: 1 = Several days Not being able to stop or control worryin = Several days Worrying too much about different things: 1 = Several days Trouble relaxin = Not at all Being so restless that it is hard to sit still: 1 = Several days Becoming easily annoyed or irritable: 0 = Not at all Feeling afraid as if something awful might happen: 0 = Not at all Total RAIZA-7 score (0-4 normal; 5-9 mild; 10-14 moderate; 15-21 severe): 4 Source: Developed by Drs. Wes Stock, Marleni Montague, Joselito Reeves and colleagues, with an educational ade from [employer] Review of Systems Const Denies fever(s) and Denies poor appetite Eyes Details: Goes to [facility] in [place] for his routine diabetes retinopathy screening, ENT Denies Normal hearing present, Denies hearing loss and Denies disequilibrium Card Reports no additional complaints Resp Reports no additional complaints GI Denies abdominal pain, Denies melena, Denies constipation, Denies heartburn, Denies nausea and Denies vomiting Reports no additional complaints Musc Reports as per HPI Skin/Breast Denies pruritus, Denies lesions and Denies rash Neuro Denies Normal hearing present, Denies Abnormal speech present, Reports paresthesias and Denies disequilibrium Psych Reports no additional complaints Endo Reports no additional complaints Camilo/Lymph Reports no additional complaints Aller/Immun Reports no additional complaints Physical exam (Primary Care) Vital Signs: Last Vital Signs Temp 97.9 F 07/29/24 08:39 Pulse 65 07/29/24 08:39 Resp 15 07/29/24 08:39 BP 122/70 07/29/24 08:39 Pulse Ox 97 07/29/24 08:39 Oxygen Delivery Method Room Air 07/29/24 08:39 BMI result Body Mass Index 32.5 Tobacco/Smoking Status: Tobacco use Status Tobacco use date assessed 07/29/24 07/29/24 08:41 Patient Tobacco Use Status Former Tobacco user 07/29/24 08:36 e-Cigarette/Vaping Use Never Used 07/29/24 08:36 PHQ-9: PHQ-9 Score PHQ-9: Total score 4 07/29/24 09:34 Depression Screening Interpretation: Negative Thrive Assessment: Date of Thrive Assessment Date Thrive assessed 07/29/24 07/29/24 08:41 Currently or been in a relationship where the following occur: No concerns reported Advance Care Planning discussion: Completed/Scanned Date of discussion: 07/29/24 Who was present: Patient Forms completed: Health Care Proxy Time spent: 16-45 minutes Actual minutes spent: 2 Const Other: Alert oriented x3, no acute cardiorespiratory distress noted ambulatory normal gait Nutritional Appearance: obese Orientation/consciousness: patient oriented x3 HENMT Ears: external ears normal, TM's normal bilaterally and EAC's normal Face and sinus: Yes face symmetric Mouth: Normal oral and palatal mucosa present and moist mucous membranes Eyes Pupils: Equal, round and reactive pupils present EOM: EOMs intact bilaterally and Nystagmus present Neck Other: Supple , full range of motion in all directions without any difficulty, thyroid gland nonpalpable, no carotid bruits, no lymphadenopathy Resp Effort & Inspection: normal respiratory effort and able to speak in complete sentences Auscultation: clear to auscultation bilaterally Cardio Other: S1-S2 present regular rate and rhythm GI Inspection: Yes normal to inspection Palpation (GI): Soft to palpation, nontender, no guarding and no masses General: Yes no CVA tenderness Back/Spine/Pelvis Back: no CVA tenderness Skin General skin exam: no rashes or lesions noted Neuro General: patient oriented x3, gait normal, moves all extremities, Normal light touch and pain sensation, no focal motor deficits and CN's II-XI intact bilaterally Cranial nerves: Yes Equal, round and reactive pupils present, No Normal hearing present and Yes Nystagmus present Speech: No Abnormal speech present Extrem General: Yes normal to inspection, Yes full ROM, Yes no joint enlargement, Yes no clubbing, cyanosis or edema and Yes normal gait Psych Appearance: grossly normal and well kempt Mental Status: mental status grossly normal Speech and movement: Normal speech and movement present Affect: normal affect Thought process: Normal thought process present Thought content: Normal thought content present Results Reviewed Results Reviewed: Laboratory Tests 07/25/24 06:08 Estimat Average Glucose 120 Hemoglobin A1c % 5.8 Urine Creatinine 98.40 Urine Microalbumin 32.0 Microalb/Creat Ratio 32.5 H Name: Jaya Hancock Age/Sex: 64/M : 1960 Unit#: [id number] Attend Dr: Ronna Patton MD Re07/25/24 Status: DEP [facility]: SPEC : [id number] HARSHAD: 07/25/24 STATUS: COMP REQ : [id number] RECD: 07/25/[address]: Ronna Patton MD COMP: 07/25/24 ENTERED: 07/25/[address]: ORDERED: Met Prof Fast, AST, ALT, Lipid Panel Test Result Flag Reference Sodium 139 135-145 mmol/L Potassium 4.4 3.3-5.1 mmol/L CL 106 96-108 mmol/L CO2 25 22-29 mmol/L Gap 12 12-20 BUN 17 H 9-16 mg/dL Creat 0.94 0.5-1.4 mg/dL eGFR > 60 Chronic Kidney Disease: Estimated GFR < 60 mL/min/1.73m2 Severe Kidney Disease: Estimated GFR < 15 mL/min/1.73m2 FBS 127 H 60-99 mg/dL A fasting glucose of 126 mg/dl or greater on more than one occasion is considered diagnostic of diabetes. CA 9.3 8.4-10.2 mg/dL AST (GOT) 47 H 5-37 U/L ALT (GPT) 87 H 0-40 U/L Triglyceride 110 <150 mg/dL Desirable Triglyceride: less than 150 mg/dL Borderline High Triglyceride 150-199 mg/dL High Triglyceride: 200-499 mg/dL Very High Triglyceride: greater than or equal to 5OO mg/dL Cholesterol 204 H <200 mg/dL Desirable Cholesterol: less than 200 mg/dL Borderline High Cholesterol: 200-239 mg/dL High Cholesterol: greater than 239 mg/dL LDL Calculated 141 H <100 mg/dL Desirable LDL: less than 100 mg/dL Near Optimal/Above Optimal LDL: 110-129 mg/dL Borderline High LDL: 130-159 mg/dL High LDL: 160-189 mg/dL Very High LDL: greater than or equal to 190 mg/dL HDL 41 >40 mg/dL Desirable HDL: greater than 40 mg/dL Coding Level of Care Code Est Pt Prev Care 40-64y(51556) Diagnoses Annual visit for general adult medical examination with abnormal findings Z00.01 Type 2 diabetes mellitus without complication, with no history of insulin use E11.9 Mixed dyslipidemia E78.2 Obesity (BMI 30.0-34.9) E66.9 Osteopenia of multiple sites M85.89 Erosive osteoarthritis M15.4 Spondylosis of cervical region without myelopathy or radiculopathy M47.812 Chronic radicular lumbar pain M54.16; G89.29 Colitis K52.9 Advanced directives, counseling/discussion Z71.89 Additional Codes PHQ-9 - 81584 - PHQ-9 Billing: Yes ([id number]) Vital Signs *Quality* - Advance Care Planning discussion: Completed/Scanned ([id number]) Vital Signs *Quality* - Time spent: 16-45 minutes ([id number]) Assessment & Plan Assessment & Plan (1) Annual visit for general adult medical examination with abnormal findings: Code(s): Z00.01 - Encounter for general adult medical examination with abnormal findings Plan: Reviewed recent fasting lab results with patient. Reinforced importance of getting regular dental cleaning every 6 months and yearly eye exam to screening for diabetic retinopathy. Stressed importance of adhering to healthy eating habits and getting regular exercise. He is due for repeat screening colonoscopy again in [address] De Jesus. Reminded patient to get his yearly flu shot, but does not want to get COVID booster. Declined pneumonia vaccine, recommended to get shingles vaccine, up-to-date with his Tdap (2) Type 2 diabetes mellitus without complication, with no history of insulin use: Code(s): E11.9 - Type 2 diabetes mellitus without complications Category: Medical Plan: Diabetes mellitus well controlled with hemoglobin A1c at 5.8%. Continue with adherence to healthy eating habits and getting regular exercise (3) Mixed dyslipidemia: Code(s): E78.2 - Mixed hyperlipidemia Category: Medical Plan: Reviewed recent fasting lipid profile with patient with elevated LDL cholesterol. Will continue on rosuvastatin 5 mg once a day and [place] 3 fatty acid supplements 2 capsules twice a day. Reinforced importance of having healthy food choices, eat more fruits, vegetables, whole grains, wild caught fish and low-fat dairy. Limit amount of meat and fried or fatty food products, as well as processed foods and fast foods. Follow-up scheduled with repeat fasting lipid panel in 4 months. (4) Obesity (BMI 30.0-34.9): Code(s): E66.9 - Obesity, unspecified Category: Medical Plan: Discussed need to increase activity and weight reduction. Recommended focusing on improving health instead of dieting. Mediterranean diet is a healthy diet that helps, limit food high in fat, sugar, and calories. Eat slowly, pay attention to portion sizes, plan your meals ahead of time, start regular physical activity, at least 150 minutes of moderate intensity exercise, or 90 minutes per week of vigorous exercise. Keeping a food diary, tracking what you eat and your physical activity can help assess what improvements you can make. (5) Osteopenia of multiple sites: Code(s): M85.89 - Other specified disorders of bone density and structure, multiple sites Category: Medical Plan: Bone density ordered by his [employer] earlier this year showed presence of osteopenia in multiple sites. 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 Prolia every 3 months has been shown to reduce the progression of erosions in patients with erosive osteoarthritis.. Patient already has an appointment scheduled for follow-up with Dr. Pitts in 2 months (6) Erosive osteoarthritis: Code(s): M15.4 - Erosive (osteo)arthritis Category: Medical Plan: Followed by Rheumatology (7) Spondylosis of cervical region without myelopathy or radiculopathy: Code(s): M47.812 - Spondylosis without myelopathy or radiculopathy, cervical region Category: Medical Plan: Currently getting acupuncture treatment which has been providing good results med relief of neck pain numbness and tingling in the fingers of both hands (8) Chronic radicular lumbar pain: Code(s): M54.16 - Radiculopathy, lumbar region; G89.29 - Other chronic pain Category: Medical Plan: Followed by pain clinic in [place] (9) Colitis: Comment: BIOPSY CECAL AREA ON COLONOSCOPY 2022 Code(s): K52.9 - Noninfective gastroenteritis and colitis, unspecified Category: Medical Plan: Seen on last colonoscopy done in by Dr. De Jesus in 2022. Repeat colonoscopy due again in 2027. (10) Advanced directives, counseling/discussion: Code(s): Z71.89 - Other specified counseling Plan: Initiated the conversation about Advanced Directives. Advanced Directives help patients prepare for current and future decisions about their medical treatment and place of care. Discussed with patient that it is a process where a patients current condition and prognosis are reviewed, their wishes for information regarding their illness are elicited, and likely medical dilemmas are presented and options discussed. Healthcare proxy form completed today. The form can be amended as needed, reviewed yearly and make changes as needed Orders: Orders Hemoglobin A1c 11/18/24 E11.9 - Type 2 diabetes mellitus without complications, E66.9 - Obesity, unspecified, E78.2 - Mixed hyperlipidemia, K76.0 - Fatty (change of) liver, not elsewhere classified, M85.89 - Other specified disorders of bone density and structure, multiple sites Alanine Aminotransferase 11/18/24 E11.9 - Type 2 diabetes mellitus without complications, E66.9 - Obesity, unspecified, E78.2 - Mixed hyperlipidemia, K76.0 - Fatty (change of) liver, not elsewhere classified, M85.89 - Other specified disorders of bone density and structure, multiple sites Basic Metabolic Panel Fasting 11/18/24 E11.9 - Type 2 diabetes mellitus without complications, E66.9 - Obesity, unspecified, E78.2 - Mixed hyperlipidemia, K76.0 - Fatty (change of) liver, not elsewhere classified, M85.89 - Other specified disorders of bone density and structure, multiple sites Lipid Panel 11/18/24 E11.9 - Type 2 diabetes mellitus without complications, E66.9 - Obesity, unspecified, E78.2 - Mixed hyperlipidemia, K76.0 - Fatty (change of) liver, not elsewhere classified, M85.89 - Other specified disorders of bone density and structure, multiple sites Aspartate Amino Transferase 11/18/24 E11.9 - Type 2 diabetes mellitus without complications, E66.9 - Obesity, unspecified, E78.2 - Mixed hyperlipidemia, K76.0 - Fatty (change of) liver, not elsewhere classified, M85.89 - Other specified disorders of bone density and structure, multiple sites Vitamin D 25-OH Total 11/18/24 E11.9 - Type 2 diabetes mellitus without complications, E66.9 - Obesity, unspecified, E78.2 - Mixed hyperlipidemia, K76.0 - Fatty (change of) liver, not elsewhere classified, M85.89 - Other specified disorders of bone density and structure, multiple sites
[2024-07-29 08:39] VITALS: BP 122/70; PULSE 65; RESP 15; TEMP 36.6; O2SAT 97; BMI 32.5
== END 2024-07-29 09:49 | disposition home or self-care (01) ==
LOC: HO.HMCC 08:12
PROVIDERS: PCP Internal Medicine; Visit Provider Internal Medicine
DX: Z00.01 Encounter for general adult medical examination with abnormal findings (principal); E11.9 Type 2 diabetes mellitus without complications; E78.2 Mixed hyperlipidemia; E66.9 Obesity, unspecified; M85.89 Other specified disorders of bone density and structure, multiple sites; M15.4 Erosive (osteo)arthritis; M47.812 Spondylosis without myelopathy or radiculopathy, cervical region; M54.16 Radiculopathy, lumbar region; G89.29 Other chronic pain; K52.9 Noninfective gastroenteritis and colitis, unspecified; Z71.89 Other specified counseling; Z00.00 Encounter for general adult medical examination without abnormal findings; Z68.32 Body mass index [BMI] 32.0-32.9, adult

== ENCOUNTER → 2024-07-29 08:11 | Outpatient (BNVA) | payer OTHER, SELFPAY | PROVIDERS: PCP Internal Medicine; Visit Provider Internal Medicine | DX: Z00.01 Encounter for general adult medical examination with abnormal findings (principal); E11.9 Type 2 diabetes mellitus without complications; E78.2 Mixed hyperlipidemia; E66.9 Obesity, unspecified; Z68.32 Body mass index [BMI] 32.0-32.9, adult; M85.89 Other specified disorders of bone density and structure, multiple sites; M15.4 Erosive (osteo)arthritis; M47.812 Spondylosis without myelopathy or radiculopathy, cervical region; M54.16 Radiculopathy, lumbar region; G89.29 Other chronic pain; K52.9 Noninfective gastroenteritis and colitis, unspecified; Z71.89 Other specified counseling; Z79.899 Other long term (current) drug therapy | CPT/HCPCS: 96127 ==

== ENCOUNTER 2024-09-12 16:15 | Outpatient (AMB) | payer OTHER, SELFPAY ==
--- NOTE | 2024-09-12 16:17 | MHC.OFFVIS ---
Vital Signs 09/12/24 16:21 Height 5 ft 11 in Weight 238 lb 1.588 oz BMI 33.2 BP 136/81 Blood Pressure Location Lt brachial Position Sitting Pulse 75 Intake Visit Reasons: pre colonoscopy Intake Note: Patient in office today in follow up of constipation. CC: The patient states that he has been doing well and denies having any GI symptoms or concerns today. 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 Sometimes he will still strain to start the stools but he has noted that this seems to happen when he does not consume enough fiber. He is trying to eat a daily fiber bar. He tried budesonide but it upset his stomach so he stopped. Since we have started the cramping and the abdominal pain is much improved as is his stooling so we will continue with this plan. Return office visit in 6 months TODAYS VISIT He continues to do well on his senna. This has resolved all of his GI issues. He is not even needing it to be prescribed anymore because it is actually cheaper for him to buy in large quantities [id number]. With this were not doing any prescribing so he does not need to follow-up with us. I do remind him he will be due for his next colonoscopy screening in 2027. [facility] Medical History Osteopenia of multiple sites Hepatic steatosis Pain in both feet Long-term use of Plaquenil Erosive osteoarthritis Bulging of lumbar intervertebral disc Chronic radicular lumbar pain Polyarticular osteoarthritis Metformin adverse reaction Polyarthralgia Neck pain Bilateral finger arthralgia Post-COVID chronic dyspnea Colitis History of prior cigarette smoking Chronic tension headaches Peripheral neuropathy Pulmonary nodules Sessile colonic polyp (~2018) Tinnitus of both ears Mixed dyslipidemia Type 2 diabetes mellitus without complication, with no history of insulin use STUART (obstructive sleep apnea) Chronic restrictive lung disease Shortness of breath on exertion Obesity (BMI 30.0-34.9) Tubular adenoma of colon (~2018) Surgical History History of hernia repair History of hemorrhoidectomy History of colonoscopy Family History Father No problems noted. Mother No problems noted. 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 Current occupational exposures/hazards: No Cognitive needs: No Hearing needs: No Vision needs: No Review of Systems Const Denies fatigue, Denies fever(s), Denies night sweats, Denies poor appetite and Denies weight loss ENT Reports Normal hearing present, Denies dental pain, Denies dysphagia, Denies hearing loss, Denies mouth pain, Denies odynophagia, Denies throat swelling, Denies tongue swelling and Reports other (Dentition adequate) Card Reports no additional complaints Resp Reports no additional complaints GI Details: Denies abdominal pain, Denies melena, Denies bloating, Denies hematochezia, Reports constipation, Denies GI cramping, Denies dysphagia, Denies excessive flatus, Denies early satiety, Denies heartburn, Denies diarrhea, Denies nausea, Denies odynophagia, Denies vomiting and Denies hematemesis Skin/Breast Denies pruritus, Denies lesions, Denies rash and Denies jaundice Neuro Reports Normal hearing present and Denies Abnormal speech present Endo Denies fatigue Aller/Immun Denies throat swelling and Denies tongue swelling Physical Exam Vital Signs: Last Vital Signs Pulse 75 09/12/24 16:21 BP 136/81 09/12/24 16:21 BMI result Body Mass Index 33.2 Const General: cooperative, no acute distress, well developed and well groomed Nutritional Appearance: well nourished and obese Orientation/consciousness: oriented to person, oriented to place and oriented to time Limitations: No language barrier HEENT Head: Yes normocephalic and Yes atraumatic Eyes General: appearance normal, both eyes and all related structures Pupils: Equal, round and reactive pupils present Neck Neck: Yes normal visual inspection and Yes no lymphadenopathy Thyroid: Thyroid normal Resp Effort & Inspection: normal respiratory effort and able to speak in complete sentences Auscultation: clear to auscultation bilaterally Cardio Rate: regular rate Rhythm: regular rhythm Heart sounds: Normal, physiologic split S2 sound present Peripheral pulses: radial pulses present and posterior tibial pulses present GI Inspection: No distended, No Abdominal panniculus present and Yes obesity Palpation (GI): Soft to palpation, nontender, no guarding, not rigid and No hepatosplenomegaly present Percussion: Yes normal to percussion Auscultation: normal bowel sounds Rectal Exam - Male: Yes deferred Skin General skin exam: no rashes or lesions noted, turgor normal, skin not dry, no jaundice, No spider nevi and no striae Rashes: no rashes Nails: normal Neuro General: oriented to person, oriented to place and oriented to time Cranial nerves: Yes Equal, round and reactive pupils present and Yes Normal hearing present Speech: No Abnormal speech present Extrem General: Yes normal to inspection, No clubbing, No cyanosis and No edema Psych Appearance: grossly normal and well kempt Mental Status: mental status grossly normal Speech and movement: Normal speech and movement present Affect: normal affect Attitude: cooperative Thought process: Normal thought process present and not confabulating Thought content: Normal thought content present Insight: Fair insight present (Psych) Judgement: Fair judgement present (Psych) Assessment & Plan Assessment & Plan (1) Constipation: Code(s): K59.00 - Constipation, unspecified Category: Medical Plan He continues to do well on his senna. This has resolved all of his GI issues. He is not even needing it to be prescribed anymore because it is actually cheaper for him to buy in large quantities [id number]. With this were not doing any prescribing so he does not need to follow-up with us. I do remind him he will be due for his next colonoscopy screening in 2027. Coding Level of Care Code Est Pt Level 3 (21293) Diagnoses Constipation K59.00
--- OUTSIDE RECORDS SUMMARY | 2024-09-12 16:20 | XMS_ITS | Data Portability ---
Author Organization [place] [facility], Allergy Address [address] [place] [id number] Care Team Providers Care Gold Leaf Layer Name Role Phone RASHIDA AUGUST Referring Provider [...] Organization Details Last Modified Time Details Appointments SURGERY 60 2024 09:30A M CASSANDRA GARCIA MD Not available Not available Not available Lab None recorded. Referral None recorded. Procedures drug-malick bonilla sleep endoscopy (SURG) 2024 025 [id number] Not available 05/30/2024 16:36:53 Surgeries None recorded. Imaging None recorded. Medication Orders None recorded. Patient TargetsNo targets recorded. Patient InstructionsNo instructions recorded. Reason for Referral None Reported. Problems Name Problem SNOMED Code Status Onset Date Resolution Date Notes Provider Name and Address Organization Details Recorded Time Obstructive sleep apnea syndrome [id number] Active 025 CASSANDRA GARCIA MD [address] [facility], [place], [phone], [facility] 10:07:30 Problem Notes None recorded. Procedures Surgical History Date Name Laterality Status Provider Name and Address Organization Details Recorded Time 05/30/2024 FOL_DP completed CASSANDRA GARCIA MD [address] [facility], [place], [phone], [facility] 05/30/2024 10:07:24 Imaging Results None recorded. [...] Details Last Updated DateTime 05/30/2024 180.34 cm 455155.25 g Rachel Griffith [place] - [facility] 05/30/2024 09:51:11 Social History None recorded. Functional Status None recorded. Mental Status None recorded. Family History Nothing Reported. Medical History Condition Response Diabetes Y High Cholesterol Y Gynecological HistoryNo gynecological history recorded. Obstetrics History GPAL:G 0 P 0 0 0 0 Past Encounters Encounter ID Performer Location Encounter Start Date Encounter Closed Date Diagnosis/Indication Diagnosis SNOMED-CT Code Diagnosis ICD10 Code Diagnosis Note [id number] CASSANDRA GARCIA MD [facility] [address] [phone] 05/30/2024 09:36:55 05/30/2024 10:21:36 Obstructive sleep apnea syndrome 34309629 G47.33 [facility], sleep center [facility] Concerns Section Related Observation LastModified by Organization Detai ls LastModified Time None Recorded Concern Status LastModified by Organization Details LastModified Time None Recorded Advance Directives Directive None Recorded Payers Encounter Date Sequence Insurance Name Policy Number Policy Magaña Covered Member ID Magaña Member ID Guarantor Name 05/30/[address] [place] [address] [id number] Jaya Santi [id number] Jaya Santi Notes Date Note Type Note Provider Name and Address Organization Details Recorded Time 05/30/2024 text/html new patientOSA 03/21/2022 Home PSG Noa Friedman 32REI 20.5Central and mixed events none recordedCPAP trial - intolerant due to high pressures triggering ear pressure and fluid no hx of throat surgeryweight stable 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
--- OUTSIDE RECORDS SUMMARY | 2024-09-12 16:20 | XMS_ITS | Continuity of Care Document ---
Author Organization [facility] ter Address [address] [place] [id number] Care Team Providers Care Managed Services Sales Consultant Name Role Phone Abdi BAIG, Ronna Escalante Primary Care Physician Encounter [facility] Date(s): 07/04/24 - 09/06/[address] [id number] Attending Physician: Alcides Ybarra MD, I Admitting Physician: Alcides Ybarra MD, I Encounter Type: Preadmit Daystay Allergies, Adverse Reactions, Alerts No Known Allergies Medications omega-3 polyunsaturated fatty acids ethyl esters 1000 mg oral capsule TAKE 2 CAPSULES BY MOUTH TWICE DAILY Start Date: 08/06/24 Status: Ordered Repeat number: 1 rosuvastatin 5 mg oral tablet 1 tablet = 5 mg, By Mouth, Daily at bedtime, # 90 tablet, 0 Refills, Maintenance, 08/06/24 1:09:00 PM EDT, Tablet, Partial fill upon patient request if the prescription is for a schedule II opioid drug. Start Date: 08/06/24 Status: Ordered Quantity: 90.0 Unit: tablet Repeat number: 1 Senna 8.6 mg oral tablet TAKE 1 TABLET BY MOUTH AT BEDTIME Start Date: 08/06/24 Status: Ordered Repeat number: 1 Trulicity Pen 0.75 mg/0.5 mL subcutaneous solution INJECT 0.75 MG (0.5 ML) SUBCUTANEOUSLY ONCE A WEEK Start Date: 08/06/24 Status: Ordered Repeat number: 1 Problem List Condition Confirmation Course Effective Dates Status Health St atus Informant Obese class I Confirmed Active Vital Signs Most recent to oldest [Reference Range]: 1 Height 178 cm (08/06/24 1:17 PM) Weight 104.5 kg (08/06/24 1:17 PM) Body Mass Index [18.5-24.99 kg/m2] 32.98 kg/m2 *>HHI* (08/06/24 1:17 PM) Dry Weight 104.5 kg (08/06/24 1:17 PM) Weight Obtained Via Patient/family state d (08/06/24 1:17 PM) Dry Weight Obtained Via Patient/family s tated (08/06/24 1:17 PM) Social History Social History Type Response Smoking Status Current every day sm oker entered on: 07/15/14 Sex Sex Representation Male (finding) History and physical note * Event Display: History and Physical Hospital Authored Date: [id number] Hospital Progress note * Luz Browning RN: PERFORM, SIGN, VERIFY Event Display: Progress Note Hospital Authored Date: [id number] Patient: MJ SILVER Age: 64 years Sex: Male : 1960 Associated Diagnoses: None Author: Luz Browning RN Findings Spoke with pt for pre anesthesia review. Pt takes Trulicity and last dose taken was on 08/02. Notified (LVM) Joselyn at Dr. Ybarra's office as this is out of compliance for anesthesia protocol. Pt stated he was not informed to stop med. Patient Care team information Care Team Personnel Name: Abdi BAIG , Ronna Escalante Position: Reference Physician Member Role: PCP Address: [address] [place] [address] Telecom: Insurance Providers Guarantor name: NA Health Plan Information #: 1 Payer: [facility] Member Number: [id number] Policy Number: NA Group Number: [id number] Health Plan Information #: 2 Payer: [employer] [facility] [employer] Member Number: [id number] Policy Number: NA Group Number: [id number]
[2024-09-12 16:21] VITALS: BP 136/81; PULSE 75; BMI 33.2
== END 2024-09-12 16:48 | disposition home or self-care (01) ==
LOC: HO.HGI 16:16
PROVIDERS: PCP Internal Medicine; Visit Provider Nurse Practitioner
DX: K59.00 Constipation, unspecified (principal)
CPT/HCPCS: 99213

== ENCOUNTER 2024-09-30 08:07 | Outpatient (AMB) | payer OTHER, SELFPAY ==
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
[2024-09-30 08:16] VITALS: BP 130/70; PULSE 68; O2SAT 96; BMI 32.9
== END 2024-09-30 08:37 | disposition home or self-care (01) ==
PROVIDERS: PCP Internal Medicine; Visit Provider Hospitalist
DX: J98.4 Other disorders of lung (principal); R40.0 Somnolence; G47.33 Obstructive sleep apnea (adult) (pediatric); Z87.891 Personal history of nicotine dependence
CPT/HCPCS: 99214

== ENCOUNTER 2024-10-09 07:41 | Outpatient (AMB) | payer OTHER, SELFPAY ==
--- OUTSIDE RECORDS SUMMARY | 2024-10-09 07:43 | XMS_ITS | Data Portability ---
Author Organization [place] - [facility], Allergy Address [address] [place] [address] Care Team Providers Care Microsoft Crm Developer Name Role Phone RASHIDA AUGUST Referring Provider [...] drug-malick bonilla sleep endoscopy (SURG) 2024 025 [email or web address] Not available 05/30/2024 16:36:53 Surgeries None recorded. Imaging None recorded. Medication Orders None recorded. Patient TargetsNo targets recorded. Patient InstructionsNo instructions recorded. Reason for Referral None Reported. Problems Name Problem SNOMED Code Status Onset Date Resolution Date Notes Provider Name and Address Organization Details Recorded Time Obstructive sleep apnea syndrome 58574021 Active 025 CASSANDRA GARCIA MD 100 [facility] 100, [place], [address], [facility] 10:07:30 Problem Notes None recorded. Procedures Surgical History Date Name Laterality Status Provider Name and Address Organization Details Recorded Time 05/30/2024 FOL_DP completed CASSANDRA GARCIA MD 100 [facility] [address], [place], [address], [facility] 05/30/2024 10:07:24 Imaging Results None recorded. [...] Details Last Updated DateTime 05/30/2024 180.34 cm 588029.25 g Rachel Griffith [place] - [facility] 05/30/2024 09:51:11 Social History None recorded. Functional Status None recorded. Mental Status None recorded. Family History Nothing Reported. Medical History Condition Response Diabetes Y High Cholesterol Y Gynecological HistoryNo gynecological history recorded. Obstetrics History GPAL:G 0 P 0 0 0 0 Past Encounters Encounter ID Performer Location Encounter Start Date Encounter Closed Date Diagnosis/Indication Diagnosis SNOMED-CT Code Diagnosis ICD10 Code Diagnosis Note [id number] CASSANDRA GARCIA MD [facility] [address] [address] 05/30/2024 09:36:55 05/30/2024 10:21:36 Obstructive sleep apnea syndrome 43836342 G47.33 [facility], sleep center [facility] Concerns Section Related Observation LastModified by Organization Detai ls LastModified Time None Recorded Concern Status LastModified by Organization Details LastModified Time None Recorded Advance Directives Directive None Recorded Payers Insurance Date Sequence Insurance Name Policy Number Policy Magaña Covered Member ID Magaña Member ID Guarantor Name 08/05/[address] [place] [id number] Jaya Santi [id number] Jaya Santi Notes Date Note Type Note Provider Name and Address Organization Details Recorded Time 05/30/2024 text/html new patientOSA 03/21/2022 Home PSG Noa Friedman 32REI 20.5Central and mixed events none recordedCPAP trial - intolerant due to high pressures triggering ear pressure and fluid no hx of throat surgeryweight 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
--- NOTE | 2024-10-09 07:56 | MHC.OFFVIS ---
Vital Signs 10/09/24 08:04 Height 5 ft 11 in Weight 235 lb 10.786 oz BMI 32.9 BP 130/78 Blood Pressure Location Lt brachial Position Sitting Pulse 88 Pulse Source Pulse Oximeter Pulse Oximetry (%) 98 Oxygen Delivery Method Room Air Intake Visit Reasons: Joint pain Intake Note: Patient presents for joint pain follow up. Allergies No Known Allergies [NO KNOWN ALLERGIES] Allergy (Unknown, Verified 10/09/24 08:03) N/A- Medication List - Last Reconciled 10/09/24 by Chantel Pitts MD multivitamin 1 tab PO DAILY omega-3 acid ethyl esters 2 caps PO BID sennosides (senna) 8.6 mg PO BEDTIME Trulicity (dulaglutide) 0.75 mg (0.5 mL) subcut QWEEK NS umeclidinium-vilanterol 62.5-25 mcg/actuation (Anoro Ellipta) 1 inh inhalation DAILY HPI Comments Details: Patient is a 64 y.o. male with DM (well controlled) ?complicated by neuropathy, HLD, and erosive osteoarthritis here today for follow up Interval History: Patient last seen 06/11/2024 with me. At that time he was following up for his erosive osteoarthritis. He was started on Plaquenil as well as given diclofenac gel Patient only took plaquenil for a few weeks then self discontinued Did not use the diclofenac gel Has been doing accupuncture and drinking tumeric with improvement in his symptoms Rheumatologic History: Diagnosed with erosive osteoarthritis based on x-rays 05/2024 Hand pain - 5-6 years ago - Previously been to PT, did paraffin wax treatments with not much benefit - Stiffness that lasts all day (does not improve with movement) - Unable to say if AM or PM is worse: always bad Other joints - lower back - neck - bilateral knees. Worse ascending and descending stairs. Received steroid injections. Minimal effect. Has not tried gel Has tried NSAIDs and Tylenol. No family history of autoimmune disease Sister with fibromyalgia Current Rheumatology Medication(s): Plaquenil 200 mg b.i.d. (not taking) Diclofenac 1% gel q.i.d. (not using) [facility] Medical History (Updated 09/30/24 @ 08:31 by Troy Salamanca MD) Former smoker Osteopenia of multiple sites Hepatic steatosis Pain in both feet Long-term use of Plaquenil Erosive osteoarthritis Bulging of lumbar intervertebral disc Chronic radicular lumbar pain Polyarticular osteoarthritis Metformin adverse reaction Polyarthralgia Neck pain Bilateral finger arthralgia Post-COVID chronic dyspnea Colitis History of prior cigarette smoking Chronic tension headaches Peripheral neuropathy Pulmonary nodules Sessile colonic polyp (~2018) Tinnitus of both ears Mixed dyslipidemia Type 2 diabetes mellitus without complication, with no history of insulin use STUART (obstructive sleep apnea) Chronic restrictive lung disease Shortness of breath on exertion Obesity (BMI 30.0-34.9) Tubular adenoma of colon (~2018) Surgical History History of hernia repair History of hemorrhoidectomy History of colonoscopy Family History Father No problems noted. Mother No problems noted. 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 Current occupational exposures/hazards: No Cognitive needs: No Hearing needs: No Vision needs: No Review of Systems Const Details: Review of Systems Constitutional: Denies fever, chills, weight loss ENT: Denies vision changes, eye pain or eye redness, dental caries, dry mouth GI: Denies nausea, vomiting, diarrhea, abdominal pain, change in BM Pulm: Denies SOB, ALEJANDRA, hemoptysis, wheezing Cards: Denies chest pain, palpitations Skin: Denies Raynaud's, rash, nail changes, photosensitivity, GENERATOR MECHANIC: Denies headaches, weakness, paresthesias, recurrent falls MSK: as per HPI All other systems reviewed and are unremarkable except noted above Physical Exam Vital Signs: Last Vital Signs Pulse 88 10/09/24 08:04 BP 130/78 10/09/24 08:04 Pulse Ox 98 10/09/24 08:04 Oxygen Delivery Method Room Air 10/09/24 08:04 BMI result Body Mass Index 32.9 Vital signs reviewed Physical Examination CONSTITUITIONAL Patient alert and cooperative. Well appearing and in no apparent painful distress HEENT Conjunctiva and sclera clear. ?Pupils equal round and reactive to light. ?No lymphadenopathy. ? CHEST/RESPIRATORY SYSTEM Normal respiratory effort and able to speak in complete sentences. ?Clear to auscultation bilaterally. ?No crackles, rales, rhonchi, wheezes heard. CARDIAC SYSTEM Regular rate and rhythm. ?S1 and S2 heard no murmurs. ?Radial pulses intact bilaterally MSK Hands: ?Able to make a fist but unable to flex his 5th left digit at the level of the PIP. [place] nodes-right 2nd, 3rd and 5th DIPs; left 2nd, 3rd and 4th DIPs. Pino's nodes right 2nd and 3rd PIP; left 2nd and 5th PIP No prior hand sign. Tenderness to palpation of his DIPs and PIPs Wrists: ?Full range of motion at the wrists without pain. ?No tenderness to palpation or synovitis noted to the wrists. Elbows: Full range of motion without pain. No tenderness, weakness, swelling, increased warmth or erythema. Shoulders: Full range of active range of motion without pain. No tenderness, weakness, swelling, increased warmth or erythema. Hips: Full range of motion without pain. Hip bursa: No tenderness to palpation Knees: ?Full range of motion. ?No tenderness, swelling, increased warmth or erythema.?No effusion. Bilateral crepitations present Ankles: Full range of motion. ?No tenderness, swelling, increased warmth or erythema.? Feet: ?Negative squeeze test. ?No tenderness to palpation or swelling of the MTPs. Tender points:?No tenderness to palpation of the bilateral trapezius, supraspinatus, greater trochanters, anterior costochondral junctions, bilateral gluteal areas, bilateral suboccipital muscle insertions SKIN Skin intact without rashes. Results Reviewed Results Reviewed: Laboratory Tests 05/27/24 07/25/24 10:06 06:08 WBC 6.3 RBC 4.55 L Hgb 15.3 Hct 42.0 Plt Count 167 ESR 5 Sodium 139 Potassium 4.4 Chloride 106 Carbon Dioxide 25 BUN 17 H Creatinine 0.94 AST 47 H ALT 87 H C-Reactive Protein 0.58 H XR Bilateral Hand/Wrist 05/2024 Findings: Bones intact. No dislocations. Joint space narrowing and periarticular osteophyte formation at the radiocarpal, scaphotrapezial, and 1st carpometacarpal joints is present, indicating osteoarthritis. Periarticular osteophyte formation at the interphalangeal joints of the digits. No radiopaque foreign body. IMPRESSION: 1. No acute findings 2. Osteoarthritis. DEXA 06/2024 FINDINGS: The bone mineral density of the lumbar spine is 1.064 with a T-score of -1.3, and a Z-score of -1.6. The bone mineral density of the left total hip is 1.041 with a T-score of -0.4, and a Z-score of -0.3. The bone mineral density of the left femoral neck is 0.917 with a T-score of -1.2, and a Z-score of -0.6. FRACTURE RISK: The FRAX index suggests a risk of major osteoporotic fracture of 5.3%, and of hip fracture 0.6%. Abd US 06/2024 Findings: The visualized pancreas, aorta, and inferior vena cava are unremarkable. Liver is mildly enlargedand diffusely echogenic. No focal hepatic masses. Common duct 2.0 mm diameter. Physiologic distention of the gallbladder. No gallstones or sludge. No gallbladder wall thickening. No pericholecystic fluid. No sonographic Helms sign. Main portal vein antegrade. Right kidney normal size, 13.3 cm in length. Normal cortical width and echotexture. No solid or cystic renal masses. No nephrolithiasis or hydronephrosis. Left kidney normal, 13.5 cm in length. Normal cortical width and echotexture. No solid or cystic renal masses. No nephrolithiasis hydronephrosis. Spleen measures 11.7 cm. No splenic masses. No ascites. No lymphadenopathy. Impression: 1. Hepatic steatosis. No focal hepatic masses or biliary dilatation. Assessment & Plan Assessment & Plan (1) Erosive osteoarthritis: Code(s): M15.4 - Erosive (osteo)arthritis Category: Medical Plan: #Erosive Osteoarthritis Patient is a 64-year-old male with erosive osteoarthritis based on x-rays. Did a trial of Plaquenil to see if this would help with his pain, unfortunately patient did not tolerate Plaquenil and self-discontinued it. He also did not receive the topical diclofenac. Had some benefit from acupuncture as well as turmeric tea. Recommended to try the topical diclofenac to see if there is benefit. Patient is requesting hand surgery referral to see if they can do a procedure to remove the Pino's node from his 5th PIP Plan - Diclofenac gel apply to hands 4 times a day - Hand surgery referral - RTC 1 year Plan I spent 20 minutes reviewing the record and labs, taking a history, examining the patient, discussing the treatment plan and documenting in the medical record Orders: Referrals Hand Surgery Referral M15.4 - Erosive (osteo)arthritis Coding Level of Care Code Est Pt Level 3 (82235) Diagnoses Erosive osteoarthritis M15.4
[2024-10-09 08:04] VITALS: BP 130/78; PULSE 88; O2SAT 98; BMI 32.9
== END 2024-10-09 08:26 | disposition home or self-care (01) ==
LOC: HO.RHE 07:42
PROVIDERS: PCP Internal Medicine; Visit Provider Student in an Organized Health Care Education/Training Program
DX: M15.4 Erosive (osteo)arthritis (principal)
CPT/HCPCS: 99213

== ENCOUNTER → 2024-12-04 06:53 | Outpatient (REF) | payer OTHER, SELFPAY ==
--- OUTSIDE RECORDS SUMMARY | 2024-12-04 06:55 | XMS_ITS | Data Portability ---
Author Organization [place] - [facility], Allergy Address [address] [address] Care Team Providers Care Investment Banking Manager Name Role Phone RASHIDA AUGUST Referring Provider [phone] Assessment Encounter Date Assessment Date Assessment LastModified [...] Modified Time Details Appointments SURGERY 60 2024 02:30P M CASSANDRA GARCIA MD Not available Not available Not available Telehealt h 2024 11:45A M CASSANDRA GARCIA MD Not available Not available Not available Lab None recorded. Referral None recorded. Procedures drug-malick bonilla sleep endoscopy (SURG) 2024 025 [email or web address] Not available 05/30/2024 16:36:53 Surgeries None recorded. Imaging None recorded. Medication Orders None recorded. Patient TargetsNo targets recorded. Patient InstructionsNo instructions recorded. Reason for Referral None Reported. Problems Name Problem SNOMED Code Status Onset Date Resolution Date Notes Provider Name and Address Organization Details Recorded Time Obstructive sleep apnea syndrome 18910220 Active 025 CASSANDRA GARCIA MD 100 [facility], [address], [place], [address], [facility] - [facility] 10:07:30 Problem Notes None recorded. Procedures Surgical History Date Name Laterality Status Provider Name and Address Organization Details Recorded Time 05/30/2024 FOL_DP completed CASSANDRA GARCIA MD 100 [facility] 100, [place], [address], [facility] 05/30/2024 10:07:24 Imaging Results None recorded. Procedure [...] Details Last Updated DateTime 05/30/2024 180.34 cm 732157.25 g Rachel Griffith [place] - [facility] 05/30/2024 09:51:11 Social History None recorded. Functional Status None recorded. Mental Status None recorded. Family History Nothing Reported. Medical History Condition Response Diabetes Y High Cholesterol Y Gynecological HistoryNo gynecological history recorded. Obstetrics History GPAL:G 0 P 0 0 0 0 Past Encounters Encounter ID Performer Location Encounter Start Date Encounter Closed Date Diagnosis/Indication Diagnosis SNOMED-CT Code Diagnosis ICD10 Code Diagnosis Note [id number] CASSANDRA GARCIA MD [facility] [address] [address] 05/30/2024 09:36:55 05/30/2024 10:21:36 Obstructive sleep apnea syndrome 98877195 G47.33 [facility], sleep center [facility] Concerns Section Related Observation LastModified by Organization Detai ls LastModified Time None Recorded Concern Status LastModified by Organization Details LastModified Time None Recorded Advance Directives Directive None Recorded Payers Insurance Date Sequence Insurance Name Policy Number Policy Magaña Covered Member ID Magaña Member ID Guarantor Name 08/05/[address] [place] [address] [id number] Jaya Hancock [id number] Jyaa Hancock Notes Date Note Type Note Provider Name and Address Organization Details Recorded Time 05/30/2024 text/html new patientOSA 03/21/[address] [place] [address] 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
[2024-12-04 07:44] LABS: Hemoglobin A1C 154.1224 umol/L; Total Hemoglobin (HGBA1C) 3898.2977 umol/L
[2024-12-04 08:13] LABS: Alanine Aminotransferase 138 U/L (0-40); Anion Gap 12 (12-20); Aspartate Amino Transferase 75 U/L (5-37); Blood Urea Nitrogen 16 mg/dL (9-16); Calcium 9.0 mg/dL (8.4-10.2); Carbon Dioxide 25 mmol/L (22-29); Chloride 107 mmol/L (96-108); Cholesterol 200 mg/dL (<200); Estimated Glomerular Filt Rate > 60; HDL Cholesterol 35 mg/dL (>40); Potassium 4.2 mmol/L (3.3-5.1); Sodium 140 mmol/L (135-145); Triglycerides 224 mg/dL (<150)
== END ==
LOC: HO.SL 06:53
PROVIDERS: Absent Provider Internal Medicine; PCP Internal Medicine; Visit Provider Hospitalist
DX: K76.0 Fatty (change of) liver, not elsewhere classified (principal); E11.9 Type 2 diabetes mellitus without complications; E78.2 Mixed hyperlipidemia; E66.9 Obesity, unspecified; M85.89 Other specified disorders of bone density and structure, multiple sites; G47.33 Obstructive sleep apnea (adult) (pediatric)
CPT/HCPCS: 36415; 80048; 80061; 82306; 83036; 84450; 84460; 95806

== ENCOUNTER → 2024-12-04 07:41 | Outpatient (BNV) | payer OTHER, SELFPAY | PROVIDERS: Absent Provider Internal Medicine; PCP Internal Medicine; Visit Provider Internal Medicine | DX: G47.33 Obstructive sleep apnea (adult) (pediatric) (principal) | CPT/HCPCS: 95806 ==

== ENCOUNTER 2024-12-10 07:56 | Outpatient (AMB) | payer OTHER, SELFPAY ==
--- OUTSIDE RECORDS SUMMARY | 2024-12-10 08:02 | XMS_ITS | Data Portability ---
Author Organization [place] - [facility], Allergy Address [address] [address] Care Team Providers Care Forestry Crew Chief Name Role Phone RASHIDA AUGUST Referring Provider [...] drug-malick bonilla sleep endoscopy (SURG) 2024 025 [email or web address] Not available 05/30/2024 16:36:53 Surgeries None recorded. Imaging None recorded. Medication Orders None recorded. Patient TargetsNo targets recorded. Patient InstructionsNo instructions recorded. Reason for Referral None Reported. Problems Name Problem SNOMED Code Status Onset Date Resolution Date Notes Provider Name and Address Organization Details Recorded Time Obstructive sleep apnea syndrome 09809003 Active 025 CASSANDRA GARCIA MD 100 [facility], [address], [place], [address], [facility] - [facility] 10:07:30 Problem Notes None recorded. Procedures Surgical History Date Name Laterality Status Provider Name and Address Organization Details Recorded Time 05/30/2024 FOL_DP completed CASSANDRA GARCIA MD 100 [facility] 100, [place], [address], [facility] 05/30/2024 10:07:24 Imaging Results None recorded. [...] Details Last Updated DateTime 05/30/2024 180.34 cm 127508.25 g Rachel Griffith [place] - [facility] 05/30/2024 09:51:11 Social History None recorded. Functional Status None recorded. Mental Status None recorded. Family History Nothing Reported. Medical History Condition Response Diabetes Y High Cholesterol Y Gynecological HistoryNo gynecological history recorded. Obstetrics History GPAL:G 0 P 0 0 0 0 Past Encounters Encounter ID Performer Location Encounter Start Date Encounter Closed Date Diagnosis/Indication Diagnosis SNOMED-CT Code Diagnosis ICD10 Code Diagnosis Note [id number] CASSANDRA GARCIA MD [facility] [address] [address] 05/30/2024 09:36:55 05/30/2024 10:21:36 Obstructive sleep apnea syndrome 71671314 G47.33 [facility], sleep center [facility] Concerns Section Related Observation LastModified by Organization Detai ls LastModified Time None Recorded Concern Status LastModified by Organization Details LastModified Time None Recorded Advance Directives Directive None Recorded Payers Insurance Date Sequence Insurance Name Policy Number Policy Magaña Covered Member ID Magaña Member ID Guarantor Name 12/08/[address] [place] [address] [id number] Jaya Hancock [id number] Jaya Hancock Notes Date Note Type Note Provider Name and Address Organization Details Recorded Time 05/30/2024 text/html new patientOSA 03/21/[address] 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
--- OUTSIDE RECORDS SUMMARY | 2024-12-10 08:02 | XMS_ITS | Patient Health Record ---
[facility] Address [address] [place] [address] Care Team Providers Care Supervisory Cbp Officer Name Role Phone Abdi BAIG, Ronna Martins Primary Care Provider Un available Margoth Potter Unavailable [phone] Reason For Referral No Information Medications Medication SIG (Take, Route, Frequency, Duration) Notes Start Date End Date Status [place] 3 1mg 2 capsules twice a day Active Social History Tobacco Use: Social History Observation Description Date Details (start date - stop date) Current Smoker NA - NA Tobacco Use/Smoking Question Answer Notes Are you a: current smoker When did you start smoking? 1976 How often do you smoke cigarettes? every day How many cigarettes a day do you smoke? 6-10 How soon after you wake up d o you smoke your first cigarette? 31-60 minutes Additional Findings: Tobacco User Modera te cigarette smoker (10-19 cigs/day) Alcohol Screen Question Answer Notes Did you have a drink containing alcohol in the p ast year? No Points 0 Interpretation Negative Tobacco use other than smoking: Question Answer Notes Are you an other tobacco user? 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 Problem Mendez's neuroma of left foot (177788353873 105) Mendez's neuroma of left foot (G57.62) Active confirmed Plan Of Treatment Pending Test Test Name Order Date X ray : Foot, left 3V 11/30/2017 X ray : Foot, right 3V 11/30/2017 Insurance Providers Payer Name Payer Address Payer Phone Subscriber Number Group Number Insured Name Patient Relationship to Insured Coverage Start Date Coverage End Date [facility] [address] [place] [address] [id number] Jaya Blue Self - patient is the insured Medical (General) History Medical History History ICD Code Hypertriglyceridemia Obesity Hypertension Erectile dysfunction Mendez's neuroma Surgical History Surgery Date(Month/Year) thoracotomy tube insertions Pneumothorax right
--- NOTE | 2024-12-10 08:11 | A.OFFPC_ITS ---
Vital Signs 12/10/24 08:12 Height 5 ft 11 in Weight 235 lb BMI 32.8 BP 125/80 Blood Pressure Location Lt brachial Position Sitting Respiration 16 Pulse 64 Pulse Source Pulse Oximeter Temp 98.1 F Temp Source Oral Pulse Oximetry (%) 95 Oxygen Delivery Method Room Air Intake Visit Reasons: 4 months f/up lipids Intake Note: pt is coming in for 4month f/u lipids. Director Corporate Compliance Required: No Accompanied by: Self / Same As Patient Allergies No Known Allergies (NO KNOWN ALLERGIES) Allergy (Unknown, Verified 12/15/24 01:44) N/A- Medication List - Last Reconciled 12/15/24 by Ronna Patton MD multivitamin 1 tab PO DAILY omega-3 acid ethyl esters 2 caps PO BID Ozempic (semaglutide) 0.25 mg (0.368 mL) subcut QWEEK NS sennosides (senna) 8.6 mg PO BEDTIME umeclidinium-vilanterol 62.5-25 mcg/actuation (Anoro Ellipta) 1 inh inhalation DAILY Tobacco use date assessed: 12/10/24 Dental Screening Dental Screen Date: 07/29/24 HPI 4 months f/up lipids HPI Details 64-year-old male here today for follow-u p on his diabetes mellitus and dyslipidemia. Previously was on Trulicity, given for diabetes and help with weight loss, but patient states that it was not helping obese appetite , and still has gained weight. Blood sugar levels however have been better since starting Trulicity. Denies any adverse effects from taking the medication. - Hyperlipidemia: The patient has elevat ed cholesterol levels, with a significant increase in triglycerides noted. - Hyperglycemia: The patient reports con sistently high blood sugar levels, particularly in the morning, with values ranging from 140 to 170 mg/dL. - Fatty liver disease: The patient has b een diagnosed with fatty liver disease, potentially exacerbated by the use of turmeric supplements. - Arthritis: The patient has a history o f arthritis, which is managed with lifestyle modifications. - Sleep apnea: The patient underwent a r ecent sleep study and is awaiting results to determine the need for further intervention. [facility] Medical History Personal history of nicotine dependence Osteopenia of multiple sites Hepatic steatosis Pain in both feet Long-term use of Plaquenil Erosive osteoarthritis Bulging of lumbar intervertebral disc Chronic radicular lumbar pain Polyarticular osteoarthritis Metformin adverse reaction Polyarthralgia Neck pain Bilateral finger arthralgia Post-COVID chronic dyspnea Colitis Chronic tension headaches Peripheral neuropathy Pulmonary nodules Sessile colonic polyp (~2018) Tinnitus of both ears Mixed dyslipidemia Type 2 diabetes mellitus without complication, with no history of insulin use STUART (obstructive sleep apnea) Chronic restrictive lung disease Shortness of breath on exertion Obesity (BMI 30.0-34.9) Tubular adenoma of colon (~2018) Surgical History History of hernia repair History of hemorrhoidectomy History of colonoscopy Family History Father No problems noted. Mother No problems noted. 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 1. Little interest or pleasure in doing things: not at all 2. Feeling down, depressed, or hopeless: not at all 3. Trouble falling or staying asleep, or sleeping too much: not at all 4. Feeling tired or having little energy: several days 5. Poor appetite or overeating: not at all 6. Feeling bad about yourself - or that you are a failure or have let yourself or your family down: not at all 7. Trouble concentrating on things, such as reading the newspaper or watching television: several days 8. Moving or speaking so slowly that other people could have noticed. Or the opposite - being so fidgety or restless that you have been moving around a lot more than usual: not at all 9. Thoughts that you would be better off or of hurting yourself in some way: not at all Total score: 2 Depression Screening Interpretation: Negative Depression Screening Done: Yes 15748 - PHQ-9 Billing: Yes Source: Developed by Drs. Wes Stock, Joselito Harp and colleagues, with an educational ade from [employer]. Thrive Questionnaire Date Thrive assessed: 07/22/24 I am a: Patient What is your living situation today?: I have a steady place to live Within the past 12 months, did the food you bought not last and you didn't have the money to get more?: Never true Within the past 12 months, did you worry whether your food would run out before you got money to buy more?: Never true Do you have trouble paying for medicines?: No Do you have trouble getting transportation to medical appointments?: No Do you have trouble paying your heating and electricity bill?: No Do you have trouble taking care of your child, family member or friend?: No Do you have trouble with day-to-day activities such as bathing, preparing meals, shopping, managing finances, etc.?: Yes Are you currently unemployed and looking for a job?: No Are you interested in more education?: No Please select the resources that you would like help with: None Currently or been in a relationship where the following occur: No concerns reported THRIVE Score: 0 AUDIT C Alcohol Use Questionnaire (AUDIT-C) 1. How often do you have a drink containing alcohol?: Never 3. How often do you have six or more drinks on one occasion?: Never Total Score: 0 Score Reviewed/Action Taken: Yes RAIZA-7 AMB Questionnaire RAIZA-7 Date RAIZA - 7 assessed: 07/29/24 Feeling nervous, anxious, or on edge: 1 = Several days Not being able to stop or control worryin = Several days Worrying too much about different things: 1 = Several days Trouble relaxin = Not at all Being so restless that it is hard to sit still: 1 = Several days Becoming easily annoyed or irritable: 0 = Not at all Feeling afraid as if something awful might happen: 0 = Not at all Total RAIZA-7 score (0-4 normal; 5-9 mild; 10-14 moderate; 15-21 severe): 4 Source: Developed by Marleni Brooks Eddi, Joselito Reeves and colleagues, with an educational ade from [employer]. RAIZA-7 Assessment Billing RAIZA-7 Assessment Tool: RAIZA-7 Assessment 18400 Review of Systems Const All systems reviewed & are unremarkable except as noted in HPI and below Physical exam (Primary Care) Vital Signs: Last Vital Signs Temp 98.1 F 12/10/24 08:12 Pulse 64 12/10/24 08:12 Resp 16 12/10/24 08:12 BP 125/80 12/10/24 08:12 Pulse Ox 95 12/10/24 08:12 Oxygen Delivery Method Room Air 12/10/24 08:12 BMI result Body Mass Index 32.8 Tobacco/Smoking Status: Tobacco use Status Tobacco use date assessed 12/10/24 12/10/24 08:18 Patient Tobacco Use Status Former Tobacco user 12/10/24 08:18 e-Cigarette/Vaping Use Never Used 12/10/24 08:18 PHQ-9: PHQ-9 Score PHQ-9: Total score 2 12/10/24 08:41 Depression Screening Interpretation: Negative Thrive Assessment: Date of Thrive Assessment Date Thrive assessed 07/22/24 12/10/24 08:18 Currently or been in a relationship where the following occur: No concerns reported Const Other: Alert oriented x3, no acute cardiorespiratory distress noted ambulatory normal gait Nutritional Appearance: obese Orientation/consciousness: patient oriented x3 Eyes Pupils: Equal, round and reactive pupils present EOM: EOMs intact bilaterally and Nystagmus present Neck Other: Supple , full range of motion in all directions without any difficulty, thyroid gland nonpalpable, no carotid bruits, no lymphadenopathy Resp Effort & Inspection: normal respiratory effort and able to speak in complete sentences Auscultation: clear to auscultation bilaterally Cardio Other: S1-S2 present regular rate and rhythm GI Inspection: Yes normal to inspection Palpation (GI): Soft to palpation, nontender, no guarding and no masses General: Yes no CVA tenderness Back/Spine/Pelvis Back: no CVA tenderness Skin General skin exam: no rashes or lesions noted Neuro General: patient oriented x3, gait normal, moves all extremities, Normal light touch and pain sensation, no focal motor deficits and CN's II-XI intact bilaterally Cranial nerves: Yes Equal, round and reactive pupils present and Yes Nystagmus present Extrem General: Yes normal to inspection, Yes full ROM, Yes no joint enlargement, Yes no clubbing, cyanosis or edema and Yes normal gait Psych Appearance: grossly normal and well kempt Mental Status: mental status grossly normal Speech and movement: Normal speech and movement present Affect: normal affect Thought process: Normal thought process present Thought content: Normal thought content present Results Reviewed Results Reviewed: Laboratory Tests 12/04/24 07:11 Estimat Average Glucose 120 Hemoglobin A1c % 5.8 dominga: Jaya Hancock Age/Sex: 64/M : 1960 Unit#: [id number] Attend Dr: Troy Salamanca MD Re12/04/24 Status: REG REF Location: [facility] Disch: SPEC : [id number] HARSHAD: 12/04/24 STATUS: COMP REQ : [id number] RECD: 12/04/[address]: Ronna Patton MD COMP: 12/04/24 ENTERED: 12/04/[address]: Troy Salamanca MD ORDERED: Met Prof Fast, AST, ALT, Lipid Panel, Vitamin D 25-OH Test Result Flag Reference Sodium 140 135-145 mmol/L Potassium 4.2 3.3-5.1 mmol/L CL 107 96-108 mmol/L CO2 25 22-29 mmol/L Gap 12 12-20 BUN 16 9-16 mg/dL Creat 0.88 0.5-1.4 mg/dL eGFR > 60 Chronic Kidney Disease: Estimated GFR < 60 mL/min/1.73m2 Severe Kidney Disease: Estimated GFR < 15 mL/min/1.73m2 FBS 137 H 60-99 mg/dL A fasting glucose of 126 mg/dl or greater on more than one occasion is considered diagnostic of diabetes. CA 9.0 8.4-10.2 mg/dL AST (GOT) 75 H 5-37 U/L ALT (GPT) 138 H 0-40 U/L Triglyceride 224 H <150 mg/dL Desirable Triglyceride: less than 150 mg/dL Borderline High Triglyceride 150-199 mg/dL High Triglyceride: 200-499 mg/dL Very High Triglyceride: greater than or equal to 5OO mg/dL Cholesterol 200 H <200 mg/dL Desirable Cholesterol: less than 200 mg/dL Borderline High Cholesterol: 200-239 mg/dL High Cholesterol: greater than 239 mg/dL LDL Calculated 121 H <100 mg/dL Desirable LDL: less than 100 mg/dL Near Optimal/Above Optimal LDL: 110-129 mg/dL Borderline High LDL: 130-159 mg/dL High LDL: 160-189 mg/dL Very High LDL: greater than or equal to 190 mg/dL HDL 35 L >40 mg/dL Desirable HDL: greater than 40 mg/dL Note: This HDL assay may give artificially low results in patients with liver disease. Vitamin D 25-OH 43.9 >30 ng/mL Health Based Reference Values* < 20 ng/mL Deficient 20-30 ng/mL Insufficient > 30 ng/mL Sufficient Coding Level of Care Code Est Pt Level 4 (42970) Diagnoses Obesity (BMI 30.0-34.9) E66.9 Type 2 diabetes mellitus without complication, with no history of insulin use E11.9 Mixed dyslipidemia E78.2 Hepatic steatosis K76.0 Additional Codes RAIZA-7 Assessment Billing - RAIZA-7 Assessment Tool: RAIZA-7 Assessment 01522 ([id number]) PHQ-9 - 00098 - PHQ-9 Billing: Yes ([id number]) Assessment & Plan Assessment & Plan (1) Obesity (BMI 30.0-34.9): Code(s): E66.9 - Obesity, unspecified Category: Medical (2) Type 2 diabetes mellitus without complication, with no history of insulin use: Code(s): E11.9 - Type 2 diabetes mellitus without complications Category: Medical (3) Mixed dyslipidemia: Code(s): E78.2 - Mixed hyperlipidemia Category: Medical (4) Hepatic steatosis: Code(s): K76.0 - Fatty (change of) liver, not elsewhere classified Category: Medical Plan The patient's hypertension will be monitored with regular blood pressure checks at home, and lifestyle modifications will be emphasized to maintain normal levels. For hyperlipidemia, dietary changes will be encouraged, focusing on reducing processed foods and increasing healthy fats. The patient will be switched from Trulicity to Ozempic to better manage hyperglycemia and assist with weight control. The patient is advised to avoid turmeric due to its potential impact on fatty liver disease and to continue omega-3 supplements to support liver health. Regular eye exams are recommended to monitor glaucoma and cataracts, with observation for cataracts as they are not yet severe. The patient is awaiting results from a recent sleep study to determine the need for further intervention for sleep apnea. Lifestyle modifications, including regular exercise and a balanced diet, will be reinforced to manage arthritis and overall health. Patient was informed and verbally consented to the use of an ambient scribe for clinic note documentation during this visit. Orders: Orders Hemoglobin A1c 02/21/25 E11.9 - Type 2 diabetes mellitus without complications, E66.9 - Obesity, unspecified, E78.2 - Mixed hyperlipidemia, K76.0 - Fatty (change of) liver, not elsewhere classified Lipid Panel 02/21/25 E11.9 - Type 2 diabetes mellitus without complications, E66.9 - Obesity, unspecified, E78.2 - Mixed hyperlipidemia, K76.0 - Fatty (change of) liver, not elsewhere classified Comprehensive Venus. Panel Fast 02/21/25 E11.9 - Type 2 diabetes mellitus without complications, E66.9 - Obesity, unspecified, E78.2 - Mixed hyperlipidemia, K76.0 - Fatty (change of) liver, not elsewhere classified Medications: New Ozempic (semaglutide) for 4 weeks 0.25 mg (0.368 mL) subcut QWEEK 3 mL 4RF NS E11.9 - Type 2 diabetes mellitus without complications, E66.9 - Obesity, unspecified, E78.2 - Mixed hyperlipidemia, T38.3X5D - Adverse effect of insulin and oral hypoglycemic [antidiabetic] drugs, subsequent encounter Discontinued Trulicity (dulaglutide) Discontinued Reason: Doctor's Order 0.75 mg (0.5 mL) subcut QWEEK 6 mL 1RF NS E11.9 - Type 2 diabetes mellitus without complications, T38.3X5A - Adverse effect of insulin and oral hypoglycemic [antidiabetic] drugs, initial encounter
[2024-12-10 08:12] VITALS: BP 125/80; PULSE 64; RESP 16; TEMP 36.7; O2SAT 95; BMI 32.8
== END 2024-12-10 09:01 | disposition home or self-care (01) ==
LOC: HO.HMCC 07:57
PROVIDERS: PCP Internal Medicine; Visit Provider Internal Medicine
DX: E11.9 Type 2 diabetes mellitus without complications (principal); E66.9 Obesity, unspecified; Z68.32 Body mass index [BMI] 32.0-32.9, adult; E78.2 Mixed hyperlipidemia; K76.0 Fatty (change of) liver, not elsewhere classified

== ENCOUNTER → 2024-12-10 07:56 | Outpatient (BNVA) | payer OTHER, SELFPAY | PROVIDERS: PCP Internal Medicine; Visit Provider Internal Medicine | DX: E11.9 Type 2 diabetes mellitus without complications (principal); E78.5 Hyperlipidemia, unspecified; K76.0 Fatty (change of) liver, not elsewhere classified; E66.9 Obesity, unspecified; E78.2 Mixed hyperlipidemia; T38.3X5A Adverse effect of insulin and oral hypoglycemic [antidiabetic] drugs, initial encounter; Z68.32 Body mass index [BMI] 32.0-32.9, adult | CPT/HCPCS: 96127 ==

== ENCOUNTER 2024-12-22 08:07 | Outpatient (REF) | payer OTHER, SELFPAY ==
--- OUTSIDE RECORDS SUMMARY | 2024-12-23 08:11 | XMS_ITS | Patient Health Record ---
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 Problem Mendez's neuroma of left foot ([id number] 105) Mendez's neuroma of left foot (G57.62) Active confirmed Plan Of Treatment Pending Test Test Name Order Date X ray : Foot, left 3V 11/30/2017 X ray : Foot, right 3V 11/30/2017 Insurance Providers Payer Name Payer Address Payer Phone Subscriber Number Group Number Insured Name Patient Relationship to Insured Coverage Start Date Coverage End Date [facility] [address] [place] [address] [id number] Jaya Blue Self - patient is the insured Medical (General) History Medical History History ICD Code Hypertriglyceridemia Obesity Hypertension Erectile dysfunction Mendez's neuroma Surgical History Surgery Date(Month/Year) thoracotomy tube insertions Pneumothorax right
== END 2024-12-22 08:08 | disposition home or self-care (01) ==
LOC: HO.HOSX 08:07
DX: Z13.89 Encounter for screening for other disorder (principal)

== ENCOUNTER 2024-12-22 08:08 | Outpatient (AMB) | payer OTHER, SELFPAY ==
--- NOTE | 2024-12-22 08:37 | A.OFFVIS_ITS ---
Vital Signs 12/22/24 08:46 Height 5 ft 11 in Weight 235 lb BMI 32.8 Intake Visit Reasons: New prob-B/L hand pain Intake Note: Jaya is a 64 year old left hand dominant male who presents today for evaluation of bilateral hand osteoarthritis. Patient states his left small finger is bothering him the most, making it difficult to make a closed fist. He complains of hypersensitivity on most knuckles making it difficult to do things like typing. He reports numbness and tingling, bilaterally, occuring almost every morning. He is unclear on which fingers are numbing up. Patient saw his rn first assistant who referred him over for possible removal of Pino's node from his left 5th PIP. History of Type 2 Diabetes. Allergies No Known Allergies (NO KNOWN ALLERGIES) Allergy (Unknown, Verified 12/22/24 08:39) N/A- HPI HPI New prob-B/L hand pain: Details: Jaya is a 64 year old left hand dominant male who presents today for evaluation of bilateral hand osteoarthritis. Patient states his left small finger is bothering him the most, making it difficult to make a closed fist. He complains of hypersensitivity on most knuckles making it difficult to do things like typing. He reports numbness and tingling, bilaterally, occuring almost every morning. He is unclear on which fingers are numbing up. Patient saw his rn first assistant who referred him over for possible removal of Pino's node from his left 5th PIP. History of Type 2 Diabetes. [facility] Medical History Personal history of nicotine dependence Osteopenia of multiple sites Hepatic steatosis Pain in both feet Long-term use of Plaquenil Erosive osteoarthritis Bulging of lumbar intervertebral disc Chronic radicular lumbar pain Polyarticular osteoarthritis Metformin adverse reaction Polyarthralgia Neck pain Bilateral finger arthralgia Post-COVID chronic dyspnea Colitis Chronic tension headaches Peripheral neuropathy Pulmonary nodules Sessile colonic polyp (~2018) Tinnitus of both ears Mixed dyslipidemia Type 2 diabetes mellitus without complication, with no history of insulin use STUART (obstructive sleep apnea) Chronic restrictive lung disease Shortness of breath on exertion Obesity (BMI 30.0-34.9) Tubular adenoma of colon (~2018) Surgical History History of hernia repair History of hemorrhoidectomy History of colonoscopy Family History Father No problems noted. Mother No problems noted. 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 Neuro: Normal sensation of the tips of all digits of bilateral hands at this time Vascular: Cap refill brisk Pain: No tenderness to palpation about bilateral hands Pain with range of motion, particularly of the left small finger ROM: Left small finger noted to have limited range of motion, is able to get approximately 50% to a closed fist Patient is able to flex and extend all other digits of bilateral hands fully and without difficulty Skin: No lacerations or abrasions. General: No ecchymosis, erythema, or evidence of infection. Psych: Appears grossly normal Affect normal Attitude cooperative Assessment & Plan Assessment & Plan (1) Arthritis of both hands: Code(s): M19.041 - Primary osteoarthritis, right hand; M19.042 - Primary osteoarthritis, left hand Category: Medical (2) Stiffness of finger joint of left hand: Code(s): M25.642 - Stiffness of left hand, not elsewhere classified Category: Medical Plan 1. Stiffness of left small finger 2. Osteoarthritis of bilateral hands Patient is educated about this condition Patient is educated about the typical treatment course At this time, patient is educated that there are very limited options available for treatment of osteoarthritis of the digits of the hands Patient is educated that I feel occupational therapy we will be the best thing for him, as especially given the limitations of his range of motion of the left small finger I feel that this will be beneficial for him to return to normal baseline function Patient states understanding of this and is amenable to this plan Patient is educated that the primary surgical treatment option for osteoarthritis of the fingers would be fusion of the DIP joint, however patient is uninterested in this Follow-up as needed Orders: Orders OT Evaluation and Treatment Today M19.041 - Primary osteoarthritis, right hand, M19.042 - Primary osteoarthritis, left hand, M25.642 - Stiffness of left hand, not elsewhere classified Coding Level of Care Code Est Pt Level 3 (86594) Diagnoses Arthritis of both hands M19.041; M19.042 Stiffness of finger joint of left hand M25.642
[2024-12-22 08:46] VITALS: BMI 32.8
== END 2024-12-22 09:16 | disposition home or self-care (01) ==
LOC: HO.HOS 08:08
PROVIDERS: PCP Internal Medicine
DX: M19.041 Primary osteoarthritis, right hand (principal); M19.042 Primary osteoarthritis, left hand; M25.642 Stiffness of left hand, not elsewhere classified
CPT/HCPCS: 99213

== ENCOUNTER 2025-01-22 15:01 | Outpatient (RCR) | payer OTHER, SELFPAY ==
--- NOTE | 2025-01-01 14:47 | MHC.OT.EP ---
[facility] [place] Office [address] [facility] [phone] F: [phone] F: [phone] Occupational Therapy Plan of Care Patient Name: Jaya Hancock Date of Evaluation: 01/01/25 Diagnosis: B/L hand OA Pain Location: Constant pain in digits, specifically left small finger PIP 10/10 w/ sharp force Pain Score: 3 Pain Scale Used: Numeric (0 - 10) Aggravating Factors: Grasping force, use Alleviating Factors: Warm water, was taking turmeric with good results but elevated liver enzymes Assessment: 64 yo male w/ hx of OA and pain in multiple digits, was seen at [facility] specifically for PIP jt pain and possible surgical options. Fusion was discussed and pt declined surgical intervention at this time. He has been referred to OT for conservative treatment. On assessment today, he has decreased hand range B/L'ly, about 1 cm tip-palm through right digits and 3 cm tip-palm left small finger. He has locking in middle finger at PIP w/ active hook and composite fists, but no tenderness at A1 osbaldo. 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 Frequency and Duration: The patient will be seen 2x/wk for 3 weeks Short Term Goals: Ind w/ AROM exercises Progress to passive stretches as tolerated Pt to trial nighttime PIP splinting to reduce digit pain and active triggering Care Home Goals: Full tip-palm digit range B/L'ly Pt to report trigger free through digits Good follow through w/ joint protection techniques Treatment Plan: Therapeutic Exercise Therapeutic Activity Home Exercise Program Splinting Patient Education Edema Control ADL Training Paraffin Fluidotherapy MHP Cold Packs Joint Mobilization Soft Tissue Mobilization Kinesiotaping Electronically Signed By: Paige Jordan, OTR/L CHT Please Sign and return to therapist. Thank you once again for your referral.
--- NOTE | 2025-01-22 15:36 | MHC.OT.DC ---
[facility] Office [address] [phone] F: [phone] F: [phone] Occupational Therapy Discharge Note Patient Name: Jaya Hancock Provider: Jose Horvath PA-C Diagnosis: B/L hand OA Date of Evaluation: 01/01/25 Date of Discharge: 01/22/25 Treatments to Date: 4 Discharge Status: Achieved Goals Impr eve Function Independent with HEP Discharge Summary: Jaya was referred to OT w/ B/L hand arthritis and hx of trigger fingers. He has progressed well through brief course of OT and is now trigger free in both hands, has full composite fist and reports decreased pain, although still present and worse in right hand than left. He is Ind w/ home program and self management, also with good understanding of joint protection and task modifications. Electronically Signed By: Paige Jordan OTR/L CHT Reviewed/agree with student documentation: Therapist: Please Sign and return to therapist, thank you for your referral.
== END 2025-01-22 15:37 | disposition home or self-care (01) ==
LOC: HO.OT 15:01
PROVIDERS: PCP Internal Medicine
DX: M19.041 Primary osteoarthritis, right hand (principal); M19.042 Primary osteoarthritis, left hand; M25.642 Stiffness of left hand, not elsewhere classified
CPT/HCPCS: 97110; 97140; 97165

== ENCOUNTER 2025-01-23 10:20 | Outpatient (AMB) | payer OTHER, SELFPAY ==
--- NOTE | 2025-01-23 07:56 | A.OFFVIS_ITS ---
Intake Visit Reasons: Former Smoker Allergies No Known Allergies (NO KNOWN ALLERGIES) Allergy (Unknown, Verified 12/22/24 08: 39) N/A- HPI HPI Former Smoker: Details: Initial visit for this 64yo former smoker with a 40+PYH. Patient started smoking at age 10 for 49 years at 1+ppd. He quit 06/2018. . Denies marijuana use. Denies second hand smoke exposure. Denies exposure to chemicals or substances like asbestos. . Denies known family history of lung cancer. Denies personal history of cancers. History chest CT last year - 12/25/23 Scan noted a stable 8mm TELLY nodule. . Denies recent travel outside the [place]. Denies recent respiratory illness or recent hospitalization for respiratory issues. History of testing positive for COVID. Admits receiving COVID Vaccine. . Denies fever, chills, new/worsening cough, hemoptysis, hoarseness or dysphagia. Denies significant chest pain, significant dyspnea or unintentional weight loss. Patient Lung Cancer Screening Questionnaire reviewed with patient by provider. . Shared Decision Making Completed. Patient meets criteria. Discussed in detail with patient, the risk vs benefit of LDCT screening. Patient consents to proceed with scan. Discussed and encouraged continued smoking cessation. He quit 06/2018 and his quit 1 month later. He will encourage his to also join LDCT program. [facility] Medical History (Updated 01/23/25 @ 10:56 by Justa Barnes PA-C) Personal history of nicotine dependence Osteopenia of multiple sites Hepatic steatosis Pain in both feet Long-term use of Plaquenil Erosive osteoarthritis Bulging of lumbar intervertebral disc Chronic radicular lumbar pain Polyarticular osteoarthritis Metformin adverse reaction Polyarthralgia Neck pain Bilateral finger arthralgia Post-COVID chronic dyspnea Colitis Chronic tension headaches Peripheral neuropathy Pulmonary nodules Sessile colonic polyp (~2018) Tinnitus of both ears Mixed dyslipidemia Type 2 diabetes mellitus without complication, with no history of insulin use STUART (obstructive sleep apnea) Chronic restrictive lung disease Shortness of breath on exertion Obesity (BMI 30.0-34.9) Tubular adenoma of colon (~2018) Surgical History (Updated 01/23/25 @ 10:56 by Justa Barnes PA-C) History of hernia repair History of hemorrhoidectomy History of colonoscopy Family History Father No problems noted. Mother No problems noted. 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 - Patient meets criteria for LDCT for lung cancer screening purposes and is asymptomatic. - Smoking cessation counseling offered. Patients can always call [phone]. - Will arrange for a LDCT scan of the chest for screening purposes at [facility]. - Risks, benefits, and alternatives were discussed in detail and the patient agrees to proceed. - Risks discussed include but are not limited to: radiation exposure, anxiety during testing and while awaiting results, false negatives, false positives and possibility of additional intervention such as further imaging or surgical procedures for benign disease. - Benefits are obviously detection of lung cancer at an early stage which can lead to improved outcomes. - Discussed the importance of screening program compliance with adherence to yearly LDCT scan as scheduled - or sooner interval scans for personalized screening regimen. - Discussed follow up plan. Our office will send a letter discussing results and if needed set up phone call and office visit based on CT findings. - Patient educated on results categorization and the management decisions for suspicious findings potentially found on the screening LDCT scan. Any patient with a Lung RADS score of 3 or 4 will be reviewed by a multidisciplinary team at [facility] to form a plan of action in regards to scan findings. - If further work up is warranted for a suspicious lung finding this will be followed by the Lung Cancer Screening program in conjunction with the Thoracic Surgery Department at [facility]. - A copy of the office note and LDCT will be sent to the patient's PCP - as well as documentation on any associated further plans of care. - Incidental findings on LDCT are the PCP's responsibility. These findings are indicated with an S finding on the LDCT Assessment. A note discussing the findings will be sent to the PCP who is then responsible for further management. - All questions answered.? Coding Level of Care Code Lung Cancer Screening G0296 Diagnoses Personal history of nicotine dependence Z87.891
--- OUTSIDE RECORDS SUMMARY | 2025-01-23 11:25 | XMS_ITS | Patient Health Record ---
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 Problem Mendez's neuroma of left foot (186098131175 105) Mendez's neuroma of left foot (G57.62) Active confirmed Plan Of Treatment Pending Test Test Name Order Date X ray : Foot, left 3V 11/30/2017 X ray : Foot, right 3V 11/30/2017 Insurance Providers Payer Name Payer Address Payer Phone Subscriber Number Group Number Insured Name Patient Relationship to Insured Coverage Start Date Coverage End Date [facility] [address] [place] [address] [id number] Jaya Blue Self - patient is the insured Medical (General) History Medical History History ICD Code Hypertriglyceridemia Obesity Hypertension Erectile dysfunction Mendez's neuroma Surgical History Surgery Date(Month/Year) thoracotomy tube insertions Pneumothorax right
== END 2025-01-23 10:51 | disposition home or self-care (01) ==
LOC: HO.HPS 10:21
PROVIDERS: PCP Internal Medicine; Referring Provider Hospitalist; Visit Provider Physician Assistant Medical
DX: Z87.891 Personal history of nicotine dependence (principal)
CPT/HCPCS: G0296

== ENCOUNTER 2025-01-23 10:52 | Outpatient (REF) | payer OTHER, SELFPAY ==
--- NOTE | ~2025-01-23 | CT_ITS ---
EXAMINATION: CT LUNG SCREENING HISTORY: Z87.891 - Personal history of nicotine dependence TECHNIQUE: Low dose axial images were obtained from the sternal notch to upper abdomen without IV contrast per standard departmental protocol. Sagittal and coronal reformatted images were also obtained and reviewed. One or more of the following techniques was used for dose reduction: Automated exposure control, adjustment of the mA and/or kV according to patient size, use of iterative reconstruction technique. DLP: 68 mGy-cm COMPARISON: Comparison is made with the prior examination dated 624. FINDINGS: Lung nodules: Again seen is a calcification in the left upper lobe measuring 12 x 4 mm (series 4, image 33). There is a calcified granuloma in the left lower lobe (series 4, image 117). No noncalcified nodules are identified. There is mild scarring at the right lung base. Emphysema: none Coronary Calcification: moderate Aortic Arch Calcification: mild Potentially Significant Incidentals : none Additional Chest Findings: There is no pleural or pericardial effusion. No mediastinal or axillary lymphadenopathy is identified. Visualized upper abdomen: The visualized portions of the liver, spleen, and adrenals have an unremarkable unenhanced appearance. There is cholelithiasis. CT/CT lung screening IMPRESSION: No suspicious pulmonary nodules are identified. LUNG-RADS ASSESSMENT: Lung-RADS 2: Benign MANAGEMENT: Continue annual screening with LDCT in 12 months Category S: N/A Electronically signed by: Wes Wright MD 01/23/2025 11:21 AM EDT
== END 2025-01-23 10:53 | disposition home or self-care (01) ==
LOC: HO.CT 10:52
PROVIDERS: PCP Internal Medicine; Visit Provider Physician Assistant Medical
DX: Z12.2 Encounter for screening for malignant neoplasm of respiratory organs (principal); Z87.891 Personal history of nicotine dependence
CPT/HCPCS: 71271; G0296

== ENCOUNTER → 2025-01-23 10:53 | Outpatient (BNV) | payer OTHER, SELFPAY | PROVIDERS: PCP Internal Medicine; Visit Provider Radiology Diagnostic Radiology | DX: Z12.2 Encounter for screening for malignant neoplasm of respiratory organs (principal); Z87.891 Personal history of nicotine dependence | CPT/HCPCS: 71271 ==

== ENCOUNTER 2025-02-14 11:30 | Outpatient (AMB) | payer OTHER, SELFPAY ==
--- OUTSIDE RECORDS SUMMARY | 2025-02-14 11:33 | XMS_ITS | Patient Health Record ---
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 Problem Mendez's neuroma of left foot (507164587137 105) Mendez's neuroma of left foot (G57.62) Active confirmed Plan Of Treatment Pending Test Test Name Order Date X ray : Foot, left 3V 11/30/2017 X ray : Foot, right 3V 11/30/2017 Insurance Providers Payer Name Payer Address Payer Phone Subscriber Number Group Number Insured Name Patient Relationship to Insured Coverage Start Date Coverage End Date [facility] [address] [place] [address] [id number] Jaya Blue Self - patient is the insured Medical (General) History Medical History History ICD Code Hypertriglyceridemia Obesity Hypertension Erectile dysfunction Mendez's neuroma Surgical History Surgery Date(Month/Year) thoracotomy tube insertions Pneumothorax right
[2025-02-14 11:41] VITALS: BP 130/80; PULSE 68; O2SAT 96
--- NOTE | 2025-02-14 11:41 | AM.OFFWIN_ITS ---
Intake Vital Signs 02/14/25 11:41 Height 5 ft 11 in BP 130/80 Blood Pressure Location Lt brachial Position Sitting Pulse 68 Pulse Source Pulse Oximeter Pulse Oximetry (%) 96 Oxygen Delivery Method Room Air Intake Visit Reasons: EP Discolored toe nail on right foot Patient Tobacco Use Status: Former Tobacco user Allergies No Known Allergies (NO KNOWN ALLERGIES) Allergy (Unknown, Verified 02/14/25 11:41) N/A- Do you need a note to return to daycare/school/sports/work: No HPI HPI Comments History of Present Illness Details 64-year-old male presents with discolore d right 2nd toenail, he tells me it it has been this way for about a week, he tells me the nails wiggly in it looks like it is about to fall off. He denies pain as he has a history of neuropathy and diabetes. He tells me this has never happened to him before. D enies fevers, chills, trauma to nail, chest pain, shortness breath, leg swelling. Physical exam with onychomycosis to right 2nd toenail, right toenail 2nd wiggly however nail bed is not exposed. Decreased distal sensation however still present. No erythema, warmth or discharge around nail bed or cuticle. There is what appears to be athlete's foot between web spaces of right toes on multiple region This is likely fungal infection/onychomycosis/athlete's foot. No signs of necrotizing infection acute threat to [place] arterial or venous occlusion. Plan cream for athlete's foot. Will have him follow up with PCP likely needs podiatry consult. I did explain to him that he should ensure that his nail bed is covered at all times and of the toenail comes off he should apply topical antibiotic ointment and a Band-Aid. He should see Podiatry and PCP as he is diabetic. [facility] Medical History (Updated 02/14/25 @ 11:51 by THAIS Mcdowell) Personal history of nicotine dependence Osteopenia of multiple sites Hepatic steatosis Pain in both feet Long-term use of Plaquenil Erosive osteoarthritis Bulging of lumbar intervertebral disc Chronic radicular lumbar pain Polyarticular osteoarthritis Metformin adverse reaction Polyarthralgia Neck pain Bilateral finger arthralgia Post-COVID chronic dyspnea Colitis Chronic tension headaches Peripheral neuropathy Pulmonary nodules Sessile colonic polyp (~2019) Tinnitus of both ears Mixed dyslipidemia Type 2 diabetes mellitus without complication, with no history of insulin use STUART (obstructive sleep apnea) Chronic restrictive lung disease Shortness of breath on exertion Obesity (BMI 30.0-34.9) Tubular adenoma of colon (~2018) Surgical History (Updated 01/23/25 @ 10:56 by Justa Barnes PA-C) History of hernia repair History of hemorrhoidectomy History of colonoscopy Family History Father No problems noted. Mother No problems noted. 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 Oriented X3.? No acute distress.? Head: Normocephalic, atraumatic, no step-offs or deformities Neck: Normal inspection.? Neck supple.? CVS: Pulses normal.? Respiratory: No respiratory distress.? B Skin: Skin warm and dry.? Normal skin color.? Normal skin turgor.? Extremities: No lower extremity edema.? No calf ttp. 5/5 strength to bilateral upper and lower extremities+ onychomycosis to right 2nd toenail, right toenail 2nd wiggly however nail bed is not exposed. Decreased distal sensation however still present. No erythema, warmth or discharge around nail bed or cuticle. There is what appears to be athlete's foot between web spaces of right toes on multiple region Neuro: appears intact alert and oriented X 3 Vital Signs: Last Vital Signs Pulse 68 02/14/25 11:41 BP 130/80 02/14/25 11:41 Pulse Ox 96 02/14/25 11:41 Oxygen Delivery Method Room Air 02/14/25 11:41 Vital signs state Assessment & Plan Assessment & Plan (1) Athlete's foot on right: Code(s): B35.3 - Tinea pedis (2) Onychomycosis: Code(s): B35.1 - Tinea unguium Plan Take your medications as prescribed. If you were prescribed antibiotics today, it is important that you take your medication to their entirety, do not skip any doses, do not finish them early. Follow-up with your primary care provider this week. Return to the emergency department with new or worsening symptoms. Such as fevers, chills, chest pain, shortness of breath, nausea, vomiting, dizziness, headache, vision changes, lethargy In case of emergency call 911 Medications: New butenafine 1% (Lotrimin Ultra) 1 appl topical DAILY 12 grams 0RF 4 weeks Coding Level of Care Code Est Pt Level 3 (64660) Diagnoses Athlete's foot on right B35.3 Onychomycosis B35.1
== END 2025-02-14 12:17 | disposition home or self-care (01) ==
PROVIDERS: PCP Internal Medicine; Visit Provider Physician Assistant
DX: B35.3 Tinea pedis (principal); B35.1 Tinea unguium

== ENCOUNTER 2025-03-07 07:02 | Outpatient (REF) | payer OTHER, SELFPAY ==
--- OUTSIDE RECORDS SUMMARY | 2025-03-07 07:06 | XMS_ITS | Data Portability ---
Author Organization [place] - [facility], Allergy Address [address] [place] [address] Care Team Providers Care Certified Adaptive Physical Educator Name Role Phone RASHIDA AUGUST Referring Provider [...] the procedure. [email or web address] Not available 05/30/2024 10:07:41 01/12/2025 01/12/2025 Patient has moderate obstructive sleep apnea and is not a candidate for the inspire. Discussed alternative options including uvulopalatophary ngoplasty. At this time he is not a candidate for an oral appliance given he is edentulous. Also discussed the role of diet and exercise and weight loss of approximately 10% of his body mass may significantly improve his breathing at night. Patient would like to pursue weight loss as his primary form of managing his sleep apnea. [email or web address] Not available 01/12/2025 12:20:43 Plan of Treatment Reminders Order Date Submit Date Provider Last Modified By Organization Details Last Modified Time Details Appointments None recorded. Lab None recorded. Referral None recorded. Procedures drug-induc ed sleep endoscopy (SURG) 2024 025 MARIYA Not available 08:00:49 Surgeries None recorded. Imaging None recorded. Medication Orders None recorded. Patient TargetsNo targets recorded. Patient InstructionsNo instructions recorded. Reason for Referral None Reported. Problems Name Problem SNOMED Code Status Onset Date Resolution Date Notes Provider Name and Address Organization Details Recorded Time Obstructive sleep apnea syndrome 79760540 Active 025 CASSANDRA GARCIA MD [address], [address], [place] - [facility] 10:07:30 Problem Notes None recorded. Procedures Surgical History Date Name Laterality Status Provider Name and Address Organization Details Recorded Time 01/13/20 25 Telehealth completed CASSANDRA GARCIA MD [address] [place] [address], [phone], [facility] - [facility] 01/02/2025 07:46:34 01/03/20 sleep nasendoscopy completed CASSANDRA GARCIA MD [address] [place] [address],[address], [address], [facility] 01/02/2025 13:09:41 05/30/19 FOL_DP completed CASSANDRA GARCIA MD [address] [place] [address],[address], [address], [facility] - [facility] 05/30/2024 10:07:24 Imaging Results None recorded. Procedure Notes None recorded. Medical Equipment None Reported. Medications Name Sig Start Date Stop Date Status Note LastModified by Organization Details LastModified Time doxycycline hyclate 100 mg capsule TAKE 1 CAPSULE BY MOUTH TWICE DAILY FOR 10 DAYS 05/30 completed Not Available Not Available Not Available tizanidine 2 mg tablet TAKE 1 TABLET BY MOUTH THREE TIMES DAILY NEEDED FOR MUSCLE SPASTICIT Y active Not Available Not Available No t Available chlorzoxazo ne 500 mg tablet TAKE 1 TABLET BY MOUTH ONCE DAILY NEEDED FOR MUSCLE SPASM active Not Available Not Available No t Available senna 8.6 mg tablet TAKE 1 [...] Not Available Not Available No t Available hydroxychlo roquine 200 mg tablet TAKE 1 TABLET BY MOUTH [...] subcutaneou s pen injector INJECT 0.75 MG SUBCUTANE OUSLY ONCE A WEEK active Not Available Not Available No t Available FreeStyle Cony 3 Sensor device USE DIRECTED TO CHECK BLOOD SUGAR active Not Available Not Available No t Available Ozempic 0.25 mg or 0.5 mg (2 mg/3 mL) subcutaneou s pen injector INJECT 0.25 MG SUBCUTANE OUSLY ONCE A WEEK FOR 4 WEEKS active Not Available Not Available No t Available Vitals Date Recorded Body height Body weight Provider Name and Address Organization Details Last Updated DateTime 05/30/2024 180.34 cm 100161.25 g Rachel Griffith [place] - [facility] 05/30/2024 09:51:11 Social History None recorded. Functional Status None recorded. Mental Status None recorded. Family History Nothing Reported. Medical History Condition Response Diabetes Y High Cholesterol Y Gynecological HistoryNo gynecological history recorded. Obstetrics History GPAL:G 0 P 0 0 0 0 Past Encounters Encounter ID Performer Location Encounter Start Date Encounter Closed Date Diagnosis/Indication Diagnosis SNOMED-CT Code Diagnosis ICD10 Code Diagnosis IMO Codes Diagnosis Note [id number] CASSANDRA GARCIA MD [facility] [address] [address] 05/30/2024 09:36:55 05/30/2024 10:21:36 Obstructive sleep apnea syndrome 40166177 G47.33 [address] [address], [facility] [place] [id number] CASSANDRA GARCIA MD [facility] [address] [address] 01/12/2025 12:13:00 01/12/2025 15:34:09 Obstructive sleep apnea syndrome 82116400 G47.33 [address] [address], sleep [facility] [place], DISE with complete concentric collapse, not a candidate for [facility] Health Concerns Section Related Observation LastModified by Organization Detai ls LastModified Time None Recorded Concern Status LastModified by Organization Details LastModified Time None Recorded Advance Directives Directive None Recorded Payers Insurance Date Sequence Insurance Name Policy Number Policy Magaña Covered Member ID Magaña Member ID Guarantor Name 01/12/[address] [place] [address] [id number] Jaya Hancock [id number] Jaya Hancock Notes Date Note Type Note Provider Name and Address Organization Details Recorded Time 05/30/2024 text/html ROS as noted in the HPI new patientOSA 03/21/2022 Home [facility] Noa Friedman 32REI 20.5Central and mixed events none recordedCPAP trial - intolerant due to high pressures triggering ear pressure and fluid no hx of throat surgeryweight stable 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,[address], [address], [place] - [facility] 05/30/2024 10:21:10 01/12/2025 text/html ROS as noted in the HPI [place] 03/21/[address] Friedman 32REI 20.5Central and mixed events none recordedCPAP trial - intolerant due to high pressures triggering ear pressure and fluid no hx of throat surgeryweight stableedentulous 01/02/25 [facility], DISE - complete concentric collapse. 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,[place] [address], [place], [address], [place] - [facility] 01/12/2025 12:21:28 OBGyn Episode No OBEpisode recorded.
--- OUTSIDE RECORDS SUMMARY | 2025-03-07 07:06 | XMS_ITS | Patient Health Record ---
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 Problem Mendez's neuroma of left foot (141018303032 105) Mendez's neuroma of left foot (G57.62) Active confirmed Plan Of Treatment Pending Test Test Name Order Date X ray : Foot, left 3V 11/30/2017 X ray : Foot, right 3V 11/30/2017 Insurance Providers Payer Name Payer Address Payer Phone Subscriber Number Group Number Insured Name Patient Relationship to Insured Coverage Start Date Coverage End Date [facility] [address] [place] [address] [id number] Jaya Blue Self - patient is the insured Medical (General) History Medical History History ICD Code Hypertriglyceridemia Obesity Hypertension Erectile dysfunction Mendez's neuroma Surgical History Surgery Date(Month/Year) thoracotomy tube insertions Pneumothorax right
[2025-03-07 08:42] LABS: Alanine Aminotransferase 128 U/L (0-40); Albumin Level 4.4 g/dL (3.5-5.0); Alkaline Phosphatase 62 U/L (39-117); Anion Gap 12 (12-20); Aspartate Amino Transferase 68 U/L (5-37); Blood Urea Nitrogen 12 mg/dL (9-16); Calcium 8.9 mg/dL (8.4-10.2); Carbon Dioxide 22 mmol/L (22-29); Chloride 109 mmol/L (96-108); Cholesterol 185 mg/dL (<200); Estimated Glomerular Filt Rate > 60; HDL Cholesterol 32 mg/dL (>40); Potassium 4.2 mmol/L (3.3-5.1); Sodium 139 mmol/L (135-145); Total Protein 6.8 g/dL (6.5-8.0); Triglycerides 202 mg/dL (<150)
[2025-03-07 08:48] LABS: Total Hemoglobin (HGBA1C) 3710.9457 umol/L
== END 2025-03-07 07:03 | disposition home or self-care (01) ==
LOC: HO.LAB 07:02
PROVIDERS: PCP Internal Medicine; Visit Provider Internal Medicine
DX: E78.2 Mixed hyperlipidemia (principal); E11.9 Type 2 diabetes mellitus without complications; E66.9 Obesity, unspecified; K76.0 Fatty (change of) liver, not elsewhere classified
CPT/HCPCS: 36415; 80053; 80061; 83036

== ENCOUNTER 2025-03-10 14:00 | Outpatient (AMB) | payer OTHER, SELFPAY ==
--- NOTE | 2025-03-10 14:01 | MHC.PC.OV ---
Vital Signs 03/10/25 14:06 Height 5 ft 11 in Weight 236 lb BMI 32.9 BP 120/70 Blood Pressure Location Rt brachial Position Sitting Respiration 16 Pulse 76 Pulse Source Pulse Oximeter Temp 98.1 F Temp Source Oral Pulse Oximetry (%) 98 Oxygen Delivery Method Room Air Intake Visit Reasons: 3 months f/up Intake Note: Pt is here today for his 3mo. f/u Patient Support Representative Required: No Allergies No Known Allergies (NO KNOWN ALLERGIES) Allergy (Unknown, Verified 03/10/25 14:10) N/A- Medication List - Last Reconciled 03/10/25 by Ronna Patton MD butenafine 1% (Lotrimin Ultra) 1 appl topical DAILY 4 weeks multivitamin 1 tab PO DAILY omega-3 acid ethyl esters 2 caps PO BID Ozempic (semaglutide) 0.25 mg (0.368 mL) subcut QWEEK NS sennosides (senna) 8.6 mg PO BEDTIME umeclidinium-vilanterol 62.5-25 mcg/actuation (Anoro Ellipta) 1 inh inhalation DAILY Tobacco use date assessed: 03/10/25 Fall risk assessment: No Falls in past year Last assessed Fall Risk: 03/10/25 Dental Screening Dental Screen Date: 03/10/25 Did you have a dental visit in the last 12 months?: Yes Did you have a dental problem in the last 6 months where you did not have access to dental care?: No Was dental information given to patient?: Patient has dentist HPI 3 months f/up HPI Details 65-year-old male here today for follow-up on diabetes mellitus and lipids. He is currently taking Ozempic 0.25 mg injected weekly, as he was unable to tolerate metformin; and is taking Menlo 3 fatty acid supplements and fenofibrate e for control of his lipids. Latest fasting labs done showed good control diabetes mellitus with hemoglobin A1c at 5.8%, but lipids still showed LDL cholesterol not at goal of less than 100 mg/dL. [facility] Medical History (Updated 03/15/25 @ 23:29 by Ronna Patton MD) Type 2 diabetes mellitus with microalbuminuria Personal history of nicotine dependence Osteopenia of multiple sites Hepatic steatosis Pain in both feet Long-term use of Plaquenil Erosive osteoarthritis Bulging of lumbar intervertebral disc Chronic radicular lumbar pain Polyarticular osteoarthritis Metformin adverse reaction Polyarthralgia Neck pain Bilateral finger arthralgia Post-COVID chronic dyspnea Colitis Chronic tension headaches Peripheral neuropathy Pulmonary nodules Sessile colonic polyp (~2018) Tinnitus of both ears Mixed dyslipidemia Type 2 diabetes mellitus without complication, with no history of insulin use STUART (obstructive sleep apnea) Chronic restrictive lung disease Shortness of breath on exertion Obesity (BMI 30.0-34.9) Tubular adenoma of colon (~2018) Surgical History History of hernia repair History of hemorrhoidectomy History of colonoscopy Family History Father No problems noted. Mother No problems noted. 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 1. Little interest or pleasure in doing things: not at all 2. Feeling down, depressed, or hopeless: not at all 3. Trouble falling or staying asleep, or sleeping too much: not at all 4. Feeling tired or having little energy: several days 5. Poor appetite or overeating: not at all 6. Feeling bad about yourself - or that you are a failure or have let yourself or your family down: not at all 7. Trouble concentrating on things, such as reading the newspaper or watching television: several days 8. Moving or speaking so slowly that other people could have noticed. Or the opposite - being so fidgety or restless that you have been moving around a lot more than usual: not at all 9. Thoughts that you would be better off or of hurting yourself in some way: not at all Total score: 2 Depression Screening Interpretation: Negative Depression Screening Done: Yes Source: Developed by Drs. Wes Stock, Marleni Montague, Joselito Reeves and colleagues, with an educational ade from [employer]. Thrive Questionnaire Date Thrive assessed: 07/22/24 I am a: Patient What is your living situation today?: I have a steady place to live Within the past 12 months, did the food you bought not last and you didn't have the money to get more?: Never true Within the past 12 months, did you worry whether your food would run out before you got money to buy more?: Never true Do you have trouble paying for medicines?: No Do you have trouble getting transportation to medical appointments?: No Do you have trouble paying your heating and electricity bill?: No Do you have trouble taking care of your child, family member or friend?: No Do you have trouble with day-to-day activities such as bathing, preparing meals, shopping, managing finances, etc.?: Yes Are you currently unemployed and looking for a job?: No Are you interested in more education?: No Please select the resources that you would like help with: None Currently or been in a relationship where the following occur: No concerns reported THRIVE Score: 0 AUDIT C Alcohol Use Questionnaire (AUDIT-C) 1. How often do you have a drink containing alcohol?: Never 3. How often do you have six or more drinks on one occasion?: Never Total Score: 0 RAIZA-7 AMB Questionnaire RAIZA-7 Date RAIZA - 7 assessed: 07/29/24 Feeling nervous, anxious, or on edge: 1 = Several days Not being able to stop or control worryin = Several days Worrying too much about different things: 1 = Several days Trouble relaxin = Not at all Being so restless that it is hard to sit still: 1 = Several days Becoming easily annoyed or irritable: 0 = Not at all Feeling afraid as if something awful might happen: 0 = Not at all Total RAIZA-7 score (0-4 normal; 5-9 mild; 10-14 moderate; 15-21 severe): 4 Source: Developed by Marleni Brooks Kurt Kroenke and colleagues, with an educational ade from [employer]. Review of Systems Const Denies fatigue and Denies fever(s) Eyes Reports no additional complaints ENT Denies dizziness Card Denies chest pain, Denies leg edema, Denies lightheadedness, Denies palpitations, Denies dyspnea on exertion and Denies other Resp Denies cough and Denies dyspnea on exertion GI Reports no additional complaints Reports no additional complaints Musc Denies abnormal gait, Denies muscle weakness and Denies numbness Skin/Breast Denies rash Neuro Denies abnormal gait, Denies dizziness and Denies numbness Endo Denies fatigue and Denies palpitations Physical exam (Primary Care) Vital Signs: Last Vital Signs Temp 98.1 F 03/10/25 14:06 Pulse 76 03/10/25 14:06 Resp 16 03/10/25 14:06 BP 120/70 03/10/25 14:06 Pulse Ox 98 03/10/25 14:06 Oxygen Delivery Method Room Air 03/10/25 14:06 BMI result Body Mass Index 32.9 Tobacco/Smoking Status: Tobacco use Status Tobacco use date assessed 03/10/25 03/10/25 14:04 Patient Tobacco Use Status Former Tobacco user 03/10/25 14:04 e-Cigarette/Vaping Use Never Used 03/10/25 14:04 PHQ-9: PHQ-9 Score PHQ-9: Total score 2 03/15/25 23:04 Depression Screening Interpretation: Negative Thrive Assessment: Date of Thrive Assessment Date Thrive assessed 07/22/24 03/10/25 14:04 Currently or been in a relationship where the following occur: No concerns reported Const Other: Alert oriented x3, no acute cardiorespiratory distress noted ambulatory normal gait Nutritional Appearance: obese Orientation/consciousness: patient oriented x3 HENMT Face and sinus: Yes face symmetric Mouth: Normal oral and palatal mucosa present and moist mucous membranes Neck Other: Supple , full range of motion in all directions without any difficulty, thyroid gland nonpalpable, no carotid bruits, no lymphadenopathy Resp Effort & Inspection: normal respiratory effort and able to speak in complete sentences Auscultation: clear to auscultation bilaterally Cardio Other: S1-S2 present regular rate and rhythm GI Inspection: Yes normal to inspection Palpation (GI): Soft to palpation, nontender, no guarding and no masses General: Yes no CVA tenderness Back/Spine/Pelvis Back: no CVA tenderness Skin General skin exam: no rashes or lesions noted Neuro General: patient oriented x3, gait normal, moves all extremities, Normal light touch and pain sensation, no focal motor deficits and CN's II-XI intact bilaterally Extrem General: Yes normal to inspection, Yes full ROM, Yes no joint enlargement, Yes no clubbing, cyanosis or edema and Yes normal gait Psych Appearance: grossly normal and well kempt Mental Status: mental status grossly normal Speech and movement: Normal speech and movement present Affect: normal affect Results Reviewed Results Reviewed: Name: Jaya Hancock Age/Sex: 65/M : 1960 Unit#: [id number] Attend Dr: Ronna Patton MD Re03/07/25 Status: DEP [facility] Disch: SPEC : [id number] HARSHAD: 03/07/25 STATUS: COMP REQ : [id number] RECD: 03/07/[address]: Ronna Patton MD COMP: 03/07/25 ENTERED: 03/07/[address] [facility] [address]: ORDERED: CMP Fast, Lipid Panel Test Result Flag Reference Sodium 139 135-145 mmol/L Potassium 4.2 3.3-5.1 mmol/L CL 109 H 96-108 mmol/L CO2 22 22-29 mmol/L Gap 12 12-20 BUN 12 9-16 mg/dL Creat 0.81 0.5-1.4 mg/dL eGFR > 60 Chronic Kidney Disease: Estimated GFR < 60 mL/min/1.73m2 Severe Kidney Disease: Estimated GFR < 15 mL/min/1.73m2 FBS 130 H 60-99 mg/dL A fasting glucose of 126 mg/dl or greater on more than one occasion is considered diagnostic of diabetes. CA 8.9 8.4-10.2 mg/dL Total Bili 0.7 0.0-1.0 mg/dL AST (GOT) 68 H 5-37 U/L ALT (GPT) 128 H 0-40 U/L Protein, Total 6.8 6.5-8.0 g/dL Alb 4.4 3.5-5.0 g/dL Triglyceride 202 H <150 mg/dL Desirable Triglyceride: less than 150 mg/dL Borderline High Triglyceride 150-199 mg/dL High Triglyceride: 200-499 mg/dL Very High Triglyceride: greater than or equal to 5OO mg/dL Cholesterol 185 <200 mg/dL Desirable Cholesterol: less than 200 mg/dL Borderline High Cholesterol: 200-239 mg/dL High Cholesterol: greater than 239 mg/dL LDL Calculated 113 H <100 mg/dL Desirable LDL: less than 100 mg/dL Near Optimal/Above Optimal LDL: 110-129 mg/dL Borderline High LDL: 130-159 mg/dL High LDL: 160-189 mg/dL Very High LDL: greater than or equal to 190 mg/dL HDL 32 L >40 mg/dL Desirable HDL: greater than 40 mg/dL Note: This HDL assay may give artificially low results in patients with liver disease. Alk Phos 62 39-117 U/L Laboratory Tests 07/25/24 03/07/25 06:08 07:25 Estimat Average Glucose 120 Hemoglobin A1c % 5.8 Microalb/Creat Ratio 32.5 H Coding Level of Care Code Est Pt Level 4 (45781) Complex EM visit Add On G2211 Diagnoses Type 2 diabetes mellitus with microalbuminuria, without long-term current use of insulin E11.29; R80.9 Diabetes mellitus long term care administrator insulin use: without fdc use Mixed dyslipidemia E78.2 Assessment & Plan Assessment & Plan (1) Type 2 diabetes mellitus with microalbuminuria: Code(s): E11.29 - Type 2 diabetes mellitus with other diabetic kidney complication; R80.9 - Proteinuria, unspecified Category: Medical Qualifiers: Diabetes mellitus long term care administrator insulin use: without long term care administrator use Qualified Code(s): E11.29 - Type 2 diabetes mellitus with other diabetic kidney complication; R80.9 - Proteinuria, unspecified Plan: Continue Ozempic at the same dose 0.25 mg injected subcutaneously once a week (2) Mixed dyslipidemia: Code(s): E78.2 - Mixed hyperlipidemia Category: Medical Plan: Unable to tolerate statin, prescription sent for ezetimibe 10 mg per tablet, try initially taking 1 tablet twice a week and if tolerated, increase dosing frequency to 1 tablet every other day. Continued on Menlo 3 fatty acid supplement Repeat another fasting lipid panel in June 2025 Orders: Orders Lipid Panel 06/21/25 E11.29 - Type 2 diabetes mellitus with other diabetic kidney complication, E78.2 - Mixed hyperlipidemia, R80.9 - Proteinuria, unspecified Alanine Aminotransferase 06/21/25 E11.29 - Type 2 diabetes mellitus with other diabetic kidney complication, E78.2 - Mixed hyperlipidemia, R80.9 - Proteinuria, unspecified Aspartate Amino Transferase 06/21/25 E11. - Type 2 diabetes mellitus with other diabetic kidney complication, E78.2 - Mixed hyperlipidemia, R80.9 - Proteinuria, unspecified Basic Metabolic Panel Fasting 06/21/25. - Type 2 diabetes mellitus with other diabetic kidney complication, E78.2 - Mixed hyperlipidemia, R80.9 - Proteinuria, unspecified Microalbumin, Random (w Creat) 06/21/25 E11. - Type 2 diabetes mellitus with other diabetic kidney complication, E78.2 - Mixed hyperlipidemia, R80.9 - Proteinuria, unspecified Hemoglobin A1c 06/21/25 E11. - Type 2 diabetes mellitus with other diabetic kidney complication, E78.2 - Mixed hyperlipidemia, R80.9 - Proteinuria, unspecified Medications: New ezetimibe 10 mg PO DAILY 90 tabs 2RF
[2025-03-10 14:06] VITALS: BP 120/70; PULSE 76; RESP 16; TEMP 36.7; O2SAT 98; BMI 32.9
--- OUTSIDE RECORDS SUMMARY | 2025-03-10 18:47 | XMS_ITS | Data Portability ---
Author Organization [place] - [facility], Allergy Address [address] [place] [id number] Care Team Providers Care Airline Flight Attendant Name Role Phone RASHIDA AUGUST Referring Provider [...] Details Recorded Time Obstructive sleep apnea syndrome [id number] Active 025 CASSANDRA GARCIA MD [address], [phone], [place] - [facility] 10:07:30 Problem Notes None recorded. Procedures Surgical History Date Name Laterality Status Provider Name and Address Organization Details Recorded Time 01/13/20 25 Telehealth completed CASSANDRA GARCIA MD [address] [place] [address], [phone], [facility] - [facility] 01/02/2025 07:46:34 01/03/20 sleep nasendoscopy completed CASSANDRA GARCIA MD [address] [place] [address],[address], [phone], [facility] 01/02/2025 13:09:41 05/30/19 FOL_DP completed CASSANDRA GARCIA MD [address] [place] [address],[address], [phone], [facility] - [facility] 05/30/2024 10:07:24 Imaging Results None recorded. Procedure [...] Details Last Updated DateTime 05/30/2024 180.34 cm 880758.25 g Rachel Griffith [place] - [facility] 05/30/2024 09:51:11 Social History None recorded. Functional [...] ICD10 Code Diagnosis IMO Codes Diagnosis Note [id number] CASSANDRA GARCIA MD [facility] [address] [phone] 05/30/2024 09:36:55 05/30/2024 10:21:36 Obstructive sleep apnea syndrome [id number] G47.33 [address] [address], sleep center [place] [id number] CASSANDRA GARCIA MD [facility] [address] [phone] 01/12/2025 12:13:00 01/12/2025 15:34:09 Obstructive sleep apnea syndrome [id number] G47.33 [address] [address], sleep center [place], DISE with complete concentric collapse, not a candidate for [facility] Health Concerns Section Related Observation LastModified by Organization Detai ls LastModified Time None Recorded Concern Status LastModified by Organization Details LastModified Time None Recorded Advance Directives Directive None Recorded Payers Insurance Date Sequence Insurance Name Policy Number Policy Magaña Covered Member ID Magaña Member ID Guarantor Name 01/12/[address] [place] [address] [id number] Jaya Hancock [id number] Jaya Hancock Notes Date Note Type Note Provider Name and Address Organization Details Recorded Time 05/30/2024 text/html ROS as noted in the HPI new patientOSA 03/21/2022 Home PSG Noa Friedman 32REI 20.5Central and mixed events none recordedCPAP trial - intolerant due to high pressures triggering ear pressure and fluid no hx of throat surgeryweight 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 Friedman 32REI 20.5Central and mixed events none recordedCPAP trial - intolerant due to high pressures triggering ear pressure and fluid no hx of throat surgeryweight stableedentulous 01/02/25 [facility], DISE - complete concentric collapse. 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
== END 2025-03-10 14:39 | disposition home or self-care (01) ==
LOC: HO.HMCC 14:00
PROVIDERS: PCP Internal Medicine; Visit Provider Internal Medicine
DX: E11.29 Type 2 diabetes mellitus with other diabetic kidney complication (principal); R80.9 Proteinuria, unspecified; E78.2 Mixed hyperlipidemia